=== PATIENT | female | born 1950 | race Caucasian/White ===

== ENCOUNTER → 2017-10-15 16:12 | Outpatient (CLI) | payer MEDICARE, BC, SELFPAY ==
--- NOTE | 2017-10-15 16:43 | MRI_ITS ---
STUDY: MRI CERVICAL SPINE WITHOUT CONTRAST REASON FOR EXAM: Female, 67 years old. Neck pain. Right arm numbness and tingling. TECHNIQUE: Standardized fat and water weighted pulse sequences were obtained in the sagittal and axial planes. COMPARISON: None FINDINGS: Normal foramen magnum and brainstem-cervical cord junction. Normal craniovertebral junction. Normal anterior atlantoaxial articulation. Normal odontoid process. Normal cervical lordosis. Normal vertebral bodies and posterior osseous elements. C2-3: Normal endplates. Normal disc height, signal and morphology. Normal central canal and intervertebral neural foramina. C3-4: Normal endplates. Normal disc height, signal and morphology. Normal central canal and intervertebral neural foramina. C4-5: Normal endplates. Normal disc height, signal and morphology. Normal central canal and intervertebral neural foramina. C5-6: Endplate spondylosis. Central and paracentral disc osteophyte bulge more prominent on the right side impinging on the right C6 nerve root. Degenerative changes of the bilateral facet joints and uncovertebral joints. Moderate narrowing of the central canal and mild narrowing of the bilateral intervertebral neural foramina. C6-7: Normal endplates. Normal disc height, signal and morphology. Normal central canal and intervertebral neural foramina. C7-T1: Normal endplates. Normal disc height, signal and morphology. Normal central canal and intervertebral neural foramina. Normal cervical cord. Normal visualized soft tissue structures. MRI/Spine Cervical (Routine) IMPRESSION: Central and paracentral disc osteophyte bulge at C5-6 more prominent on the right side impinging on the right C6 nerve root. Electronically Signed: Clementina Ribeiro MD at 3:44 EST Tel , Service support ,
== END ==
PROVIDERS: Family Provider Family Medicine; PCP Family Medicine
DX: M54.12 Radiculopathy, cervical region (principal)
CPT/HCPCS: 72141

== ENCOUNTER → 2017-11-02 07:59 | Outpatient (CLI) | payer MEDICARE, BC, SELFPAY ==
[2017-11-02] VITALS (8 sets, daily range): BP systolic 93–117; BP diastolic 53–74; PULSE 72–92; RESP 16–18; TEMP 36.2–36.8; O2SAT 98–100; BMI 21.4
[2017-11-02] MEDS: Acetaminophen 325 MG Tablet 650 MG PO (09:04)
[2017-11-02] MEDS: DiphenhydrAMINE 50 MG/ML Syringe 25 MG IV (09:04)
[2017-11-02] MEDS: Hydrocortisone Sod Succinate 100 MG/2 ML Vial IV (09:04)
== END ==
PROVIDERS: Family Provider Family Medicine; PCP Family Medicine; Visit Provider Internal Medicine Hematology & Oncology
DX: Z51.89 Encounter for other specified aftercare (principal); D50.0 Iron deficiency anemia secondary to blood loss (chronic)
CPT/HCPCS: 36430; 86850; 86900; 86902; 86920; 86922; J7040; J7050; P9016; A4216

== ENCOUNTER 2018-02-07 08:00 | Outpatient (RCR) | payer MEDICARE, BC, SELFPAY ==
--- NOTE | 2018-01-12 17:21 | HP.PTEVAL_ITS ---
Patient's Visit Information DERECK LÓPEZ is a 67 year old F referred to Physical Therapy by UZMA MAYS with a diagnosis of cervical discectomy early December.. Date of Evaluation: 01/12/18 Physical Therapist: Rohith Turner DPT, OC - Visit Plan Frequency: 3x /Week Duration: 4-6 Weeks Plan: 3x/week for 3-6 for : 1. c/s gentle ROM focussing Rotation and posture. 2. postural, shoulder strength and isometric cervical strength. 3. STM to posterior c/s if needed for tightness/pain. 4. Postural focus. - Subjective Subjective: 3 weeks ago had C5-6 meniscectomy fusion from bulging disc making R fingers and arm numb. Was a little weak and it woke her up at night. Had long history of neck pain. Now hurts in shoulders spasming a ltitle bit from not moving. Numbness and tinlging is improving but may last 12-18 months. Was going to [employer] to wrok out and wants to return. Sleep is not great as she is uncomfortable. Has soft collar that she does not need to sleep in anymore and is weaning out of it during the day. Is to avoid lifting > 10# and bending or turning head too far. Not allowed to drive for two weeks. Basic ADLS are OK. Stayed with daughter in [place] for first two weeks but is home now. Steps to basement for laundry. Not employed. 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 No exercises, no icing. - Pain R neck/shoulder Pain Intensity (Out of 10): 0 Pain Intensity Range: 0, 5 Comment: after mowing. - Objective 32 L rotation 20 r rotation, 10 degrees B SB and 40 ext. Tender to the touch R UT and deltoid minimally. UE AROM WFL, R shoulder 140 flexion and L 155. Strength in thumb ext 4- R and 4 L, wirst ext adn flexion 4 B, elbow flexiona dn ext 4-/5 adn shoulder flex/abd 4/5, ext rotation 3+ R and 4 L...IKR 4 B. Sensation shows slight numbness 1/2/3 digit R UE subjectively. reflexes 2/3 bi and tri. Posture is forward head but lower spine posture is decent. Scapular ROM WFL. - Goals Goal 1:: Pt pain 0-2/10 or less at all times and mangeable Goal Time Frame: 4-6 Weeks Goal 2:: Sleep without waking due to discomfort Goal Time Frame: 4-6 Weeks Goal 3:: Turn head 60 degrees each direction without pain to help with driving viewing. Goal Time Frame: 4-6 Weeks Goal 4:: Back to workout at [employer] without pain Goal Time Frame: 4-6 Weeks - Rehabilitation Potential Physical Therapy Diagnosis: s/p cervical fusion with stiffness and diminished activity Rehabilitation Potential: Fair - Anticipated Interventions Patient/Client Instruction: Educate patient on: Condition, Plan of Care For the Purpose of:: To decrease pain, To increase ROM, To improve nutrient delivery to tissue, To improve muscle performance and motor function Therapeutic Exercise to Include: Strength training, Postural training, Flexibilty training, Active ROM, Scapular Strength/Stabilization For the Purpose of:: To decrease pain, To increase ROM, To improve muscle performance and motor function, To improve ability to perform ADL's, To improve ability of physical actions for home/community/work/leisure Manual Therapy Techniques to Include: Soft tissue mobilization For the Purpose of:: To improve nutrient delivery to tissue Thank you for the opportunity to evaluate your patient. For Medicare and Medicare HMO plans, please review the plan of care and approve it. It will need to be FAXED BACK to us at [phone] for Medicare purposes. Please let me know if there are questions or concerns regarding this plan of care. Physician Signature: Date:
--- NOTE | 2018-02-07 08:52 | HP.PTDCSUM ---
HP - PT D/C Summary It has been my pleasure to treat DERECK LÓPEZ under orders from UZMA MAYS, for the diagnosis of cervical discectomy early December. for a total of 13 visit(s). Discharge Date: 02/07/18 Please see the following information for a summary of their discharge status. - Subjective Subjective: It's a neck. Getting better yes and no but still feels tight. Has more movement after sessions and feels looser. After working or being in wrong position it still bothers her on the right side. Hato be more aware of where chin is. No problems with R hand. Sleep is up and down which is normal for her. Sees doctor in March 02. HEP doing bands in door , c/s AROM rotation and rolling foam roller. Life is normal, just stiff and tight at times. Mowing ont he tractor for too long make sit stiff. 03/01 night after work but OK Wednesday relaxing. - Pain R neck/shoulder Pain Intensity (Out of 10): 0 - Objective Objective/Function: 60 L , 58 R., 60 ext , 20+ SB. ALL MUCH BETTER. Good UE AROM and no UE symptoms today. - Goals Goal 1:: Pt pain 0-2/10 or less at all times and mangeable Goal Progress: Progressing Goal 2:: Sleep without waking due to discomfort Goal Progress: for the most part. Goal 3:: Turn head 60 degrees each direction without pain to help with driving viewing. Goal Progress: Near met. Goal 4:: Back to workout at [employer] without pain Goal Progress: no time. - Plan Plan: D/C(pt request vs continuing or f/u in three weeks.) - D/C Information Discharge Comments: Pt to continue HEP and see doctor in three weeks. Will call if problems. Doing very well with expected apin and stiffness adn much better ROM. If there are questions or concerns regarding this patient's physical therapy, please feel free to call me at [phone]. Thank you for the referral of this patient. Sincerely, Rohith Turner, DPT, OC
== END 2018-02-07 19:00 | disposition home or self-care (01) ==
LOC: PT 08:00
PROVIDERS: Family Provider Family Medicine; PCP Family Medicine
DX: Z98.1 Arthrodesis status (principal)
CPT/HCPCS: 97110; 97140; 97162; 97530

== ENCOUNTER → 2018-03-23 13:45 | Outpatient (CLI) | payer MEDICARE, BC, SELFPAY ==
--- NOTE | 2018-03-23 13:46 | ECHOD_ITS ---
Reason For Study: dyspnea/Sob Procedure This was a 2D Doppler, Color Flow transthoracic echocardiogram. Exam performed in department. Left Ventricle Normal LV size. Left ventricular systolic function is normal. The estimated ejection fraction is 65 %. No evidence for diastolic dysfunction. No regional wall motion abnormalities noted. Right Ventricle Normal RV size. Normal systolic function. Atria Normal left atrium. Normal right atrium. Mitral Valve Normal mitral valve. Mild (1+) eccentric mitral valve insufficiency. Tricuspid Valve Normal tricuspid valve. Mild (1+) tricuspid valve insufficiency. Pulmonary artery systolic pressure is 37 mmHg. Aortic Valve Normal aortic valve. Trisinus/trileaflet aortic valve. Pulmonic Valve Normal pulmonic valve. Great Vessels Normal aortic root. The pulmonary artery is normal size. Normal inferior vena cava. Pericardium/Pleural No pericardial effusion. MMode/2D Measurements & Calculations LVIDd: 4.6 cm IVSd: 0.93 cm Ao root diam: 3.0 cm LVIDs: 2.9 cm LVPWd: 0.96 cm LA dimension: 3.0 cm RVDd: 2.6 cm FS: 35.8 % LAV(MOD-bp): 59.1 ml LA A4 area: 18.4 cm2 RA A4 area: 16.2 cm2 LAV(MOD-bp) Indexed: 35.1 ml/m2 LAV(MOD-sp2): 53.8 ml LAV(MOD-sp4): 55.4 ml Doppler Measurements & Calculations MV E max curly: 110.1 cm/sec Lat Peak E' Curly: 9.3 cm/sec Med Peak E' Curly: 8.5 cm/sec MV A max curly: 82.3 cm/sec E/E' lat: 11.8 E/E' med: 12.9 MV E/A: 1.3 Ao V2 max: 155.2 cm/sec LV V1 max: 136.0 cm/sec PA V2 max: 92.1 cm/sec Ao max P.6 mmHg LV V1 max P.4 mmHg TR max curly: 285.2 cm/sec TR max P.6 mmHg Interpretation Summary Normal LV size. Left ventricular systolic function is normal. The estimated ejection fraction is 65 %. No evidence for diastolic dysfunction. Mild (1+) eccentric mitral valve insufficiency. Mild (1+) tricuspid valve insufficiency. Ordering Physician: Delta House Referring Physician: Delta House Performed By: María Hyatt, HILARIO, RVT
--- NOTE | 2018-03-23 14:36 | CT_ITS ---
STUDY: CTA CHEST REASON FOR EXAM: Female, 67 years old. Hereditary hemorrhagic telangiectasia. Baseline scan. RADIATION DOSAGE (If Supplied By Facility): CTDIvol = ( 10.48+5.21 ) mGy, DLP = ( 183.67 ) mGycm TECHNIQUE: The examination was performed with the intravenous administration of 75cc ml of Isovue 370 contrast material. Post-processing of the angiographic images was performed, with multiplanar reformation and 3D reconstruction. Individualized dose optimization techniques were used for this CT. COMPARISON: CT chest with contrast 05/12/2012. FINDINGS: Supraclavicular: Normal thyroid. No mass or lymphadenopathy. Thoracic body wall soft tissues: Normal. Osseous structures: Right shoulder arthroplasty. Cervical ACDF. Moderate thoracic kyphosis with mild scoliosis and osteopenia and mild spondylosis. No acute osseous process. Upper abdomen: Limited evaluation, no acute process. Mediastinum: Normal esophagus. There is no mediastinal or hilar mass or lymphadenopathy. Heart: Normal heart size without pericardial effusion and with no visible coronary calcifications. Aorta: Nondilated. Patent cervical arch branching no significant plaque. No dissection. Pulmonary arteries: Nondilated central pulmonary arteries with no evidence of pulmonary embolism. There is no evidence of pulmonary vascular malformation. Lungs: A few tiny scattered pulmonary nodules are present, 3 mm or less, part solid, nonspecific. The lungs appear otherwise clear and normal. CT/CTA Chest W/WO Contrast IMPRESSION: Normal aorta, pulmonary arterial, and pulmonary venous arborization. No evidence of vascular malformation. Clear normal lungs. Normal heart, with normal-appearing coronary arteries. No acute thoracic process is evident. Electronically Signed: Ruel Robins, at 16:56 EDT Tel , Service support ,
[2018-03-23 15:16] LABS: CREATININE FINGERSTICK 0.6 mg/dL (0.55-1.02); EGFR FINGERSTICK > 60.0000 mL/min (>60)
== END ==
PROVIDERS: Family Provider Family Medicine; PCP Family Medicine; Visit Provider Internal Medicine Cardiovascular Disease
DX: R06.09 Other forms of dyspnea (principal); I78.0 Hereditary hemorrhagic telangiectasia
CPT/HCPCS: 71275; 93306; Q9967

== ENCOUNTER → 2018-04-19 08:02 | Outpatient (CLI) | payer MEDICARE, BC, SELFPAY ==
[2018-04-19] VITALS (7 sets, daily range): BP systolic 85–112; BP diastolic 56–78; PULSE 78–91; RESP 16; TEMP 36.4–36.9; O2SAT 98; BMI 21.3
[2018-04-19] MEDS: Acetaminophen 325 MG Tablet 650 MG PO (08:33)
[2018-04-19] MEDS: DiphenhydrAMINE 50 MG/ML Syringe 25 MG IV (08:34)
[2018-04-19] MEDS: Hydrocortisone Sod Succinate 100 MG/2 ML Vial IV (08:34)
== END ==
PROVIDERS: Family Provider Family Medicine; PCP Family Medicine; Visit Provider Internal Medicine Hematology & Oncology
DX: Z51.89 Encounter for other specified aftercare (principal); D50.0 Iron deficiency anemia secondary to blood loss (chronic)
CPT/HCPCS: 36430; 86850; 86900; 86902; 86920; 86922; J7040; P9016; A4216

== ENCOUNTER → 2018-09-20 08:34 | Outpatient (CLI) | payer MEDICARE, BC, SELFPAY ==
[2018-09-17 13:39] VITALS: BMI 22.6
[2018-09-20] VITALS (9 sets, daily range): BP systolic 106–124; BP diastolic 53–74; PULSE 84–102; RESP 16–18; TEMP 36.6–37.4; O2SAT 96–99; BMI 21.4
[2018-09-20] MEDS: DiphenhydrAMINE 50 MG/ML Syringe 25 MG IV (09:04)
[2018-09-20] MEDS: Acetaminophen 325 MG Tablet 650 MG PO (09:05)
[2018-09-20] MEDS: Hydrocortisone Sod Succinate 100 MG/2 ML Vial IV (09:05)
== END ==
PROVIDERS: Family Provider Family Medicine; PCP Family Medicine; Referring Provider Internal Medicine Hematology & Oncology; Visit Provider Internal Medicine Hematology & Oncology
DX: Z51.89 Encounter for other specified aftercare (principal); D50.0 Iron deficiency anemia secondary to blood loss (chronic)
CPT/HCPCS: 36430; 86850; 86900; 86902; 86920; 86922; J7040; P9016; P9040; A4216

== ENCOUNTER → 2018-11-15 08:26 | Outpatient (CLI) | payer MEDICARE, BC, SELFPAY ==
[2018-09-20 08:45] VITALS: BMI 21.4
[2018-11-15] VITALS (10 sets, daily range): BP systolic 95–112; BP diastolic 42–58; PULSE 75–87; RESP 16; TEMP 36.6–37.3; O2SAT 99–100; BMI 21.4
[2018-11-15] MEDS: Acetaminophen 325 MG Tablet 650 MG PO (08:59)
[2018-11-15] MEDS: Hydrocortisone Sod Succinate 100 MG/2 ML Vial IV (08:59)
[2018-11-15] MEDS: DiphenhydrAMINE 50 MG/ML Syringe 25 MG IV (08:59)
== END ==
PROVIDERS: Family Provider Family Medicine; PCP Family Medicine; Referring Provider Internal Medicine Hematology & Oncology; Visit Provider Internal Medicine Hematology & Oncology
DX: Z51.89 Encounter for other specified aftercare (principal)
CPT/HCPCS: 36430; 86850; 86900; 86902; 86920; 86922; J7040; P9016; A4216

== ENCOUNTER → 2018-12-08 14:11 | Outpatient (CLI) | payer MEDICARE, BC, SELFPAY ==
[2018-09-20 08:45] VITALS: BMI 21.4
[2018-12-08 13:00] VITALS: BMI 21.4
--- NOTE | 2018-12-08 14:13 | BI_ITS ---
MAMMOGRAPHY - BILATERAL SCREENING REASON FOR EXAM: Female, 68 years old. Routine annual screening examination. PERTINENT HISTORY: Non-contributory. TECHNIQUE: Digital bilateral breast mercedes (3D mammographic acquisition) in the CC and MLO projections. 2-D mediolateral oblique (MLO) and craniocaudad (CC) views of both breasts were obtained. CAD: Full Field Digital Mammography with Computer Added Detection was performed. COMPARISON: Comparison is made with prior examination dated August 20, 2016. FINDINGS: Breast Composition: There are scattered areas of fibroglandular density. There are no dominant masses or suspicious calcifications. No other significant abnormalities are identified. There has been no significant change since the prior study. BI/SCREEN MAMM (CAD) W/MERCEDES BILAT IMPRESSION: Stable bilateral screening mammogram. Yearly follow-up mammogram recommended. (A) ASSESSMENT CATEGORY: BIRADS Category 1: Negative. A letter regarding these results will be sent to the patient by the facility within 30 days. Approximately 10% of breast cancers are not detected by mammography. A normal mammogram should not delay biopsy of a clinically suspicious abnormality. [id number] Electronically Signed: Roberto Olson, at 16:04 EDT , Service support ,
--- NOTE | 2018-12-08 14:15 | BD_ITS ---
STUDY: DUAL ENERGY X-RAY ABSORPTIOMETRY / DXA REASON FOR EXAM: Female, 68 years old. The patient is postmenopausal. No loss of height. TECHNIQUE: Bone Mineral Density (BMD) measurements of lumbar spine and bilateral hips were obtained. COMPARISON: None. FINDINGS: Lumbar Spine (L1-L4): g/cm2 (1.073) / T-score (-0.8) / Z-score (0.8) Findings are suggestive of normal bone density with a low fracture risk. Left Femur Total: g/cm2 (0.811) / T-score (-1.6) / Z-score (-0.2) Left Femoral Neck: g/cm2 (0.817) / T-score (-1.6) / Z-score (0.0) Right Femur Total: g/cm2 (0.744) / T-score (-2.1) / Z-score (-0.7) Right Femoral Neck: g/cm2 (0.676) / T-score (-2.6) / Z-score (-1.0) BD/Dexa Bone Density Study IMPRESSION: The patient is considered osteoporotic as outlined below according to World Erasmo Organization (WHO) criteria with a high fracture risk. Reference Information: The T-score is the number of standard deviations above or below the standard which is normal for young adults at their peak bone mineral density. The World Health Organization (WHO) interprets the T-scores as follows: Above -1 Normal bone density Between -1 and -2.5 Osteopenia Equal to / or below -2.5 Osteoporosis As a practical clinical guideline, osteopenia may be graded as follows: Mild -1 through -1.5 Moderate -1.6 through -2.0 Severe -2.1 through -2.4 The Z-score is the number of standard deviations above or below age-matched controls. A Z-score of less than -1.5 would be considered abnormal. References: 1. NIH Osteoporosis and Related Bone Diseases http://www.osteo.org 2. International Society for Clinical Densitometry http://www.iscd.org 3. National Osteoporosis Foundation http://www.nof.org Electronically Signed: Roberto Olson, at 14:50 EDT , Service support ,
== END ==
PROVIDERS: Family Provider Family Medicine; PCP Family Medicine; Referring Provider Nurse Practitioner Women's Health; Visit Provider Nurse Practitioner Women's Health
DX: Z12.31 Encounter for screening mammogram for malignant neoplasm of breast (principal); Z78.0 Asymptomatic menopausal state
CPT/HCPCS: 77063; 77067; 77080

== ENCOUNTER → 2019-02-27 | Outpatient (CLI) | payer MEDICARE, BC, SELFPAY ==
[2018-12-08 13:00] VITALS: BMI 21.4
== END | disposition home or self-care (01) ==
LOC: BFHLAB 11:06
PROVIDERS: Family Provider Family Medicine; PCP Family Medicine; Visit Provider Family Medicine
DX: R39.15 Urgency of urination (principal); E78.5 Hyperlipidemia, unspecified; R53.83 Other fatigue
CPT/HCPCS: 87086

== ENCOUNTER → 2019-03-01 | Outpatient (CLI) | payer MEDICARE, BC, SELFPAY ==
[2018-12-08 13:00] VITALS: BMI 21.4
[2019-03-01 12:28] LABS: ALB/GLOB Ratio 1.3 RATIO (0.9-2.4); AST(SGOT) 22 U/L (15-37); Alanine Aminotransfer ALT/SGPT 30 U/L (13-56); Albumin, Serum 3.8 g/dL (3.2-5.0); Alkaline Phosphatase 77 U/L (45-117); Anion Gap 8 (5-15); BUN 22 mg/dL (7-18); BUN/Creat Ratio 26.1 RATIO (10-20); Calcium,Total 8.9 mg/dL (8.5-10.1); Chloride 105 mmol/L (98-107); Cholesterol 158 mg/dL (200); Creatinine, Serum 0.84 mg/dL (0.55-1.02); EST Glomerular Filtration Rate 71 mL/min (>60); Est Glom Filt Rate - Afr Amer 86 mL/min (>60); Globulin 2.9 g/dL (2.2-4.2); Glucose 79 mg/dL (74-106); High Density Lipoprotein 47 mg/dL; Protein, Total 6.7 g/dL (6.4-8.2); Sodium Level 140 mmol/L (136-145); Triglycerides 116 mg/dL; Very Low Density Lipoprotein 23 mg/dL (5-40)
== END | disposition home or self-care (01) ==
LOC: LAB.FUTURE 08:07
PROVIDERS: Family Provider Family Medicine; PCP Family Medicine; Visit Provider Family Medicine
DX: E78.5 Hyperlipidemia, unspecified (principal); R53.83 Other fatigue; R39.15 Urgency of urination
CPT/HCPCS: 36415; 80053; 80061

== ENCOUNTER → 2019-07-06 15:36 | Outpatient (CLI) | payer MEDICARE, BC, SELFPAY ==
[2019-03-02 13:13] VITALS: BMI 22.1
== END ==
PROVIDERS: Family Provider Family Medicine; PCP Family Medicine; Referring Provider Otolaryngology Otolaryngology/Facial Plastic Surgery; Visit Provider Otolaryngology Otolaryngology/Facial Plastic Surgery
DX: J32.9 Chronic sinusitis, unspecified (principal)
CPT/HCPCS: 87070; 87205

== ENCOUNTER 2019-08-06 09:44 | Emergency (ER) | payer MEDICARE, BC, SELFPAY ==
[2019-08-06 09:12] VITALS: BMI 22.1
[2019-08-06 09:45] VITALS: BP 116/75; PULSE 85; RESP 18; TEMP 36.7; O2SAT 99; BMI 21.7
--- NOTE | 2019-08-06 09:58 | CT_ITS ---
STUDY: CT CHEST WITH CONTRAST REASON FOR EXAM: Female, 68 years old. Patient fell 5 days ago. Hematuria. RADIATION DOSAGE (If Supplied By Facility): CTDIvol = ( 8.99 ) mGy, DLP = ( 1261.62 ) mGycm TECHNIQUE: Transaxial imaging was performed following intravenous administration of 100mL Isovue 370. Individualized dose optimization techniques were used for this CT. COMPARISON: 03/23/2018. FINDINGS: There is moderate stranding in the right lung base new since previous examination likely due to atelectasis. There are mild atelectatic changes in the left lung base. There is small right pleural effusion. Normal heart and pericardium. Normal mediastinum. Normal hilar regions. Normal enhanced pulmonary arteries. Normal aorta arch and descending thoracic aorta. There is right shoulder arthroplasty. There is increased kyphosis of the thoracic spine and mild degenerative changes. There is no demonstrated acute fracture. The visualized portions of the upper abdomen demonstrate trace of free fluid adjacent to the liver. CT/Chest WITH Contrast IMPRESSION: 1. Atelectatic changes in the right lower lung and small right pleural effusion. 2. Minimal amount of fluid adjacent to the liver. 3. No demonstrated acute fracture. Electronically Signed: Javy Fajardo MD at 11:48 EST Tel , Service support ,
--- NOTE | 2019-08-06 09:58 | CT_ITS ---
STUDY: CT ABDOMEN AND PELVIS WITH CONTRAST REASON FOR EXAM: Female, 68 years old. Patient fell 5 days ago, right flank pain and hematuria. RADIATION DOSAGE (If Supplied By Facility): CTDIvol = ( 8.99 ) mGy, DLP = ( 1261.62 ) mGycm TECHNIQUE: Transaxial images were obtained from the dome of the diaphragm to the symphysis pubis without oral contrast. 100mL Isovue 370 was administered. Sagittal and coronal images were reconstructed. Individualized dose optimization techniques were used for this CT. COMPARISON: None. FINDINGS: The visualized portions of lung bases demonstrate again ectatic changes in the right lower lung. There is small right pleural effusion. The visualized portions of the heart are within normal limits. No focal lesion is seen in the liver. There are collateral veins in the region of the yumi hepatis. There is non-visualization of the gallbladder, which may be secondary to either contraction or a prior cholecystectomy. There is trace of fluid near the dome of the liver. Normal spleen. Normal pancreas. Normal bilateral adrenal glands. Normal right kidney. There is a small cyst in the lower pole of the left kidney. There is mild prominence of the pelvicalyceal system. Normal visualized stomach. There are nonspecific fluid-filled small bowel loops. There is no evidence of bowel obstruction. There is fecal retention. The appendix is visualized and appears normal. Normal abdominal aorta. Normal inferior vena cava. Normal retroperitoneum. Normal urinary bladder. There is increased vascularity in the pelvic region which may reflect pelvic congestion. Normal abdominal wall. There is fracture of the posterior right 10th rib CT/Abdomen/Pelvis WITH Contrast IMPRESSION: 1. Trace of free fluid near the dome of the liver. 2. No evidence of renal injury. 3. Fracture of the posterior right 10th rib. 4. Atelectatic changes in the right lower lung and trace of right pleural effusion. 5. Nonspecific fluid-filled small bowel loops could be due to mild ileus. 6. Collateral veins in the abdomen and pelvis which may reflect venous congestion. Electronically Signed: Javy Fajardo MD at 12:00 EST Tel , Service support ,
[2019-08-06] MEDS: Morphine 4 MG/ML Syringe IV (10:17)
[2019-08-06] MEDS: 0.9% Normal Saline 1,000 ML 999 ML IV (10:17)
[2019-08-06] MEDS: Ondansetron 4 MG/2 ML Vial IV (10:17)
[2019-08-06 10:27] LABS: Absolute Lymphocyte Count 0.56 X10^3/uL (0.83-4.51); Absolute Neutrophil Count 6.2 X10^3/uL (2.0-7.7); Basophil# 0.03 X10^3/uL; Basophil% 0.4 % (0-1); Eosinophil# 0.09 X10^3/uL; Eosinophils% 1.2 % (0-5); Hematocrit 38.8 % (37-47); Hemoglobin 12.3 g/dL (12.0-15.0); Lymphocyte # 0.56 X10^3/ul (4.0); Lymphocyte % 7.3 % (19-41); Mean Corp Hgb Conc 31.7 g/dL (32-36); Mean Corpuscular Hgb 30.8 pg (27.0-32.0); Mean Platelet Vol. 9.6 fl (6.2-12.0); Monocyte# 0.74 X10^3/uL; Monocyte% 9.7 % (0-10); NRBC Flagged by Analyzer 0 % (0-5); Neutrophil # 6.19 X10^3/uL (2.7-7.7); Neutrophil % 81.3 % (47-70); POSITIVE DIFFERENTIAL YES; POSITIVE MORPHOLOGY YES; Platelet Count 261 K/mm3 (150-450); RBC Distribution Width CV 18.3 % (11.6-14.6); RBC Distribution Width SD 66.5 fl (35.1-43.9); White Blood Count 7.6 K/mm3 (4.4-11.0)
[2019-08-06 10:28] LABS: Differential Indicated SCAN CRITERIA MET
[2019-08-06 10:51] LABS: Anion Gap 3 (5-15); BUN 16 mg/dL (7-18); BUN/Creat Ratio 23.7 RATIO (10-20); Calcium,Total 8.8 mg/dL (8.5-10.1); Chloride 106 mmol/L (98-107); Creatinine, Serum 0.68 mg/dL (0.55-1.02); EST Glomerular Filtration Rate 92 mL/min (>60); Est Glom Filt Rate - Afr Amer 111 mL/min (>60); Estimated Creatinine Clearance 50.41 ml/min; Glucose 76 mg/dL (74-106); Sodium Level 140 mmol/L (136-145)
--- NOTE | 2019-08-06 10:52 | ED.VIS.GEN ---
History of Present Illness <Cecilio Bal - Last Filed: 08/06/19 10:52> Narrative: 68-year-old female presents with right flank pain. Patient was playing soccer with her grandson 5 days ago when she fell and struck her right side on a metal bed frame. States that she was seen at a local emergency department and had negative x-rays. Patient continues to have pain. Went to local urgent care this morning and was found to have microscopic hematuria. Patient sent here for CT to rule out renal pathology. Patient describes the pain is sharp and worse with movement. Denies any shortness of breath, chest pain, nausea, vomiting, gross hematuria, head injury. Patient is not on anticoagulation. <Antoni Marr - Last Filed: 08/06/19 13:12> Chief Complaint: Flank Pain Past Medical History Surgical History: cholecystectomy, rotator cuff repair, - - removal of a salivary gland, foot suyrgery, nasal surgeries for bleeding and telangiectasias. Smoking Status: Former smoker - Family History Maternal Family History: Family History (Last Reviewed 08/06/19 @ 08:59 by Irma Alvares) Mother Cancer Father Cancer HHT (hereditary hemorrhagic telangiectasia) Family History: Reports: - - alive at 91 with no significant medical hx Paternal Family History: Family History (Last Reviewed 08/06/19 @ 08:59 by Irma Alvares) Mother Cancer Father Cancer HHT (hereditary hemorrhagic telangiectasia) Family History: Reports: - - HHT, lymphoma and leukemia <Cecilio Bal - Last Filed: 08/06/19 10:52> Prior records reviewed: Yes Past Medical History: - - Hereditary telangiectasias - Family History Maternal Family History: Family History (Last Reviewed 08/06/19 @ 08:59 by Irma Alvares) Mother Cancer Father Cancer HHT (hereditary hemorrhagic telangiectasia) Paternal Family History: Family History (Last Reviewed 08/06/19 @ 08:59 by Irma Alvares) Mother Cancer Father Cancer HHT (hereditary hemorrhagic telangiectasia) <Antoni Marr - Last Filed: 08/06/19 13:12> - Allergies and Home Meds Allergies/Adverse Reactions: Allergies bacitracin Adverse Reaction (Unknown, Verified 08/06/19 09:45) Unknown Primary Care Physician: Mariaelena Corbett DO [Primary Care Provider] - Review of Systems General: Denies: Chills, Fever, Sweats Eyes: Denies: Visual changes - bilaterally, Diplopia ENT: Denies: Rhinorrhea, Sore throat Cardiovascular: Denies: Chest pain, Palpitations Respiratory: Denies: Dyspnea, Cough, Dyspnea on exertion Gastrointestinal: Denies: Abdominal pain, Nausea, Vomiting, Diarrhea, Melena, Hematochezia - Right flank pain Genitourinary: Reports: Hematuria. Denies: Dysuria, Frequency Musculoskeletal: Denies: Back pain, Extremity Pain Skin: Denies: Rash, Wounds Neurological: Denies: Headache, Weakness, Numbness <Antoni Marr - Last Filed: 08/06/19 13:12> Physical Exam Vital Signs/Narrative: Vital Signs Temp Pulse Resp BP Pulse Ox 08/06/19 09:45 98.0 F 85 18 116/75 99 <Cecilio Bal - Last Filed: 08/06/19 10:52> Vital Signs/Narrative: Vital Signs Temp Pulse Resp BP Pulse Ox 08/06/19 09:45 98.0 F 85 18 116/75 99 General: Well nourished, Well developed, No Acute Distress Head: Normocephalic, Atraumatic Eyes: Perrl, EOMI ENT: Moist mucous membranes, No rhinorrhea Neck: Supple, Nontender Cardiovascular: Regular rate, Regular rhythm, No murmurs Respiratory: No distress, CTA bilaterally, Chest nontender Abdomen: Soft, Nondistended, Normal bowel sounds, - - Exquisite tenderness to palpation in the right posterior lateral ribs approximately level of T10. Ecchymosis over this area. No palpable deformity. Back: Nontender, Normal Inspection Extremities: Nontender, No edema Skin: Normal color, No rash Neurological: Alert, Oriented x3, Cranial nerves II-XII grossly intact, Normal Strength, Normal Sensation Psychological: Normal affect, Normal Mood <Antoni Marr - Last Filed: 08/06/19 13:12> Diagnostic/Tx/Re-eval - Medical Decision Making Patient was seen with Dr. Hdez agree with history and physical patient fell she has pain to the right posterior back her vitals are normal on exam she has pain to this area her no crepitance lungs are clear the abdomen soft upper lower extremities unremarkable please see the entire work-up data in chart for full management information <Cecilio Bal - Last Filed: 08/06/19 10:52> CT of the chest abdomen pelvis with IV contrast shows evidence of right posterior 10th rib fracture. Trace pleural effusion as well as trace fluid at the dome of the liver. No other acute pathology. - Medical Decision Making Patient appears well nontoxic. Vital signs within normal limits. Evidence of right posterior 10th rib fracture. Patient was given morphine as well as Zofran and 1 L of normal saline in the emergency department. Patient has small pleural effusion as well as trace fluid at the dome of the liver. Given the patient's only complaint is her tenderness in the area of her fracture she will be discharged home with incentive spirometry as well as pain control. Advised to follow-up with her primary care provider within the next 48 hours for reevaluation. Asked to return if she cannot follow-up with her primary care doctor has worsening pain. Patient was agreeable with this plan and was discharged home in stable condition. <Antoni Marr - Last Filed: 08/06/19 13:12> ED Disposition <Henrry Balnidia - Last Filed: 08/06/19 10:52> <Antoni Marr - Last Filed: 08/06/19 13:12> - Plan for ED Patient: Disposition: Home or Assisted Living Diagnosis: Rib fracture Instructions: Rib Fracture (Broken Rib) Prescriptions: Oxycodone [Oxyir] 5 mg PO Q8H PRN PRN 3 Days #9 tab PRN Reason: Pain Score 6-10/10 Prescription Printed Acetaminophen [Tylenol Extra Strength] 500 mg PO TID #15 tab Prescription Printed Referrals: Mariaelena Corbett DO [Primary Care Provider] -
[2019-08-06 12:37] VITALS: BP 108/51; PULSE 71; RESP 18; O2SAT 98
== END 2019-08-06 13:14 | disposition home or self-care (01) ==
PROVIDERS: Emergency Provider Emergency Medicine; Family Provider Family Medicine; PCP Family Medicine
DX: S22.31XA Fracture of one rib, right side, initial encounter for closed fracture (principal); J90 Pleural effusion, not elsewhere classified; R31.29 Other microscopic hematuria; W01.190A Fall on same level from slipping, tripping and stumbling with subsequent striking against furniture, initial encounter; Y93.66 Activity, soccer; Y92.9 Unspecified place or not applicable; Y99.9 Unspecified external cause status; Z87.891 Personal history of nicotine dependence; Z90.49 Acquired absence of other specified parts of digestive tract
CPT/HCPCS: 71260; 74177; 80048; 85025; 96361; 96374; 96375; 99251; 99283; J7030; Q9967; G0463; J2405

== ENCOUNTER → 2019-09-21 08:56 | Outpatient (CLI) | payer MEDICARE, BC, SELFPAY ==
[2019-09-13 14:42] VITALS: BMI 21.7
[2019-09-21] VITALS (7 sets, daily range): BP systolic 94–126; BP diastolic 60–73; PULSE 68–81; RESP 16; TEMP 36.6–37.1; O2SAT 98–100; BMI 21.4
[2019-09-21] MEDS: Acetaminophen 325 MG Tablet 650 MG PO (09:25)
[2019-09-21] MEDS: Hydrocortisone Sod Succinate 100 MG/2 ML Vial IV (09:50)
[2019-09-21] MEDS: DiphenhydrAMINE 50 MG/ML Syringe 25 MG IV (10:00)
== END ==
LOC: MEDOUTP 08:57
PROVIDERS: PCP Family Medicine; Referring Provider Internal Medicine Hematology & Oncology; Visit Provider Internal Medicine Hematology & Oncology
DX: Z51.89 Encounter for other specified aftercare (principal); D50.9 Iron deficiency anemia, unspecified
CPT/HCPCS: 36430; 86850; 86900; 86901; 86902; 86920; 86922; J7040; P9016; A4216

== ENCOUNTER → 2019-10-20 07:53 | Outpatient (CLI) | payer MEDICARE, BC, SELFPAY ==
[2019-09-21 09:13] VITALS: BMI 21.4
[2019-10-20] VITALS (10 sets, daily range): BP systolic 104–124; BP diastolic 55–78; PULSE 78–97; RESP 16; TEMP 36.2–36.9; O2SAT 98–100; BMI 21.4
[2019-10-20] MEDS: Acetaminophen 325 MG Tablet 650 MG PO (08:15)
[2019-10-20] MEDS: Hydrocortisone Sod Succinate 100 MG/2 ML Vial IV (08:15)
[2019-10-20] MEDS: DiphenhydrAMINE 50 MG/ML Syringe 25 MG IV (08:21)
== END ==
PROVIDERS: PCP Family Medicine; Referring Provider Internal Medicine Hematology & Oncology; Visit Provider Internal Medicine Hematology & Oncology
DX: Z51.89 Encounter for other specified aftercare (principal); D50.9 Iron deficiency anemia, unspecified
CPT/HCPCS: 36430; 86850; 86900; 86901; 86902; 86920; 86922; J7040; P9016; A4216

== ENCOUNTER → 2019-11-09 08:00 | Outpatient (CLI) | payer MEDICARE, BC, SELFPAY ==
[2019-10-20 08:05] VITALS: BMI 21.4
[2019-11-09] VITALS (11 sets, daily range): BP systolic 92–118; BP diastolic 42–67; PULSE 74–98; RESP 16–18; TEMP 36.2–37.1; O2SAT 97–100; BMI 21.4
[2019-11-09] MEDS: Acetaminophen 325 MG Tablet 650 MG PO (08:42)
[2019-11-09] MEDS: 0.9% NaCl Peripheral Flush Adult/Peds IV (08:42)
[2019-11-09] MEDS: DiphenhydrAMINE 50 MG/ML Syringe 25 MG IV (08:43)
[2019-11-09] MEDS: Hydrocortisone Sod Succinate 100 MG/2 ML Vial IV (08:48)
== END ==
PROVIDERS: PCP Family Medicine; Referring Provider Internal Medicine Hematology & Oncology; Visit Provider Internal Medicine Hematology & Oncology
DX: Z51.89 Encounter for other specified aftercare (principal); I78.0 Hereditary hemorrhagic telangiectasia; D50.0 Iron deficiency anemia secondary to blood loss (chronic)
CPT/HCPCS: 36430; 86850; 86900; 86901; 86902; 86920; 86922; J7040; P9016; A4216

== ENCOUNTER 2019-11-24 14:54 | Emergency (ER) | payer MEDICARE, BC, SELFPAY ==
[2019-11-09 08:54] VITALS: BMI 21.4
[2019-11-24 14:55] VITALS: BP 150/91; PULSE 97; RESP 16; TEMP 36.4; O2SAT 100; BMI 21.1
--- NOTE | 2019-11-24 15:12 | CT_ITS ---
STUDY: CT ABDOMEN AND PELVIS WITHOUT CONTRAST REASON FOR EXAM: Female, 69 years old. BODY ACHES, DIZZY, POSSIBLE REACTION FROM HHT INFUSION, HEREDITARY HEMORRHAGIC TELANGIECTASIA RADIATION DOSAGE (If Supplied By Facility): CTDIvol = ( 13.73 ) mGy, DLP = ( 363.69 ) mGycm TECHNIQUE: Transaxial images were obtained from the dome of the diaphragm to the symphysis pubis without oral contrast, and without intravenous contrast. Sagittal and coronal images were reconstructed. Individualized dose optimization techniques were used for this CT. COMPARISON: CT of abdomen and pelvis dated these were 2018 FINDINGS: The visualized lung bases are unremarkable. Normal liver. No intrahepatic biliary duct dilatation or liver mass. Normal gallbladder and extrahepatic biliary system. Normal spleen. Normal pancreas. Normal bilateral adrenal glands. Normal right kidney. Stable small left parapelvic cyst. No hydronephrosis or renal masses. No large stones. Normal visualized stomach. Normal small intestine. Unremarkable colonic loops. No bowel dilatation or obstruction. No free air or free fluid. The appendix is visualized and appears normal. Normal abdominal aorta. Normal inferior vena cava. Normal retroperitoneum. Normal urinary bladder. Atrophic uterus. Reidentification of prominent veins in the lower pelvis. Normal abdominal wall. There are diffuse degenerative changes of the visualized lumbar spine. CT/Abdomen/Pelvis W IV Cont ONLY IMPRESSION: 1. No demonstrated acute process of the abdomen and pelvis. 2. Reidentification of prominent veins in the lower pelvis. Electronically Signed: Marcelo Ovalle MD at 16:43 EDT , Service support ,
[2019-11-24 15:29] LABS: Absolute Lymphocyte Count 0.42 X10^3/uL (0.83-4.51); Absolute Neutrophil Count 4.9 X10^3/uL (2.0-7.7); Basophil# 0.05 X10^3/uL; Basophil% 0.8 % (0-1); Eosinophil# 0.13 X10^3/uL; Eosinophils% 2.1 % (0-5); Hematocrit 29.7 % (37-47); Hemoglobin 8.6 g/dL (12.0-15.0); Lymphocyte # 0.42 X10^3/ul (4.0); Lymphocyte % 6.9 % (19-41); Mean Corpuscular Hgb 27.3 pg (27.0-32.0); Mean Corpuscular Volume 94.3 fL (81-99); Mean Platelet Vol. 10.4 fl (6.2-12.0); Monocyte# 0.43 X10^3/uL; Monocyte% 7.1 % (0-10); NRBC Flagged by Analyzer 0.7 % (0-5); Neutrophil # 4.94 X10^3/uL (2.7-7.7); Neutrophil % 81.6 % (47-70); POSITIVE DIFFERENTIAL YES; Platelet Count 238 K/mm3 (150-450); RBC Distribution Width CV 15.8 % (11.6-14.6); RBC Distribution Width SD 53.6 fl (35.1-43.9); Red Blood Count 3.15 M/mm3 (4.2-5.4); White Blood Count 6.1 K/mm3 (4.4-11.0)
[2019-11-24 15:37] LABS: Differential Indicated SCAN CRITERIA MET
[2019-11-24 15:44] LABS: ALB/GLOB Ratio 1.3 RATIO (0.9-2.4); AST(SGOT) 19 U/L (15-37); Alanine Aminotransfer ALT/SGPT 28 U/L (13-56); Albumin, Serum 3.7 g/dL (3.2-5.0); Alkaline Phosphatase 81 U/L (45-117); Anion Gap 6 (5-15); BUN 11 mg/dL (7-18); BUN/Creat Ratio 18.1 RATIO (10-20); Calcium,Total 8.9 mg/dL (8.5-10.1); Chloride 104 mmol/L (98-107); Creatinine, Serum 0.61 mg/dL (0.55-1.02); EST Glomerular Filtration Rate 104 mL/min (>60); Est Glom Filt Rate - Afr Amer 125 mL/min (>60); Globulin 2.8 g/dL (2.2-4.2); Glucose 100 mg/dL (74-106); Lipase 174 U/L (73-393); Potassium 3.9 mmol/L (3.5-5.1); Protein, Total 6.5 g/dL (6.4-8.2); Prothrombin Time (Protime)PT. 13.3 SECONDS (11.7-14.9); Sodium Level 139 mmol/L (136-145)
[2019-11-24 15:45] LABS: Partial Thromboplast Time 30.5 Seconds (24.1-36.2)
[2019-11-24 16:14] LABS: Differential Comment SCANNED
[2019-11-24 16:54] VITALS: RESP 18
--- NOTE | 2019-11-24 18:01 | ED.VISSUMM ---
- ER Visit Summary Date of Service: 11/24/19 Chief Complaint: Pain History of Present Illness: The patient is a 69 F with a history of hereditary hemorrhagic telangiectasia. She has chronic melena and GI bleeding. She was previously on iron infusions and received a blood transfusion a couple weeks ago. She was treated with a Avastin yesterday by Dr. Soto. She was referred to the ED for possible anemia as she had similar symptoms in the past. Patient is having body aches all over, especially her abdomen. Physical Examination: Afebrile and vital signs unremarkable. Heart regular. Lungs no respiratory distress. Abdomen soft. Rectal exam nontender with no gross blood. Skin appears normal. Test Results: Hemoglobin stable 8.6. Chemistry panel normal. Hepatic panel and lipase normal. Coags normal. Phosphorus 4.0. Hemoccult negative. CT abdomen showed no acute findings. Emergency Department Course and Treatment: Patient declined pain medicine. Her results were fairly unremarkable. She was discussed with Dr. Soto. He advised checking phosphorus which was normal. Patient is appropriate for outpatient follow-up. She will be discharged home. Treatment Plan: As above Disposition: Discharge Impression: Body aches, anemia This note was generated with [employer] dictation software. It may contain incorrect words, spelling, and punctuation that were not noted in review of the chart prior to signing ED Disposition - Plan for ED Patient: Referrals: Mariaelena Corbett DO [Primary Care Provider] -
--- NOTE | 2019-11-24 18:06 | ED.DEP ---
ED Disposition - Plan for ED Patient: Instructions: ED Hematochezia Stable Referrals: Jesus Soto DO [STAFF PHYSICIAN] -
[2019-11-24 18:27] VITALS: BP 118/62; RESP 14
== END 2019-11-24 18:28 | disposition home or self-care (01) ==
LOC: ED 15:23
PROVIDERS: Emergency Provider Emergency Medicine; PCP Family Medicine
DX: R52 Pain, unspecified (principal); D64.9 Anemia, unspecified; I78.0 Hereditary hemorrhagic telangiectasia; K92.1 Melena; Z79.899 Other long term (current) drug therapy; Z87.440 Personal history of urinary (tract) infections; Z87.891 Personal history of nicotine dependence
CPT/HCPCS: 74177; 80053; 82274; 83690; 84100; 85025; 85610; 85730; 99283; Q9967; A4216

== ENCOUNTER → 2020-02-14 07:55 | Outpatient (CLI) | payer MEDICARE, BC, SELFPAY ==
[2019-10-20 08:05] VITALS: BMI 21.4
--- NOTE | 2020-02-14 07:55 | BI_ITS ---
MAMMOGRAPHY - BILATERAL SCREENING 3-D TOMOSYNTHESIS REASON FOR EXAM: Female, 69 years old. Routine screening PERTINENT HISTORY: BILAT SCREENING - NO FAM HX - NO PREV SURG''S. TECHNIQUE: 2-D mammograms and 3-D Tomosynthesis of the breast (s) were performed. CAD was performed. COMPARISON: 12/08/2018 FINDINGS: The breast composition is composed of scattered fibroglandular density. Scattered benign calcifications are seen. No dense spiculated masses or suspicious microcalcifications are identified. No architectural distortion is identified. There is no skin thickening or retraction. There has been no significant change since the prior study. BI/SCREEN MAMM (CAD) W/MERCEDES BILAT IMPRESSION: No mammographic signs of malignancy. Routine yearly mammograms recommended. ASSESSMENT CATEGORY: BIRADS Category 1: Negative. A letter regarding these results will be sent to the patient by the facility within 30 days. FOLLOW UP RECOMMENDATION: Yearly follow up mammogram recommended. (A) Approximately 10% of breast cancers are not detected by mammography. A normal mammogram should not delay biopsy of a clinically suspicious abnormality. Electronically Signed: Franki Garcia MD at 9:03 EDT , Service support ,
== END ==
PROVIDERS: PCP Family Medicine; Referring Provider Nurse Practitioner Women's Health; Visit Provider Nurse Practitioner Women's Health
DX: Z12.31 Encounter for screening mammogram for malignant neoplasm of breast (principal)
CPT/HCPCS: 77063; 77067

== ENCOUNTER → 2020-04-12 09:28 | Outpatient (CLI) | payer MEDICARE, BC, SELFPAY ==
[2020-04-09 09:46] VITALS: BMI 21.7
[2020-04-12] VITALS (7 sets, daily range): BP systolic 96–133; BP diastolic 41–68; PULSE 78–95; RESP 16–18; TEMP 36.4–37; O2SAT 98–100; BMI 21.4
[2020-04-12] MEDS: Acetaminophen 325 MG Tablet 650 MG PO (09:46)
[2020-04-12] MEDS: DiphenhydrAMINE 50 MG/ML Syringe 25 MG IV (10:00)
[2020-04-12] MEDS: Hydrocortisone Sod Succinate 100 MG/2 ML Vial IV (10:11)
[2020-04-12] MEDS: 0.9% NaCl Peripheral Flush Adult/Peds IV (10:21)
== END ==
PROVIDERS: PCP Family Medicine; Referring Provider Internal Medicine Hematology & Oncology; Visit Provider Internal Medicine Hematology & Oncology
DX: Z51.89 Encounter for other specified aftercare (principal); D50.0 Iron deficiency anemia secondary to blood loss (chronic); I78.0 Hereditary hemorrhagic telangiectasia
CPT/HCPCS: 36430; 86850; 86900; 86901; 86902; 86920; 86922; J7040; P9016; A4216

== ENCOUNTER → 2020-05-03 07:49 | Outpatient (CLI) | payer MEDICARE, BC, SELFPAY ==
[2020-04-12 09:56] VITALS: BMI 21.4
[2020-05-03] VITALS (11 sets, daily range): BP systolic 100–120; BP diastolic 51–72; PULSE 76–90; RESP 16; TEMP 36.2–37.1; O2SAT 97–100; BMI 21.6
[2020-05-03] MEDS: 0.9% NaCl Peripheral Flush Adult/Peds IV (08:20)
[2020-05-03] MEDS: Acetaminophen 325 MG Tablet 650 MG PO (08:20)
[2020-05-03] MEDS: DiphenhydrAMINE 50 MG/ML Syringe 25 MG IV (08:28)
[2020-05-03] MEDS: Hydrocortisone Sod Succinate 100 MG/2 ML Vial IV (08:35)
== END ==
PROVIDERS: PCP Family Medicine; Referring Provider Internal Medicine Hematology & Oncology; Visit Provider Internal Medicine Hematology & Oncology
DX: Z51.89 Encounter for other specified aftercare (principal); I78.0 Hereditary hemorrhagic telangiectasia; D50.0 Iron deficiency anemia secondary to blood loss (chronic)
CPT/HCPCS: 36430; 86850; 86900; 86901; 86920; 86922; J7040; P9016; A4216

== ENCOUNTER → 2020-07-15 10:05 | Outpatient (CLI) | payer MEDICARE, BC, SELFPAY ==
[2020-05-03 08:30] VITALS: BMI 21.6
== END ==
PROVIDERS: PCP Family Medicine; Visit Provider Family Medicine
DX: Z20.828 Contact with and (suspected) exposure to other viral communicable diseases (principal)
CPT/HCPCS: 36415; 86769

== ENCOUNTER → 2020-10-29 07:50 | Outpatient (CLI) | payer MEDICARE, BC, SELFPAY ==
[2020-05-03 08:30] VITALS: BMI 21.6
[2020-10-29] VITALS (10 sets, daily range): BP systolic 102–125; BP diastolic 48–70; PULSE 82–94; RESP 16–18; TEMP 36.2–37.2; O2SAT 99–100; BMI 21.4
[2020-10-29] MEDS: DiphenhydrAMINE 50 MG/ML Syringe 25 MG IV (08:12)
[2020-10-29] MEDS: Acetaminophen 325 MG Tablet 650 MG PO (08:12)
[2020-10-29] MEDS: 0.9% NaCl Peripheral Flush Adult/Peds IV (08:12)
[2020-10-29] MEDS: Hydrocortisone Sod Succinate 100 MG/2 ML Vial IV (08:25)
== END ==
PROVIDERS: PCP Family Medicine; Referring Provider Internal Medicine Hematology & Oncology; Visit Provider Internal Medicine Hematology & Oncology
DX: Z51.89 Encounter for other specified aftercare (principal); I78.0 Hereditary hemorrhagic telangiectasia; D50.0 Iron deficiency anemia secondary to blood loss (chronic)
CPT/HCPCS: 36430; 86850; 86900; 86901; 86902; 86920; 86922; J7040; P9016; A4216

== ENCOUNTER → 2021-01-27 | Outpatient (CLI) | payer MEDICARE, BC, SELFPAY ==
[2021-01-27 06:52] VITALS: BMI 21.4
[2021-01-27 10:18] LABS: Mucous, Urine 0 SEEN /hpf (<or=2+)
[2021-01-27 10:25] LABS: Color, Urine Yellow (Yellow); Glucose, Dipstick Normal (Normal); Ketone-Dipstick Negative (Negative); Leukocyte Esterase-Dipstick 500 /ul (Negative); Nitrite-Dipstick Negative (Negative); Occult Blood-Urine 250 /ul (Negative); Protein-Dipstick 100 mg/dl (Negative); Urine Bilirubin Dipstick Negative (Negative); Urine Clarity Sl. Cloudy (Clear); Urine Urobilinogen Normal (Normal)
[2021-01-27 10:31] LABS: Bacteria 1+ /hpf (None Seen); Red Blood Cells-Urine 25-50 SEEN /hpf (0-5); Squamous Epithelial Cells - UA 0-5 SEEN /hpf (5-10); White Blood Cells 25-50 SEEN /hpf (0-5)
== END | disposition home or self-care (01) ==
LOC: LABSPEC 10:12
PROVIDERS: PCP Family Medicine; Visit Provider Physician Assistant
DX: N39.0 Urinary tract infection, site not specified (principal); R35.0 Frequency of micturition; R39.15 Urgency of urination; R31.9 Hematuria, unspecified
CPT/HCPCS: 81001; 87086; 87088; 87186

== ENCOUNTER → 2021-02-18 09:58 | Outpatient (CLI) | payer MEDICARE, BC, SELFPAY ==
[2020-10-29 08:09] VITALS: BMI 21.4
[2021-01-27 06:52] VITALS: BMI 21.4
--- NOTE | 2021-02-18 10:01 | BI_ITS ---
MAMMOGRAPHY - BILATERAL SCREENING REASON FOR EXAM: Female, 70 years old. Routine annual screening examination. PERTINENT HISTORY: Non-contributory. TECHNIQUE: Digital bilateral breast mercedes (3D mammographic acquisition) in the CC and MLO projections. 2-D mediolateral oblique (MLO) and craniocaudad (CC) views of both breasts were obtained. CAD: Full Field Digital Mammography with Computer Added Detection was performed. COMPARISON: Comparison is made with prior study dated 02/14/2020 and 12/08/2018. FINDINGS: Breast Composition: There are scattered areas of fibroglandular density. There are no dominant masses or suspicious calcifications. No other significant abnormalities are identified. There has been no significant change since the prior study. BI/SCRN MAMM (CAD)W/MERCEDES BILAT IMPRESSION: Stable bilateral screening mammogram. Yearly follow-up mammogram recommended. (A) ASSESSMENT CATEGORY: BIRADS Category 1: Negative. A letter regarding these results will be sent to the patient by the facility within 30 days. Approximately 10% of breast cancers are not detected by mammography. A normal mammogram should not delay biopsy of a clinically suspicious abnormality. [id number] Electronically Signed: Roberto Olson MD at 10:53 EDT , Service support ,
== END ==
PROVIDERS: PCP Family Medicine; Referring Provider Nurse Practitioner Women's Health; Visit Provider Nurse Practitioner Women's Health
DX: Z12.31 Encounter for screening mammogram for malignant neoplasm of breast (principal)
CPT/HCPCS: 77063; 77067

== ENCOUNTER → 2021-04-23 12:50 | Outpatient (CLI) | payer MEDICARE, BC, SELFPAY ==
--- NOTE | 2021-04-23 12:52 | ECHOD_ITS ---
Version 2 Reason For Study: DYSPNEA Procedure This was a 2D Doppler, Color Flow transthoracic echocardiogram. Exam performed in department. Left Ventricle Normal LV size. Left ventricular systolic function is normal. The estimated ejection fraction is 60 %. Normal diastology for age. No regional wall motion abnormalities noted. Right Ventricle Normal RV size. Normal systolic function. Atria Normal left atrium. Normal right atrium. Mitral Valve Normal mitral valve. Mild (1+) mitral valve insufficiency. Tricuspid Valve Normal tricuspid valve. Mild (1+) tricuspid valve insufficiency. Pulmonary artery systolic pressure is 35 mmHg. Aortic Valve Normal aortic valve. Trisinus/trileaflet aortic valve. Pulmonic Valve Normal pulmonic valve. Great Vessels Normal aortic root. The pulmonary artery is normal size. Normal inferior vena cava. Pericardium/Pleural No pericardial effusion. MMode/2D Measurements & Calculations LVIDd: 4.8 cm IVSd: 0.86 cm Ao root diam: 3.1 cm LVIDs: 2.5 cm LVPWd: 0.93 cm RVDd: 4.3 cm FS: 46.8 % LAV(MOD-bp): 48.9 ml LA A4 area: 18.2 cm2 LA dimension(2D): 3.3 cm LAV(MOD-bp) Indexed: 29.2 ml/m2 LAV(MOD-sp2): 45.1 ml LAV(MOD-sp4): 50.2 ml RA A4 area: 14.6 cm2 Time Measurements MV dec time: 0.22 sec Doppler Measurements & Calculations MV E max curly: 84.2 cm/sec Lat Peak E' Curly: 9.7 cm/sec Med Peak E' Curly: 5.7 cm/sec MV A max curly: 70.3 cm/sec E/E' lat: 8.6 E/E' med: 14.7 MV E/A: 1.2 Ao V2 max: 148.2 cm/sec LV V1 max: 120.7 cm/sec TR max curly: 277.6 cm/sec Ao max P.8 mmHg LV V1 max P.8 mmHg TR max P.8 mmHg MV P1/2t-pr_phl: 164.7 msec ECHO/Echo Complete Interpretation Summary Normal LV size. Left ventricular systolic function is normal. The estimated ejection fraction is 60 %. Pulmonary artery systolic pressure is 35 mmHg. The global longitudinal strain is normal. The global longitudinal strain = -27. 8 % (normal). Ordering Physician: [facility] Referring Physician: ERON TIERNEY Performed By: Sarah Flower, HILAROI, RVT
== END ==
PROVIDERS: PCP Family Medicine; Referring Provider Internal Medicine Cardiovascular Disease; Visit Provider Internal Medicine Cardiovascular Disease
DX: R06.00 Dyspnea, unspecified (principal); D63.0 Anemia in neoplastic disease; C94.6 Myelodysplastic disease, not elsewhere classified
CPT/HCPCS: 93306

== ENCOUNTER → 2021-05-19 | Outpatient (CLI) | payer MEDICARE, BC, SELFPAY | END | disposition home or self-care (01) | LOC: LABSPEC 08:36 | PROVIDERS: PCP Family Medicine; Referring Provider Nurse Practitioner Family; Visit Provider Nurse Practitioner Family | DX: R30.0 Dysuria (principal) | CPT/HCPCS: 87077; 87086; 87088; 87186 ==

== ENCOUNTER 2021-08-25 15:49 | Outpatient (CLI) | payer MEDICARE, BC, SELFPAY ==
[2021-08-25] MEDS: 0.9% Saline Lock 10 ML Syringe IV (16:07)
[2021-08-25 16:08] VITALS: BP 99/47; PULSE 81; RESP 16; TEMP 36.7; O2SAT 100; BMI 21.3
[2021-08-25 16:50] VITALS: BP 98/53; PULSE 73; RESP 16; TEMP 36.9; O2SAT 100
[2021-08-25 17:44] VITALS: BP 103/57; PULSE 74; RESP 16; TEMP 36.8; O2SAT 100
== END 2021-08-25 23:59 | disposition home or self-care (01) ==
LOC: MS3OUT 15:50 → MS3 15:51
PROVIDERS: PCP Family Medicine; Referring Provider Nurse Practitioner Adult Health; Visit Provider Nurse Practitioner Adult Health
DX: Z23 Encounter for immunization (principal); U07.1 COVID-19
CPT/HCPCS: J7050; M0243; A4216; Q0240

== ENCOUNTER 2021-09-05 07:24 | Outpatient (CLI) | payer MEDICARE, BC, SELFPAY ==
[2021-09-05] VITALS (11 sets, daily range): BP systolic 90–117; BP diastolic 53–68; PULSE 73–96; RESP 16; TEMP 36.1–36.6; O2SAT 98–100; BMI 21.7
[2021-09-05] MEDS: 0.9% NaCl Peripheral Flush Adult/Peds IV (07:40)
[2021-09-05] MEDS: Acetaminophen 325 MG Tablet 650 MG PO (07:45)
[2021-09-05] MEDS: Hydrocortisone Sod Succinate 100 MG/2 ML Vial IV (07:55)
[2021-09-05] MEDS: DiphenhydrAMINE 50 MG/ML Syringe 25 MG IV (08:00)
== END 2021-09-05 23:59 | disposition short-term general hospital (02) ==
LOC: MEDOUTP 07:25
PROVIDERS: PCP Family Medicine; Referring Provider Internal Medicine Hematology & Oncology; Visit Provider Internal Medicine Hematology & Oncology
DX: Z51.89 Encounter for other specified aftercare (principal); I78.0 Hereditary hemorrhagic telangiectasia; D50.0 Iron deficiency anemia secondary to blood loss (chronic)
CPT/HCPCS: 36430; 86850; 86900; 86901; 86902; 86920; 86922; J7040; P9016; A4216

== ENCOUNTER 2021-09-19 09:53 | Outpatient (CLI) | payer MEDICARE, BC, SELFPAY ==
[2021-09-19 10:01] VITALS: BP 116/55; PULSE 86; RESP 16; TEMP 36.2; O2SAT 100
[2021-09-19] MEDS: Acetaminophen 325 MG Tablet 650 MG PO (10:05)
[2021-09-19] MEDS: 0.9% NaCl Peripheral Flush Adult/Peds IV (10:07)
[2021-09-19] MEDS: DiphenhydrAMINE 50 MG/ML Syringe 25 MG IV (10:25)
[2021-09-19] MEDS: Hydrocortisone Sod Succinate 100 MG/2 ML Vial IV (10:29)
[2021-09-19 11:06] VITALS: BP 110/62; PULSE 79; TEMP 36.7; O2SAT 99
[2021-09-19 12:06] VITALS: BP 125/64; PULSE 89; TEMP 36.5; O2SAT 100
[2021-09-19 13:12] VITALS: BP 113/69; PULSE 81; RESP 16; TEMP 36.4
== END 2021-09-19 23:59 | disposition short-term general hospital (02) ==
LOC: MEDOUTP 09:54
PROVIDERS: PCP Family Medicine; Referring Provider Internal Medicine Hematology & Oncology; Visit Provider Internal Medicine Hematology & Oncology
DX: D50.0 Iron deficiency anemia secondary to blood loss (chronic) (principal)
CPT/HCPCS: 36430; 86850; 86900; 86901; 86902; 86920; 86921; 86922; J7040; P9016; A4216

== ENCOUNTER → 2022-02-15 | Outpatient (CLI) | payer MEDICARE, BC, SELFPAY ==
[2022-02-15 14:24] LABS: Bacteria 0 SEEN /hpf (None Seen); Mucous, Urine 0 SEEN /hpf (<or=2+); Squamous Epithelial Cells - UA 0 SEEN /hpf (5-10)
[2022-02-15 14:36] LABS: Color, Urine Yellow (Yellow); Glucose, Dipstick Normal (Normal); Ketone-Dipstick Negative (Negative); Leukocyte Esterase-Dipstick 100 /ul (Negative); Nitrite-Dipstick Negative (Negative); Occult Blood-Urine 150 /ul (Negative); Protein-Dipstick Negative (Negative); Urine Bilirubin Dipstick Negative (Negative); Urine Clarity Clear (Clear); Urine Urobilinogen Normal (Normal)
[2022-02-15 14:42] LABS: Red Blood Cells-Urine 0-5 SEEN /hpf (0-5); White Blood Cells 0-5 SEEN /hpf (0-5)
== END | disposition home or self-care (01) ==
PROVIDERS: PCP Family Medicine; Visit Provider Nurse Practitioner Family
DX: N39.0 Urinary tract infection, site not specified (principal)
CPT/HCPCS: 81001; 87086; 87088; 87186

== ENCOUNTER → 2022-02-24 | Outpatient (CLI) | payer MEDICARE, BC, SELFPAY ==
--- NOTE | 2022-02-24 07:53 | BI_ITS ---
MAMMOGRAPHY - BILATERAL SCREENING REASON FOR EXAM: Female, 71 years old. Routine annual screening examination. PERTINENT HISTORY: Non-contributory. TECHNIQUE: Digital bilateral breast mercedes (3D mammographic acquisition) in the CC and MLO projections. 2-D mediolateral oblique (MLO) and craniocaudad (CC) views of both breasts were obtained. CAD: Full Field Digital Mammography with Computer Added Detection was performed. COMPARISON: Comparison is made with prior study dated 02/18/2021 and 02/14/2020. FINDINGS: Breast Composition: There are scattered areas of fibroglandular density. There are no dominant masses or suspicious calcifications. No other significant abnormalities are identified. There has been no significant change since the prior study. BI/SCRN MAMM (CAD)W/MERCEDES BILAT IMPRESSION: Stable bilateral screening mammogram. Yearly follow-up mammogram recommended. (A) ASSESSMENT CATEGORY: BIRADS Category 1: Negative. A letter regarding these results will be sent to the patient by the facility within 30 days. Approximately 10% of breast cancers are not detected by mammography. A normal mammogram should not delay biopsy of a clinically suspicious abnormality. [id number] Electronically Signed: Roberto Olson MD at 9:31 EDT ,
== END | disposition home or self-care (01) ==
LOC: OPBI 07:51
PROVIDERS: PCP Family Medicine; Visit Provider Nurse Practitioner Women's Health
DX: Z12.31 Encounter for screening mammogram for malignant neoplasm of breast (principal); R31.9 Hematuria, unspecified; N95.0 Postmenopausal bleeding
CPT/HCPCS: 77063; 77067; 87086; 87088

== ENCOUNTER → 2022-03-11 | Outpatient (CLI) | payer MEDICARE, BC, SELFPAY ==
--- NOTE | 2022-03-11 07:50 | US_ITS ---
STUDY: ULTRASOUND OF THE FEMALE PELVIS - COMPLETE REASON FOR EXAM: Female, 71 years old. PMB LMP: The patient is postmenopausal. TECHNIQUE: Transabdominal and Transvaginal TECHNICAL QUALITY: Adequate. COMPARISON: None. FINDINGS: The uterus is retroverted and is tilted to the right side of the pelvis. The uterus measures 6.1 cm x 3.9 cm x 2.9 cm. Normal uterine cervix. The endometrium measures 1.9 mm in thickness, and is hyperechoic. There is no demonstrated endometrial mass. There is no demonstrated myometrial mass. I.U.D. - The patient does not have an I.U.D. The right ovary is non-visualized. The left ovary is non-visualized. There is no fluid in the cul-de-sac. The pre void volume of the bladder was 226 ml. US/Transvaginal Non- IMPRESSION: Normal female pelvis.. The ovaries were not visualized. Electronically Signed: Roberto Olson MD at 12:58 EDT ,
--- NOTE | 2022-03-11 07:50 | US_ITS ---
STUDY: ULTRASOUND OF THE FEMALE PELVIS - COMPLETE REASON FOR EXAM: Female, 71 years old. PMB LMP: The patient is postmenopausal. TECHNIQUE: Transabdominal and Transvaginal TECHNICAL QUALITY: Adequate. COMPARISON: None. FINDINGS: The uterus is retroverted and is tilted to the right side of the pelvis. The uterus measures 6.1 cm x 3.9 cm x 2.9 cm. Normal uterine cervix. The endometrium measures 1.9 mm in thickness, and is hyperechoic. There is no demonstrated endometrial mass. There is no demonstrated myometrial mass. I.U.D. - The patient does not have an I.U.D. The right ovary is non-visualized. The left ovary is non-visualized. There is no fluid in the cul-de-sac. The pre void volume of the bladder was 226 ml. US/Pelvic (Non ) IMPRESSION: Normal female pelvis.. The ovaries were not visualized. Electronically Signed: Roberto Olson MD at 12:58 EDT ,
== END | disposition home or self-care (01) ==
LOC: OPUS 07:48
PROVIDERS: PCP Family Medicine; Visit Provider Nurse Practitioner Women's Health
DX: N95.0 Postmenopausal bleeding (principal); Z78.0 Asymptomatic menopausal state
CPT/HCPCS: 76830; 76856

== ENCOUNTER 2022-03-30 12:00 | Outpatient (RCR) | payer MEDICARE, BC, SELFPAY ==
--- NOTE | 2022-03-02 12:01 | HP.PTEVAL ---
Patient's Visit Information DERECK LÓPEZ is a 71 year old F referred to Physical Therapy by PRATIK LOO with a diagnosis of LOW BACK PAIN. Date of Evaluation: 03/02/22 Physical Therapist: Maura Farooq PT, Cert MDT - Visit Plan Frequency: 2-3x /Week Duration: 4-6 Weeks Plan: POSTURE CORRECTION/STRENGTHENING, INSTRUCTION IN APPROPRIATE BODY MECHANICS AND ACTIVITY MODIFICATIONS. DLS STARTING WITH A NEUTRAL SPINE PROGRESSING ROM TOLERATED. MARISABEL LE ROM, STRETCHING AND STRENGTHENING. HEP INSTRUCTION. - Subjective Work/Leisure: RETIRED. ACTIVE MOWING, PULLING WEEDS, GARDENING AND WITH GRANDKIDS A LOT. Present symptoms: RIGHT HIP PAIN AND THIGH PAIN TO KNEE. LEFT SIDE TOO. LBP. Present since: LATE SEP, EARLY OCTOBER 2021. Pain Scale: WORST 7/10, LEAST 0/10. Currently: /10. Commenced as a result of: NO APPARENT REASON OTHER THAN MISSING A STEP IN [place] IN SEP - DIDN'T FALL. WRENCHED MY BACK A LITTLE BUT DIDN'T THINK MUCH ABOUT IT UNTIL IT DIDN'T GO AWAY. Symptoms at onset: LOW BACK. Worse: STANDING TOWARD THE END OF THE DAY AND SOMETIMES IN THE MORNING. Better: PUTTING FOOT UP HIGH AND STRETCHING. SITTING AND FLEXING FORWARD TO STRETCH BACK. GET ON THE FLOOR AND PULL LEGS UP. Disturbed sleep: YES. Previous history/Previous treatment: NO BACK SURGERY. NO LUMBAR BRANDT'S. CHIROPRACTOR FOR YEARS BUT NOT SURE WHY - SHE CRACKS ME ALL OVER. SHE REPORTS TENSION TENDS TO SETTLE IN HER SHOULDERS AND SHE THINKS IT IS NORMAL TO GO TO A CHIROPRACTOR. NO PHYSICAL THERAPY IS THE PAST. NO LOW BACK INJURIES. Treatment this episode: CHIROPRACTOR. NO PRESCRIPTION MEDICATIONS. LAONZO TRACTION FOR LUMBAR TRACTION - HAS HAD IT FOR A FEW WEEKS - SELF PRESCRIBED - NOT SURE IF HELPING OR NOT. WENT WHITE WATER RAFTING THIS WEEK AND WASN'T ABLE TO USE IT ALL WEEKEND. Coughing/sneezing/straining: NO. Gait: SOMETIMES HAS TO TAKE SMALLER STEPS. TRIES TO WALK THROUGH IT. SOMETIMES WALKS NORMALLY. Difficulty initiating urination: NO. BOWEL OR BLADDER DYFUNCTION: NO BUT HAD UTI AND HAS UROLOGY VALERIA'T PENDING TOMORROW. THINKS UTI IS GONE NOW. Accidents: NO. Unexplained weight loss: NO. Imaging: LUMBAR X-RAYS - L4L5 SLIPPAGE PER PATIENT REPORT. PATIENT PULLED UP REPORT AND IT SAYS MODERATE TO SEVERE MULTILEVEL FACET ARTHOPATHY, SLIGHT ANTEROLISTHESIS L34 AND MINIMAL ANTEROLISTHESIS L45. MODERATE TO SEVERE DDD AT L5S1. PMH/Recent major surgery: R TSR ABOUT 10 YEARS AGO FROM A FALL. NECK FUSION 4 OR 5 YEARS AGO. SEVERAL NOSE SX'S DUE TO HHT - CAUSES SOME BLEEDING BUT STATES IT WILL NOT BE EFFECTED BY PHYSICAL THERAPY. - Objective Sitting/Standing Posture: POOR. L SHLD HIGHER THAN RIGHT. FH. RSH'S. INCREASED KYPHOSIS. MILD DECREASED LUMBAR LORDOSIS. NO RELEVENT LATERAL SHIFT. RIGHT ILIAC CREST HIGHER THAN LEFT. Active Correction of posture: NE. Other Observations: INDEP GAIT AND TRANSFERS. Sensory deficit: MARISABEL LE LIGHT TOUCH SENSATION GROSSLY INTACT AND SYMMETRICAL. ROM deficit: TIGHT MARISABEL LE HS'S AND GAASTROC SOLEUS COMPLEX'S. Motor deficit: MARISABEL LE'S 5/5 WITH MMT'ING EXCEPT HIPS GRADED 4/5. Dural Signs: NEGATIVE MARISABEL LE'S. Lumbar mvmt loss: flex - MIN. ext - MOD. R SG - MOD. L SG - MOD. Core strength: FAIR. Palpation: MILD TENDERNESS RIGHT GREATER TROCH REGION. - Balance/Special Test Scores Oswestry Low Back Score: 12 - Goals Goal 1:: DECREASE C/O LOW BACK AND MARISABEL LE SX'S. Goal Time Frame: 4-6 Weeks Goal 2:: IMPROVE LIFTING, WALKING, SITTING, STANDING, SLEEP, SOCIAL LIFE, TRAVEL AND HOMEMAKING FUNCTION. Goal Time Frame: 4-6 Weeks Goal 3:: INSTRUCT IN PROPHYLAXIS Goal Time Frame: 4-6 Weeks - Anticipated Interventions Patient/Client Instruction: Educate patient on: Condition, Plan of Care, Risk Factors For the Purpose of:: To improve self management Therapeutic Exercise to Include: Strength training, Body mechanics, Postural training, Flexibilty training, Neuromotor development, In an aquatic setting, Dynamic Lumbar Stabilization For the Purpose of:: To decrease pain, To improve muscle performance and motor function, To increase tolerance to activity/condition/position, To improve ability of physical actions for home/community/work/leisure Cryotherapy (ice pack, ice massage): Yes Thermo therapy (hot pack): Yes Ultrasound (thermal/non thermal): Yes For the Purpose of:: To decrease pain, To improve nutrient delivery to tissue Thank you for the opportunity to evaluate your patient. For Medicare and Medicare HMO plans, please review the plan of care and approve it. It will need to be FAXED BACK to us at [phone] for Medicare purposes. For Medicare only, by signing this I certify the plan of care. Please let me know if there are questions or concerns regarding this plan of care. Physician Signature: Date:
--- NOTE | 2022-03-30 12:37 | HP.PTDCSUM_ITS ---
It has been my pleasure to treat DERECK LÓPEZ referred by PRATIK LOO, with the diagnosis of LOW BACK PAIN for a total of 8 visit(s). Discharge Date: Please see the following information for a summary of their discharge status. Subjective: PATIENT REPORTS SHE HAS GOT A LITTLE MORE RELIEF BECAUSE SHE HAS HAD MASSAGE EVERY 3 DAYS. STATES MASSAGE HELPS MORE THAN PT. PATIENT REPORTS THE PAIN ISN'T SHOOTING DOWN HER LEG ANYMORE. STILL HAVING TERRIBLE RIGHT HIP PAIN. IT IS STILL TERRIBLE GETTING UP IN THE MORNING AND IT DOESN'T LET ME SLEEP LONG AT NIGHT. STATES SHE HAS BEEN DOING THE EX'S HERE AND AT HOME. HAS ALSO STARTED TO GO BACK TO [employer] WITH CHANGES SUGGESTED. LOW BACK PAIN Pain Intensity (Out of 10): 0 RIGHT HIP Pain Intensity (Out of 10): 0 % Improvement: 10 Objective/Function: PATIENT WAS SEEN TODAY FOR RE-ASSESSMENT OF PROGRESS TOWARD THE SET PT GOALS AND THE NEED FOR FURTHER PHYSICAL THERAPY VS READINESS FOR DISCHARGE. UPON EXAM TODAY THERE ARE NO SIGNIFICANT OBJECTIVE CHANGES COMPARED TO INITIAL EVAL BUT SUBJECTIVELY PATIENT REPORTS LESS RADIATING PAIN. PAIN HOWEVER IS STILL SEVERE AT TIMES. PHYSICIAN REASSESSMENT RECOMMENDED AND PATIENT IS AGREEABLE. IN THE MEAN TIME, HER CURRENT EX PROGRAM IS NOT INCREASING HER PAIN AND THIS PT RECOMMENDS CONTINUING THESE EX'S. PATIENT IS AGREEABLE. Goal 1:: DECREASE C/O LOW BACK AND MARISABEL LE SX'S. Goal Progress: Not Progressing Goal 2:: IMPROVE LIFTING, WALKING, SITTING, STANDING, SLEEP, SOCIAL LIFE, TRAVEL AND HOMEMAKING FUNCTION. Goal Progress: Not Progressing Goal 3:: INSTRUCT IN PROPHYLAXIS Goal Progress: Not Progressing Plan: D/C DUE TO ON-GOING SEVERE PAIN. PATIENT AGREEABLE. If there are questions or concerns regarding this patient's physical therapy, please feel free to call me at [phone]. Thank you for the referral of this patient. Sincerely, Maura Farooq, PT, Cert MDT Balance/Gait/Functional tests - Balance/Special Test Scores Oswestry Low Back Score: 12
== END 2022-03-30 15:24 | disposition home or self-care (01) ==
LOC: PT 12:00
PROVIDERS: PCP Family Medicine
DX: M54.50 Low back pain, unspecified (principal)
CPT/HCPCS: 97110; 97162; 97164; 97530

== ENCOUNTER → 2022-04-11 | Outpatient (CLI) | payer MEDICARE, BC, SELFPAY ==
--- NOTE | 2022-04-11 07:18 | MRI_ITS ---
STUDY: MRI LUMBAR SPINE WITHOUT CONTRAST REASON FOR EXAM: Female, 71 years old. RADICULOPATHY RT LEG TECHNIQUE: Standardized fat and water weighted pulse sequences were obtained in the sagittal and axial planes. COMPARISON: None FINDINGS: T12-L1: Normal endplates. Normal disc height, hydration and morphology. Normal bilateral facet joints. Normal central canal and bilateral lateral recesses. Normal bilateral intervertebral neural foramina. Normal lumbar lordosis. There is no substantial scoliosis. Normal conus medullaris that terminates at the L1/L2. L1-2: Mild left facet hypertrophy and ligament flavum hypertrophy. No disc protrusion, spinal stenosis, or neural foraminal stenosis. L2-3: Mild bilateral facet hypertrophy and ligament flavum hypertrophy. Mild disc desiccation but no disc protrusion, spinal stenosis, or neural foraminal stenosis. L3-4: Severe bilateral facet hypertrophy and moderate ligament flavum hypertrophy. 2 mm of anterolisthesis of L3 on L4 with a mild broad disc protrusion produces mild spinal stenosis and mild bilateral neural foraminal stenosis. L4-5: Mild bilateral facet hypertrophy and ligament flavum hypertrophy. Mild broad disc protrusion and a small right foraminal protrusion produces mild spinal stenosis, moderate right neural foraminal stenosis with abutment of the right L4 nerve root laterally, and mild left neural foraminal stenosis.. L5-S1: Disc desiccation and loss of disc height but no disc protrusion, spinal stenosis, or neural foraminal stenosis. Normal visualized sacral ala. Normal visualized paraspinous soft tissue structures. MRI/Spine Lumbar (Routine) IMPRESSION: Multilevel degenerative changes, as described above. Electronically Signed: Ruel Birmingham MD at 10:18 EDT ,
== END | disposition home or self-care (01) ==
LOC: MRI 07:10
PROVIDERS: PCP Family Medicine; Referring Provider Family Medicine; Visit Provider Family Medicine
DX: M47.27 Other spondylosis with radiculopathy, lumbosacral region (principal)
CPT/HCPCS: 72148

== ENCOUNTER → 2022-08-07 | Outpatient (CLI) | payer MEDICARE, BC, SELFPAY ==
[2022-08-07 08:54] VITALS: BP 119/62; PULSE 95; RESP 16; TEMP 36.4; BMI 21.4
[2022-08-07] MEDS: 0.9% NaCl Peripheral Flush Adult/Peds IV (09:00)
[2022-08-07] MEDS: Acetaminophen 325 MG Tablet 650 MG PO (09:17)
[2022-08-07] MEDS: DiphenhydrAMINE 50 MG/ML Syringe 25 MG IV (09:18)
[2022-08-07] MEDS: Hydrocortisone Sod Succinate 100 MG/2 ML Vial IV (09:22)
[2022-08-07 09:58] VITALS: BP 98/56; PULSE 84; RESP 16; TEMP 36.6
[2022-08-07 10:58] VITALS: BP 112/58; PULSE 84; RESP 16; TEMP 36.6; O2SAT 99
[2022-08-07 12:07] VITALS: BP 120/71; PULSE 90; RESP 16; TEMP 36.7; O2SAT 99
[2022-08-07 12:12] VITALS: BP 111/62; PULSE 85; RESP 16; TEMP 36.6
[2022-08-07 14:00] VITALS: BP 118/76; PULSE 88; RESP 16; TEMP 36.8; O2SAT 99
== END | disposition home or self-care (01) ==
LOC: MEDOUTP 08:40
PROVIDERS: PCP Family Medicine; Referring Provider Internal Medicine Hematology & Oncology; Visit Provider Internal Medicine Hematology & Oncology
DX: Z51.89 Encounter for other specified aftercare (principal); D50.0 Iron deficiency anemia secondary to blood loss (chronic)
CPT/HCPCS: 36430; 86850; 86900; 86901; 86902; 86920; 86922; J7040; P9016; A4216

== ENCOUNTER → 2022-08-20 | Outpatient (CLI) | payer MEDICARE, BC, SELFPAY ==
[2022-08-20] VITALS (7 sets, daily range): BP systolic 97–112; BP diastolic 46–65; PULSE 82–89; RESP 14–16; TEMP 36.2–36.9; O2SAT 99–100
[2022-08-20] MEDS: 0.9% NaCl Peripheral Flush Adult/Peds IV (09:03)
[2022-08-20] MEDS: Acetaminophen 325 MG Tablet 650 MG PO (09:18)
[2022-08-20] MEDS: DiphenhydrAMINE 50 MG/ML Syringe 25 MG IV (09:26)
[2022-08-20] MEDS: Hydrocortisone Sod Succinate 100 MG/2 ML Vial IV (09:29)
== END | disposition home or self-care (01) ==
LOC: MEDOUTP 08:54
PROVIDERS: PCP Family Medicine; Referring Provider Internal Medicine Hematology & Oncology; Visit Provider Internal Medicine Hematology & Oncology
DX: D50.0 Iron deficiency anemia secondary to blood loss (chronic) (principal); I78.0 Hereditary hemorrhagic telangiectasia; K92.2 Gastrointestinal hemorrhage, unspecified
CPT/HCPCS: 36430; 86850; 86900; 86901; 86902; 86920; 86922; J7040; P9016; A4216

== ENCOUNTER → 2022-09-04 | Outpatient (CLI) | payer MEDICARE, BC, SELFPAY | END | disposition home or self-care (01) | PROVIDERS: PCP Family Medicine; Referring Provider Internal Medicine Hematology & Oncology; Visit Provider Internal Medicine Hematology & Oncology | DX: Z51.89 Encounter for other specified aftercare (principal); I78.0 Hereditary hemorrhagic telangiectasia; D50.0 Iron deficiency anemia secondary to blood loss (chronic) ==

== ENCOUNTER → 2022-09-08 | Outpatient (CLI) | payer MEDICARE, BC, SELFPAY ==
[2022-09-08] MEDS: Acetaminophen 325 MG Tablet 650 MG PO (09:23)
[2022-09-08] MEDS: DiphenhydrAMINE 50 MG/ML Syringe 25 MG IV (09:28)
[2022-09-08] MEDS: Hydrocortisone Sod Succinate 100 MG/2 ML Vial IV (09:30)
[2022-09-08] MEDS: 0.9% NaCl Peripheral Flush Adult/Peds IV (09:32)
[2022-09-08 09:37] VITALS: BP 104/44; PULSE 87; RESP 16; TEMP 36.6; O2SAT 97
[2022-09-08 10:05] VITALS: BP 104/42; PULSE 81; RESP 14; TEMP 36.5; O2SAT 97
[2022-09-08 11:05] VITALS: BP 96/42; PULSE 78; RESP 14; TEMP 36.8; O2SAT 100
[2022-09-08 12:22] VITALS: BP 101/52; PULSE 84; RESP 16; TEMP 36.6
[2022-09-08 13:41] VITALS: BP 112/50; PULSE 89; RESP 18; TEMP 36.7
== END | disposition home or self-care (01) ==
LOC: MEDOUTP 08:53
PROVIDERS: PCP Family Medicine; Referring Provider Internal Medicine Hematology & Oncology; Visit Provider Internal Medicine Hematology & Oncology
DX: Z51.89 Encounter for other specified aftercare (principal); I78.0 Hereditary hemorrhagic telangiectasia; D50.0 Iron deficiency anemia secondary to blood loss (chronic)
CPT/HCPCS: 36430; 86850; 86900; 86901; 86920; 86922; J7040; J7050; P9016; A4216

== ENCOUNTER 2023-01-05 08:23 | Outpatient (CLI) | payer MEDICARE, BC, SELFPAY ==
[2023-01-05 08:30] VITALS: BP 107/56; PULSE 77; RESP 16; TEMP 35.7; O2SAT 100; BMI 24.8
[2023-01-05] MEDS: 0.9% NaCl Peripheral Flush Adult/Peds IV (08:32)
[2023-01-05] MEDS: Acetaminophen 325 MG Tablet 650 MG PO (08:46)
[2023-01-05] MEDS: Hydrocortisone Sod Succinate 100 MG/2 ML Vial IV (09:00)
[2023-01-05] MEDS: DiphenhydrAMINE 50 MG/ML Syringe 25 MG IV (09:02)
[2023-01-05 09:33] VITALS: BP 99/56; PULSE 66; RESP 16; TEMP 36.1; O2SAT 100
[2023-01-05 10:40] VITALS: BP 115/58; PULSE 77; RESP 16; TEMP 36.5; O2SAT 99
[2023-01-05 11:48] VITALS: BP 113/61; PULSE 72; RESP 16; TEMP 36.3; O2SAT 100
[2023-01-05 12:48] VITALS: BP 108/60; PULSE 75; RESP 16; TEMP 35.8
[2023-01-05 13:18] VITALS: BP 115/70; PULSE 79; RESP 16; TEMP 36.3; O2SAT 100
== END 2023-01-05 08:24 | disposition home or self-care (01) ==
LOC: MEDOUTP 08:23
PROVIDERS: PCP Family Medicine; Referring Provider Internal Medicine Hematology & Oncology; Visit Provider Internal Medicine Hematology & Oncology
DX: D50.0 Iron deficiency anemia secondary to blood loss (chronic) (principal); I78.0 Hereditary hemorrhagic telangiectasia
CPT/HCPCS: 96374; 96375; 36430; 86850; 86900; 86901; 86902; 86920; 86922; J7040; P9016; A4216

== ENCOUNTER → 2023-03-08 | Outpatient (CLI) | payer MEDICARE, BC, SELFPAY ==
--- NOTE | 2023-03-08 07:36 | BI_ITS ---
MAMMOGRAPHY - BILATERAL SCREENING 3-D TOMOSYNTHESIS REASON FOR EXAM: Female, 72 years old. Routine screening PERTINENT HISTORY: No significant family history. TECHNIQUE: 2-D mammograms and 3-D Tomosynthesis of the breast (s) were performed. CAD was performed. COMPARISON: 02/24/2022 FINDINGS: The breast composition is composed of scattered fibroglandular density. Scattered benign calcifications are seen. No dense spiculated masses or suspicious microcalcifications are identified. No architectural distortion is identified. There is no skin thickening or retraction. There has been no significant change since the prior study. BI/SCRN MAMM (CAD)W/MERCEDES BILAT IMPRESSION: No mammographic signs of malignancy. Routine yearly mammograms recommended. ASSESSMENT CATEGORY: BIRADS Category 1: Negative. A letter regarding these results will be sent to the patient by the facility within 30 days. FOLLOW UP RECOMMENDATION: Yearly follow up mammogram recommended. (A) Approximately 10% of breast cancers are not detected by mammography. A normal mammogram should not delay biopsy of a clinically suspicious abnormality. Electronically Signed: Franki Garcia MD at 9:37 EDT ,
== END | disposition home or self-care (01) ==
LOC: OPBI 07:35
PROVIDERS: PCP Family Medicine; Referring Provider Nurse Practitioner Women's Health; Visit Provider Nurse Practitioner Women's Health
DX: Z12.31 Encounter for screening mammogram for malignant neoplasm of breast (principal)
CPT/HCPCS: 77063; 77067

== ENCOUNTER → 2023-05-18 | Outpatient (CLI) | payer MEDICARE, BC, SELFPAY ==
[2023-05-18 11:15] LABS: AST(SGOT) 35 U/L (15-37); Alanine Aminotransfer ALT/SGPT 48 U/L (13-56); Albumin, Serum 3.6 g/dL (3.2-5.0); Alkaline Phosphatase 94 U/L (45-117); Anion Gap 1 (5-15); BUN 21 mg/dL (7-18); Bilirubin, Direct 0.07 mg/dL (0.00-0.30); Calcium,Total 8.8 mg/dL (8.5-10.1); Chloride 110 mmol/L (98-107); Cholesterol 159 mg/dL (200); Creatinine, Serum 0.62 mg/dL (0.55-1.02); EST Glomerular Filtration Rate 101 mL/min (>60); Est Glom Filt Rate - Afr Amer 122 mL/min (>60); Globulin 3.2 g/dL (2.2-4.2); Glucose 70 mg/dL (74-106); High Density Lipoprotein 50 mg/dL; Magnesium 2.3 mg/dL (1.6-2.6); Potassium 4.1 mmol/L (3.5-5.1); Protein, Total 6.8 g/dL (6.4-8.2); Sodium Level 141 mmol/L (136-145); Thyroid Stim Hormone (TSH) 1.35 uIU/mL (0.358-3.74); Triglycerides 81 mg/dL; Very Low Density Lipoprotein 16 mg/dL (5-40)
== END | disposition home or self-care (01) ==
LOC: LAB 09:50
PROVIDERS: PCP Family Medicine; Referring Provider Internal Medicine Cardiovascular Disease; Visit Provider Internal Medicine Cardiovascular Disease
DX: D64.9 Anemia, unspecified (principal); Z86.79 Personal history of other diseases of the circulatory system
CPT/HCPCS: 36415; 80048; 80061; 80076; 83735; 84443

== ENCOUNTER 2023-08-06 07:50 | Outpatient (CLI) | payer MEDICARE, OTHER, SELFPAY ==
[2023-08-06] VITALS (7 sets, daily range): BP systolic 103–119; BP diastolic 58–71; PULSE 81–91; RESP 16; TEMP 36.2–36.6; O2SAT 98–100; BMI 21.7
[2023-08-06] MEDS: 0.9% NaCl Peripheral Flush Adult/Peds IV (08:41)
[2023-08-06] MEDS: Acetaminophen 325 MG Tablet 650 MG PO (09:44)
[2023-08-06] MEDS: Hydrocortisone Sod Succinate 100 MG/2 ML Vial IV (09:51)
[2023-08-06] MEDS: DiphenhydrAMINE 50 MG/ML Syringe 25 MG IV (09:57)
[2023-08-06] MEDS: 0.9% Normal Saline (500mL Bag) 500 ML 15 ML IV (10:00)
== END 2023-08-06 07:51 | disposition home or self-care (01) ==
PROVIDERS: PCP Family Medicine; Referring Provider Internal Medicine Hematology & Oncology; Visit Provider Internal Medicine Hematology & Oncology
DX: D50.0 Iron deficiency anemia secondary to blood loss (chronic) (principal)
CPT/HCPCS: 96374; 96375; 36415; 36430; 86850; 86900; 86901; 86902; 86920; 86922; 96372; J7040; P9016; A4216

== ENCOUNTER 2023-08-18 15:41 | Inpatient (IN) | payer MEDICARE, OTHER, SELFPAY ==
[2023-08-18] VITALS (10 sets, daily range): BP systolic 110–126; BP diastolic 40–71; PULSE 80–106; RESP 12–20; TEMP 35.7–37.2; O2SAT 96–100; BMI 21.7; BMI 22.1
--- NOTE | 2023-08-18 16:12 | EDS_ITS ---
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 She follows with GI doctor and [facility] in [place], and Dr. Soto with hematology in [place]. For the past several days to a week she has gradually developed dyspnea on exertion, fatigue, and lightheadedness. She had one of her 3 times annually a Avastin infusions today at [facility] as an outpatient, and they found her hemoglobin was 5.5 on a routine check during this infusion. She states after that infusion, typically her melena subsides significantly for a while. She denies having any episodes of chest discomfort or syncope, no history of heart disease that she knows of. [facility] Medical History (Updated 08/18/23 @ 16:[address] Sharon Walton MD) Anemia GI (gastrointestinal bleed) H/O hereditary hemorrhagic telangiectasia (HHT) Home Medications ascorbic acid (vitamin C) 1,000 mg tablet 1,000 mg PO DAILY SUPPLEMENT 11/24/19 [History Last Taken 11/24/19] folic acid 1 mg tablet 1 mg PO DAILY SUPPLEMENT 11/24/19 [History Last Taken 11/24/19] omeprazole 20 mg capsule,delayed release 20 mg PO DAILY gerd 11/24/19 [History Last Taken 11/24/19] vitamin B complex (B Complex-Vitamin B12 tablet) 1 tab PO DAILY supplement 04/15/21 [History Last Taken Unknown] catalyn gf PO DAILY supplement 02/24/22 [History Last Taken Unknown] iron sucrose 50 mg iron/2.5 mL intravenous solution 50 mg IV .monthly supplement 02/24/22 [History Last Taken 08/06/22] orthomune 1 tab PO DAILY supplement 02/24/22 [History Last Taken Unknown] bevacizumab 25 mg/mL intravenous solution (Avastin) 25 mg intravitreal infusion 04/21/22 [History Last Taken Unknown] osteobase PO DAILY supplement 05/18/23 [History Last Taken Unknown] estradiol 0.01% (0.1 mg/gram) vaginal cream 0.1 applic vaginal vag itching 08/18/23 [History Last Taken Unknown] Allergy/AdvReac Type Severity Reaction Status Date / Time bacitracin AdvReac Unknown Unknown Verified 08/18/23 17:28 Family History Mother Cancer Squamous Basal Cell Father Cancer Lymphoma HHT (hereditary hemorrhagic telangiectasia) Surgical History History of back surgery History of cholecystectomy History of foot surgery History of nasal surgery History of neck surgery Hx of shoulder replacement Social History Smoking Status: Never smoker alcohol intake: never substance use type: does not use caffeine: Yes Type: tea Number of servings: 2 what type of physical activity do you participate in: walking frequency: 3-4 times per week seatbelt use: always do you feel safe at home: Yes 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 ROS ED Constitutional Constitutional ED: Reports fatigue; Denies chills or fever(s) Eyes Eyes: Denies change in vision or diplopia ENT ENT ED: Denies rhinorrhea or sore throat Cardiovascular Cardiovascular: Reports lightheadedness; Denies chest pain or palpitations Respiratory/Chest Respiratory/Chest: Reports dyspnea on exertion; Denies cough Gastrointestinal Gastrointestinal: Denies abdominal pain, diarrhea, nausea or vomiting Genitourinary Genitourinary ED: Denies dysuria or hematuria Musculoskeletal Musculoskeletal: Denies back pain or neck pain Integumentary Denies abscess or rash Neurologic Neurologic: Denies headache(s), paresthesias or weakness Psychiatric Psychiatric: Denies anxiety or suicidal thoughts EXAM Physical Exam Const Vital Signs: 08/18/23 15:43 08/18/23 15:59 08/18/23 15:59 Temperature 96.2 F L Temperature Source Temporal Pulse Rate 93 106 H Respiratory Rate 12 15 Respiratory Pattern Normal Blood Pressure 126/40 H Blood Pressure Mean 68 Pulse Ox 96 100 Oxygen Delivery Method Room Air Room Air Positive well nourished and well developed General Appearance ED: well developed and NAD HEENT Reports moist mucous membranes normocephalic and atraumatic Eyes PERRL and EOMs intact bilaterally Neck full ROM and supple Resp normal respiratory effort and clear to auscultation bilaterally Cardio regular rate and regular rhythm Cardio Narrative: Mild tachycardia. Normal systolic crescendo-decrescendo 3/6 murmur. GI non-tender and non-distended Auscultation: normoactive bowel sounds Palpation: soft Back/Spine no CVA tenderness General Back: other FROM Extremity normal to inspection General Extremety ED: Negative for edema, pulses abnormal or tenderness General Extremity: Negative for edema or pulses abnormal Neuro oriented x3, CN's II-XII intact bilaterally and no sensory deficits noted Sensorium / Orientation: awake and alert Motor Exam: strength 5/5 throughout Skin no rashes or lesions noted and no wounds MDM MDM MDM Narrative Medical decision making narrative: Patient consents to blood. EKG obtained no acute injury pattern. Confirmatory blood work being obtained in addition to type and cross for 3 units of blood, patient states she needs pretreatment with Tylenol, Benadryl, Solu-Medrol due to history of reactions to the correct blood type-product in the past, but happy to oblige here, discussed with hospitalist for eventual admission. Lab Data Attestation: I reviewed the patient's lab results. Labs: Laboratory Results - last 24 hr 08/18/23 16:10 WBC 6.1 RBC 1.86 L Hgb 5.8 L* Hct 21.3 L MCV 114.5 H MCH 31.2 MCHC 27.2 L RDW Std Deviation 85.0 H RDW Coeff of Marques 20.8 H Plt Count 256 MPV 10.5 Immature Gran % (Auto) 0.800 Neut % (Auto) 82.2 H Lymph % (Auto) 7.6 L [place] % (Auto) 8.3 Eos % (Auto) 0.8 Baso % (Auto) 0.3 Absolute Neuts (auto) 5.0 Absolute Lymphs (auto) 0.46 L Nucleated RBC % 2.3 Differential Comment SEE COMMENT Diff Path Review May foll Platelet Estimate ADEQUATE RBC Morphology N CHROM Polychromasia RARE Hypochromasia 2+ Anisocytosis 2+ Macrocytosis 2+ Sodium 140 Potassium 3.4 L Chloride 108 H Carbon Dioxide 28.0 Anion Gap 4 L BUN 17 Creatinine 0.48 L Estim Creat Clear Calc 46.90 Est GFR (MDRD) Af Amer 162 Est GFR (MDRD) Non-Af 134 BUN/Creatinine Ratio 35.2 H Glucose 95 Calcium 8.8 Phosphorus 2.5 Magnesium 2.1 Crossmatch See Detail Rhythm Strip Rhythm Strip: Sinus Tach Rate: 105 Ectopy: None EKG Initial EKG: Attestation: I personally reviewed and interpreted this EKG as follows: Interpretation: Sinus Rhythm and No Acute Injury Pattern Management Discussion w/another healthcare provider: Hospitalist Critical Care Time Critical Care Time: Yes Critical care time (excluding procedures): 30-74 minutes (36 min), Including time spent:, Discussing w/Patient &/or Family/[employer], Discussing w/Consultants, Arranging Admission or Transfer and Performing Direct Patient Care at Bedside Discharge Plan Dx/Rx/DC Orders Clinical Impression: ABLA (acute blood loss anemia), H/O hereditary hemorrhagic telangiectasia (HHT), Chronic upper GI bleeding, Symptomatic anemia Disposition Disposition: Acute Care Hospital [facility]
[2023-08-18] MEDS: MethylPREDNISolone 125 MG/2 ML Vial IV (16:33)
[2023-08-18] MEDS: Acetaminophen 500 MG Tablet 1000 MG PO (16:33)
[2023-08-18] MEDS: DiphenhydrAMINE 50 MG/ML Syringe 25 MG IV ×2 (16:33→20:24)
[2023-08-18 16:41] LABS: Absolute Lymphocyte Count 0.46 X10^3/uL (0.83-4.51); Basophil# 0.02 X10^3/uL; Basophil% 0.3 % (0-1); Eosinophil# 0.05 X10^3/uL; Eosinophils% 0.8 % (0-5); Hematocrit 21.3 % (37-47); Lymphocyte # 0.46 X10^3/ul (0.83-4.51); Lymphocyte % 7.6 % (19-41); Mean Corp Hgb Conc 27.2 g/dL (32-36); Mean Corpuscular Hgb 31.2 pg (27.0-32.0); Mean Corpuscular Volume 114.5 fL (81-99); Mean Platelet Vol. 10.5 fl (6.2-12.0); Monocyte% 8.3 % (0-10); NRBC Flagged by Analyzer 2.3 % (0-5); Neutrophil # 4.98 X10^3/uL (2.7-7.7); Neutrophil % 82.2 % (47-70); POSITIVE COUNT YES; POSITIVE DIFFERENTIAL YES; POSITIVE MORPHOLOGY YES; Platelet Count 256 K/mm3 (150-450); RBC Distribution Width CV 20.8 % (11.6-14.6); Red Blood Count 1.86 M/mm3 (4.2-5.4); White Blood Count 6.1 K/mm3 (4.4-11.0)
--- NOTE | 2023-08-18 16:44 | PCM.HP.STD ---
HPI - General General Date of Admission: 08/18/23 Date of Service: 08/18/23 Chief Complaint: Intermittent melanotic stools x 2 months, lightheadedness/dizziness/dyspnea. HPI Narrative The patient is a 73 y/o F w/ PMHx: Chronic anemia, HHT following with Dr. Soto Oncology/Hematology and GI CC in [place] with last scope ~ 1-2 years prior with intermittent serial transfusion needs as well as intermittent Bevacizumab injection with most recent on day of presentation with routine tests requested with recent 1-2 week history of worsening fatigue, malaise, dyspnea worse with exertion, lightheadedness and dizziness prompting ED referral for 3 u PRBC administration per Oncology request. Upon ED arrival the CC Main notes Hgb level 5.5 but presentation labs are pending upon requested admission. In the ED work-up thus far included T96.2, heart rate initially 93 with most recent repeat 106, BP 126/40, respiratory rate 12, 96% on room air, pending CBC, BMP with potassium 3.4, chloride 108, BUN/creatinine 17/0.48 otherwise not marked appearing, type and cross initiated per ED physician for 3 unit PRBC. Upon patient admission discussed case with gastroenterology who given the history of the patient and the fact that her hemoglobin did decrease more so than she had previously as this is serially occurring recommended obtaining a CT abdomen and pelvis angio to assess for any obvious bleeding sources. [facility] Medical History (Updated 08/18/23 @ 16:[address] Sharon Walton MD) Anemia GI (gastrointestinal bleed) H/O hereditary hemorrhagic telangiectasia (HHT) Home Medications ascorbic acid (vitamin C) 1,000 mg tablet 1,000 mg PO DAILY SUPPLEMENT 11/24/19 [History Last Taken 11/24/19] folic acid 1 mg tablet 1 mg PO DAILY SUPPLEMENT 11/24/19 [History Last Taken 11/24/19] omeprazole 20 mg capsule,delayed release 20 mg PO DAILY gerd 11/24/19 [History Last Taken 11/24/19] vitamin B complex (B Complex-Vitamin B12 tablet) 1 tab PO DAILY 04/15/21 [History Last Taken Unknown] biotin 1 mg capsule 1 mg PO DAILY 02/24/22 [History Last Taken Unknown] catalyn PO 02/24/22 [History Last Taken Unknown] estradiol 0.01% (0.1 mg/gram) vaginal cream See Rx Instructions vaginal .COMPLEX #42.5 grams 02/24/22 [Rx Last Taken Unknown] iron sucrose 50 mg iron/2.5 mL intravenous solution mg .Route 02/24/22 [History Last Taken 08/06/22] orthomune PO 02/24/22 [History Last Taken Unknown] bevacizumab 25 mg/mL intravenous solution (Avastin) mg intravitreal 04/21/22 [History Last Taken Unknown] osteobase PO 05/18/23 [History Last Taken Unknown] Allergy/AdvReac Type Severity Reaction Status Date / Time bacitracin AdvReac Unknown Unknown Verified 08/18/23 15:42 Family History Mother Cancer Squamous Basal Cell Father Cancer Lymphoma HHT (hereditary hemorrhagic telangiectasia) Surgical History History of back surgery History of cholecystectomy History of foot surgery History of nasal surgery History of neck surgery Hx of shoulder replacement Social History Smoking Status: Never smoker alcohol intake: never substance use type: does not use caffeine: Yes Type: tea Number of servings: 2 what type of physical activity do you participate in: walking frequency: 3-4 times per week seatbelt use: always do you feel safe at home: Yes 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 ROS Narrative Admission Review of Systems: CONSTITUTIONAL: No weight loss, fever, chills, + weakness or fatigue. HEENT: + Lightheadedness, dizziness. Eyes: No visual loss, blurred vision, double vision or yellow sclerae. Ears, Nose, Throat: No hearing loss, sneezing, congestion, runny nose or sore throat. SKIN: No rash or itching, lesions, wounds. CARDIOVASCULAR: + Lightheadedness, dizziness. No chest pain, chest pressure or chest discomfort, palpitations, edema, orthopnea, syncopal events. RESPIRATORY: + Shortness of breath. Cough or sputum, wheezing, hemoptysis. GASTROINTESTINAL: + Chronic intermittent melanotic appearing stools. No anorexia, nausea, vomiting or diarrhea, abdominal pain, BRBPR. GENITOURINARY: No dysuria, frequency, urgency or retention. NEUROLOGICAL: + Lightheadedness, dizziness. No headache, syncope, paralysis, ataxia, numbness or tingling in the extremities, focal weakness, change in bowel or bladder control, seizure. MUSCULOSKELETAL: + muscle, back pain, joint pain or stiffness. HEMATOLOGIC: + Chronic anemia, active bleeding. LYMPHATICS: No enlarged nodes. No history of splenectomy. PSYCHIATRIC: No history of depression or anxiety. ENDOCRINOLOGIC: No reports of sweating, cold or heat intolerance. No polyuria or polydipsia. ALLERGIES: No history of asthma, hives, eczema or rhinitis. Vital Signs Vital Signs Vital Signs: 08/18/23 15:43 08/18/23 15:59 08/18/23 15:59 Temperature 96.2 F L Temperature Source Temporal Pulse Rate 93 106 H Respiratory Rate 12 15 Respiratory Pattern Normal Blood Pressure 126/40 H Blood Pressure Mean 68 Pulse Ox 96 100 Oxygen Delivery Method Room Air Room Air Weight Weight: 135 lb Body Mass Index (BMI) 21.7 Physical Exam Narrative Physical Examination: General: Awake, alert, oriented x 3 and cooperative, laying in the ED bed, fatigued. Skin: Normal color, normal turgor, no icterus, no cyanosis except occasional staged ecchymoses. HEENT: AT/NC, EOMI, PERRLA, mildly dry MM, no carotid bruits or JVD noted. Lungs: CTA bilaterally, moderate effort, mild decrease BL bases, no rales, ronchi or wheezing. Heart: Mildly tachycardic with regular rhythm; no gallop, rub audible. Abdomen: Soft, NTTP, ND, hype reactive BS, no HSM. Extremities: No cyanosis, clubbing, or edema. Neurological: Patient awake, alert, oriented as noted, cognitive function intact; pupils equally reactive to light and accommodation, cranial nerves II-XII grossly normal, moving all 4 extremities, no focal deficits, strength moderately to severely globally decreased secondary to acute presentation. Psychiatric: Affect appears flat, fatigued, no acute evidence of depressive or anxiety feelings. Results Lab / Micro Data 08/18/23 16:10 08/18/23 16:10 Labs: Laboratory Results - last 24 hr 08/18/23 16:10: Crossmatch See Detail Rhythm Strip Rhythm Strip: Sinus Tach Rate: 105 Ectopy: None Assessment & Plan Assessment/Plan (1) ABLA (acute blood loss anemia): PLAN: Plan The patient is a 73 y/o F w/ PMHx: Chronic anemia, HHT following with Dr. Soto Oncology/Hematology and GI CC in [place] with last scope ~ 1-2 years prior with intermittent serial transfusion needs as well as intermittent Bevacizumab injection with most recent on day of presentation with routine tests requested with recent 1-2 week history of worsening fatigue, malaise, dyspnea worse with exertion, lightheadedness and dizziness prompting ED referral for 3 u PRBC administration per Oncology request. #1. Symptomatic Acute GI Bleed w/ resultant Acute Blood Loss Anemia on Chronic with chronic iron deficiency/blood loss anemia secondary to underlying HHT (hereditary hemorrhagic telangiectasia): CC outpatient lab presentation Hgb 5.5 with admission labs pending, will admit to PCU to be cautious, will obtain serial H&H, type and cross for 3 unit PRBC already initiated per ED physician, maintain on IVFs, will maintain on pulse dose octreotide as well as continuous Protonix infusion per discussion with gastroenterology and to be cautious given this is the more severe drop it has been will request CTA abdomen pelvis per GI recommendation, clears until midnight then n.p.o. status to be cautious, fall precautions. Of note patient did receive Bevacizumab on day of presentation at Oncology/Hematology office. #2. Hypokalemia: Admission K+ 3.4, magnesium level requested, supplementation given, repeat level in AM. #3. GERD: We will continue IV Protonix drip as noted. #4. DVT prophylaxis: SCDs. #5. CODE status: Patient ARTUR is her children and living will is currently in place. Discussed CODE status at length including difference between FULL code, DNR-CCA and DNR-CC status. Following discussions about the differences in these status, requested Full Code status. Advanced Care Planning Face to Face Time: 16 minutes. Charges/Coding Visit Charges Inpatient E&M: 96306 Init Hosp L3 Procedures Hospitalists Procedures: 29216 Advncd Care Plan 30 Min
[2023-08-18 16:48] LABS: Anion Gap 4 (5-15); BUN 17 mg/dL (7-18); BUN/Creat Ratio 35.2 RATIO (10-20); Calcium,Total 8.8 mg/dL (8.5-10.1); Chloride 108 mmol/L (98-107); Creatinine, Serum 0.48 mg/dL (0.55-1.02); EST Glomerular Filtration Rate 134 mL/min (>60); Est Glom Filt Rate - Afr Amer 162 mL/min (>60); Glucose 95 mg/dL (74-106); Potassium 3.4 mmol/L (3.5-5.1); Sodium Level 140 mmol/L (136-145)
--- NOTE | 2023-08-18 17:06 | CT_ITS ---
STUDY: CTA ABDOMEN AND PELVIS WITH CONTRAST REASON FOR EXAM: Female, 73 years old. GI bleed, ABLA RADIATION DOSAGE (If Supplied By Facility): CTDIvol = ( 8.74 ) mGy, DLP = ( 353.23 ) mGycm TECHNIQUE: Transaxial images were obtained from the dome of the diaphragm to the symphysis pubis without oral contrast. IV 100mL Isovue-370 was administered. Sagittal and coronal images were reconstructed. Individualized dose optimization techniques were used for this CT. COMPARISON: November 24, 2019 FINDINGS: The visualized lung bases are unremarkable. The visualized portions of the heart are within normal limits. There is diffuse heterogeneity of the liver with innumerable small hypodensities. Gallbladder is not seen consistent with cholecystectomy. Normal spleen. Normal pancreas. Normal bilateral adrenal glands. Normal right kidney. There is 1.3 cm cyst at the lower pole of the left kidney. Normal visualized stomach. Normal small intestine. There are a few colonic diverticula consistent with diverticulosis. The appendix is visualized and appears normal. Normal abdominal aorta. Normal celiac and superior and inferior mesenteric and renal arteries. Normal inferior vena cava. Normal retroperitoneum. Normal urinary bladder. Normal visualized uterus. There is no free fluid in the abdomen or pelvis. Normal abdominal wall. There is anterior and posterior fusion at L3-4 including bilateral pedicle screws and hardware in the disc space. CT/CTA Abd/Pelvis W/WO Contrast IMPRESSION: No active hemorrhage. No aneurysm or dissection. Colonic diverticulosis. No obstruction. Abnormal liver with multiple hypodense masses suggesting metastatic disease versus atypical infection. Consider MRI and/or ultrasound for further characterization. Electronically Signed: Alex Mir MD at 18:41 EST ,
[2023-08-18 17:08] LABS: Differential Indicated SCAN CRITERIA MET; Hemoglobin 5.8 g/dL (12.0-15.0)
[2023-08-18 17:13] LABS: Anisocytosis 2+; Platelet Estimate ADEQUATE (ADEQ); Polychromasia RARE; Red Cell Morphology N CHROM NORMAL (NORM C&C)
[2023-08-18 17:14] LABS: Hypochromasia 2+; Macrocytosis 2+
--- NOTE | 2023-08-18 17:24 | CON.PCM.GI_ITS ---
HPI Consult Data Date of Consult: 08/18/23 HPI Narrative Reason for Consultation: GI bleed HPI Narrative: DERECK LÓPEZ, is a 73 F who presents with GI bleeding. She history of HHT with GI AVMs and no pulmonary or hepatic AVMs required multiple hospital admissions for recurrent gastrointestinal bleeding. In one calendar year, the patient had 8 admissions for gastrointestinal bleeding and required a total of 14 units of packed red blood cells (pRBC) transfused. She follows with GI doctor and [facility] in [place], and Dr. Soto with hematology in [place]. For the past several days to a week she has gradually developed dyspnea on exertion, fatigue, and lightheadedness. She had one of her 3 times annually a Avastin infusions today at [facility] as an outpatient, and they found her hemoglobin was 5.5 on a routine check during this infusion. She states after that infusion, typically her melena subsides significantly for a while. She denies having any episodes of chest discomfort or syncope, no history of heart disease that she knows of. Previois endoscopic evaluation showed recurrent gastric, duodenal, jejunal, and colonic AVMs which were treated with argon plasma coagulation. The patient was tried is on aminocaproic acid without improvement. She was started on Bevaci zumab (Avastin) Abby 5mg/kg every 2 weeks for a total of 6 infusions over 3 months. She had marked improvement in symptoms and a decrease in the frequency of bloody stools since induction. With regard to anemia, her hemoglobin level recovered to 13/dL from 9 sg/dL after receiving the 6 Abby infusions. Her hemoglobin level remained at its peak of 13g/dL for approximately 2 months. She had just one hospitalization for GI bleeding and required only one pRBC transfusion since induction with Abby. The plan was for Abby to be administered if the patient's hemoglobin decreased 1.5?g/dL from its peak. It was determined that the patient would likely require a dose of Abby once every 2 months with serial monitoring of her hemoglobin levels given the severity of her disease. [facility] Medical History (Updated 08/18/23 @ 16:[address] Sharon Walton MD) Anemia GI (gastrointestinal bleed) H/O hereditary hemorrhagic telangiectasia (HHT) Home Medications ascorbic acid (vitamin C) 1,000 mg tablet 1,000 mg PO DAILY SUPPLEMENT 11/24/19 [History Last Taken 11/24/19] folic acid 1 mg tablet 1 mg PO DAILY SUPPLEMENT 11/24/19 [History Last Taken 11/24/19] omeprazole 20 mg capsule,delayed release 20 mg PO DAILY gerd 11/24/19 [History Last Taken 11/24/19] vitamin B complex (B Complex-Vitamin B12 tablet) 1 tab PO DAILY 04/15/21 [History Last Taken Unknown] biotin 1 mg capsule 1 mg PO DAILY 02/24/22 [History Last Taken Unknown] catalyn PO 02/24/22 [History Last Taken Unknown] estradiol 0.01% (0.1 mg/gram) vaginal cream See Rx Instructions vaginal .COMPLEX #42.5 grams 02/24/22 [Rx Last Taken Unknown] iron sucrose 50 mg iron/2.5 mL intravenous solution mg .Route 02/24/22 [History Last Taken 08/06/22] orthomune PO 02/24/22 [History Last Taken Unknown] bevacizumab 25 mg/mL intravenous solution (Avastin) mg intravitreal 04/21/22 [History Last Taken Unknown] osteobase PO 05/18/23 [History Last Taken Unknown] Allergy/AdvReac Type Severity Reaction Status Date / Time bacitracin AdvReac Unknown Unknown Verified 08/18/23 17:28 Family History Mother Cancer Squamous Basal Cell Father Cancer Lymphoma HHT (hereditary hemorrhagic telangiectasia) Surgical History History of back surgery History of cholecystectomy History of foot surgery History of nasal surgery History of neck surgery Hx of shoulder replacement Social History Smoking Status: Never smoker alcohol intake: never substance use type: does not use caffeine: Yes Type: tea Number of servings: 2 what type of physical activity do you participate in: walking frequency: 3-4 times per week seatbelt use: always do you feel safe at home: Yes 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 ROS Narrative Admission Review of Systems: CONSTITUTIONAL: No weight loss, fever, chills, + weakness or fatigue. HEENT: + Lightheadedness, dizziness. Eyes: No visual loss, blurred vision, double vision or yellow sclerae. Ears, Nose, Throat: No hearing loss, sneezing, congestion, runny nose or sore throat. SKIN: No rash or itching, lesions, wounds. CARDIOVASCULAR: + Lightheadedness, dizziness. No chest pain, chest pressure or chest discomfort, palpitations, edema, orthopnea, syncopal events. RESPIRATORY: + Shortness of breath. Cough or sputum, wheezing, hemoptysis. GASTROINTESTINAL: + Chronic intermittent melanotic appearing stools. No anorexia, nausea, vomiting or diarrhea, abdominal pain, BRBPR. GENITOURINARY: No dysuria, frequency, urgency or retention. NEUROLOGICAL: + Lightheadedness, dizziness. No headache, syncope, paralysis, ataxia, numbness or tingling in the extremities, focal weakness, change in bowel or bladder control, seizure. MUSCULOSKELETAL: + muscle, back pain, joint pain or stiffness. HEMATOLOGIC: + Chronic anemia, active bleeding. LYMPHATICS: No enlarged nodes. No history of splenectomy. PSYCHIATRIC: No history of depression or anxiety. ENDOCRINOLOGIC: No reports of sweating, cold or heat intolerance. No polyuria or polydipsia. ALLERGIES: No history of asthma, hives, eczema or rhinitis. Physical Exam Narrative Physical Examination: General: Awake, alert, oriented x 3 and cooperative, laying in the ED bed, fatigued. Skin: Normal color, normal turgor, no icterus, no cyanosis except occasional staged ecchymoses. HEENT: AT/NC, EOMI, PERRLA, mildly dry MM, no carotid bruits or JVD noted. Lungs: CTA bilaterally, moderate effort, mild decrease BL bases, no rales, ronchi or wheezing. Heart: Mildly tachycardic with regular rhythm; no gallop, rub audible. Abdomen: Soft, NTTP, ND, hype reactive BS, no HSM. Extremities: No cyanosis, clubbing, or edema. Neurological: Patient awake, alert, oriented as noted, cognitive function intact; pupils equally reactive to light and accommodation, cranial nerves II- XII grossly normal, moving all 4 extremities, no focal deficits, strength moderately to severely globally decreased secondary to acute presentation. Psychiatric: Affect appears flat, fatigued, no acute evidence of depressive or anxiety feelings. Lab / Micro Data 08/18/23 16:10 08/18/23 16:10 Labs: Laboratory Results - last 24 hr 08/18/23 16:10: WBC 6.1, RBC 1.86 L, Hgb 5.8 L*, Hct 21.3 L, MCV 114.5 H, MCH 31.2, MCHC 27.2 L, RDW Std Deviation 85.0 H, RDW Coeff of Marques 20.8 H, Plt Count 256, MPV 10.5, Immature Gran % (Auto) 0.800, Neut % (Auto) 82.2 H, Lymph % (Auto) 7.6 L, [place] % (Auto) 8.3, Eos % (Auto) 0.8, Baso % (Auto) 0.3, Absolute Neuts (auto) 5.0, Absolute Lymphs (auto) 0.46 L, Nucleated RBC % 2.3, Differential Comment SEE COMMENT, Diff Path Review May foll, Platelet Estimate ADEQUATE, RBC Morphology N CHROM, Polychromasia RARE, Hypochromasia 2+, Anisocytosis 2+, Macrocytosis 2+, Sodium 140, Potassium 3.4 L, Chloride 108 H, Carbon Dioxide 28.0, Anion Gap 4 L, BUN 17, Creatinine 0.48 L, Estim Creat Clear Calc 46.90, Est GFR (MDRD) Af Amer 162, Est GFR (MDRD) Non-Af 134, BUN/Creatinine Ratio 35.2 H, Glucose 95, Calcium 8.8, Crossmatch See Detail Rhythm Strip Rhythm Strip: Sinus Tach Rate: 105 Ectopy: None Assessment & Plan Assessment/Plan (1) Symptomatic anemia: PLAN: At a lower bleeding source is at this time. It could be anywhere from upper GI tract or lower GI tract. I would recommend continuing antacid at this time. She may need a upper endoscopy in the near future to see the bleeding is now secondary to medications or something else. We recommend to start her on octreotide and PPI IV every 12 hours. Recommend to get CT angiography of the abdomen pelvis and further recommendations to follow. Charges/Coding Visit Charges Inpatient E&M: 09964 Init Hosp L3
[2023-08-18 17:35] LABS: Magnesium 2.1 mg/dL (1.6-2.6); Phosphorus 2.5 mg/dL (2.5-4.9)
[2023-08-18] MEDS: Acetaminophen 325 MG Tablet 650 MG PO (20:24)
[2023-08-19] VITALS (10 sets, daily range): BP systolic 112–121; BP diastolic 62–75; PULSE 80–92; RESP 16–18; TEMP 36.6–37.1; O2SAT 97–100; BMI 22.5
[2023-08-19 06:02] LABS: Absolute Lymphocyte Count 0.22 X10^3/uL (0.83-4.51); Absolute Neutrophil Count 6.6 X10^3/uL (2.0-7.7); Basophil# 0.01 X10^3/uL; Basophil% 0.1 % (0-1); Eosinophil# 0.01 X10^3/uL; Eosinophils% 0.1 % (0-5); Hematocrit 27.8 % (37-47); Hemoglobin 8.3 g/dL (12.0-15.0); Lymphocyte # 0.22 X10^3/ul (0.83-4.51); Mean Corp Hgb Conc 29.9 g/dL (32-36); Mean Corpuscular Hgb 29.5 pg (27.0-32.0); Mean Corpuscular Volume 98.9 fL (81-99); Mean Platelet Vol. 10.3 fl (6.2-12.0); Monocyte# 0.31 X10^3/uL; Monocyte% 4.3 % (0-10); NRBC Flagged by Analyzer 1.9 % (0-5); Neutrophil # 6.62 X10^3/uL (2.7-7.7); Neutrophil % 91.5 % (47-70); POSITIVE DIFFERENTIAL YES; POSITIVE MORPHOLOGY YES; Platelet Count 246 K/mm3 (150-450); RBC Distribution Width CV 23.6 % (11.6-14.6); RBC Distribution Width SD 77.4 fl (35.1-43.9); Red Blood Count 2.81 M/mm3 (4.2-5.4); White Blood Count 7.2 K/mm3 (4.4-11.0)
[2023-08-19 06:05] LABS: Differential Indicated SCAN CRITERIA MET
[2023-08-19 06:50] LABS: ALB/GLOB Ratio 1.1 RATIO (0.9-2.4); AST(SGOT) 43 U/L (15-37); Alanine Aminotransfer ALT/SGPT 60 U/L (13-56); Albumin, Serum 2.6 g/dL (3.2-5.0); Alkaline Phosphatase 59 U/L (45-117); Anion Gap 5 (5-15); BUN 25 mg/dL (7-18); BUN/Creat Ratio 56.8 RATIO (10-20); Calcium,Total 7.8 mg/dL (8.5-10.1); Chloride 111 mmol/L (98-107); Creatinine, Serum 0.44 mg/dL (0.55-1.02); EST Glomerular Filtration Rate 149 mL/min (>60); Est Glom Filt Rate - Afr Amer 180 mL/min (>60); Globulin 2.4 g/dL (2.2-4.2); Glucose 157 mg/dL (74-106); Potassium 4.2 mmol/L (3.5-5.1); Sodium Level 142 mmol/L (136-145)
--- NOTE | 2023-08-19 07:41 | EX.PCM.PN.GI ---
Subjective Subjective Patient seen and examined this morning. She is not having any signs of GI bleeding. She states that she is hungry and she wants to go home. She does not want any endoscopic procedures including endoscopy at this time. she got 2 units of blood approximately 2 weeks ago and she received units of blood last night. Objective Data Objective Data Vital Signs: Vital Signs Temp Pulse Resp BP Pulse Ox O2 Del Method 98.5 F 80 16 114/73 97 Room Air 08/19/23 04:37 08/19/23 04:37 08/19/23 04:37 08/19/23 04:37 08/19/23 04:37 08/19/23 04:37 Oxygen Delivery Method Room Air Weight: 139 lb 12.369 oz Body Mass Index (BMI) 22.5 Intake & Output: Intake and Output for Last 24 Hours 08/17/23 08/18/23 08/19/23 23:59 23:59 23:59 Intake Total 482 / 482 Balance 482 / 482 Lab / Micro Data 08/19/23 05:23 08/19/23 05:23 Labs: Laboratory Results - last 24 hr 08/18/23 16:10: WBC 6.1, RBC 1.86 L, Hgb 5.8 L*, Hct 21.3 L, MCV 114.5 H, MCH 31.2, MCHC 27.2 L, RDW Std Deviation 85.0 H, RDW Coeff of Marques 20.8 H, Plt Count 256, MPV 10.5, Immature Gran % (Auto) 0.800, Neut % (Auto) 82.2 H, Lymph % (Auto) 7.6 L, [place] % (Auto) 8.3, Eos % (Auto) 0.8, Baso % (Auto) 0.3, Absolute Neuts (auto) 5.0, Absolute Lymphs (auto) 0.46 L, Nucleated RBC % 2.3, Differential Comment SEE COMMENT, Diff Path Review December, Platelet Estimate ADEQUATE, RBC Morphology N CHROM, Polychromasia RARE, Hypochromasia 2+, Anisocytosis 2+, Macrocytosis 2+, Sodium 140, Potassium 3.4 L, Chloride 108 H, Carbon Dioxide 28.0, Anion Gap 4 L, BUN 17, Creatinine 0.48 L, Estim Creat Clear Calc 46.90, Est GFR (MDRD) Af Amer 162, Est GFR (MDRD) Non-Af 134, BUN/Creatinine Ratio 35.2 H, Glucose 95, Calcium 8.8, Phosphorus 2.5, Magnesium 2.1, Blood Type O POSITIVE, Antibody Screen NEGATIVE, Crossmatch See Detail 08/19/23 05:23: WBC 7.2, RBC 2.81 L, Hgb 8.3 L, Hct 27.8 L, MCV 98.9 D, MCH 29.5, MCHC 29.9 L D, RDW Std Deviation 77.4 H, RDW Coeff of Marques 23.6 H, Plt Count 246, MPV 10.3, Immature Gran % (Auto) 1.000 H, Neut % (Auto) 91.5 H, Lymph % (Auto) 3.0 L, [place] % (Auto) 4.3, Eos % (Auto) 0.1, Baso % (Auto) 0.1, Absolute Neuts (auto) 6.6, Absolute Lymphs (auto) 0.22 L, Nucleated RBC % 1.9, Sodium 142, Potassium 4.2, Chloride 111 H, Carbon Dioxide 26.0, Anion Gap 5, BUN 25 H, Creatinine 0.44 L, Estim Creat Clear Calc 46.90, Est GFR (MDRD) Af Amer 180, Est GFR (MDRD) Non-Af 149, BUN/Creatinine Ratio 56.8 H, Glucose 157 H, Calcium 7.8 L, Total Bilirubin 1.50 H, AST 43 H, ALT 60 H, Alkaline Phosphatase 59, Total Protein 5.0 L, Albumin 2.6 L, Globulin 2.4, Albumin/Globulin Ratio 1.1 Radiography Diagnostic Testing: Radiology Impression Abdomen/Pelvis CTA 08/18/23 17:06 IMPRESSION: No active hemorrhage. No aneurysm or dissection. Colonic diverticulosis. No obstruction. Abnormal liver with multiple hypodense masses suggesting metastatic disease versus atypical infection. Consider MRI and/or ultrasound for further characterization. Electronically Signed: Alex Mir MD at 18:41 EST , ADDENDUM: 08/18/23 1747 IMPRESSION: No active hemorrhage. No aneurysm or dissection. Colonic diverticulosis. No obstruction. Abnormal liver with multiple hypodense masses suggesting metastatic disease versus atypical infection. Consider MRI and/or ultrasound for further characterization. N.B. : scarlett adame RN, confirmed on 08/18/2023 23:26:09 (ET) that the healthcare facility has received the radiology report. Electronically Signed: Alex Mir MD at 18:41 EST Reading Location ID and State: [facility] / [place] , Service support , Rhythm Strip Rhythm Strip: Sinus Tach Rate: 105 Ectopy: None Physical Exam Narrative Physical Examination: General: Awake, alert, oriented x 3 and cooperative, laying in the ED bed, fatigued. Skin: Normal color, normal turgor, no icterus, no cyanosis except occasional staged ecchymoses. HEENT: AT/NC, EOMI, PERRLA, mildly dry MM, no carotid bruits or JVD noted. Lungs: CTA bilaterally, moderate effort, mild decrease BL bases, no rales, ronchi or wheezing. Heart: Mildly tachycardic with regular rhythm; no gallop, rub audible. Abdomen: Soft, NTTP, ND, hype reactive BS, no HSM. Extremities: No cyanosis, clubbing, or edema. Neurological: Patient awake, alert, oriented as noted, cognitive function intact; pupils equally reactive to light and accommodation, cranial nerves II-XII grossly normal, moving all 4 extremities, no focal deficits, strength moderately to severely globally decreased secondary to acute presentation. Psychiatric: Affect appears flat, fatigued, no acute evidence of depressive or anxiety feelings. Assessment & Plan Assessment/Plan (1) Symptomatic anemia: PLAN: At a lower bleeding source is at this time. It could be anywhere from upper GI tract or lower GI tract. I would recommend continuing antacid at this time. She may need a upper endoscopy in the near future to see the bleeding is now secondary to medications or something else. I previously recommended to start her on octreotide and PPI IV every 12 hours. I Recommended to get CT angiography of the abdomen pelvis. It displayed Abnormal liver with multiple hypodense masses suggesting metastatic disease versus atypical infection. Recommendations are to Consider MRI and/or ultrasound for further characterization. I recommend that she get a MRI to further characterize the lesions around the liver. With the differential diagnosis being metastatic disease, infectious disease. Charges/Coding Visit Charges Inpatient E&M: 83992 Subs Hosp L3
[2023-08-19 08:56] LABS: Anisocytosis 2+; Differential Comment SCANNED
[2023-08-19 08:57] LABS: Macrocytosis 1+; Microcytosis 1+
--- NOTE | 2023-08-19 10:31 | DCINST_ITS ---
Discharge Instructions Diet Discharge Diet: Low fat / Low cholesterol Activity Discharge Activity: Return to Normal Activity Weight Bearing Status: Weight bearing as tolerated Dressing / Incision Call your doctor if you observe: Fever of 101 or Higher, Shortness of breath and Swelling in the ankles Follow Up Care Test Results: Test results from this visit will be discussed in further detail at your follow- up appointment, if applicable. Discharge Plan Admission Admit Date/Time: 08/18/23 16:57 Primary Reason for Your Visit: acute on chronic anemia Attending Provider: Camille Johnston Primary Care Provider: Mariaelena Corbett Consulting Providers: Sharon Walton Instructions Patient Instructions: Anemia Discharge Orders/Prescriptions Prescriptions: Continued bevacizumab 25 mg/mL intravenous solution 25 mg/mL solution 25 mg INTRAVIT Rx Instructions: [id number] vitamin B complex [B Complex-Vitamin B12] Tablet 1 tab PO DAILY catalyn gf PO DAILY orthomune 1 tab PO DAILY iron sucrose 50 mg iron/2.5 mL solution 50 mg IV .monthly Rx Instructions: 50 mg intravenously; takes monthly last dose 08/05 osteobase PO DAILY Rx Instructions: 3 tabs daily ascorbic acid (vitamin C) 1,000 MG tablet 1,000 mg PO DAILY omeprazole 20 MG capsule,delayed release(DR/EC) 20 mg PO DAILY folic acid 1 MG tablet 1 mg PO DAILY estradiol 0.01 % (0.1 mg/gram) cream 0.1 applic vaginal Referrals / Follow Up: Mariaelena Corbett DO [Primary Care Provider] - Within 2 Weeks Jesus Soto DO [Med Staff - Active Staff] - Within 1 Week Disposition Disposition (needs filled in before D/C Order can be placed): Home, Self Care
--- NOTE | 2023-08-19 10:39 | PCM.DC.SUM ---
Providers Date of Admission: 08/18/23 Date of Discharge: 08/19/23 Primary Care Physician: Dr. Mariaelena Corbett, Consultations 08/18/23 20:19 Consult: Gastroenterology Routine Consulting Provider: [facility] Reason for Consult: GI bleed, HHT, ABLA EMERGENT Consult: No MD Notified: Yes Date Notified: 08/18/23 Time Notified: 16:58 Method of Notification: Verbal Reason For Visit: GI BLED, HHT, ABLA Diagnosis Discharge Diagnosis (1) Symptomatic anemia: Status: Acute Code(s): D64.9 - Anemia, unspecified Medications at Discharge Home Medications ascorbic acid (vitamin C) 1,000 mg tablet 1,000 mg PO DAILY SUPPLEMENT 11/24/19 folic acid 1 mg tablet 1 mg PO DAILY SUPPLEMENT 11/24/19 omeprazole 20 mg capsule,delayed release 20 mg PO DAILY gerd 11/24/19 vitamin B complex (B Complex-Vitamin B12 tablet) 1 tab PO DAILY supplement 04/15/21 catalyn gf PO DAILY supplement 02/24/22 iron sucrose 50 mg iron/2.5 mL intravenous solution 50 mg IV .monthly supplement 02/24/22 orthomune 1 tab PO DAILY supplement 02/24/22 bevacizumab 25 mg/mL intravenous solution (Avastin) 25 mg intravitreal infusion 04/21/22 osteobase PO DAILY supplement 05/18/23 estradiol 0.01% (0.1 mg/gram) vaginal cream 0.1 applic vaginal vag itching 08/18/23 Hospital Course Operations None Procedures Blood transfusion Summary of Care Provided Minutes Spent on Discharge: 47 Hospital Course: Patient is a 73-year-old female with a past medical history as outlined which includes hereditary hemorrhagic telangiectasia for which she follows up with oncology and gastroenterology on outpatient basis. She was admitted through the ED on 08/19/2023 with a complaint of lightheadedness and dyspnea as well as shortness of breath with intermittent melena for about 2 months prior to admission. On outpatient basis that hemoglobin was 5.5. On admission hemoglobin was 5.8. On admission that she had a CT angiogram of the abdomen and pelvis to rule out any obvious source of bleeding. She was transfused with 3 units of packed red blood cells. Hemoglobin came up to 8.3. CT of the abdomen and pelvis showed multiple liver lesions concerning for metastasis. An MRI of the abdomen was suggested. Patient was however adamant that she was going to have an MRI of the abdomen and preferred to follow-up on outpatient basis with her oncologist and it technical architect. Patient requested to be discharged and refused any colonoscopy or EGD by gastroenterology and again preferred to follow-up with a it technical architect and oncologist on outpatient basis. Patient was therefore discharged home on 08/19/2023. She is follow-up with her primary care doctor, oncology and it technical architect on outpatient basis. I did try to call her oncologist on the phone to inform him about patient stay but was unable to reach him. Patient seen and examined prior to discharge. She had no active complaints and had an uneventful night. Review of systems otherwise negative. Labs and vitals reviewed. Home medication reviewed and reconciled. Physical Exam Const alert, oriented x3 and no apparent distress General Appearance: cooperative, comfortable, well kempt and well developed Orientation / Consciousness: awake Exam Limitations: no limitations HEENT normocephalic, head/scalp atraumatic, hearing grossly normal bilaterally and moist oral mucous membranes Eyes PERRL, EOMs intact bilaterally and conjunctivae normal Neck no lymphadenopathy, supple and no JVD Resp normal respiratory effort, no retractions, no use of accessory muscles and clear to auscultation bilaterally Cardio regular rate, regular rhythm, S1 normal heart sound, S2 normal heart sound and no murmurs GI normal to inspection, nondistended, normoactive bowel sounds, soft to palpation, non-tender and non-distended Extremity normal to inspection, full ROM and no clubbing, cyanosis or edema Skin no rashes or lesions noted, no wounds, skin turgor normal and no jaundice Neuro oriented x3, CN's II-XII intact bilaterally, moves all extremities and no focal motor deficits Sensorium / Orientation: awake and alert Motor Exam: strength 5/5 throughout Psych affect normal Weight / BMI Weight Weight: 139 lb 12.369 oz Body Mass Index (BMI) 22.5 ABG / Lab / Microbiology Data 08/19/23 05:23 08/19/23 05:23 Laboratory: Laboratory Results - last 24 hr 08/18/23 16:10: WBC 6.1, RBC 1.86 L, Hgb 5.8 L*, Hct 21.3 L, MCV 114.5 H, MCH 31.2, MCHC 27.2 L, RDW Std Deviation 85.0 H, RDW Coeff of Marques 20.8 H, Plt Count 256, MPV 10.5, Immature Gran % (Auto) 0.800, Neut % (Auto) 82.2 H, Lymph % (Auto) 7.6 L, [place] % (Auto) 8.3, Eos % (Auto) 0.8, Baso % (Auto) 0.3, Absolute Neuts (auto) 5.0, Absolute Lymphs (auto) 0.46 L, Nucleated RBC % 2.3, Differential Comment SEE COMMENT, Diff Path Review December foll, Platelet Estimate ADEQUATE, RBC Morphology N CHROM, Polychromasia RARE, Hypochromasia 2+, Anisocytosis 2+, Macrocytosis 2+, Sodium 140, Potassium 3.4 L, Chloride 108 H, Carbon Dioxide 28.0, Anion Gap 4 L, BUN 17, Creatinine 0.48 L, Estim Creat Clear Calc 46.90, Est GFR (MDRD) Af Amer 162, Est GFR (MDRD) Non-Af 134, BUN/Creatinine Ratio 35.2 H, Glucose 95, Calcium 8.8, Phosphorus 2.5, Magnesium 2.1, Blood Type O POSITIVE, Antibody Screen NEGATIVE, Crossmatch See Detail 08/19/23 05:23: WBC 7.2, RBC 2.81 L, Hgb 8.3 L, Hct 27.8 L, MCV 98.9 D, MCH 29.5, MCHC 29.9 L D, RDW Std Deviation 77.4 H, RDW Coeff of Marques 23.6 H, Plt Count 246, MPV 10.3, Immature Gran % (Auto) 1.000 H, Neut % (Auto) 91.5 H, Lymph % (Auto) 3.0 L, [place] % (Auto) 4.3, Eos % (Auto) 0.1, Baso % (Auto) 0.1, Absolute Neuts (auto) 6.6, Absolute Lymphs (auto) 0.22 L, Nucleated RBC % 1.9, Differential Comment SCANNED, Anisocytosis 2+, Microcytosis 1+, Macrocytosis 1+, Sodium 142, Potassium 4.2, Chloride 111 H, Carbon Dioxide 26.0, Anion Gap 5, BUN 25 H, Creatinine 0.44 L, Estim Creat Clear Calc 46.90, Est GFR (MDRD) Af Amer 180, Est GFR (MDRD) Non-Af 149, BUN/Creatinine Ratio 56.8 H, Glucose 157 H, Calcium 7.8 L, Total Bilirubin 1.50 H, AST 43 H, ALT 60 H, Alkaline Phosphatase 59, Total Protein 5.0 L, Albumin 2.6 L, Globulin 2.4, Albumin/Globulin Ratio 1.1 Radiography Diagnostic Testing: Radiology Impression Abdomen/Pelvis CTA 08/18/23 17:06 IMPRESSION: No active hemorrhage. No aneurysm or dissection. Colonic diverticulosis. No obstruction. Abnormal liver with multiple hypodense masses suggesting metastatic disease versus atypical infection. Consider MRI and/or ultrasound for further characterization. Electronically Signed: Alex Mir MD at 18:41 EST Reading Location ID and State: [facility] / [place] , Service support , ADDENDUM: 08/18/23 2333 IMPRESSION: No active hemorrhage. No aneurysm or dissection. Colonic diverticulosis. No obstruction. Abnormal liver with multiple hypodense masses suggesting metastatic disease versus atypical infection. Consider MRI and/or ultrasound for further characterization. N.B. : scarlett adame RN, confirmed on 08/18/2023 23:26:09 (ET) that the healthcare facility has received the radiology report. Electronically Signed: Alex Mir MD at 18:41 EST , D/C Instructions Discharge Diet: Low fat / Low cholesterol Discharge Activity: Return to Normal Activity Weight Bearing Status: Weight bearing as tolerated Call your doctor if you observe: Fever of 101 or Higher, Shortness of breath and Swelling in the ankles Meaningful Use Info Meaningful Use Diagnoses (Choose all that apply): None applicable Discharge Plan Admission Admit Date/Time: 08/18/23 16:57 Primary Reason for Your Visit: acute on chronic anemia Attending Provider: Camille Johnston Primary Care Provider: Mariaelena Corbett Consulting Providers: Sharon Walton Instructions Patient Instructions: Anemia Discharge Orders/Prescriptions Prescriptions: Continued bevacizumab 25 mg/mL intravenous solution 25 mg/mL solution 25 mg INTRAVIT Rx Instructions: [id number] vitamin B complex [B Complex-Vitamin B12] Tablet 1 tab PO DAILY catalyn gf PO DAILY orthomune 1 tab PO DAILY iron sucrose 50 mg iron/2.5 mL solution 50 mg IV .monthly Rx Instructions: 50 mg intravenously; takes monthly last dose 08/05 osteobase PO DAILY Rx Instructions: 3 tabs daily ascorbic acid (vitamin C) 1,000 MG tablet 1,000 mg PO DAILY omeprazole 20 MG capsule,delayed release(DR/EC) 20 mg PO DAILY folic acid 1 MG tablet 1 mg PO DAILY estradiol 0.01 % (0.1 mg/gram) cream 0.1 applic vaginal Referrals / Follow Up: Mariaelena Corbett DO [Primary Care Provider] - Within 2 Weeks Jesus Soto DO [Med Staff - Active Staff] - Within 1 Week Disposition Disposition (needs filled in before D/C Order can be placed): Home, Self Care Charges/Coding Visit Charges Inpatient E&M: 81065 Disch Hosp >30min
--- NOTE | 2023-08-19 11:00 | PHA.DC.MR.R ---
Pharmacy [place] Med Reconciliation Pharmacy Service has performed discharge medication reconciliation for this patient. The patient's discharge medication list was reviewed for discrepancies and discrepancies were resolved. Medications at Discharge Home Medications ascorbic acid (vitamin C) 1,000 mg tablet 1,000 mg PO DAILY SUPPLEMENT 11/24/19 folic acid 1 mg tablet 1 mg PO DAILY SUPPLEMENT 11/24/19 omeprazole 20 mg capsule,delayed release 20 mg PO DAILY gerd 11/24/19 vitamin B complex (B Complex-Vitamin B12 tablet) 1 tab PO DAILY supplement 04/15/21 catalyn gf PO DAILY supplement 02/24/22 iron sucrose 50 mg iron/2.5 mL intravenous solution 50 mg IV .monthly supplement 02/24/22 orthomune 1 tab PO DAILY supplement 02/24/22 bevacizumab 25 mg/mL intravenous solution (Avastin) 25 mg intravitreal infusion 04/21/22 osteobase PO DAILY supplement 05/18/23 estradiol 0.01% (0.1 mg/gram) vaginal cream 0.1 applic vaginal vag itching 08/18/23
--- NOTE | 2023-08-19 12:35 | CASEMGMT ---
RN?CM?DIRECTOR OF CORPORATE REAL ESTATE?CM?to room to meet with patient for initial transition planning/care coordination?assessment.?RN?CM?introduced self and role at [facility].? Pt voices understanding and consents to?assessment?at this time.? Pt resting in bed in no distress at this time.? Pt is A/O at this time and answers all questions appropriately.?? Care providers, pharmacy, and demographics verified/updated at this time. 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 LNOK: 2 dtrs and 2 sons Living Arrangements: Lives alone in ranch-style home. She states she is independent w/ADL's and IADL's and manages her own medications and appts. She denies issues w/stairs. Transportation:?Pt states drives self and states no transportation concerns at this time.?Dtr will take her home. DME: ? Denies using any DME and denies needs.? HHC/SNF: No hx of either. No needs identified. Pt wishes to return home and states has no concerns with going home. PLAN:??Home Kelly BSN?RN?CM
[2023-08-19 13:01] LABS: Pathologist Review Reviewed
== END 2023-08-19 14:13 | disposition home or self-care (01) | DRG 812 ==
LOC: ED 16:49 → PCU 17:27
PROVIDERS: Admitting Provider Family Medicine; Emergency Provider Emergency Medicine; PCP Family Medicine; Visit Provider Student in an Organized Health Care Education/Training Program
DX: D62 Acute posthemorrhagic anemia (principal); I78.0 Hereditary hemorrhagic telangiectasia; D50.9 Iron deficiency anemia, unspecified; K76.9 Liver disease, unspecified; E87.6 Hypokalemia; K57.30 Diverticulosis of large intestine without perforation or abscess without bleeding; K21.9 Gastro-esophageal reflux disease without esophagitis; Z66 Do not resuscitate; Z51.5 Encounter for palliative care; R16.0 Hepatomegaly, not elsewhere classified
CPT/HCPCS: 36415; 74174; 80048; 80053; 83735; 84100; 85025; 86850; 86900; 86901; 86902; 86920; 86922; 93005; 94668; 99284; P9016; Q9967; A4216

== ENCOUNTER 2023-09-08 16:54 | Observation (INO) | payer MEDICARE, OTHER, SELFPAY ==
[2023-09-08] VITALS (28 sets, daily range): BP systolic 80–153; BP diastolic 44–88; PULSE 58–90; RESP 15–18; TEMP 36.2–37.7; O2SAT 96–100; BMI 21.7; BMI 22.7
--- OUTSIDE RECORDS SUMMARY | 2023-09-08 09:39 | XMS RPT_ITS | CCD ---
Author Name Unknown Address [address] [place] [address] Organization [facility] Care Team Providers Care Scrap Hoist Operator Name Role Phone Anders Simms PA-C Unavailable Malys DO, Mariaelena A Primary Care Provider Malys DO, Mariaelena A Primary Care Provider Malys DO, Mariaelena A Primary Care Provider [phone] Malys DO, Mariaelena A Primary Care Provider [phone] MASCI, JESUS A Referring Unavailable MALYS, MARIAELENA A Primary Care Unavailable MASCI, JESUS A Referring Unavailable MALYS, MARIAELENA A Primary Care Unavailable PARAMBIL, MASTER Referring Unavailable PARAMBIL, MASTER Attending Unavailable MALYS, MARIAELENA A Primary Care Unavailable MASCI, JESUS A Referring Unavailable MALYS, MARIAELENA A Primary Care Unavailable ABRAMOVICHRACHEL Referring Unavailable MALYS, MARIAELENA A Primary Care Unavailable MASCI, JESUS A Referring Unavailable MALYS, MARIAELENA A Primary Care Unavailable MASCI, JESUS A Referring Unavailable MALYS, MARIAELENA A Primary Care Unavailable MASCI, JESUS A Referring Unavailable MALYS, MARIAELENA A Primary Care Unavailable MASCI, JESUS A Referring Unavailable MALYS, MARIAELENA A Primary Care Unavailable MASCI, JESUS A Referring Unavailable MALYS, MARIAELENA A Primary Care Unavailable MASCI, JESUS A Referring Unavailable MALYS, MARIAELENA A Primary Care Unavailable MASCI, JESUS A Attending Unavailable MASCI, JESUS A Referring Unavailable MALYS, MARIAELENA A Primary Care Unavailable MASCI, JESUS A Referring Unavailable MALYS, MARIAELENA A Primary Care Unavailable MASCI, JESUS A Referring Unavailable MALYS, MARIAELENA A Primary Care Unavailable MASCI, JESUS A Referring Unavailable MALYS, MARIAELENA A Primary Care Unavailable MASCI, JESUS A Attending Unavailable MASCI, JESUS A Referring Unavailable MALYS, MARIAELENA A Primary Care Unavailable MASCI, JESUS A Referring Unavailable MALYS, MARIAELENA A Primary Care Unavailable MASCI, JESUS A Referring Unavailable MALYS, MARIAELENA A Primary Care Unavailable PARAMBIL, MASTER Referring Unavailable PARAMBIL, MASTER Attending Unavailable MALYS, MARIAELENA A Primary Care Unavailable MASCI, JESUS A Referring Unavailable MALYS, MARIAELENA A Primary Care Unavailable MASCI, JESUS A Referring Unavailable MALYS, MARIAELENA A Primary Care Unavailable PARAMBIL, MASTER Attending Unavailable MALYS, MARIAELENA A Primary Care Unavailable MASCI, JESUS A Referring Unavailable MALYS, MARIAELENA A Primary Care Unavailable MASCI, JESUS A Referring Unavailable MALYS, MARIAELENA A Primary Care Unavailable MASCI, JESUS A Referring Unavailable MALYS, MARIAELENA A Primary Care Unavailable MASCI, JESUS A Referring Unavailable MALYS, MARIAELENA A Primary Care Unavailable MASCI, JESUS A Referring Unavailable MALYS, MARIAELENA A Primary Care Unavailable MASCI, JESUS A Referring Unavailable MALYS, MARIAELENA A Primary Care Unavailable MASCI, JESUS A Referring Unavailable MALYS, MARIAELENA A Primary Care Unavailable MASCI, JESUS A Referring Unavailable MALYS, MARIAELENA A Primary Care Unavailable MASCI, JESUS A Referring Unavailable MALYS, MARIAELENA A Primary Care Unavailable MASCI, JESUS A Referring Unavailable MALYS, MARIAELENA A Primary Care Unavailable MASCI, JESUS A Referring Unavailable MALYS, MARIAELENA A Primary Care Unavailable MASCI, JESUS A Referring Unavailable MALYS, MARIAELENA A Primary Care Unavailable MASCI, JESUS A Referring Unavailable MALYS, MARIAELENA A Primary Care Unavailable MASCI, JESUS A Referring Unavailable MALYS, MARIAELENA A Primary Care Unavailable Medications Current Medications Medication Drug Class(es) Dates Sig (Normalized) Sig (Original) iv contrast (will be provided with radiology test) (1 source) Start: 12-02-2022 End: 12-03-2022 inject 1 dose intravenously once iv contrast (will be provided with radiology test) MRI Brain Inject, intravenously, once for 1 dose.No IV access, insert saline lock prior to beginning of sedation, infusion, injection of imaging exam.Discontinue saline lock post exam. If Pt. has a central line or IVAD, may access for administration according to line specific nursing protocol.Once exam is complete flush line and de-access according to line specific nursing protocol in the MR contrast administration guidelines link 1 Each 0 12/02/2022 12/03/2022 Active Completed/Discontinued Medications Medication Drug Class(es) Dates Sig (Normalized) Sig (Original) acetaminophen 325 mg / butalbital 50 mg / caffeine 40 mg oral tablet (4 sources) Barbiturate, Central Nervous System Stimulant, Methylxanthine Start: 07-09-2015 End: 07-19-2017 take 1 tablet by mouth three times daily as needed for headache [id number] AFFEINE 50-325-40 MG TABS 1 po up to three times daily as needed for headaches [id number] AFFEINE [id number] Jeannine Hedrick LPN Problems Active Problems Problem Classification Problem Date Documented Da te Episodic/Chronic Cardiac and circulatory congenital anomalies (2 sources) Cerebral arteriovenous malformation; 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] Chronic Congestive heart failure; nonhypertensive (1 source) Chronic diastolic heart failure; Translations: [Chronic diastolic (congestive) heart failure] Chronic Deficiency and other anemia (20 sources) Iron deficiency anemia due to blood loss; Translations: [Iron deficiency anemia secondary to blood loss (chronic)] Onset: 8 08-18-2021 Chronic Deficiency and other anemia (20 sources) Anemia of chronic disease; Translations: [Anemia in other chronic diseases classified elsewhere] Onset: 8 03-14-2008 Chronic Deficiency and other anemia (1 source) Iron deficiency anemia secondary to blood loss (chronic); Translations: [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 loss] Onset: 1 Chronic Deficiency and other anemia (2 sources) Anemia; Translations: [Anemia, unspecified] Onset: 1 09-09-2010 Episodic Gastrointestinal hemorrhage (2 sources) Chronic gastrointestinal hemorrhage; Translations: [Gastrointestinal hemorrhage, unspecified] Episodic Other circulatory disease (20 sources) Osler hemorrhagic telangiectasia syndrome; 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] Onset: 4 09-09-2010 Chronic Other circulatory disease (2 sources) Hereditary hemorrhagic telangiectasia; 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)] Onset: 4 Chronic Other ear and sense organ disorders (20 sources) Hearing loss; Translations: [Unspecified hearing loss, unspecified ear] Onset: 1 04-20-2011 Chronic Other gastrointestinal disorders (20 sources) Malabsorption - iron; Translations: [Intestinal malabsorption, unspecified] Onset: 7 06-30-2017 Chronic Other upper respiratory disease (1 source) Epistaxis; Translations: [Epistaxis] Episodic Other upper respiratory infections (2 sources) Ethmoidal sinusitis; Translations: [Chronic maxillary sinusitis] Onset: 4 10-27-2013 Chronic Otitis media and related conditions (1 source) Chronic mastoiditis; Translations: [Chronic mastoiditis, unspecified ear] Onset: 4 10-31-2013 Chronic Past or Other Problems Problem Classification Problem Date Documented Date Episodic/Chronic Abdominal hernia (20 sources) Umbilical hernia; Translations: [Umbilical hernia without obstruction or gangrene] Onset: 12-13-2008 12-13-2008 Episodic Biliary tract disease (20 sources) Calculus of gallbladder with cholecystitis; Translations: [Calculus of gallbladder with chronic cholecystitis without obstruction] Onset: 12-13-2008 12-13-2008 Episodic Deficiency and other anemia (20 sources) Iron deficiency anemia; Translations: [Iron deficiency anemia, unspecified] Onset: 03-20-2013 08-18-2021 Episodic Deficiency and other anemia (1 source) Anemia, unspecified; Translations: [Anemia, unspecified type] Onset: 09-14-2022 Episodic Headache, including migraine (1 source) Headache; Translations: [Headache] Onset: 03-22-2013 03-23-2013 Episodic Malaise and fatigue (1 source) Fatigue; Translations: [Other fatigue] Onset: 04-12-2012 04-12-2012 Episodic Other skin disorders (1 source) Disorder of nail; Translations: [Other nail disorders] Onset: 09-25-2013 09-25-2013 Episodic Other upper respiratory disease (20 sources) Bleeding from nose; Translations: [Epistaxis] Onset: 07-07-2010 07-07-2010 Episodic Other upper respiratory disease (20 sources) Polyp of nasal cavity and/or nasal sinus; Translations: [Nasal polyp, unspecified] Onset: 11-28-2010 11-28-2010 Episodic Other upper respiratory infections (6 sources) Acute sinusitis; Translations: [Viral upper respiratory tract infection] Onset: 12-08-2010 Resolved: 04-12-2012 12-08-2010 Episodic Residual codes; unclassified (20 sources) H/O: blood transfusion; Translations: [Personal history of other medical treatment] Onset: 08-14-2014 08-18-2021 Episodic Unclassified (1 source) Insomnia; Translations: [Insomnia, unspecified] 04-12-2012 Episodic Urinary tract infections (2 sources) Urinary tract infectious disease; Translations: [Urinary tract infection, site not specified] Onset: 05-23-2013 Resolved: 09-25-2013 05-23-2013 Episodic Results Test Name Value Interpretation Reference Range Facil ity Vital Signs Date Time Vital Sign Value Performing Clinician Facility 08-05-2023 13:35-0500 Body temperature 97.81 [degF] Treatment Wstr Work Phone: [facility] 08-05-2023 13:35-0500 Diastolic blood pressure 52 mm[Hg] Treatment Wstr Work Phone: [facility] 08-05-2023 13:35-0500 Heart rate 96 /min Treatment Wstr Work Phone: [facility] 08-05-2023 13:35-0500 Respiratory rate 16 /min Treatment Wstr Work Phone: [facility] 08-05-2023 13:35-0500 SaO2% (BldA) [Mass fraction] 100 % Treatment Wstr Work Phone: [facility] 08-05-2023 13:35-0500 Systolic blood pressure 127 mm[Hg] Treatment Wstr Work Phone: [facility] 07-08-2023 14:02-0500 Body temperature 97.5 [degF] Treatment Wstr Work Phone: [facility] 07-08-2023 14:02-0500 Diastolic blood pressure 48 mm[Hg] Treatment Wstr Work Phone: [facility] 07-08-2023 14:02-0500 Heart rate 70 /min Treatment Wstr Work Phone: [facility] 07-08-2023 14:02-0500 Respiratory rate 16 /min Treatment Wstr Work Phone: [facility] 07-08-2023 14:02-0500 SaO2% (BldA) [Mass fraction] 100 % Treatment Wstr Work Phone: [facility] 07-08-2023 14:02-0500 Systolic blood pressure 121 mm[Hg] Treatment Wstr Work Phone: [facility] 04-27-2023 14:04-0400 Body temperature 98.2 [degF] Treatment Wstr Work Phone: [facility] 04-27-2023 14:04-0400 Body weight 63.96 kg Treatment Wstr Work Phone: [facility] 04-27-2023 14:04-0400 Diastolic blood pressure 66 mm[Hg] Treatment Wstr Work Phone: [facility] 04-27-2023 14:04-0400 Heart rate 85 /min Treatment Wstr Work Phone: [facility] 04-27-2023 14:04-0400 Respiratory rate 18 /min Treatment Wstr Work Phone: [facility] 04-27-2023 14:04-0400 Systolic blood pressure 105 mm[Hg] Treatment Wstr Work Phone: [facility] 04-15-2023 11:54-0400 Body temperature 97.39 [degF] Treatment Wstr Work Phone: [facility] 04-15-2023 11:54-0400 Diastolic blood pressure 54 mm[Hg] Treatment Wstr Work Phone: [facility] 04-15-2023 11:54-0400 Heart rate 75 /min Treatment Wstr Work Phone: [facility] 04-15-2023 11:54-0400 Systolic blood pressure 102 mm[Hg] Treatment Wstr Work Phone: [facility] 03-18-2023 10:08-0400 Body temperature 97.39 [degF] Treatment Wstr Work Phone: [facility] 03-18-2023 10:08-0400 Body weight 62.82 kg Treatment Wstr Work Phone: [facility] 03-18-2023 10:08-0400 Diastolic blood pressure 51 mm[Hg] Treatment Wstr Work Phone: [facility] 03-18-2023 10:08-0400 Heart rate 73 /min Treatment Wstr Work Phone: [facility] 03-18-2023 10:08-0400 Systolic blood pressure 110 mm[Hg] Treatment Wstr Work Phone: [facility] 02-18-2023 14:11-0400 Body temperature 97 [degF] Treatment Wstr Work Phone: [facility] 02-18-2023 14:11-0400 Diastolic blood pressure 47 mm[Hg] Treatment Wstr Work Phone: [facility] 02-18-2023 14:11-0400 Heart rate 72 /min Treatment Wstr Work Phone: [facility] 02-18-2023 14:11-0400 Systolic blood pressure 109 mm[Hg] Treatment Wstr Work Phone: [facility] 01-21-2023 14:00-0400 Body temperature 97.5 [degF] Treatment Wstr Work Phone: [facility] 01-21-2023 14:00-0400 Diastolic blood pressure 55 mm[Hg] Treatment Wstr Work Phone: [facility] 01-21-2023 14:00-0400 Heart rate 68 /min Treatment Wstr Work Phone: [facility] 01-21-2023 14:00-0400 Respiratory rate 18 /min Treatment Wstr Work Phone: [facility] 01-21-2023 14:00-0400 SaO2% (BldA) [Mass fraction] 100 % Treatment Wstr Work Phone: [facility] 01-21-2023 14:00-0400 Systolic blood pressure 113 mm[Hg] Treatment Wstr Work Phone: [facility] 01-04-2023 13:00-0400 Body weight 63.28 kg Treatment Wstr Work Phone: [facility] 01-04-2023 13:00-0400 Diastolic blood pressure 44 mm[Hg] Treatment Wstr Work Phone: [facility] 01-04-2023 13:00-0400 Heart rate 74 /min Treatment Wstr Work Phone: [facility] 01-04-2023 13:00-0400 Respiratory rate 16 /min Treatment Wstr Work Phone: [facility] 01-04-2023 13:00-0400 SaO2% (BldA) [Mass fraction] 100 % Treatment Wstr Work Phone: [facility] 01-04-2023 13:00-0400 Systolic blood pressure 99 mm[Hg] Treatment Wstr Work Phone: [facility] 12-24-2022 09:17-0400 Body temperature 97.5 [degF] Treatment Wstr Work Phone: [facility] 12-24-2022 09:17-0400 Diastolic blood pressure 63 mm[Hg] Treatment Wstr Work Phone: [facility] 12-24-2022 09:17-0400 Heart rate 73 /min Treatment Wstr Work Phone: [facility] 12-24-2022 09:17-0400 SaO2% (BldA) [Mass fraction] 100 % Treatment Wstr Work Phone: [facility] 12-24-2022 09:17-0400 Systolic blood pressure 110 mm[Hg] Treatment Wstr Work Phone: [facility] 11-26-2022 11:15-0400 Diastolic blood pressure 45 mm[Hg] Treatment Wstr Work Phone: [facility] 11-26-2022 11:15-0400 Heart rate 63 /min Treatment Wstr Work Phone: [facility] 11-26-2022 11:15-0400 Systolic blood pressure 103 mm[Hg] Treatment Wstr Work Phone: [facility] 09-15-2022 13:00-0500 Body temperature 98.01 [degF] Treatment Wstr Work Phone: [facility] 09-15-2022 13:00-0500 Diastolic blood pressure 60 mm[Hg] Treatment Wstr Work Phone: [facility] 09-15-2022 13:00-0500 Heart rate 89 /min Treatment Wstr Work Phone: [facility] 09-15-2022 13:00-0500 Systolic blood pressure 112 mm[Hg] Treatment Wstr Work Phone: [facility] 09-14-2022 14:13-0500 Body height 166.4 cm Jesus Masci DO Work Phone: [facility] 09-14-2022 14:13-0500 Body temperature 97.59 [degF] Jesus Masci DO Work Phone: [facility] 09-14-2022 14:13-0500 Body weight 63.05 kg Jesus Masci DO Work Phone: [facility] 09-14-2022 14:13-0500 Diastolic blood pressure 58 mm[Hg] Jesus Masci DO Work Phone: [facility] 09-14-2022 14:13-0500 Heart rate 82 /min Jesus Masci DO Work Phone: [facility] 09-14-2022 14:13-0500 Systolic blood pressure 122 mm[Hg] Jesus Masci DO Work Phone: [facility] 08-06-2022 10:43-0500 Body temperature 96.49 [degF] Treatment Wstr Work Phone: [facility] 08-06-2022 10:43-0500 Diastolic blood pressure 51 mm[Hg] Treatment Wstr Work Phone: [facility] 08-06-2022 10:43-0500 Heart rate 84 /min Treatment Wstr Work Phone: [facility] 08-06-2022 10:43-0500 Respiratory rate 18 /min Treatment Wstr Work Phone: [facility] 08-06-2022 10:43-0500 SaO2% (BldA) [Mass fraction] 100 % Treatment Wstr Work Phone: [facility] 08-06-2022 10:43-0500 Systolic blood pressure 111 mm[Hg] Treatment Wstr Work Phone: [facility] 05-01-2022 13:36-0400 Body temperature 97.59 [degF] Treatment Wstr Work Phone: [facility] 05-01-2022 13:36-0400 Diastolic blood pressure 50 mm[Hg] Treatment Wstr Work Phone: [facility] 05-01-2022 13:36-0400 Heart rate 76 /min Treatment Wstr Work Phone: [facility] 05-01-2022 13:36-0400 Respiratory rate 16 /min Treatment Wstr Work Phone: [facility] 05-01-2022 13:36-0400 SaO2% (BldA) [Mass fraction] 100 % Treatment Wstr Work Phone: [facility] 05-01-2022 13:36-0400 Systolic blood pressure 110 mm[Hg] Treatment Wstr Work Phone: [facility] 04-23-2022 10:00-0400 Body temperature 96.8 [degF] Treatment Wstr Work Phone: [facility] 04-23-2022 10:00-0400 Diastolic blood pressure 72 mm[Hg] Treatment Wstr Work Phone: [facility] 04-23-2022 10:00-0400 Heart rate 86 /min Treatment Wstr Work Phone: [facility] 04-23-2022 10:00-0400 Systolic blood pressure 122 mm[Hg] Treatment Wstr Work Phone: [facility] 03-26-2022 09:06-0400 Body temperature 97.11 [degF] Treatment Wstr Work Phone: [facility] 03-26-2022 09:06-0400 Diastolic blood pressure 42 mm[Hg] Treatment Wstr Work Phone: [facility] 03-26-2022 09:06-0400 Heart rate 81 /min Treatment Wstr Work Phone: [facility] 03-26-2022 09:06-0400 Systolic blood pressure 113 mm[Hg] Treatment Wstr Work Phone: [facility] 03-19-2022 08:43-0400 Body height 165.1 cm Jesus Masci DO Work Phone: [facility] 03-19-2022 08:43-0400 Body temperature 97.81 [degF] Jesus Masci DO Work Phone: [facility] 03-19-2022 08:43-0400 Body weight 63.05 kg Jesus Masci DO Work Phone: [facility] 03-19-2022 08:43-0400 Diastolic blood pressure 58 mm[Hg] Jesus Masci DO Work Phone: [facility] 03-19-2022 08:43-0400 Heart rate 66 /min Jesus Masci DO Work Phone: [facility] 03-19-2022 08:43-0400 Respiratory rate 14 /min Jesus Masci DO Work Phone: [facility] 03-19-2022 08:43-0400 SaO2% (BldA) [Mass fraction] 100 % Jesus Masci DO Work Phone: [facility] 03-19-2022 08:43-0400 Systolic blood pressure 122 mm[Hg] Jesus Masci DO Work Phone: [facility] 01-01-2022 09:17-0400 Body temperature 97.11 [degF] Treatment Wstr Work Phone: [facility] 01-01-2022 09:17-0400 Body weight 62.82 kg Treatment Wstr Work Phone: [facility] 01-01-2022 09:17-0400 Diastolic blood pressure 57 mm[Hg] Treatment Wstr Work Phone: [facility] 01-01-2022 09:17-0400 Heart rate 76 /min Treatment Wstr Work Phone: [facility] 01-01-2022 09:17-0400 Systolic blood pressure 116 mm[Hg] Treatment Wstr Work Phone: [facility] 07-19-2017 10:03-0500 BMI (Body Mass Index) 21.8 kg/m2 Anders Mendez [facility] Work Phone: 07-19-2017 10:03-0500 Body Temperature 97.9 [degF] Anders Mendez [facility] Work Phone: 07-19-2017 10:03-0500 BP Diastolic 74 mm[Hg] Anders Mendez [facility] Work Phone: 07-19-2017 10:03-0500 BP Systolic 118 mm[Hg] Anders Mendez [facility] Work Phone: 07-19-2017 10:03-0500 Height 170.18 cm Anders Mendez [facility] Work Phone: 07-19-2017 10:03-0500 Pulse (Heart Rate) 88 /min Anders Mendez [facility] Work Phone: 07-19-2017 10:03-0500 Respiratory Rate 12 /min Anders Mendez [facility] Work Phone: 07-19-2017 10:03-0500 Weight 63.14 kg Anders Mendez [facility] Work Phone: 07-04-2014 09:12-0500 BSA (Body Surface Area) 1.72 m2 Anders Mendez [facility] Work Phone: Encounters Encounter Date Encounter Type Care Provider Facility Start: 09-02-2023 End: 09-03-2023 ambulatory JESUS SOTO Facility:[facility] Start: 08-24-2023 End: 08-25-2023 ambulatory RACHEL RAMIREZ Facility:[facility] Start: 08-18-2023 End: 08-19-2023 ambulatory JESUS Kinga JINKellee Facility:[facility] Start: 08-05-2023 End: 08-06-2023 ambulatory Treatment Rm 12 Kayode Replaced By [facility] Work Phone: Hematology/Oncology Procedures Date Procedure Procedure Detail Performing Clinician Start: 05-13-2023 Mri brain brain stem w/o w/contrast material Master Palmer MD Work Phone: Start: 01-04-2023 Urnls dip stick/tabl et rgnt auto w/o microscopy [facility] Start: 09-15-2022 Urnls dip stick/tabl et rgnt auto w/o microscopy [facility] Provider Start: 02-16-2022 Radex spine lumbosac ral minimum 4 views Sophia Richardson Bandar Work Phone: Start: 01-07-2017 Adult depression scr eening assessment Jesus Soto DO Work Phone: Start: 08-20-2016 Mammography Jesus Soto DO Work Phone: Start: 10-14-2015 Colonoscopy Jesus Soto DO Work Phone: Start: 08-21-2014 End: 10-03-2014 *ABO ABO Blood Typing Phyllis Guzman MD Start: 08-21-2014 End: 10-03-2014 *Blood Typing, RH Phyllis Guzman MD Start: 08-21-2014 End: 10-03-2014 CBC w/o Differential Phyllis Guzman MD Start: 10-31-2013 End: 10-31-2014 ENT referral Phyllis Guzman MD Start: 10-27-2013 End: 10-30-2013 Mri brain brain stem w/o contrast material Phyllis Guzman MD Start: 10-27-2013 End: 10-30-2013 Mri brain brain stem w/o w/contrast material Phyllis Guzman MD Start: 09-25-2013 End: 09-25-2013 *CMP Complete Metabolic Panel Phyllis Guzman MD Start: 09-25-2013 End: 09-25-2013 Thyrotropin [Units/volume] in Serum or Plasma Phyllis Guzman MD Start: 08-29-2013 End: 09-28-2013 *ABORH ABO & Rh Blood Type Complete Phyllis Guzman MD Start: 08-29-2013 End: 09-25-2013 CBC W Auto Differential panel - Blood Phyllis Guzman MD Start: 05-23-2013 End: 06-20-2013 Bacteria identified in Urine by Culture Phyllis Guzman MD Start: 05-23-2013 End: 06-20-2013 Urnls dip stick/tablet rgnt non-auto w/o micrscp Phyllis Guzman MD Start: 02-10-2013 End: 02-20-2013 *ABORH ABO & Rh Blood Type Complete Phyllis Guzman MD Start: 02-10-2013 End: 02-20-2013 CBC W Auto Differential panel - Blood Phyllis Guzman MD Start: 12-30-2012 End: 01-23-2013 CBC W Auto Differential panel - Blood Phyllis Guzman MD Start: 08-23-2012 End: 02-20-2013 *ABORH ABO & Rh Blood Type Complete Phyllis Guzman MD Start: 08-23-2012 End: 02-20-2013 CBC W Auto Differential panel - Blood Phyllis Guzman MD Start: 04-12-2012 End: 04-13-2012 *CMP Complete Metabolic Panel Phyllis Guzman MD Start: 04-12-2012 End: 12-30-2012 C reactive protein [Mass/volume] in Serum or Plasma by High sensitivity method Phyllis Guzman MD Start: 04-12-2012 End: 04-13-2012 Erythrocyte sedimentation rate Phyllis Guzman MD Start: 04-12-2012 End: 12-30-2012 Thyrotropin [Units/volume] in Serum or Plasma Phyllis Guzman MD Start: 04-12-2012 End: 04-13-2012 Thyroxine (T4) free [Mass/volume] in Serum or Plasma Phyllis Guzman MD Start: 10-19-2011 End: 10-19-2011 *Blood Typing, ABO/RH Phyllis Guzman MD Start: 10-19-2011 End: 10-19-2011 CBC W Auto Differential panel - Blood Phyllis Guzman MD Start: 09-24-2011 End: 09-28-2011 Follow-up visit Phyllis Guzman MD Start: 07-06-2011 Lipid 1996 panel - S dennis or Plasma Treatment Wstr Work Phone: Start: 06-01-2011 End: 06-03-2011 Follow-up visit Phyllis Guzman MD Start: 12-08-2010 End: 12-08-2010 Follow-up visit Phyllis Guzman MD Start: 09-09-2010 End: 10-01-2010 Blood count complete automated Phyllis Guzman MD Start: 09-09-2010 End: 10-01-2010 Blood typing serologic rh (d) Phyllis Guzman MD Start: 09-09-2010 End: 09-09-2010 Follow Up Appt 3 months Phyllis Guzman MD Plan of Treatment Date Care Activity Detail Author Start: 10-14-2025 Colonoscopy COLONOSCOPY [facility] Start: 10-14-2025 COLORECTAL CANCER SCREENING COLORECTAL CANCER SCREENING [facility] Start: 10-14-2025 Screening for malignant neoplasm of colon [facility] Start: 09-14-2025 DIABETES SCREEN DIABETES SCREEN [facility] Start: 09-14-2025 Diabetes Screening Diabetes Screening [facility] Start: 06-07-2023 Urine microalbumin profile [facility] Start: 04-23-2023 Covid-19 Vaccine ( season) Covid-19 Vaccine () [facility] Start: 04-23-2023 Influenza vaccination [facility] Start: 09-20-2022 DIABETES SCREEN DIABETES SCREEN [facility] Start: 09-14-2022 End: 11-14-2022 CBC W Auto Differential panel - Blood CBC + DIFF Lab STAT Hereditary hemorrhagic telangiectasia (HCC) 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 loss Expected: 09/14/2022, Expires: 11/14/2022 [facility] Work Phone: Immunizations Immunization Date Immunization Notes Care Provider [facility] 08-20-2016 influenza virus vacc ine, unspecified formulation Treatment [facility]str Work Phone: [facility] 06-13-2015 influenza, injectabl e, quadrivalent, preservative free Jesus Soto DO Work Phone: [facility] 07-10-2013 influenza virus vacc ine, unspecified formulation Jesus Jini DO Work Phone: [facility] 06-07-2013 tetanus toxoid, redu lizzie diphtheria toxoid, and acellular pertussis vaccine, adsorbed Jesus Charles DO Work Phone: [facility] Payers Date Payer Category Payer Medicare [id number] 2016 Unknown SHARDA FAULKNER DICARE SUPPLEMENT [id number] 2016-Present [phone] [address] [place] [address] Indemnity [id number] 2016 Unknown SHARDA FAULKNER DICARE SUPPLEMENT [id number] 2016-Present [phone] [id number] [place] [id number] Indemnity [id number] 2012 Medicare MEDICARE MEDICAR E A AND B [id number] 2012-Present [phone] [place] [address] Medicare [id number] 2012 Medicare MEDICARE MEDICAR E A AND B [id number] 2012-Present [phone] [place] [address] Medicare [id number] 2012 Medicare [id number] Social History Date Type Detail Facility Start: 07-06-2011 Tobacco smoking stat [facility] Never smoked tobacco [facility] Work Phone: Start: 12-23-2020 End: 03-18-2023 Alcohol intake Current non-drinker of alcohol (finding) [facility] Start: 1950 Sex Assigned At Not on file [facility] Start: 10-27-2021 End: 03-19-2022 Exposure to SARS-CoV-2 (event) Not sure [facility] Start: 07-06-2011 Tobacco use and exposure Smokeless tobacco non-user [facility] Work Phone: Start: 12-24-2022 End: 03-18-2023 History of Social function [facility] Start: 12-24-2022 End: 03-18-2023 Tobacco use panel [facility] National Score (1-100), lower number is lower risk 35 [facility] Clinical Notes 09-26-2015 to 08-18-2023 Telephone Encounter - Kristy Hayes LPN - 08/05/2023 2:54 PM Brittany Monteiro RN - 08/05/2023 2:25 PM Mariaelena Ashley RT(R) - 05/13/2023 11:20 AM Jesus Youngblood DO - 03/18/2023 11:17 AM EDT Note Date & Type Note Facility 08-18-2023 Note HNO ID: [id number] Author: Krzysztof Gonzales, RAHEEM Service: ? Author Type: Registered Nurse Type: Progress Notes Filed: 08/18/2023 3:09 PM Note Text: Dr. Ramirez aware of today's hemoglobin. Pt scheduled to receive 3 units of PRBC tomorrow morning at [facility]. Pt aware of her hemoglobin and how low it is. She is advised to go to the nearest ER if she feels any worse. Pt states she prefers to do transfusion tomorrow but is considering going to the ER after this visit. [facility] 08-05-2023 Note HNO ID: [id number] Author: Brittany Norris, RAHEEM Service: ? Author Type: Registered Nurse Type: Progress Notes Filed: 08/05/2023 2:37 PM Note Text: spoke with Dr Soto in regards to patient not feeling well and hgb today is 8.2. Stated he will order a transfusion for tomorrow [facility] 08-05-2023 Miscellaneous Notes Pt. Scheduled for transfusion 2 units packed cells@ [facility] 08/06 @ 8 am. Pt. And lab Notified orders faxed. Kristy Hayes LPN documented in this encounter [facility] 08-05-2023 History of Presen t illness Narrative spoke with Dr Soto in regards to patient not feeling well and hgb today is 8.2. Stated he will order a transfusion for tomorrow documented in this encounter [facility] 05-13-2023 Note HNO ID: [id number] Author: Mariaelena Mendenhall RT(R) Service: ? Author Type: Technologist Type: Progress Notes Filed: 05/13/2023 11:40 AM Note Text: Radiology Service Progress Note DATE OF SERVICE: May 13, 2023 TIME: 11:40 AM PATIENT IDENTITY VERIFICATION COMPLETED USING TWO (2) STANDARD IDENTIFIERS: Name and Date of confirmed by patient verbally. FALL SCREENING: Has the patient had 2 falls in the last year or 1 fall with injury or currently using an Ambulatory Assistive Device (Walker, Cane, Wheelchair, Crutches, etc.)? No PATIENT GENDER DATA: Female. status: : No status: NO. PATIENT RELEVANT IMPLANT DATA REVIEWED: Yes ALLERGIES: Reviewed and unchanged CONTRAST ALLERGY: NO. EXAM: MRI - CONTRAST TYPE: GROUP II PERIPHERAL IV DATA: Ambulatory: A peripheral IV was started in the Right antecubital site with a Angio cath: 22 gauge. RADIOLOGY DEPARTMENT: MR; Exam(s) Completed: Head: Routine Brain SIGNATURE: RT Aracelis(R) PATIENT NAME: Dereck Brar DATE: May 13, 2023 TIME: 11:40 AM [facility] 05-13-2023 History of Presen t illness Narrative Radiology Service Progress Note DATE OF SERVICE: May 13, 2023 TIME: 11:40 AM PATIENT IDENTITY VERIFICATION COMPLETED USING TWO (2) STANDARD IDENTIFIERS: Name and Date of confirmed by patient verbally. FALL SCREENING: Has the patient had 2 falls in the last year or 1 fall with injury or currently using an Ambulatory Assistive Device (Walker, Cane, Wheelchair, Crutches, etc.)? No PATIENT GENDER DATA: Female. status: : No status: NO. PATIENT RELEVANT IMPLANT DATA REVIEWED: Yes ALLERGIES: Reviewed and unchanged CONTRAST ALLERGY: NO. EXAM: MRI - CONTRAST TYPE: GROUP II PERIPHERAL IV DATA: Ambulatory: A peripheral IV was started in the Right antecubital site with a Angio cath: 22 gauge. RADIOLOGY DEPARTMENT: MR; Exam(s) Completed: Head: Routine Brain SIGNATURE: RT Aracelis(Sonny) PATIENT NAME: Dereck Brar DATE: May 13, 2023 TIME: 11:40 AM documented in this encounter [facility] 03-18-2023 Note HNO ID: [id number] Author: Jesus Soto, DO Service: ? Author Type: Physician Type: Progress Notes Filed: 03/18/2023 11:50 AM Note Text: Diagnosis: 1) HHT. HPI: The patient is a 72 yo female with h/o HHT. First manifested in high school as epistaxis. Later started having more significant GI blood loss. Received a 6 dose course of Avastin in fall 2012. RBC transfusion requirement significantly decreased. Also had 4 doses of iron sucrose. Had severe GUTIERREZ the entire time of iron administration (4 weeks). Presents for follow up. Interim history: Occasional black stool for a day. Nosebleeds much less frequent. No chest pain or pressure. Exertional dyspnea depends on degree of anemia. No dyspnea lately. PMH, medications and allergies as below personally reviewed by me today. Any changes documented in appropriate section. ROS: Constitutional: Denies episodes of fever and night sweats. Neuro: Denies GUTIERREZ, vertigo, dizziness and imbalance. Denies symptoms of neuropathy. HEENT: No recent change in voice, vision or hearing. Resp: Denies cough, wheeze and hemoptysis. CVS: See above. GI: See above. : Denies dysuria or gross hematuria. No symptoms of bladder outlet obstruction. Endo: Denies hot flashes. Denies polyuria and polydipsia. Denies heat and cold intolerance. Musculoskeletal: Denies bone, back, joint and muscular pain. Derm: Denies rash. Denies jaundice and diffuse pruritis. Heme: See above. Psych: Normal mood. PHYSICAL EXAM: Vitals: BP 110/51 Pulse 73 Temp 36.3 ?C (97.4 ?F) (Temporal) Wt 62.8 kg (138 lb 8 oz) BMI 22.70 kg/m? BSA 1.7 m? Well-appearing and in no acute distress. EYES: Sclerae are anicteric bilaterally. LYMPHATIC: There is no palpable cervical, supraclavicular adenopathy. RESPIRATORY: Inspiratory breath sounds are of normal intensity in all cardona. No rales, wheezes or rhonchi. CARDIOVASCULAR: Rhythm is regular. Normal intensity S1/S2. There is no gallop or murmur. ABDOMEN: The abdomen is nondistended. Extremities: Free of edema. SKIN: No jaundice or rash. No petechiae. NEUROLOGIC: wireless construction manager II-XII are grossly intact. No focal motor weakness. LABS: Component Latest Ref Rng AND Units 01/21/2023 02/18/2023 03/18/2023 WBC 3.70 - 11.00 k/uL 5.69 4.88 4.60 RBC 3.90 - 5.20 m/uL 3.88 (L) 3.98 3.86 (L) Hemoglobin 11.5 - 15.5 g/dL 11.1 (L) 11.8 11.4 (L) Hematocrit 36.0 - 46.0 % 36.8 37.0 36.9 MCV 80.0 - 100.0 fL 94.8 93.0 95.6 MCH 26.0 - 34.0 pg 28.6 29.6 29.5 MCHC 30.5 - 36.0 g/dL 30.2 (L) 31.9 30.9 RDW-CV 11.5 - 15.0 % 16.4 (H) 16.5 (H) 16.5 (H) Platelet Count 150 - 400 k/uL 302 246 252 MPV 9.0 - 12.7 fL 10.3 10.1 10.4 Neut% % 77.6 74.6 77.9 Abs Neut (ANC) 1.45 - 7.50 k/uL 4.42 3.64 3.58 Lymph% % 11.6 13.7 12.4 Abs Lymph 1.00 - 4.00 k/uL 0.66 (L) 0.67 (L) 0.57 (L) [place]% % 7.6 7.4 6.7 Abs [place] <0.87 k/uL 0.43 0.36 0.31 Eosin% % 2.1 3.1 2.4 Abs Eosin <0.46 k/uL 0.12 0.15 0.11 Baso% % 0.9 1.0 0.4 Abs Baso <0.11 k/uL 0.05 0.05 <0.03 Immature Gran % % 0.2 0.2 0.2 IMMATURE GRANS (ABS) <0.10 k/uL <0.03 <0.03 <0.03 NRBC /100 WBC 0.0 0.0 0.0 Absolute nRBC <0.01 k/uL <0.01 <0.01 <0.01 DTYPE Auto Auto Auto Iron 41 - 186 ug/dL 47 52 TIBC 232 - 386 ug/dL 259 251 Transferrin Saturation 15.0 - 57.0 % 18.1 20.7 Ferritin 14.7 - 205.1 ng/mL 177.0 207.0 (H) ASSESSMENT/PLAN: (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 She had been receiving every 6 month bevacizumab primarily indicated to help control bleeding from epistaxis and potentially prevent/delay progression of pulmonary telangiectasias. Epistaxis significantly decreased following bevacizumab infusion and then typically starts to increase in frequency when she gets to the end of a dosing interval. -She had undergone several EGDs with cauterization in 2018 and 2019. Underwent EGD again in October 2020 with cauterization and clipping. -She received a 4-month dose of Avastin in December 2021 and April 2022. She had required no transfusions the remainder of 2021. -No symptoms to suggest developing pulmonary hypertension or high output cardiomyopathy. -Tolerating monthly iron infusion very well. -Not hypertensive. -Continues to benefit from Avastin. Plan: -Continue every 4 month Avastin. -Continue monthly Monoferric. -Continue PPI. -She will continue to follow-up with her post graduate intern and materials and corrosion engineer for echocardiogram for monitoring for pulmonary hypertension/cardiomyopathy. Portions of this documentation were copied and pasted from previous office visit notes in order to provide a cohesive continuity of the history. The note has been reviewed and edited and updated as necessary. I spent a total of 20 minutes on the date of the service which included prepari (more content not included)... [facility] 03-18-2023 History of Presen t illness Narrative Diagnosis: 1) HHT. HPI: The patient is a 72 yo female with h/o HHT. First manifested in high school as epistaxis. Later started having more significant GI blood loss. Received a 6 dose course of Avastin in fall 2012. RBC transfusion requirement significantly decreased. Also had 4 doses of iron sucrose. Had severe GUTIERREZ the entire time of iron administration (4 weeks). Presents for follow up. Interim history: Occasional black stool for a day. Nosebleeds much less frequent. No chest pain or pressure. Exertional dyspnea depends on degree of anemia. No dyspnea lately. PMH, medications and allergies as below personally reviewed by me today. Any changes documented in appropriate section. ROS: Constitutional: Denies episodes of fever and night sweats. Neuro: Denies GUTIERREZ, vertigo, dizziness and imbalance. Denies symptoms of neuropathy. HEENT: No recent change in voice, vision or hearing. Resp: Denies cough, wheeze and hemoptysis. CVS: See above. GI: See above. : Denies dysuria or gross hematuria. No symptoms of bladder outlet obstruction. Endo: Denies hot flashes. Denies polyuria and polydipsia. Denies heat and cold intolerance. Musculoskeletal: Denies bone, back, joint and muscular pain. Derm: Denies rash. Denies jaundice and diffuse pruritis. Heme: See above. Psych: Normal mood. PHYSICAL EXAM: Vitals: BP 110/51 Pulse 73 Temp 36.3 C (97.4 F) (Temporal) Wt 62.8 kg (138 lb 8 oz) BMI 22.70 kg/m BSA 1.7 m Well-appearing and in no acute distress. EYES: Sclerae are anicteric bilaterally. LYMPHATIC: There is no palpable cervical, supraclavicular adenopathy. RESPIRATORY: Inspiratory breath sounds are of normal intensity in all cardona. No rales, wheezes or rhonchi. CARDIOVASCULAR: Rhythm is regular. Normal intensity S1/S2. There is no gallop or murmur. ABDOMEN: The abdomen is nondistended. Extremities: Free of edema. SKIN: No jaundice or rash. No petechiae. NEUROLOGIC: wireless construction manager II-XII are grossly intact. No focal motor weakness. LABS: Component Latest Ref Rng & Units 01/21/2023 02/18/2023 03/18/2023 WBC 3.70 - 11.00 k/uL 5.69 4.88 4.60 RBC 3.90 - 5.20 m/uL 3.88 (L) 3.98 3.86 (L) Hemoglobin 11.5 - 15.5 g/dL 11.1 (L) 11.8 11.4 (L) Hematocrit 36.0 - 46.0 % 36.8 37.0 36.9 MCV 80.0 - 100.0 fL 94.8 93.0 95.6 MCH 26.0 - 34.0 pg 28.6 29.6 29.5 MCHC 30.5 - 36.0 g/dL 30.2 (L) 31.9 30.9 RDW-CV 11.5 - 15.0 % 16.4 (H) 16.5 (H) 16.5 (H) Platelet Count 150 - 400 k/uL 302 246 252 MPV 9.0 - 12.7 fL 10.3 10.1 10.4 Neut% % 77.6 74.6 77.9 Abs Neut (ANC) 1.45 - 7.50 k/uL 4.42 3.64 3.58 Lymph% % 11.6 13.7 12.4 Abs Lymph 1.00 - 4.00 k/uL 0.66 (L) 0.67 (L) 0.57 (L) [place]% % 7.6 7.4 6.7 Abs [place] <0.87 k/uL 0.43 0.36 0.31 Eosin% % 2.1 3.1 2.4 Abs Eosin <0.46 k/uL 0.12 0.15 0.11 Baso% % 0.9 1.0 0.4 Abs Baso <0.11 k/uL 0.05 0.05 <0.03 Immature Gran % % 0.2 0.2 0.2 IMMATURE GRANS (ABS) <0.10 k/uL <0.03 <0.03 <0.03 NRBC /100 WBC 0.0 0.0 0.0 Absolute nRBC <0.01 k/uL <0.01 <0.01 <0.01 DTYPE Auto Auto Auto Iron 41 - 186 ug/dL 47 52 TIBC 232 - 386 ug/dL 259 251 Transferrin Saturation 15.0 - 57.0 % 18.1 20.7 Ferritin 14.7 - 205.1 ng/mL 177.0 207.0 (H) ASSESSMENT/PLAN: (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 She had been receiving every 6 month bevacizumab primarily indicated to help control bleeding from epistaxis and potentially prevent/delay progression of pulmonary telangiectasias. Epistaxis significantly decreased following bevacizumab infusion and then typically starts to increase in frequency when she gets to the end of a dosing interval. -She had undergone several EGDs with cauterization in 2018 and 2019. Underwent EGD again in October 2020 with cauterization and clipping. -She received a 4-month dose of Avastin in December 2021 and April 2022. She had required no transfusions the remainder of 2021. -No symptoms to suggest developing pulmonary hypertension or high output cardiomyopathy. -Tolerating monthly iron infusion very well. -Not hypertensive. -Continues to benefit from Avastin. Plan: -Continue every 4 month Avastin. -Continue monthly Monoferric. -Continue PPI. -She will continue to follow-up with her post graduate intern and materials and corrosion engineer for echocardiogram for monitoring for pulmonary hypertension/cardiomyopathy. Portions of this documentation were copied and pasted from previous office visit notes in order to provide a cohesive continuity of the history. The note has been reviewed and edited and updated as necessary. I spent a total of 20 minutes on the date of the service which included preparing to see the patient, [id number] patient care, completing clinical documentation, obtaining and/or reviewing separately obtained history, performing a medically appropriate examination, counseling and educating the patient/family/caregiver, communicating with other HCPs (not separately reported), and communicating results to the patient/family/caregiver. Jesus Soto DO documented in this encounter [facility] 01-04-2023 Note HNO ID: [id number] Author: Erika Garya RN Service: ? Author Type: Registered Nurse Type: Progress Notes Filed: 01/04/2023 3:08 PM Note Text: Pt request blood transfusion due to extreme fatigue and SOB with activity. Orders received for 2 units packed RBC's; pt has appt for tomorrow for both units. Verbalized understanding and denies other needs. Erika Garay RN [facility] 01-04-2023 Miscellaneous Notes CBC reviewed by Dr Soto. Order received for 2 PRBC. Spoke with Priscila at [facility]. Appointment received for 01/05@8:30a. Order faxed to [facility]. Alba in lab notified to prepare blood. Order to lab. Pt here for infusion. Appointment time given. Pt verbalized understanding. Mikayla Enamorado RN documented in this encounter [facility] 01-04-2023 History of Presen t illness Narrative Pt request blood transfusion due to extreme fatigue and SOB with activity. Orders received for 2 units packed RBC's; pt has appt for tomorrow for both units. Verbalized understanding and denies other needs. Erika Garay RN documented in this encounter [facility] 12-24-2022 Miscellaneous Notes SW met with pt this date. Pt reporting she is due to renew her assistance for Avastin through [employer]. SW and pt completed application this date. SW had physician review and sign and SW successfully faxed to [facility] this date. SW sent originals to internal scanning. NORBERTO Ojeda documented in this encounter [facility] 12-15-2022 Miscellaneous Notes Spoke with patient and rescheduled Avastin. Please Contact pt. And schedule pt. For Avastin tx anytime in the next week or two per Dr. Soto. Instead of February Kristy Darnell LPN We can give it anytime in the next week or two. Jesus Soto DO Spoke with pt. Informed her HGB from todays lab draw was 9.3, questioned what led her to get labs today, stated she just feels very fatigued, and has noticed her stools to be black . She informed she will hold off on a transfusion. Her next Avastin is scheduled for February and she stated she should be due in December. In Dr. Soto last notes her Media Services Specialist recommended the Avastin every 4 months. Last Avastin was 09/15/2022. Dr. Soto do we need to move her Avastin to December? Kristy Darnell LPN documented in this encounter [facility] 12-02-2022 History and physical note SUBSEQUENT VISIT 72 year old never smoker being assessed for HHT through a virtual visit. 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 She had severe recurrent epistaxis but this was doing well on IV Bevacizumab since and is on maintenance infusions at 300 mg every 4-months now and is tolerating this without side effects, until she cam back from [place] and has noted worsening of her epistaxis but has no gushing episodes. Her epistaxis used to be so severe that she has had 3 septal dermoplasties, multiple cautery and laser procedures and maxillary artery embolotherapy but since getting on IV Bevacizumab she has not needed any more endonasal interventions. Today she has daily bleeding of moderate duration and has no more gushing episodes and has a current ESS of 4.12. She also has chronic GI bleeding and this is also doing overall well and has not needed PRBC transfusions ever since the Bevacizumab dose has been shortened and now gets IV iron infusions every 2-months. She underwent EGD in that showed multiple angioectasias in her stomach and small bowel S/P APC coagulation to several bleeding lesions. She has mucocutaneous telangiectasias on her hands and lips with no concerns for bleeding from any of these lesions. 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 She is doing well from a respiratory perspective and has MRC grade 1 dyspnea and denies any cough, hemoptysis, pleuritic chest pain, or wheezing and has not had any respiratory infections in the past year and had surveillance CT chest in that did not show any pulmonary AVMs. She has known hepatic vascular malformations with arteriovenous shunting identified by MRI in but has no symptoms of heart failure from these. She has known history of chronic allergic rhinitis S/P polypectomy and has been on immunotherapy in the early and now manages this with saline rinses BID. REVIEW OF SYSTEMS GENERAL: No weight loss HEENT: Negative for frequent or significant headaches, No changes in hearing or vision, + nose bleeds or other nasal problems NECK: No neck swelling RESPIRATORY: No dyspnea, cough CARDIOVASCULAR: No chest pain, leg swelling GASTROINTESTINAL: No nausea, vomiting MUSCULOSKELETAL: Negative for joint pain or swelling, back pain or muscle pain NEUROLOGIC: Negative for focal numbness or weakness, headaches and dizziness or syncope. SKIN: Negative for lesions, rash, and itching PSYCHIATRIC: Negative for sleep disturbance, mood disorder and recent psychosocial stressors. 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 She will remain on maintenance IV Bevacizumab infusions every 4 months with monitoring for toxicities, and can hold off on additional GI interventions and follow her serially with blood counts and hematologic support needs and she is doing better on this frequency. For her chronic allergic rhinitis, she will remain on immunotherapy as this will help to reduce nasal inflammation and thereby reduce her epistaxis as well and will stay on nasal saline rinses BID. For the worsening of her epistaxis, will get her on Timolol 0.5% TID. She will get set up for MRI scan to assess for stability of the AVM in her brain. She has been reassured that there is no need for any interventions on the known liver vascular malformations as she has no clinical evidence of heart failure and follows with Cardiology with annual echocardiograms that have shown no evidence of cardiac dysfunction. She will follow with us in 6 months, sooner if needed. Master Palmer MD documented in this encounter [facility] 09-14-2022 Note HNO ID: [id number] Author: Jesus Soto, DO Service: ? Author Type: Physician Type: Progress Notes Filed: 09/14/2022 2:48 PM Note Text: Diagnosis: 1) HHT. HPI: The patient is a 72 yo female with h/o HHT. First manifested in high school as epistaxis. Later started having more significant GI blood loss. Received a 6 dose course of Avastin in fall 2012. RBC transfusion requirement significantly decreased. Also had 4 doses of iron sucrose. Had severe GUTIERREZ the entire time of iron administration (4 weeks). Presents for follow up. Interim history: Had Avastin 08/2021 and 12/2021. Black stools for the last week. 2 unit RBC transfusion last Wednesday. Epistaxis doesn't occur daily. Very controllable. No chest pain or pressure. Exertional dyspnea depends on degree of anemia. PMH, medications and allergies as below personally reviewed by me today. Any changes documented in appropriate section. ROS: Constitutional: Denies episodes of fever and night sweats. Neuro: Denies GUTIERREZ, vertigo, dizziness and imbalance. Denies symptoms of neuropathy. HEENT: No recent change in voice, vision or hearing. Resp: Denies cough, wheeze and hemoptysis. CVS: See above. GI: See above. : Denies dysuria or gross hematuria. No symptoms of bladder outlet obstruction. Endo: Denies hot flashes. Denies polyuria and polydipsia. Denies heat and cold intolerance. Musculoskeletal: Denies bone, back, joint and muscular pain. Derm: Denies rash. Denies jaundice and diffuse pruritis. Heme: See above. Psych: Normal mood. PHYSICAL EXAM: Vitals: Blood pressure 122/58, pulse 82, temperature 36.4 ?C (97.6 ?F), temperature source Temporal, height 166.4 cm (5' 5.5 ), weight 63 kg (139 lb). Well-appearing and in no acute distress. EYES: Sclerae are anicteric bilaterally. LYMPHATIC: There is no palpable cervical, supraclavicular adenopathy. RESPIRATORY: Inspiratory breath sounds are of normal intensity in all cardona. No rales, wheezes or rhonchi. CARDIOVASCULAR: Rhythm is regular. Normal intensity S1/S2. There is no gallop or murmur. ABDOMEN: The abdomen is nondistended. Extremities: Free of edema. SKIN: No jaundice or rash. No petechiae. NEUROLOGIC: wireless construction manager II-XII are grossly intact. No focal motor weakness. LABS: Component Latest Ref Rng AND Units 09/14/2022 WBC 3.70 - 11.00 k/uL 3.59 (L) RBC 3.90 - 5.20 m/uL 3.21 (L) Hemoglobin 11.5 - 15.5 g/dL 10.0 (L) Hematocrit 36.0 - 46.0 % 32.8 (L) MCV 80.0 - 100.0 fL 102.2 (H) MCH 26.0 - 34.0 pg 31.2 MCHC 30.5 - 36.0 g/dL 30.5 RDW-CV 11.5 - 15.0 % 16.2 (H) Platelet Count 150 - 400 k/uL 242 MPV 9.0 - 12.7 fL 9.6 Neut% % 77.7 Abs Neut (ANC) 1.45 - 7.50 k/uL 2.79 Lymph% % 10.9 Abs Lymph 1.00 - 4.00 k/uL 0.39 (L) [place]% % 8.4 Abs [place] <0.87 k/uL 0.30 Eosin% % 1.9 Abs Eosin <0.46 k/uL 0.07 Baso% % 0.8 Abs Baso <0.11 k/uL 0.03 Immature Gran % % 0.3 IMMATURE GRANS (ABS) <0.10 k/uL <0.03 NRBC /100 WBC 0.0 Absolute nRBC <0.01 k/uL <0.01 DTYPE Auto Retic % 0.4 - 2.0 % 6.2 (H) Abs Retic 0.018 - 0.100 M/uL 0.199 (H) ASSESSMENT/PLAN: (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 She had been receiving every 6 month bevacizumab primarily indicated to help control bleeding from epistaxis and potentially prevent/delay progression of pulmonary telangiectasias. Epistaxis significantly decreased following bevacizumab infusion and then typically starts to increase in frequency when she gets to the end of a dosing interval. -She had undergone several EGDs with cauterization in 2018 and 2019. Underwent EGD again in October 2020 with cauterization and clipping. -She received a 4-month dose of Avastin in December 2021 and April 2022. She had required no transfusions the remainder of 2021. -No symptoms to suggest developing pulmonary hypertension or high output cardiomyopathy. -Tolerating monthly iron infusion very well. -Not hypertensive. -Her post graduate intern had suggested every 4 month dosing on Avastin--very reasonable as she benefits from it. -Recent increase in melena--she requires repeat EGD but declines as she will be going to [place]. She is establishing with a car pusher there. Plan: -Continue monthly Monoferric. -Okay for Avastin today. -Continue PPI. -She will continue to follow-up with her post graduate intern and materials and corrosion engineer for echocardiogram for monitoring for pulmonary hypertension/cardiomyopathy. Portions of this documentation were copied and pasted from previous office visit notes in order to provide a cohesive continuity of the history. The note has been reviewed and edited and updated as necessary. During this patient visit I have spent approximately 15 minutes out of 25 in counseling regarding treatment options and test results (more content not included)... [facility] 09-14-2022 History of Presen t illness Narrative Diagnosis: 1) HHT. HPI: The patient is a 72 yo female with h/o HHT. First manifested in high school as epistaxis. Later started having more significant GI blood loss. Received a 6 dose course of Avastin in fall 2012. RBC transfusion requirement significantly decreased. Also had 4 doses of iron sucrose. Had severe GUTIERREZ the entire time of iron administration (4 weeks). Presents for follow up. Interim history: Had Avastin 08/2021 and 12/2021. Black stools for the last week. 2 unit RBC transfusion last Wednesday. Epistaxis doesn't occur daily. Very controllable. No chest pain or pressure. Exertional dyspnea depends on degree of anemia. PMH, medications and allergies as below personally reviewed by me today. Any changes documented in appropriate section. ROS: Constitutional: Denies episodes of fever and night sweats. Neuro: Denies GUTIERREZ, vertigo, dizziness and imbalance. Denies symptoms of neuropathy. HEENT: No recent change in voice, vision or hearing. Resp: Denies cough, wheeze and hemoptysis. CVS: See above. GI: See above. : Denies dysuria or gross hematuria. No symptoms of bladder outlet obstruction. Endo: Denies hot flashes. Denies polyuria and polydipsia. Denies heat and cold intolerance. Musculoskeletal: Denies bone, back, joint and muscular pain. Derm: Denies rash. Denies jaundice and diffuse pruritis. Heme: See above. Psych: Normal mood. PHYSICAL EXAM: Vitals: Blood pressure 122/58, pulse 82, temperature 36.4 C (97.6 F), temperature source Temporal, height 166.4 cm (5' 5.5 ), weight 63 kg (139 lb). Well-appearing and in no acute distress. EYES: Sclerae are anicteric bilaterally. LYMPHATIC: There is no palpable cervical, supraclavicular adenopathy. RESPIRATORY: Inspiratory breath sounds are of normal intensity in all cardona. No rales, wheezes or rhonchi. CARDIOVASCULAR: Rhythm is regular. Normal intensity S1/S2. There is no gallop or murmur. ABDOMEN: The abdomen is nondistended. Extremities: Free of edema. SKIN: No jaundice or rash. No petechiae. NEUROLOGIC: wireless construction manager II-XII are grossly intact. No focal motor weakness. LABS: Component Latest Ref Rng & Units 09/14/2022 WBC 3.70 - 11.00 k/uL 3.59 (L) RBC 3.90 - 5.20 m/uL 3.21 (L) Hemoglobin 11.5 - 15.5 g/dL 10.0 (L) Hematocrit 36.0 - 46.0 % 32.8 (L) MCV 80.0 - 100.0 fL 102.2 (H) MCH 26.0 - 34.0 pg 31.2 MCHC 30.5 - 36.0 g/dL 30.5 RDW-CV 11.5 - 15.0 % 16.2 (H) Platelet Count 150 - 400 k/uL 242 MPV 9.0 - 12.7 fL 9.6 Neut% % 77.7 Abs Neut (ANC) 1.45 - 7.50 k/uL 2.79 Lymph% % 10.9 Abs Lymph 1.00 - 4.00 k/uL 0.39 (L) [place]% % 8.4 Abs [place] <0.87 k/uL 0.30 Eosin% % 1.9 Abs Eosin <0.46 k/uL 0.07 Baso% % 0.8 Abs Baso <0.11 k/uL 0.03 Immature Gran % % 0.3 IMMATURE GRANS (ABS) <0.10 k/uL <0.03 NRBC /100 WBC 0.0 Absolute nRBC <0.01 k/uL <0.01 DTYPE Auto Retic % 0.4 - 2.0 % 6.2 (H) Abs Retic 0.018 - 0.100 M/uL 0.199 (H) ASSESSMENT/PLAN: (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 She had been receiving every 6 month bevacizumab primarily indicated to help control bleeding from epistaxis and potentially prevent/delay progression of pulmonary telangiectasias. Epistaxis significantly decreased following bevacizumab infusion and then typically starts to increase in frequency when she gets to the end of a dosing interval. -She had undergone several EGDs with cauterization in 2018 and 2019. Underwent EGD again in October 2020 with cauterization and clipping. -She received a 4-month dose of Avastin in December 2021 and April 2022. She had required no transfusions the remainder of 2021. -No symptoms to suggest developing pulmonary hypertension or high output cardiomyopathy. -Tolerating monthly iron infusion very well. -Not hypertensive. -Her post graduate intern had suggested every 4 month dosing on Avastin--very reasonable as she benefits from it. -Recent increase in melena--she requires repeat EGD but declines as she will be going to [place]. She is establishing with a car pusher there. Plan: -Continue monthly Monoferric. -Okay for Avastin today. -Continue PPI. -She will continue to follow-up with her post graduate intern and materials and corrosion engineer for echocardiogram for monitoring for pulmonary hypertension/cardiomyopathy. Portions of this documentation were copied and pasted from previous office visit notes in order to provide a cohesive continuity of the history. The note has been reviewed and edited and updated as necessary. During this patient visit I have spent approximately 15 minutes out of 25 in counseling regarding treatment options and test results and coordinating care. Jesus Soto DO documented in this encounter [facility] 09-07-2022 Miscellaneous Notes Patient did not receive her transfusion last week. Patient scheduled for 2 units PRBC 09/08/2022 @ 0900, [facility]. Orders faxed. Patient and lab aware. Kaylen Mir LPN documented in this encounter [facility] 09-05-2022 Miscellaneous Notes All labs attached to appointment as directed. Flora Harp Please draw all additional lab work, entered under this encounter. Next time she is here. She has anemia that seems out of proportion to her iron deficiency, so I don't want to miss other causes for the anemia. Jesus Soto DO documented in this encounter [facility] 09-04-2022 Note HNO ID: [id number] Author: Tamika Kerns RN Service: ? Author Type: Registered Nurse Type: Progress Notes Filed: 09/04/2022 1:45 PM Note Text: Recent records faxed to [place] physician Dr Yonis Callahan at [phone] for up coming visit in Sep when pt is in [place]. [facility] 09-04-2022 History of Presen t illness Narrative Recent records faxed to [place] physician Dr Yonis Callahan at [phone] for up coming visit in Sep when pt is in [place]. documented in this encounter [facility] 09-03-2022 Miscellaneous Notes Pt. Scheduled for transfusion 2 units packed cells @ [facility] 09/04 @ 8:30 am. Pt. And lab notified, orders faxed. Kristy Darnell LPN documented in this encounter [facility] 08-19-2022 Miscellaneous Notes Lab added Patient scheduled for transfusion of 2 units of PRBC to be given at [facility] on 08/20/22 at 0900. Orders faxed, patient notified. Pt will have lab rechecked next week. PSS Please add pt on for a lab (cbc with possible transfusion) on 08/26/21 at 0930. No need to notify patient. Can close encounter after scheduled. Ines Ribeiro LPN documented in this encounter [facility] 08-06-2022 Miscellaneous Notes Pt. Scheduled for transfusion 2 units packed cells @ [facility] 08/07 @ 8:45 am. Pt. And lab notified, orders faxed. HGB 8.9, spoke with pt. Stated she has been passing blood in her stool for approx. 3 weeks, and is leaving Wednesday of next week for [place]. Kristy Darnell LPN documented in this encounter [facility] 07-09-[address] Soto - please sign today's treatment orders. Thank you. documented in this encounter [facility] 06-04-2022 History and physical note SUBSEQUENT VISIT 71 year old never smoker being assessed for HHT through a virtual visit. 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 She had severe recurrent epistaxis but this is doing well ever since she has been on IV Bevacizumab since and is on maintenance infusions at 300 mg every 4-months now and is tolerating this without side effects. Her epistaxis used to be so severe that she has had 3 septal dermoplasties, multiple cautery and laser procedures and maxillary artery embolotherapy but since getting on IV Bevacizumab she has not needed any more endonasal interventions. Today she has daily bleeding of short durations and has no more gushing episodes and has a current ESS of 2.12. Her main issue has been chronic GI bleeding and this is also doing overall well and has not needed PRBC transfusions ever since the Bevacizumab dose has been shortened and now gets IV iron infusions every 2-months with normal blood counts. She underwent EGD in that showed multiple angioectasias in her stomach and small bowel S/P APC coagulation to several bleeding lesions. She has mucocutaneous telangiectasias on her hands and lips with no concerns for bleeding from any of these lesions. 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 She is doing well from a respiratory perspective and has MRC grade 1 dyspnea and denies any cough, hemoptysis, pleuritic chest pain, or wheezing and has not had any respiratory infections in the past year and had surveillance CT chest in that did not show any pulmonary AVMs. She has known hepatic vascular malformations with arteriovenous shunting identified by MRI in but has no symptoms of heart failure from these. She has known history of chronic allergic rhinitis S/P polypectomy and has been on immunotherapy in the early and now manages this with saline rinses BID. REVIEW OF SYSTEMS GENERAL: No weight loss HEENT: Negative for frequent or significant headaches, No changes in hearing or vision, + nose bleeds or other nasal problems NECK: No neck swelling RESPIRATORY: No dyspnea, cough CARDIOVASCULAR: No chest pain, leg swelling GASTROINTESTINAL: No nausea, vomiting MUSCULOSKELETAL: Negative for joint pain or swelling, back pain or muscle pain NEUROLOGIC: Negative for focal numbness or weakness, headaches and dizziness or syncope. SKIN: Negative for lesions, rash, and itching PSYCHIATRIC: Negative for sleep disturbance, mood disorder and recent psychosocial stressors. 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 She will remain on maintenance IV Bevacizumab infusions every 4 months with monitoring for toxicities, and can hold off on additional GI interventions and follow her serially with blood counts and hematologic support needs and she is doing better on this frequency. For her chronic allergic rhinitis, she will remain on immunotherapy as this will help to reduce nasal inflammation and thereby reduce her epistaxis as well and will stay on nasal saline rinses BID. She has been reassured about the stability of the AVM in her brain with repeat MRI scan. She has been reassured that there is no need for any interventions on the known liver vascular malformations as she has no clinical evidence of heart failure and follows with Cardiology with annual echocardiograms that have shown no evidence of cardiac dysfunction. She will follow with us in 6 months, sooner if needed. Master Palmer MD documented in this encounter [facility] 03-19-2022 History of Presen t illness Narrative Diagnosis: 1) HHT. HPI: The patient is a 71 yo female with h/o HHT. First manifested in high school as epistaxis. Later started having more significant GI blood loss. Received a 6 dose course of Avastin in fall 2012. RBC transfusion requirement significantly decreased. Also had 4 doses of iron sucrose. Had severe GUTIERREZ the entire time of iron administration (4 weeks). Presents for follow up. Interim history: Had Avastin 08/2021 and 12/2021. No recent dark or black stools. No dyspnea. No chest pain/pressure. Epistaxis is less frequent and easy to control. I haven't had a major one in a long time. typically uses saline nasal rinse twice a day. Was given budesonide dissolved in her saline rinse--was given Rx by Dr. Campbell for nasal polyp. It's helped open left nasal passage better. PMH, medications and allergies as below personally reviewed by me today. Any changes documented in appropriate section. ROS: Constitutional: Denies episodes of fever and night sweats. Neuro: Denies GUTIERREZ, vertigo, dizziness and imbalance. Denies symptoms of neuropathy. HEENT: No recent change in voice, vision or hearing. Resp: Denies cough, wheeze and hemoptysis. CVS: See above. GI: See above. : Denies dysuria or gross hematuria. No symptoms of bladder outlet obstruction. Endo: Denies hot flashes. Denies polyuria and polydipsia. Denies heat and cold intolerance. Musculoskeletal: Denies bone, back, joint and muscular pain. Derm: Denies rash. Denies jaundice and diffuse pruritis. Heme: See above. Psych: Normal mood. PHYSICAL EXAM: Vitals: Blood pressure 122/58, pulse 66, temperature 36.6 C (97.8 F), resp. rate 14, height 165.1 cm (5' 5 ), weight 63 kg (139 lb), SpO2 100 %. Well-appearing and in no acute distress. EYES: Sclerae are anicteric bilaterally. LYMPHATIC: There is no palpable cervical, supraclavicular adenopathy. RESPIRATORY: Inspiratory breath sounds are of normal intensity in all cardona. No rales, wheezes or rhonchi. CARDIOVASCULAR: Rhythm is regular. Normal intensity S1/S2. There is no gallop or murmur. ABDOMEN: The abdomen is nondistended. Extremities: Free of edema. SKIN: No jaundice or rash. No petechiae. NEUROLOGIC: wireless construction manager II-XII are grossly intact. No focal motor weakness. LABS: Component Latest Ref Rng & Units 11/06/2021 12/04/2021 01/01/2022 01/29/2022 02/26/2022 WBC 3.70 - 11.00 k/uL 3.31 (L) 3.43 (L) 2.98 (L) 2.98 (L) 5.26 RBC 3.90 - 5.20 m/uL 4.37 4.36 3.88 (L) 4.67 4.40 Hemoglobin 11.5 - 15.5 g/dL 13.0 13.1 12.2 14.7 14.0 Hematocrit 36.0 - 46.0 % 40.6 41.8 38.3 45.3 42.7 MCV 80.0 - 100.0 fL 92.9 95.9 98.7 97.0 97.0 MCH 26.0 - 34.0 pg 29.7 30.0 31.4 31.5 31.8 MCHC 30.5 - 36.0 g/dL 32.0 31.3 31.9 32.5 32.8 RDW-CV 11.5 - 15.0 % 14.0 15.1 (H) 17.0 (H) 14.2 14.3 Platelet Count 150 - 400 k/uL 226 191 209 193 228 MPV 9.0 - 12.7 fL 10.2 10.1 10.0 10.9 10.3 Neut% % 72.2 71.3 71.9 71.2 78.5 Abs Neut (ANC) 1.45 - 7.50 k/uL 2.39 2.45 2.14 2.12 4.13 Lymph% % 15.1 15.5 15.4 17.8 13.5 Abs Lymph 1.00 - 4.00 k/uL 0.50 (L) 0.53 (L) 0.46 (L) 0.53 (L) 0.71 (L) [place]% % 8.5 8.5 8.7 7.7 5.3 Abs [place] <0.87 k/uL 0.28 0.29 0.26 0.23 0.28 Eosin% % 3.3 3.5 2.7 2.3 1.9 Abs Eosin <0.46 k/uL 0.11 0.12 0.08 0.07 0.10 Baso% % 0.9 0.9 1.0 1.0 0.6 Abs Baso <0.11 k/uL 0.03 0.03 0.03 0.03 0.03 Immature Gran % % 0.0 0.3 0.3 0.0 0.2 IMMATURE GRANS (ABS) <0.10 k/uL <0.03 <0.03 <0.03 <0.03 <0.03 NRBC /100 WBC 0.0 0.0 0.0 0.0 0.0 Absolute nRBC <0.01 k/uL <0.01 <0.01 <0.01 <0.01 <0.01 DTYPE Auto Auto Auto Auto Auto Iron 41 - 186 ug/dL 44 48 50 71 73 TIBC 232 - 386 ug/dL 254 197 (L) 256 247 222 (L) Transferrin Saturation 15.0 - 57.0 % 17 24 20 29 32.9 Ferritin 14.7 - 205.1 ng/mL 94.0 299.0 (H) 255.0 (H) 461.0 (H) 681.0 (H) ASSESSMENT/PLAN: (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 She had been receiving every 6 month bevacizumab primarily indicated to help control bleeding from epistaxis and potentially prevent/delay progression of pulmonary telangiectasias. Epistaxis significantly decreased following bevacizumab infusion and then typically starts to increase in frequency when she gets to the end of a dosing interval. -She had undergone several EGDs with cauterization in 2018 and 2019. Underwent EGD again in October 2020with cauterization and clipping. -She received a 4-month dose of Avastin in December. She is required no transfusions this year and she is maintaining a normal hemoglobin level. There has been a noticeable decrease in signs of GI bleeding since undergoing her most recent EGD with cauterization. -No symptoms to suggest developing pulmonary hypertension or high output cardiomyopathy. -Tolerating monthly iron infusion very well. -Not hypertensive. -Her post graduate intern had suggested every 4 month dosing on Avastin. Plan: -Continue monthly Monoferric. We will decrease the frequency to every other month if her ferritin continues to trend higher and she has stable counts otherwise with no increase in bleeding. -Follow up with GI for surveillance EGD. -She will continue to follow-up with her post graduate intern and materials and corrosion engineer for echocardiogram for monitoring for pulmonary hypertension/cardiomyopathy. Portions of this documentation were copied and pasted from previous office visit notes in order to provide a cohesive continuity of the history. The note has been reviewed and edited and updated as necessary. During this patient visit I have spent approximately 15 minutes out of 25 in counseling regarding treatment options and test results and coordinating care. Jesus Soto DO documented in this encounter [facility] 01-01-2022 Miscellaneous Notes More orders for Avastin added. Jesus Soto DO Notes adjusted. Chemo nurse aware. Dr. Soto-please add more orders for future scheduling. Today is the last order. Thank you. Please add her on for Avastin 01/01. Her post graduate intern requested the frequency of infusions be increased to every 4 months rather than every 6. Jesus Soto DO documented in this encounter [facility] 12-04-2021 History and physical note SUBSEQUENT VISIT 70 year old never smoker being assessed for HHT through a virtual visit. 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 She had severe recurrent epistaxis but this is doing well ever since she has been on IV Avastin since and is on maintenance infusions at 300 mg every 6 months and is tolerating this without side effects. Her epistaxis used to be so severe that she has had 3 septal dermoplasties, multiple cautery and laser procedures and maxillary artery embolotherapy but since getting on IV Avastin she has not needed any more endonasal interventions. Today she has daily bleeding of short durations and has no more gushing episodes and has a current ESS of 3.12. Her main issue has been chronic GI bleeding and this is also doing overall well but has needed PRBC transfusions once in the interim in 10/14 and remains on monthly IV iron infusions with normal blood counts. She underwent EGD in that showed multiple angioectasias in her stomach and small bowel S/P APC coagulation to several bleeding lesions. She has mucocutaneous telangiectasias on her hands and lips with no concerns for bleeding from any of these lesions. 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 She is doing well from a respiratory perspective and has MRC grade 1 dyspnea and denies any cough, hemoptysis, pleuritic chest pain, or wheezing and has not had any respiratory infections in the past year and had surveillance CT chest in that did not show any pulmonary AVMs. She has known hepatic vascular malformations with arteriovenous shunting identified by MRI in but has no symptoms of heart failure from these. She has known history of chronic allergic rhinitis S/P polypectomy and has been on immunotherapy in the early and now manages this with saline rinses BID. REVIEW OF SYSTEMS GENERAL: No weight loss HEENT: Negative for frequent or significant headaches, No changes in hearing or vision, + nose bleeds or other nasal problems NECK: No neck swelling RESPIRATORY: No dyspnea, cough CARDIOVASCULAR: No chest pain, leg swelling GASTROINTESTINAL: No nausea, vomiting MUSCULOSKELETAL: Negative for joint pain or swelling, back pain or muscle pain NEUROLOGIC: Negative for focal numbness or weakness, headaches and dizziness or syncope. SKIN: Negative for lesions, rash, and itching PSYCHIATRIC: Negative for sleep disturbance, mood disorder and recent psychosocial stressors. 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 She will remain on maintenance IV Avastin infusions but will discuss with Dr Soto to see if she could be spaced out to every 4 months with monitoring for toxicities, and can hold off on additional GI interventions and follow her serially with blood counts and hematologic support needs. For her chronic allergic rhinitis, she will remain on immunotherapy as this will help to reduce nasal inflammation and thereby reduce her epistaxis as well and will stay on nasal saline rinses BID. She has been reassured about the stability of the AVM in her brain with repeat MRI scan. She has been reassured that there is no need for any interventions on the known liver vascular malformations as she has no clinical evidence of heart failure and follows with Cardiology with annual echocardiograms that have shown no evidence of cardiac dysfunction. She will follow with us in 6 months, sooner if needed. Master Palmer MD documented in this encounter [facility] 12-29-2020 Miscellaneous Notes Spoke to patient and scheduled. Dang Rudolph See [facility] message. Schedule for monthly CBC/Iron studies/Monoferric. Jesus Soto DO documented in this encounter [facility] documented as of this encounter (statuses as of 11/28/2021) [facility] History of Past illness Narrative* Problem Noted Date Resolved Date Encounter for screening for malignant neoplasm o f colon 09/26/2015 09/26/2015 Anemia, unspecified 07/01/2005 07/08/2012 documented as of this encounter (statuses as of 12/04/2021) [facility] History of Past illness Narrative* Problem Noted Date Resolved Date Encounter for screening for malignant neoplasm o f colon 09/26/2015 09/26/2015 Anemia, unspecified 07/01/2005 07/08/2012 documented as of this encounter (statuses as of 12/31/2021) [facility] History of Past illness Narrative* Problem Noted Date Resolved Date Encounter for screening for malignant neoplasm o f colon 09/26/2015 09/26/2015 Anemia, unspecified 07/01/2005 07/08/2012 documented as of this encounter (statuses as of 01/01/2022) [facility] History of Past illness Narrative* Problem Noted Date Resolved Date Encounter for screening for malignant neoplasm o f colon 09/26/2015 09/26/2015 Anemia, unspecified 07/01/2005 07/08/2012 documented as of this encounter (statuses as of 01/30/2022) [facility] History of Past illness Narrative* Problem Noted Date Resolved Date Encounter for screening for malignant neoplasm o f colon 09/26/2015 09/26/2015 Anemia, unspecified 07/01/2005 07/08/2012 documented as of this encounter (statuses as of 02/17/2022) [facility] History of Past illness Narrative* Problem Noted Date Resolved Date Encounter for screening for malignant neoplasm o f colon 09/26/2015 09/26/2015 Anemia, unspecified 07/01/2005 07/08/2012 documented as of this encounter (statuses as of 03/19/2022) [facility] History of Past illness Narrative* Problem Noted Date Resolved Date Encounter for screening for malignant neoplasm o f colon 09/26/2015 09/26/2015 Anemia, unspecified 07/01/2005 07/08/2012 documented as of this encounter (statuses as of 03/26/2022) [facility] History of Past illness Narrative* Problem Noted Date Resolved Date Encounter for screening for malignant neoplasm o f colon 09/26/2015 09/26/2015 Anemia, unspecified 07/01/2005 07/08/2012 documented as of this encounter (statuses as of 04/05/2022) [facility] History of Past illness Narrative* Problem Noted Date Resolved Date Encounter for screening for malignant neoplasm o f colon 09/26/2015 09/26/2015 Anemia, unspecified 07/01/2005 07/08/2012 documented as of this encounter (statuses as of 04/23/2022) [facility] History of Past illness Narrative* Problem Noted Date Resolved Date Encounter for screening for malignant neoplasm o f colon 09/26/2015 09/26/2015 Anemia, unspecified 07/01/2005 07/08/2012 documented as of this encounter (statuses as of 05/01/2022) [facility] History of Past illness Narrative* Problem Noted Date Resolved Date Encounter for screening for malignant neoplasm o f colon 09/26/2015 09/26/2015 Anemia, unspecified 07/01/2005 07/08/2012 documented as of this encounter (statuses as of 06/04/2022) [facility] History of Past illness Narrative* Problem Noted Date Resolved Date Encounter for screening for malignant neoplasm o f colon 09/26/2015 09/26/2015 Anemia, unspecified 07/01/2005 07/08/2012 documented as of this encounter (statuses as of 06/04/2022) [facility] History of Past illness Narrative* Problem Noted Date Resolved Date Encounter for screening for malignant neoplasm o f colon 09/26/2015 09/26/2015 Anemia, unspecified 07/01/2005 07/08/2012 documented as of this encounter (statuses as of 07/09/2022) [facility] History of Past illness Narrative* Problem Noted Date Resolved Date Encounter for screening for malignant neoplasm o f colon 09/26/2015 09/26/2015 Anemia, unspecified 07/01/2005 07/08/2012 documented as of this encounter (statuses as of 08/06/2022) [facility] History of Past illness Narrative* Problem Noted Date Resolved Date Encounter for screening for malignant neoplasm o f colon 09/26/2015 09/26/2015 Anemia, unspecified 07/01/2005 07/08/2012 documented as of this encounter (statuses as of 08/06/2022) [facility] History of Past illness Narrative* Problem Noted Date Resolved Date Encounter for screening for malignant neoplasm o f colon 09/26/2015 09/26/2015 Anemia, unspecified 07/01/2005 07/08/2012 documented as of this encounter (statuses as of 08/24/2022) [facility] History of Past illness Narrative* Problem Noted Date Resolved Date Encounter for screening for malignant neoplasm o f colon 09/26/2015 09/26/2015 Anemia, unspecified 07/01/2005 07/08/2012 documented as of this encounter (statuses as of 08/25/2022) [address]04-2016 History of Past illness Narrative* Problem Noted Date Resolved Date Encounter for screening for malignant neoplasm o f colon 09/26/2015 09/26/2015 Anemia, unspecified 07/01/2005 07/08/2012 documented as of this encounter (statuses as of 09/03/2022) [facility] History of Past illness Narrative* Problem Noted Date Resolved Date Encounter for screening for malignant neoplasm o f colon 09/26/2015 09/26/2015 Anemia, unspecified 07/01/2005 07/08/2012 documented as of this encounter (statuses as of 09/04/2022) [facility] History of Past illness Narrative* Problem Noted Date Resolved Date Encounter for screening for malignant neoplasm o f colon 09/26/2015 09/26/2015 Anemia, unspecified 07/01/2005 07/08/2012 documented as of this encounter (statuses as of 09/05/2022) [facility] History of Past illness Narrative* Problem Noted Date Resolved Date Encounter for screening for malignant neoplasm o f colon 09/26/2015 09/26/2015 Anemia, unspecified 07/01/2005 07/08/2012 documented as of this encounter (statuses as of 09/07/2022) [address]04-2016 History of Past illness Narrative* Problem Noted Date Resolved Date Encounter for screening for malignant neoplasm o f colon 09/26/2015 09/26/2015 Anemia, unspecified 07/01/2005 07/08/2012 documented as of this encounter (statuses as of 09/11/2022) [facility] History of Past illness Narrative* Problem Noted Date Resolved Date Encounter for screening for malignant neoplasm o f colon 09/26/2015 09/26/2015 Anemia, unspecified 07/01/2005 07/08/2012 documented as of this encounter (statuses as of 09/15/2022) [facility] History of Past illness Narrative* Problem Noted Date Resolved Date Encounter for screening for malignant neoplasm o f colon 09/26/2015 09/26/2015 Anemia, unspecified 07/01/2005 07/08/2012 documented as of this encounter (statuses as of 09/15/2022) [facility] History of Past illness Narrative* Problem Noted Date Resolved Date Encounter for screening for malignant neoplasm o f colon 09/26/2015 09/26/2015 Anemia, unspecified 07/01/2005 07/08/2012 documented as of this encounter (statuses as of 11/26/2022) [facility] History of Past illness Narrative* Problem Noted Date Resolved Date Encounter for screening for malignant neoplasm o f colon 09/26/2015 09/26/2015 Anemia, unspecified 07/01/2005 07/08/2012 documented as of this encounter (statuses as of 12/03/2022) [facility] History of Past illness Narrative* Problem Noted Date Resolved Date Encounter for screening for malignant neoplasm o f colon 09/26/2015 09/26/2015 Anemia, unspecified 07/01/2005 07/08/2012 documented as of this encounter (statuses as of 12/16/2022) [facility] History of Past illness Narrative* Problem Noted Date Resolved Date Encounter for screening for malignant neoplasm o f colon 09/26/2015 09/26/2015 Anemia, unspecified 07/01/2005 07/08/2012 documented as of this encounter (statuses as of 12/24/2022) [facility] History of Past illness Narrative* Problem Noted Date Resolved Date Encounter for screening for malignant neoplasm o f colon 09/26/2015 09/26/2015 Anemia, unspecified 07/01/2005 07/08/2012 documented as of this encounter (statuses as of 12/24/2022) [facility] History of Past illness Narrative* Problem Noted Date Resolved Date Encounter for screening for malignant neoplasm o f colon 09/26/2015 09/26/2015 Anemia, unspecified 07/01/2005 07/08/2012 documented as of this encounter (statuses as of 01/01/2023) [facility] History of Past illness Narrative* Problem Noted Date Resolved Date Encounter for screening for malignant neoplasm o f colon 09/26/2015 09/26/2015 Anemia, unspecified 07/01/2005 07/08/2012 documented as of this encounter (statuses as of 01/04/2023) [facility] History of Past illness Narrative* Problem Noted Date Resolved Date Encounter for screening for malignant neoplasm o f colon 09/26/2015 09/26/2015 Anemia, unspecified 07/01/2005 07/08/2012 documented as of this encounter (statuses as of 01/05/2023) [facility] History of Past illness Narrative* Problem Noted Date Resolved Date Encounter for screening for malignant neoplasm o f colon 09/26/2015 09/26/2015 Anemia, unspecified 07/01/2005 07/08/2012 documented as of this encounter (statuses as of 01/21/2023) [facility] History of Past illness Narrative* Problem Noted Date Resolved Date Encounter for screening for malignant neoplasm o f colon 09/26/2015 09/26/2015 Anemia, unspecified 07/01/2005 07/08/2012 documented as of this encounter (statuses as of 01/22/2023) [facility] History of Past illness Narrative* Problem Noted Date Resolved Date Encounter for screening for malignant neoplasm o f colon 09/26/2015 09/26/2015 Anemia, unspecified 07/01/2005 07/08/2012 documented as of this encounter (statuses as of 02/19/2023) [facility] History of Past illness Narrative* Problem Noted Date Diagnosed Date Resolved Date Encounter for screening for malignant neoplasm of colon 09/26/2015 09/26/2015 Anemia, unspecified 07/01/2005 07/08/20 12 documented as of this encounter (statuses as of 03/18/2023) [facility] History of Past illness Narrative* Problem Noted Date Diagnosed Date Resolved Date Encounter for screening for malignant neoplasm of colon 09/26/2015 09/26/2015 Anemia, unspecified 07/01/2005 07/08/20 12 documented as of this encounter (statuses as of 03/18/2023) [facility] History of Past illness Narrative* Problem Noted Date Diagnosed Date Resolved Date Encounter for screening for malignant neoplasm of colon 09/26/2015 09/26/2015 Anemia, unspecified 07/01/2005 07/08/20 12 documented as of this encounter (statuses as of 04/15/2023) [facility] History of Past illness Narrative* Problem Noted Date Diagnosed Date Resolved Date Encounter for screening for malignant neoplasm of colon 09/26/2015 09/26/2015 Anemia, unspecified 07/01/2005 07/08/20 12 documented as of this encounter (statuses as of 04/28/2023) [facility] History of Past illness Narrative* Problem Noted Date Diagnosed Date Resolved Date Encounter for screening for malignant neoplasm of colon 09/26/2015 09/26/2015 Anemia, unspecified 07/01/2005 07/08/20 12 documented as of this encounter (statuses as of 05/14/2023) [facility] History of Past illness Narrative* Problem Noted Date Diagnosed Date Resolved Date Encounter for screening for malignant neoplasm of colon 09/26/2015 09/26/2015 Anemia, unspecified 07/01/2005 07/08/20 12 documented as of this encounter (statuses as of 06/27/2023) [facility] History of Past illness Narrative* Problem Noted Date Diagnosed Date Resolved Date Encounter for screening for malignant neoplasm of colon 09/26/2015 09/26/2015 Anemia, unspecified 07/01/2005 07/08/20 12 documented as of this encounter (statuses as of 07/08/2023) [facility] History of Past illness Narrative* Problem Noted Date Diagnosed Date Resolved Date Encounter for screening for malignant neoplasm of colon 09/26/2015 09/26/2015 Anemia, unspecified 07/01/2005 07/08/20 12 documented as of this encounter (statuses as of 08/06/2023) [facility] History of Past illness Narrative* Problem Noted Date Diagnosed Date Resolved Date Encounter for screening for malignant neoplasm of colon 09/26/2015 09/26/2015 Anemia, unspecified 07/01/2005 07/08/20 12 documented as of this encounter (statuses as of 08/06/2023) [facility] note* Diagnosis 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, brain Congenital anomaly of cerebrovascular system Chronic GI bleeding Hemorrhage of gastrointestinal tract, unspecified 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 loss Iron deficiency anemia secondary to blood loss (chronic) [facility] 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) [facility] 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) [facility] 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) [facility] Diagnosis 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 loss- Primary Iron deficiency anemia secondary to blood loss (chronic) [facility] Diagnosis 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 loss- Primary Iron deficiency anemia secondary to blood loss (chronic) [facility] 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 [facility] Diagnosis 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 Chronic GI bleeding Hemorrhage of gastrointestinal tract, unspecified 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 loss Iron deficiency anemia secondary to blood loss (chronic) [facility] Diagnosis Chronic diastolic congestive heart failure (HCC)- Primary Chronic diastolic heart failure [facility] 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 loss- Primary Iron deficiency anemia secondary to blood loss (chronic) [facility] Diagnosis Anemia, unspecified type- Primary [facility] 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) [facility] 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) [facility] Diagnosis 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 loss- Primary 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) Hereditary hemorrhagic telangiectasia [facility] Diagnosis 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 loss- Primary Iron deficiency anemia secondary to blood loss (chronic) [facility] Diagnosis 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, 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) [facility] Diagnosis 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 loss- Primary Iron deficiency anemia secondary to blood loss (chronic) [facility] 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 [facility] Diagnosis 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 loss- Primary Iron deficiency anemia secondary to blood loss (chronic) [facility] Diagnosis 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 loss- Primary Iron deficiency anemia secondary to blood loss (chronic) [facility] 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 [facility] Diagnosis 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 loss- Primary Iron deficiency anemia secondary to blood loss (chronic) [facility] Diagnosis 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 loss- Primary Iron deficiency anemia secondary to blood loss (chronic) [facility] 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 [facility] Diagnosis 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 telangiectasia [facility] Diagnosis 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 loss- Primary Iron deficiency anemia secondary to blood loss (chronic) [facility] Diagnosis 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 loss- Primary Iron deficiency anemia secondary to blood loss (chronic) [facility] Outpatient Procedure (Routine) - Authorized Specialty Diagnoses / Procedures Referred By Contac t Referred To Contact [facility] Diagnoses Chronic diastolic congestive heart failure (HCC) Procedures ECHO ECHO TTHRC R-T 2D W/WOM-MODE COMPL SPEC&COLR D Master Palmer MD [address] [place] [address] [place] [address] Referral ID Status Reason Start Date Expiration Date Visits Requested Visits Authorized [id number] Authorized Auto-Generat ed Referral 06/04/2023 1 1 [facility] Summary Purpose Family History No Family History Records FoundNo Family History Records Found Advance Directives No Advanced Directives Records FoundDocuments on File Type Date Recorded 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 Advance Directive(s) 10/01/2016 11:25 AM Medications Administered Section Inactive Administered Medications - up to 3 most recent administrations Medication Order MAR Action Action Date Dose Rate Site bevacizumab 300 mg in NaCl 0.9% 100 mL (AVASTIN) 300 mg (rounded from 313 mg = 5 mg/kg/dose 62.6 kg Treatment plan Recorded weight), INTRAVENOUS, Administer over 30 Minutes, ONCE, 1 dose, On Anastasiia 01/01/22 at 0930, APPROX.TOTAL VOLUME - -- DO NOT SHAKE- immediate use REFRIGERATE New Bag/Syringe/Bottle 01/01/2022 10:22 AM EDT 300 mg ferric derisomaltose 1,000 mg in NaCl 0.9% 100 mL (MONOFERRIC) 1,000 mg (set by rule on 11/27/2021 10:10 AM), INTRAVENOUS, Administer over 20 Minutes, ONCE, 1 dose, On Anastasiia 01/01/22 at 0930, exp 1800 09/04/21 Monitor patient for hypersensitivity reactions during the infusion and for 30 minutes after infusion is complete. EXP: (8 HR) New Bag/Syringe/Bottle 01/01/2022 9:46 AM EDT 1,000 mg Inactive Administered Medications - up to 3 most recent administrations Medication Order MAR Action Action Date Dose Rate Site ferric derisomaltose 1,000 mg in NaCl 0.9% 100 mL (MONOFERRIC) 1,000 mg (set by rule on 03/19/2022 8:23 AM), INTRAVENOUS, Administer over 45 Minutes, ONCE, 1 dose, On Anastasiia 03/26/22 at 0930, Monitor patient for hypersensitivity reactions during the infusion and for 30 minutes after infusion is complete. Respirations EXP: (8 HR) New Bag/Syringe/Bottle 03/26/2022 9:24 AM EDT 1,000 mg Inactive Administered Medications - up to 3 most recent administrations Medication Order MAR Action Action Date Dose Rate Site ferric derisomaltose 1,000 mg in NaCl 0.9% 100 mL (MONOFERRIC) 1,000 mg (set by rule on 04/16/2022 8:38 AM), INTRAVENOUS, Administer over 45 Minutes, ONCE, 1 dose, On Anastasiia 04/23/22 at 1000, Monitor patient for hypersensitivity reactions during the infusion and for 30 minutes after infusion is complete. Respirations EXP: (8 HR) New Bag/Syringe/Bottle 04/23/2022 10:28 AM EDT 1,000 mg Inactive Administered Medications - up to 3 most recent administrations Medication Order MAR Action Action Date Dose Rate Site bevacizumab 300 mg in NaCl 0.9% 122 mL (AVASTIN) 300 mg (rounded from 313 mg = 5 mg/kg/dose 62.6 kg Treatment plan Recorded weight), INTRAVENOUS, Administer over 30 Minutes, ONCE, 1 dose, On Wed05/01/22 at 1400, APPROX.TOTAL VOLUME - DO NOT SHAKE IMMEDIATE USE REFRIGERATE New Bag/Syringe/Bottle 05/01/2022 1:57 PM EDT 300 mg Inactive Administered Medications - up to 3 most recent administrations Medication Order MAR Action Action Date Dose Rate Site ferric derisomaltose 1,000 mg in NaCl 0.9% 100 mL (MONOFERRIC) 1,000 mg (set by rule on 07/30/2022 10:26 AM), INTRAVENOUS, Administer over 45 Minutes, ONCE, 1 dose, On Wed08/06/22 at 1100, Monitor patient for hypersensitivity reactions during the infusion and for 30 minutes after infusion is complete. Respirations EXP: (8 HR) New Bag/Syringe/Bottle 08/06/2022 11:03 AM EST 1,000 mg Inactive Administered Medications - up to 3 most recent administrations Medication Order MAR Action Action Date Dose Rate Site bevacizumab 300 mg in NaCl 0.9% 122 mL (AVASTIN) 300 mg (rounded from 313 mg = 5 mg/kg/dose 62.6 kg Treatment plan Recorded weight), INTRAVENOUS, Administer over 30 Minutes, ONCE, 1 dose, On Wed09/15/22 at 1400, APPROX.TOTAL VOLUME - -- DO NOT SHAKE- immediate use REFRIGERATE New Bag/Syringe/Bottle 09/15/2022 2:11 PM EST 300 mg Inactive Administered Medications - up to 3 most recent administrations Medication Order MAR Action Action Date Dose Rate Site ferric derisomaltose 1,000 mg in NaCl 0.9% 100 mL (MONOFERRIC) 1,000 mg (set by rule on 07/30/2022 10:26 AM), INTRAVENOUS, Administer over 45 Minutes, ONCE, 1 dose, On Wed11/26/22 at 1130, Monitor patient for hypersensitivity reactions during the infusion and for 30 minutes after infusion is complete. Respirations EXP: (8 HR) New Bag/Syringe/Bottle 11/26/2022 11:20 AM EDT 1,000 mg Inactive Administered Medications - up to 3 most recent administrations Medication Order MAR Action Action Date Dose Rate Site ferric derisomaltose 1,000 mg in NaCl 0.9% 100 mL (MONOFERRIC) 1,000 mg (set by rule on 07/30/2022 10:26 AM), INTRAVENOUS, Administer over 45 Minutes, ONCE, 1 dose, On Anastasiia 12/24/22 at 0930, Monitor patient for hypersensitivity reactions during the infusion and for 30 minutes after infusion is complete. Respirations EXP: (8 HR) New Bag/Syringe/Bottle 12/24/2022 9:37 AM EDT 1,000 mg Inactive Administered Medications - up to 3 most recent administrations Medication Order MAR Action Action Date Dose Rate Site bevacizumab 300 mg in NaCl 0.9% 122 mL (AVASTIN) 300 mg (rounded from 313 mg = 5 mg/kg/dose 62.6 kg Treatment plan Recorded weight), INTRAVENOUS, Administer over 30 Minutes, ONCE, 1 dose, On 01/04/23 at 1400, APPROX.TOTAL VOLUME - -- DO NOT SHAKE- immediate use REFRIGERATE New Bag/Syringe/Bottle 01/04/2023 2:07 PM EDT 300 mg 244 mL/hr Inactive Administered Medications - up to 3 most recent administrations Medication Order MAR Action Action Date Dose Rate Site ferric derisomaltose 1,000 mg in NaCl 0.9% 100 mL (MONOFERRIC) 1,000 mg (set by rule on 07/30/2022 10:26 AM), INTRAVENOUS, Administer over 45 Minutes, ONCE, 1 dose, On [facility] 01/21/23 at 1430, Monitor patient for hypersensitivity reactions during the infusion and for 30 minutes after infusion is complete. Respirations EXP: (8 HR) New Bag/Syringe/Bottle 01/21/2023 2:22 PM EDT 1,000 mg Inactive Administered Medications - up to 3 most recent administrations Medication Order MAR Action Action Date Dose Rate Site ferric derisomaltose 1,000 mg in NaCl 0.9% 100 mL (MONOFERRIC) 1,000 mg (set by rule on 07/30/2022 10:26 AM), INTRAVENOUS, Administer over 45 Minutes, ONCE, 1 dose, On [facility] 02/18/23 at 1430, Monitor patient for hypersensitivity reactions during the infusion and for 30 minutes after infusion is complete. Respirations Expiration: 02/18/230 EXP: (8 HR) New Bag/Syringe/Bottle 02/18/2023 2:48 PM EDT 1,000 mg Inactive Administered Medications - up to 3 most recent administrations Medication Order MAR Action Action Date Dose Rate Site ferric derisomaltose 1,000 mg in NaCl 0.9% 100 mL (MONOFERRIC) 1,000 mg (set by rule on 07/30/2022 10:26 AM), INTRAVENOUS, Administer over 45 Minutes, ONCE, 1 dose, On Wed03/18/23 at 1030, Monitor patient for hypersensitivity reactions during the infusion and for 30 minutes after infusion is complete. Respirations EXP: (8 HR) New Bag/Syringe/Bottle 03/18/2023 10:35 AM EDT 1,000 mg Inactive Administered Medications - up to 3 most recent administrations Medication Order MAR Action Action Date Dose Rate Site ferric derisomaltose 1,000 mg in NaCl 0.9% 100 mL (MONOFERRIC) 1,000 mg (set by rule on 07/30/2022 10:26 AM), INTRAVENOUS, Administer over 45 Minutes, ONCE, 1 dose, On Wed04/15/23 at 1200, Monitor patient for hypersensitivity reactions during the infusion and for 30 minutes after infusion is complete. Respirations EXP: (8 HR) New Bag/Syringe/Bottle 04/15/2023 12:13 PM EDT 1,000 mg Inactive Administered Medications - up to 3 most recent administrations Medication Order MAR Action Action Date Dose Rate Site bevacizumab 300 mg in NaCl 0.9% 122 mL (AVASTIN) 300 mg (rounded from 313 mg = 5 mg/kg/dose 62.6 kg Treatment plan Recorded weight), INTRAVENOUS, Administer over 30 Minutes, ONCE, 1 dose, On Wed04/27/23 at 1430, APPROX.TOTAL VOLUME - -- DO NOT SHAKE- immediate use REFRIGERATE New Bag/Syringe/Bottle 04/27/2023 2:29 PM EDT 300 mg Inactive Administered Medications - up to 3 most recent administrations Medication Order MAR Action Action Date Dose Rate Site ferric derisomaltose 1,000 mg in NaCl 0.9% 100 mL (MONOFERRIC) 1,000 mg (set by rule on 07/30/2022 10:26 AM), INTRAVENOUS, Administer over 45 Minutes, ONCE, 1 dose, On Wed23 at 1000, Monitor patient for hypersensitivity reactions during the infusion and for 30 minutes after infusion is complete. Respirations EXP: (8 HR) New Bag/Syringe/Bottle 05/13/2023 12:20 PM EDT 1,000 mg Inactive Administered Medications - up to 3 most recent administrations Medication Order MAR Action Action Date Dose Rate Site ferric derisomaltose 1,000 mg in NaCl 0.9% 100 mL (MONOFERRIC) 1,000 mg (set by rule on 07/30/2022 10:26 AM), INTRAVENOUS, Administer over 45 Minutes, ONCE, 1 dose, On Anastasiia 07/08/23 at 1400, Approx Total Volume - Expires: 07/08/23 @ 2210 Monitor patient for hypersensitivity reactions during the infusion and for 30 minutes after infusion is complete. EXP: (8 HR) New Bag/Syringe/Bottle 07/08/2023 2:22 PM EST 1,000 mg Inactive Administered Medications - up to 3 most recent administrations Medication Order MAR Action Action Date Dose Rate Site ferric derisomaltose 1,000 mg in NaCl 0.9% 100 mL (MONOFERRIC) 1,000 mg (set by rule on 07/30/2022 10:26 AM), INTRAVENOUS, Administer over 45 Minutes, ONCE, 1 dose, On Anastasiia 08/05/23 at 1400, Monitor patient for hypersensitivity reactions during the infusion and for 30 minutes after infusion is complete. Respirations EXP: (8 HR) New Bag/Syringe/Bottle 08/05/2023 1:54 PM EST 1,000 mg Reason for Referral Specialty Diagnoses / Procedures Referred By Frank levine Referred To Contact MR IMAGING Diagnoses HHT (hereditary hemorrhagic telangiectasia) (HCC) Procedures MRI BRAIN WO/W IVCON MRI BRAIN BRAIN STEM W/O W/CONTRAST MATERIAL Master Palmer MD [address] [place] [address] Mr Imaging Referral ID Status Reason Start Date Expiration Date Visits Requested Visits Authorized [id number] Authorized Auto-Generat ed Referral 12/02/2022 01/01/2024 1 1 Specialty Diagnoses / Procedures Referred By Frank t Referred To Contact MR IMAGING Diagnoses HHT (hereditary hemorrhagic telangiectasia) (HCC) Procedures MRI BRAIN WO/W IVCON MRI BRAIN BRAIN STEM W/O W/CONTRAST MATERIAL Master Palmer MD [address] [place] [address] [place] [id number] Referral ID Status Reason Start Date Expiration Date V isits Requested Visits Authorized [id number] Closed Auto-Generate d Referral 12/02/2022 01/01/2024 1 1 Additional Source Comments INFORMATION SOURCE (unrecogn ized section and content) DATE CREATED AUTHOR AUTHOR'S ORGANIZ ATION 09/04/2023 [facility] Source Comments (unrecognize d section and content) In the event this informatio n is protected by the Federal Confidentiality of Alcohol and Drug Abuse Patient Records regulations: The Federal rules restrict any use of the information to criminally investigate or prosecute any alcohol or drug abuse patient.[facility] HealthIn the event this information is protected by the Federal Confidentiality of Alcohol and Drug Abuse Patient Records regulations: The Federal rules restrict any use of the information to criminally investigate or prosecute any alcohol or drug abuse patient.[facility] HealthIn the event this information is protected by the Federal Confidentiality of Alcohol and Drug Abuse Patient Records regulations: The Federal rules restrict any use of the information to criminally investigate or prosecute any alcohol or drug abuse patient.[facility] HealthIn the event this information is protected by the Federal Confidentiality of Alcohol and Drug Abuse Patient Records regulations: The Federal rules restrict any use of the information to criminally investigate or prosecute any alcohol or drug abuse patient.[facility] HealthIn the event this information is protected by the Federal Confidentiality of Alcohol and Drug Abuse Patient Records regulations: The Federal rules restrict any use of the information to criminally investigate or prosecute any alcohol or drug abuse patient.[facility] HealthIn the event this information is protected by the Federal Confidentiality of Alcohol and Drug Abuse Patient Records regulations: The Federal rules restrict any use of the information to criminally investigate or prosecute any alcohol or drug abuse patient.[facility] HealthIn the event this information is protected by the Federal Confidentiality of Alcohol and Drug Abuse Patient Records regulations: The Federal rules restrict any use of the information to criminally investigate or prosecute any alcohol or drug abuse patient.[facility] HealthIn the event this information is protected by the Federal Confidentiality of Alcohol and Drug Abuse Patient Records regulations: The Federal rules restrict any use of the information to criminally investigate or prosecute any alcohol or drug abuse patient.[facility] HealthIn the event this information is protected by the Federal Confidentiality of Alcohol and Drug Abuse Patient Records regulations: The Federal rules restrict any use of the information to criminally investigate or prosecute any alcohol or drug abuse patient.[facility] HealthIn the event this information is protected by the Federal Confidentiality of Alcohol and Drug Abuse Patient Records regulations: The Federal rules restrict any use of the information to criminally investigate or prosecute any alcohol or drug abuse patient.[facility] HealthIn the event this information is protected by the Federal Confidentiality of Alcohol and Drug Abuse Patient Records regulations: The Federal rules restrict any use of the information to criminally investigate or prosecute any alcohol or drug abuse patient.[facility] HealthIn the event this information is protected by the Federal Confidentiality of Alcohol and Drug Abuse Patient Records regulations: The Federal rules restrict any use of the information to criminally investigate or prosecute any alcohol or drug abuse patient.[facility] HealthIn the event this information is protected by the Federal Confidentiality of Alcohol and Drug Abuse Patient Records regulations: The Federal rules restrict any use of the information to criminally investigate or prosecute any alcohol or drug abuse patient.[facility] HealthIn the event this information is protected by the Federal Confidentiality of Alcohol and Drug Abuse Patient Records regulations: The Federal rules restrict any use of the information to criminally investigate or prosecute any alcohol or drug abuse patient.[facility] HealthIn the event this information is protected by the Federal Confidentiality of Alcohol and Drug Abuse Patient Records regulations: The Federal rules restrict any use of the information to criminally investigate or prosecute any alcohol or drug abuse patient.[facility] HealthIn the event this information is protected by the Federal Confidentiality of Alcohol and Drug Abuse Patient Records regulations: The Federal rules restrict any use of the information to criminally investigate or prosecute any alcohol or drug abuse patient.[facility] HealthIn the event this information is protected by the Federal Confidentiality of Alcohol and Drug Abuse Patient Records regulations: The Federal rules restrict any use of the information to criminally investigate or prosecute any alcohol or drug abuse patient.[facility] HealthIn the event this information is protected by the Federal Confidentiality of Alcohol and Drug Abuse Patient Records regulations: The Federal rules restrict any use of the information to criminally investigate or prosecute any alcohol or drug abuse patient.[facility] HealthIn the event this information is protected by the Federal Confidentiality of Alcohol and Drug Abuse Patient Records regulations: The Federal rules restrict any use of the information to criminally investigate or prosecute any alcohol or drug abuse patient.[facility] HealthIn the event this information is protected by the Federal Confidentiality of Alcohol and Drug Abuse Patient Records regulations: The Federal rules restrict any use of the information to criminally investigate or prosecute any alcohol or drug abuse patient.[facility] HealthIn the event this information is protected by the Federal Confidentiality of Alcohol and Drug Abuse Patient Records regulations: The Federal rules restrict any use of the information to criminally investigate or prosecute any alcohol or drug abuse patient.[facility] HealthIn the event this information is protected by the Federal Confidentiality of Alcohol and Drug Abuse Patient Records regulations: The Federal rules restrict any use of the information to criminally investigate or prosecute any alcohol or drug abuse patient.[facility] HealthIn the event this information is protected by the Federal Confidentiality of Alcohol and Drug Abuse Patient Records regulations: The Federal rules restrict any use of the information to criminally investigate or prosecute any alcohol or drug abuse patient.[facility] HealthIn the event this information is protected by the Federal Confidentiality of Alcohol and Drug Abuse Patient Records regulations: The Federal rules restrict any use of the information to criminally investigate or prosecute any alcohol or drug abuse patient.[facility] HealthIn the event this information is protected by the Federal Confidentiality of Alcohol and Drug Abuse Patient Records regulations: The Federal rules restrict any use of the information to criminally investigate or prosecute any alcohol or drug abuse patient.[facility] HealthIn the event this information is protected by the Federal Confidentiality of Alcohol and Drug Abuse Patient Records regulations: The Federal rules restrict any use of the information to criminally investigate or prosecute any alcohol or drug abuse patient.[facility] HealthIn the event this information is protected by the Federal Confidentiality of Alcohol and Drug Abuse Patient Records regulations: The Federal rules restrict any use of the information to criminally investigate or prosecute any alcohol or drug abuse patient.[facility] HealthIn the event this information is protected by the Federal Confidentiality of Alcohol and Drug Abuse Patient Records regulations: The Federal rules restrict any use of the information to criminally investigate or prosecute any alcohol or drug abuse patient.[facility] HealthIn the event this information is protected by the Federal Confidentiality of Alcohol and Drug Abuse Patient Records regulations: The Federal rules restrict any use of the information to criminally investigate or prosecute any alcohol or drug abuse patient.[facility] HealthIn the event this information is protected by the Federal Confidentiality of Alcohol and Drug Abuse Patient Records regulations: The Federal rules restrict any use of the information to criminally investigate or prosecute any alcohol or drug abuse patient.[facility] HealthIn the event this information is protected by the Federal Confidentiality of Alcohol and Drug Abuse Patient Records regulations: The Federal rules restrict any use of the information to criminally investigate or prosecute any alcohol or drug abuse patient.[facility] HealthIn the event this information is protected by the Federal Confidentiality of Alcohol and Drug Abuse Patient Records regulations: The Federal rules restrict any use of the information to criminally investigate or prosecute any alcohol or drug abuse patient.[facility] HealthIn the event this information is protected by the Federal Confidentiality of Alcohol and Drug Abuse Patient Records regulations: The Federal rules restrict any use of the information to criminally investigate or prosecute any alcohol or drug abuse patient.[facility] HealthIn the event this information is protected by the Federal Confidentiality of Alcohol and Drug Abuse Patient Records regulations: The Federal rules restrict any use of the information to criminally investigate or prosecute any alcohol or drug abuse patient.[facility] HealthIn the event this information is protected by the Federal Confidentiality of Alcohol and Drug Abuse Patient Records regulations: The Federal rules restrict any use of the information to criminally investigate or prosecute any alcohol or drug abuse patient.[facility] HealthIn the event this information is protected by the Federal Confidentiality of Alcohol and Drug Abuse Patient Records regulations: The Federal rules restrict any use of the information to criminally investigate or prosecute any alcohol or drug abuse patient.[facility] HealthIn the event this information is protected by the Federal Confidentiality of Alcohol and Drug Abuse Patient Records regulations: The Federal rules restrict any use of the information to criminally investigate or prosecute any alcohol or drug abuse patient.[facility] HealthIn the event this information is protected by the Federal Confidentiality of Alcohol and Drug Abuse Patient Records regulations: The Federal rules restrict any use of the information to criminally investigate or prosecute any alcohol or drug abuse patient.[facility] HealthIn the event this information is protected by the Federal Confidentiality of Alcohol and Drug Abuse Patient Records regulations: The Federal rules restrict any use of the information to criminally investigate or prosecute any alcohol or drug abuse patient.[facility] HealthIn the event this information is protected by the Federal Confidentiality of Alcohol and Drug Abuse Patient Records regulations: The Federal rules restrict any use of the information to criminally investigate or prosecute any alcohol or drug abuse patient.[facility] HealthIn the event this information is protected by the Federal Confidentiality of Alcohol and Drug Abuse Patient Records regulations: The Federal rules restrict any use of the information to criminally investigate or prosecute any alcohol or drug abuse patient.[facility] ClinicIn the event this information is protected by the Federal Confidentiality of Alcohol and Drug Abuse Patient Records regulations: The Federal rules restrict any use of the information to criminally investigate or prosecute any alcohol or drug abuse patient.[facility] HealthIn the event this information is protected by the Federal Confidentiality of Alcohol and Drug Abuse Patient Records regulations: The Federal rules restrict any use of the information to criminally investigate or prosecute any alcohol or drug abuse patient.[facility] HealthIn the event this information is protected by the Federal Confidentiality of Alcohol and Drug Abuse Patient Records regulations: The Federal rules restrict any use of the information to criminally investigate or prosecute any alcohol or drug abuse patient.[facility] HealthIn the event this information is protected by the Federal Confidentiality of Alcohol and Drug Abuse Patient Records regulations: The Federal rules restrict any use of the information to criminally investigate or prosecute any alcohol or drug abuse patient.[facility] Reason for Visit (unrecogniz ed section and content) Reason Comments Chemotherapy Treatment Specialty Diagnoses / Procedures Referred By [facility] t Referred To Contact Diagnoses 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 loss 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 loss Jesus Soto, DO [address] [place] [address] [facility] [address] [place] [address] Referral ID Status Reason Start Date Expiration Date V isits Requested Visits Authorized [id number] Authorized 01/22/2021 04/22/2021 99 99 Reason Comments Established Patient Reason Comments Non-Chemotherapy Treatment Specialty Diagnoses / Procedures Referred By [facility] Referred To Contact Diagnoses 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 loss 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 loss Jesus Soto, DO [address] [place] [address] [facility] [address] [place] [address] Referral ID Status Reason Start Date Expiration Date V isits Requested Visits Authorized [id number] Authorized 01/28/2022 04/28/2022 99 99 Reason Comments Follow Up Add Avastin today Specialty Diagnoses / Procedures Referred By [facility] Referred To Contact Diagnoses Hereditary hemorrhagic telangiectasia (HCC) Josette Martínez MD [address] [place] [address] [facility] [address] [place] [address] Referral ID Status Reason Start Date Expiration Date V isits Requested Visits Authorized [id number] Authorized 06/14/2020 09/12/2020 1 1 Reason Comments Orders Reason Comments transfusion Reason Comments Transfusion Reason Comments Patient Update Reason Comments Results Work up other causes of anemia Reason Comments Results Reason Comments Social Work Services Reason Onset Date Comments Refill Request 12/31/2022 Specialty Diagnoses / Procedures Referred By Contac t Referred To Contact Diagnoses 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 loss 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 loss Jesus Soto, [address] [place] [address] [facility] Replaced By [facility] [address] [place] [address] Reason Comments Consult Established patient Specialty Diagnoses / Procedures Referred By Contac t Referred To Contact Diagnoses Hereditary hemorrhagic telangiectasia (HCC) Josette Martínez MD [address] [place] [address] [place] [address] [facility] [address] [place] [address] Specialty Diagnoses / Procedures [facility] Ref[facility] To Contact MR IM[facility] Diagnoses HHT (hereditary hemorrhagic telangiectasia) (HCC) Procedures MRI BRAIN WO/W IVCON MRI BRAIN BRAIN STEM W/O W/CONTRAST MATERIAL Master Palmer MD [address] [place] [id number] Mr [id number] Referral ID Status Reason Start Date Expiration Date V isits Requested Visits Authorized [id number] Closed Auto-Generate d Referral 12/02/2022 01/01/2024 1 1 Care Teams (unrecognized sec tion and content) Scrap Hoist Operator Relationship Specialty Start Date End Date Mariaelena Corbett DO PCP - General 09/26/15 Scrap Hoist Operator Relationship Specialty Start Date End Date Mariaelena Corbett DO PCP - General 09/26/15 Scrap Hoist Operator Relationship Specialty Start Date End Date Mariaelena Corbett DO PCP - General 09/26/15 Scrap Hoist Operator Relationship Specialty Start Date End Date Mariaelena Corbett DO PCP - General 09/26/15 Scrap Hoist Operator Relationship Specialty Start Date End Date Mariaelena Corbett, DO PCP - General 09/26/15 Scrap Hoist Operator Relationship Specialty Start Date End Date Mariaelena Corbett, DO PCP - General 09/26/15 Scrap Hoist Operator Relationship Specialty Start Date End Date Mariaelena Corbett, DO PCP - General 09/26/15 Scrap Hoist Operator Relationship Specialty Start Date End Date Mariaelena Corbett DO PCP - General 09/26/15 Scrap Hoist Operator Relationship Specialty Start Date End Date Mariaelena Corbett DO PCP - General 09/26/15 Scrap Hoist Operator Relationship Specialty Start Date End Date Mariaelena Corbett DO PCP - General 09/26/15 Scrap Hoist Operator Relationship Specialty Start Date End Date Mariaelena Corbett DO PCP - General 09/26/15 Scrap Hoist Operator Relationship Specialty Start Date End Date Mariaelena Corbett DO PCP - General 09/26/15 Scrap Hoist Operator Relationship Specialty Start Date End Date Mariaelena Corbett, DO PCP - General 09/26/15 Scrap Hoist Operator Relationship Specialty Start Date End Date Mariaelena Corbett DO PCP - General 09/26/15 Scrap Hoist Operator Relationship Specialty Start Date End Date Mariaelena Corbett DO PCP - General 09/26/15 Scrap Hoist Operator Relationship Specialty Start Date End Date Mariaelena Corbett DO PCP - General 09/26/15 Scrap Hoist Operator Relationship Specialty Start Date End Date Mariaelena Corbett DO PCP - General 09/26/15 Scrap Hoist Operator Relationship Specialty Start Date End Date Mariaelena Corbett DO PCP - General 09/26/15 Scrap Hoist Operator Relationship Specialty Start Date End Date Mariaelena Corbett DO PCP - General 09/26/15 Scrap Hoist Operator Relationship Specialty Start Date End Date Mariaelena Corbett DO PCP - General 09/26/15 Scrap Hoist Operator Relationship Specialty Start Date End Date Mariaelena Corbett DO PCP - General 09/26/15 Scrap Hoist Operator Relationship Specialty Start Date End Date Mariaelena Corbett DO PCP - General 09/26/15 Scrap Hoist Operator Relationship Specialty Start Date End Date Mariaelena Corbett DO PCP - General 09/26/15 Scrap Hoist Operator Relationship Specialty Start Date End Date Mariaelena Corbett DO PCP - General 09/26/15 Scrap Hoist Operator Relationship Specialty Start Date End Date Mariaelena Corbett DO PCP - General 09/26/15 FOR RECORDS PERTAINING TO PATIENTS WHO ARE OR HAVE BEEN ENROLLED IN A CHEMICAL DEPENDENCY/SUBSTANCEABUSE PROGRAM, SOME INFORMATION MAY BE OMITTED. This clinical summary was aggregated from multiple sources. Caution should be exercised in using it in the provision of clinical care. This summary normalizes information from multiple sources, and as a consequence, information in this document may materially change the coding, format and clinical context of patient data. In addition, data may be omitted in some cases. CLINICAL DECISIONS SHOULD BE BASED ON THE PRIMARY CLINICAL RECORDS. [facility] [employer] [facility]. provides no warranty or guarantee of the accuracy or completeness of information in this document.
[2023-09-08] MEDS: Lactated Ringers 1,000 ML 15 ML IV (09:46)
[2023-09-08] MEDS: Epinephrine (1 mg/ml) 1 MG/ML VIAL ×2 (10:51→10:59)
--- NOTE | 2023-09-08 11:31 | OP.CCLET_ITS ---
09/08/2023 Mariaelena Corbett [address] [place] [address] Re : Upper GI endoscopy procedure for Leidy Brar Dear Dr. Corbett This procedure was performed on Friday, September 08, 2023. My impressions and recommendations are as follows: Impressions : - Grade I esophageal varices. - Hematin (altered blood/yinbib-achbbc-fopy material) in the entire stomach. - 15 bleeding angiodysplastic lesions in the stomach. Injected. Treated with a heater probe. - Six non-bleeding angiodysplastic lesions in the duodenum. Treated with argon plasma coagulation (APC). - No specimens collected. Recommendations : - Discharge patient to home. - Resume previous diet. - Continue present medications. - Await pathology results. - Repeat upper endoscopy in 3 months for surveillance. My findings are described in the full procedure note, which is enclosed. If I can be of further assistance, please feel free to contact me at . Sincerely, Conner Peters, 09/08/2023 11:31:35 AM This report has been signed electronically.
--- NOTE | 2023-09-08 11:31 | OP.EGD_ITS ---
Patient Name: Leidy Brar Procedure Date: 09/08/2023 10:23 AM Date of : 1950 Age: 73 Procedure: Upper GI endoscopy Indications: Iron deficiency anemia Providers: Conner Peters DO Referring MD: Conner Peters DO Medicines: Monitored Anesthesia Care Patient Profile: This is a 73 year old female. Refer to note in patient chart for documentation of history and physical. Patient has symptoms of acute dyspepsia. Complications: No immediate complications. Procedure: Pre-Anesthesia Assessment: - Prior to the procedure, a History and Physical was performed, and patient medications and allergies were reviewed. The patient is competent. The risks and benefits of the procedure and the sedation options and risks were discussed with the patient. All questions were answered and informed consent was obtained. Patient identification and proposed procedure were verified by the physician in the pre-procedure area. Mental Status Examination: alert and oriented. Airway Examination: normal oropharyngeal airway and neck mobility. Respiratory Examination: clear to auscultation. CV Examination: normal. Prophylactic Antibiotics: The patient does not require prophylactic antibiotics. Prior Anticoagulants: The patient has taken no anticoagulant or antiplatelet agents. ASA Grade Assessment: II - A patient with mild systemic disease. After reviewing the risks and benefits, the patient was deemed in satisfactory condition to undergo the procedure. The anesthesia plan was to use monitored anesthesia care (MAC). Immediately prior to administration of medications, the patient was re-assessed for adequacy to receive sedatives. The heart rate, respiratory rate, oxygen saturations, blood pressure, adequacy of pulmonary ventilation, and response to care were monitored throughout the procedure. The physical status of the patient was re-assessed after the procedure. After obtaining informed consent, the endoscope was passed under direct vision. Throughout the procedure, the patient's blood pressure, pulse, and oxygen saturations were monitored continuously. The gastroscope was introduced through the mouth, and advanced to the second part of duodenum. The upper GI endoscopy was accomplished without difficulty. The patient tolerated the procedure well. Scope In: 10:31:44 AM Scope Out: 11:24:31 AM Total Procedure Duration Time 0 hours 52 minutes 47 seconds Findings: Grade I varices were found in the upper third of the esophagus. They were 3 mm in largest diameter. Hematin (altered blood/wpfsfo-hgiheu-cpxb material) was found in the entire examined stomach. 15 5 mm angiodysplastic lesions with bleeding were found in the cardia, in the gastric fundus, in the gastric body, on the greater curvature of the stomach, on the lesser curvature of the stomach, on the posterior wall of the stomach and in the gastric antrum. Area was successfully injected with 10 mL of a 0.1 mg/mL solution of epinephrine for drug delivery. Coagulation for hemostasis using heater probe was successful. Estimated blood loss was minimal. Six 7 mm angiodysplastic lesions without bleeding were found in the duodenal bulb, in the first portion of the duodenum and in the second portion of the duodenum. Coagulation for bleeding prevention using argon plasma at 0.3 liters/minute and 30 peterson was successful. Estimated blood loss was minimal. Impression: - Grade I esophageal varices. - Hematin (altered blood/tirvmz-texrrj-ikjc material) in the entire stomach. - 15 bleeding angiodysplastic lesions in the stomach. Injected. Treated with a heater probe. - Six non-bleeding angiodysplastic lesions in the duodenum. Treated with argon plasma coagulation (APC). - No specimens collected. Recommendation: - Discharge patient to home. - Resume previous diet. - Continue present medications. - Await pathology results. - Repeat upper endoscopy in 3 months for surveillance. Procedure Code(s): --- Professional --- 18298, Esophagogastroduodenoscopy, flexible, transoral; with control of bleeding, any method 52505, 59,51, Esophagogastroduodenoscopy, flexible, transoral; with directed submucosal injection(s), any substance CPT copyright 2021 [employer]. All rights reserved. The codes documented in this report are preliminary and upon surgical coder review may be revised to meet current compliance requirements. Conner Peters DO 09/08/2023 11:31:35 AM This report has been signed electronically. Number of Addenda: 0 Note Initiated On: 09/08/2023 10:23 AM
--- NOTE | 2023-09-08 12:10 | SUR.PHASEI ---
PT RESTING IN BED, BEGAN GAGGING, OPENS EYES BRIEFLY BUT DIFFICULT TO AWAKE, PT BECAME VIN ON MONITOR, NASAL AIRWAY PLACED. O2 APPLIED.
--- NOTE | 2023-09-08 12:29 | NURSING ---
DR GREEN AT BEDSIDE WHEN PT HAD ANOTHER EPISODE OF BLOCK ON MONITOR, PT NOT ARROUSABLE AT TIME. FLUIDS OPEN AND PLACED IN [place].
--- NOTE | 2023-09-08 12:40 | EKG12_ITS ---
Test Reason : PRE-OP Blood Pressure : / mmHG Vent. Rate : 085 BPM Atrial Rate : 085 BPM P-R Int : 166 ms QRS Dur : 078 ms QT Int : 390 ms P-R-T Axes : 076 041 069 degrees QTc Int : 464 ms Normal sinus rhythm Normal ECG When compared with ECG of 08-SEP-2023 22:34, MANUAL COMPARISON REQUIRED, DATA IS UNCONFIRMED Confirmed by AZEB AYALA, HAZEL ([id number]), assistant production editor LORELEI SHELL ([id number]) on 09/10/2023 1:33:53 PM Referred By: Mariaelena Corbett Confirmed By:HAZEL BOWIE MD
[2023-09-08 13:02] LABS: Hematocrit 35.8 % (37-47); Hemoglobin 10.2 g/dL (12.0-15.0)
[2023-09-08 13:39] LABS: Magnesium 1.9 mg/dL (1.6-2.6); Phosphorus 2.3 mg/dL (2.5-4.9)
[2023-09-08 13:44] LABS: Anion Gap 1 (5-15); BUN 15 mg/dL (7-18); BUN/Creat Ratio 24.7 RATIO (10-20); Chloride 110 mmol/L (98-107); Creatinine, Serum 0.61 mg/dL (0.55-1.02); EST Glomerular Filtration Rate 103 mL/min (>60); Est Glom Filt Rate - Afr Amer 124 mL/min (>60); Estimated Creatinine Clearance 58.63 ml/min; Glucose 141 mg/dL (74-106); Potassium 4.8 mmol/L (3.5-5.1); Sodium Level 141 mmol/L (136-145); Troponin-I HS 40 pg/mL (3.0-54.0)
--- NOTE | 2023-09-08 14:43 | PN.GI_ITS ---
Subjective Subjective Patient in PACU was noted to have episodes of severe bradycardia thought to be secondary to vasovagal event. We checked her electrolytes including her potassium, calcium, magnesium, sodium, bicarbonate and a CBC. There were no significant abnormalities so a troponin was ordered and that was normal. She also had a EKG that did not show any acute abnormalities. Objective Data Objective Data Vital Signs: Vital Signs Temp Pulse Resp BP Pulse Ox O2 Del Method O2 Flow Rate 97.2 F L 67 15 103/69 100 Room Air 36 09/08/23 14:00 09/08/23 14:00 09/08/23 14:00 09/08/23 14:00 09/08/23 14:00 09/08/23 14:00 09/08/23 14:00 Oxygen Flow Rate (L/min) 36 Oxygen Delivery Method Room Air Weight: 134 lb 7.712 oz Body Mass Index (BMI) 21.7 Intake & Output: Intake and Output for Last 24 Hours 09/06/23 09/07/23 09/08/23 23:59 23:59 23:59 Intake Total 3000 / 3000 Balance 3000 / 3000 Lab / Micro Data 09/08/23 12:40 09/08/23 12:40 Labs: Laboratory Results - last 24 hr 09/08/23 12:40: Hgb 10.2 L, Hct 35.8 L, Sodium 141, Potassium 4.8, Chloride 110 H, Carbon Dioxide 30.0, Anion Gap 1 L, BUN 15, Creatinine 0.61, Estim Creat Makeda r Calc 58.63, Est GFR (MDRD) Af Amer 124, Est GFR (MDRD) Non-Af 103, BUN/Creatinine Ratio 24.7 H, Glucose 141 H, Calcium 8.0 L, Phosphorus 2.3 L, Magnesium 1.9, Troponin I High Sens 40 Physical Exam Const alert, oriented x3 and no apparent distress General Appearance: cooperative, comfortable, well kempt and well developed Orientation / Consciousness: awake Exam Limitations: no limitations HEENT normocephalic, head/scalp atraumatic, hearing grossly normal bilaterally and moist oral mucous membranes Eyes PERRL, EOMs intact bilaterally and conjunctivae normal Neck no lymphadenopathy, supple and no JVD Resp normal respiratory effort, no retractions, no use of accessory muscles and clear to auscultation bilaterally Cardio regular rate, regular rhythm, S1 normal heart sound, S2 normal heart sound and no murmurs GI normal to inspection, nondistended, normoactive bowel sounds, soft to palpation, non-tender and non-distended Extremity normal to inspection, full ROM and no clubbing, cyanosis or edema Skin no rashes or lesions noted, no wounds, skin turgor normal and no jaundice Neuro oriented x3, CN's II-XII intact bilaterally, moves all extremities and no focal motor deficits Sensorium / Orientation: awake and alert Motor Exam: strength 5/5 throughout Psych affect normal Assessment & Plan Assessment/Plan (1) Anemia: QUALIFIERS: Hemolytic anemia type: acquired, other Anemia type: acquired or hereditary hemolytic anemia Qualified Code(s): D59.8 - Other acquired hemolytic anemias PLAN: She has a pre-existing diagnosis of angiodysplasia and she underwent ablation of multiple AVMs in her stomach and proximal duodenum. We have decided since she had from an unknown causeWhat is assumed to be multiple vasovagal events she should be admitted to observation with telemetry.
--- NOTE | 2023-09-08 17:26 | HP.PCM.HOS_ITS ---
HPI - General General Date of Admission: 09/08/23 Date of Service: 09/08/23 Chief Complaint: Arrhythmia HPI Narrative DERECK LÓPEZ, is a 73 F who presented to [facility] on 09/08/2023 for an EGD. Patient had known pre-existing angiodysplastic lesions and had previous ablation of multiple AVMs in her stomach and proximal duodenum. Repeat EGD at about 11 AM today showed grade 1 esophageal varices with hematin in the entire stomach and 15 bleeding angiodysplastic lesions in the stomach that were injected and treated with heater probe as well as 6 nonbleeding angiodysplastic lesions in the duodenum that were treated with APC. The plan was to send her home and follow-up as an outpatient however postoperatively patient had cardiac arrhythmias that involve significant bradycardia and what appeared to be heart block as she had nonconducted P waves on her telemetry strip. Unfortunately this was not caught on twelve-lead. Blood pressure was systolic in the 80s. She never required any ACLS or atropine and her conduction normalized and has been normal since. That event happened at about 1230 this afternoon. At the time of my evaluation the patient was only complaining of some nausea and felt that she might be a little bit hungry as she had not eaten yet today. She does report she gets nauseous with anesthesia previously and feels that this is what this is related to. With her arrhythmia electrolytes and CBC were assessed and no significant abnormalities were noted. Current vital signs show a temperature of 99.8, blood pressure is 101/64, pulse is 74, respiratory rate 16 oxygen saturations are 99% on room air. Patient states she has seen Dr. House previously and sees him about yearly but she is unclear why she follows with him. Cardiac enzymes were unremarkable. [facility] Medical History ABLA (acute blood loss anemia) Anemia Cardiology follow-up encounter Chronic upper GI bleeding Gastric reflux GI (gastrointestinal bleed) H/O hereditary hemorrhagic telangiectasia (HHT) History of echocardiogram History of steroid therapy Low iron Migraines Non-smoker Post-menopausal Symptomatic anemia Wears hearing aid Home Medications ascorbic acid (vitamin C) 1,000 mg tablet 1,000 mg PO DAILY SUPPLEMENT 11/24/19 [History Last Taken 09/07/23] folic acid 1 mg tablet 1 mg PO DAILY SUPPLEMENT 11/24/19 [History Last Taken 09/07/23] omeprazole 20 mg capsule,delayed release 20 mg PO DAILY gerd 11/24/19 [History Last Taken 09/08/23] vitamin B complex (B Complex-Vitamin B12 tablet) 1 tab PO DAILY supplement 04/15/21 [History Last Taken 09/07/23] catalyn gf 1 tab PO DAILY supplement 02/24/22 [History Last Taken 09/07/23] iron sucrose 50 mg iron/2.5 mL intravenous solution 50 mg IV .monthly supplement 02/24/22 [History Last Taken 09/01/23] orthomune 1 tab PO DAILY supplement 02/24/22 [History Last Taken 09/07/23] bevacizumab 25 mg/mL intravenous solution (Avastin) 25 mg intravitreal .Q4MO infusion 04/21/22 [History Last Taken 08/18/23] osteobase 3 tab PO DAILY supplement 05/18/23 [History Last Taken 09/07/23] estradiol 0.01% (0.1 mg/gram) vaginal cream 0.1 applic vaginal TUTHSA vag itching 08/18/23 [History Last Taken 09/07/23] TADEO FOOD 1 cap PO DAILY 09/06/23 [History Last Taken 09/07/23] budesonide 0.5 mg/2 mL suspension for nebulization 0.5 mg irrigation DAILY 09/06/23 [History Last Taken 09/07/23] d-mannose 500 mg capsule 500 mg PO DAILY 09/06/23 [History Last Taken 09/07/23] Allergy/AdvReac Type Severity Reaction Status Date / Time bacitracin Allergy Unknown Rash Verified 09/08/23 09:36 Family History Mother Cancer Squamous Basal Cell Father Cancer Lymphoma HHT (hereditary hemorrhagic telangiectasia) Surgical History History of back surgery History of cholecystectomy History of foot surgery History of nasal surgery History of neck surgery Hx of colonoscopy Hx of esophagogastroduodenoscopy Hx of shoulder replacement Social History Smoking Status: Never smoker alcohol intake: never substance use type: does not use caffeine: Yes Type: tea Number of servings: 2 what type of physical activity do you participate in: walking frequency: 3-4 times per week seatbelt use: always do you feel safe at home: Yes 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 Constitutional Constitutional: Denies anorexia, change in weight, chills, fatigue, fever(s), malaise, night sweats, weakness or other Eyes Eyes: Denies blurry vision, change in eye color, change in vision, discharge from eye(s), double vision, erythema, eye pain, loss of vision or other ENT HEENT: Denies abnormal hearing, dysphagia, ear pain, epistaxis, headache(s), hearing loss, nasal congestion, nasal discharge, post nasal drip, sinus pressure, sore throat or other Cardiovascular Cardiovascular: Denies chest pain, claudication, dyspnea on exertion, edema, lightheadedness, orthopnea, palpitations, paroxysmal nocturnal dyspnea, rapid heart rate, syncope or other Respiratory/Chest Respiratory/Chest: Denies cough, dyspnea, excessive phlegm production, hemoptysis, productive cough, shortness of breath at rest, shortness of breath with exertion, wheezing or other Gastrointestinal Gastrointestinal: Reports nausea; Denies abdominal pain, coffee ground emesis, constipation, diarrhea, dyspepsia, hematemesis, hematochezia, loose stools, melena, vomiting or other Genitourinary Genitourinary: Denies burning urination, difficulty urinating, dysuria, hematuria, nocturia, urinary frequency, urinary hesitancy, urinary incontinence, urinary urgency or other Musculoskeletal Musculoskeletal: Denies arthralgias, back pain, joint pain, joint stiffness, joint swelling, myalgias, neck pain or other Neurologic Neurologic: Denies abnormal gait, abnormal speech, confusion, disequilibrium, dizziness, focal weakness, headache(s), numbness, paresthesias, seizure-like activity, seizures, syncope, tingling, tremor(s) or other Psychiatric Psychiatric: Denies anxiety, depression, homicidal ideation, suicidal ideation or other Endocrine Endocrinology: Denies change in body appearance, cold intolerance, excessive sweating, heat intolerance, polydipsia, polyuria or other Hematologic/Lymphatic Hematologic/Lymphatic: Reports anemia and easy bleeding; Denies easy bruising, lymphadenopathy or other Allergic/Immunologic Allergic/Immunologic: Denies rhinitis, hives, eczemia, asthma or other Vital Signs Vital Signs Vital Signs: 09/08/23 09:38 09/08/23 09:38 09/08/23 11:33 Temperature 97.9 F 97.3 F L Temperature Source Temporal Temporal Pulse Rate 66 69 Respiratory Rate 18 18 Respiratory Pattern Normal Normal Blood Pressure 113/66 115/74 Blood Pressure Mean 81 87 Blood Pressure Source Monitor Monitor Blood Pressure Position Semi-Fowlers Semi-Fowlers Blood Pressure Location Left Arm Right Arm Baseline BP 113/66 Pulse Ox 100 97 Oxygen Delivery Method Room Air Nasal Cannula Oxygen Flow Rate (L/min) 2 09/08/23 11:35 09/08/23 11:40 09/08/23 11:45 Temperature Temperature Source Pulse Rate 60 70 67 Respiratory Rate 18 18 18 Respiratory Pattern Blood Pressure 137/81 H 153/88 H 133/67 H Blood Pressure Mean 99 109 89 Blood Pressure Source Monitor Monitor Monitor Blood Pressure Position Semi-Fowlers Semi-Fowlers Semi-Fowlers Blood Pressure Location Right Arm Right Arm Right Arm Baseline BP 113/66 113/66 113/66 Pulse Ox 97 98 98 Oxygen Delivery Method Nasal Cannula Nasal Cannula Room Air Oxygen Flow Rate (L/min) 2 2 09/08/23 11:50 09/08/23 11:55 09/08/23 12:05 Temperature Temperature Source Pulse Rate 70 68 64 Respiratory Rate 18 18 18 Respiratory Pattern Blood Pressure 122/66 H 134/77 H 110/70 Blood Pressure Mean 84 96 83 Blood Pressure Source Monitor Monitor Monitor Blood Pressure Position Semi-Fowlers Semi-Fowlers Semi-Fowlers Blood Pressure Location Right Arm Right Arm Right Arm Baseline BP 113/66 113/66 113/66 Pulse Ox 99 100 100 Oxygen Delivery Method Nasal Cannula Nasal Cannula Room Air Oxygen Flow Rate (L/min) 2 09/08/23 12:10 09/08/23 12:26 09/08/23 12:30 Temperature Temperature Source Pulse Rate 65 62 69 Respiratory Rate 18 18 18 Respiratory Pattern Blood Pressure 119/83 H 80/44 L 113/76 Blood Pressure Mean 95 56 88 Blood Pressure Source Monitor Monitor Monitor Blood Pressure Position Semi-Fowlers Semi-Fowlers Semi-Fowlers Blood Pressure Location Right Arm Right Arm Right Arm Baseline BP 113/66 113/66 113/66 Pulse Ox 100 98 Oxygen Delivery Method Nasal Cannula Room Air Nasal Cannula Oxygen Flow Rate (L/min) 2 6 09/08/23 12:35 09/08/23 12:40 09/08/23 12:45 Temperature Temperature Source Pulse Rate 58 L 64 59 L Respiratory Rate 18 18 16 Respiratory Pattern Blood Pressure 106/56 L 117/75 105/63 Blood Pressure Mean 72 89 77 Blood Pressure Source Monitor Monitor Monitor Blood Pressure Position Semi-Fowlers Semi-Fowlers Semi-Fowlers Blood Pressure Location Right Arm Right Arm Right Arm Baseline BP 113/66 113/66 113/66 Pulse Ox 100 100 100 Oxygen Delivery Method Nasal Cannula Nasal Cannula Nasal Cannula Oxygen Flow Rate (L/min) 4 4 100 09/08/23 13:00 09/08/23 13:05 09/08/23 13:10 Temperature Temperature Source Pulse Rate 65 64 62 Respiratory Rate 16 16 16 Respiratory Pattern Blood Pressure 103/61 109/68 97/53 L Blood Pressure Mean 75 81 67 Blood Pressure Source Monitor Monitor Monitor Blood Pressure Position Semi-Fowlers Semi-Fowlers Semi-Fowlers Blood Pressure Location Right Arm Right Arm Right Arm Baseline BP 113/66 113/66 113/66 Pulse Ox 100 100 98 Oxygen Delivery Method Room Air Room Air Nasal Cannula Oxygen Flow Rate (L/min) 4 09/08/23 13:15 09/08/23 13:20 09/08/23 13:30 Temperature Temperature Source Temporal Pulse Rate 62 63 62 Respiratory Rate 15 16 17 Respiratory Pattern Blood Pressure 101/65 105/62 103/63 Blood Pressure Mean 77 76 76 Blood Pressure Source Monitor Monitor Monitor Blood Pressure Position Semi-Fowlers Semi-Fowlers Semi-Fowlers Blood Pressure Location Left Arm Right Arm Right Arm Baseline BP 113/66 113/66 113/66 Pulse Ox 100 100 100 Oxygen Delivery Method Nasal Cannula Nasal Cannula Nasal Cannula Oxygen Flow Rate (L/min) 4 4 4 09/08/23 13:35 09/08/23 13:45 09/08/23 14:00 Temperature 97.2 F L Temperature Source Temporal Pulse Rate 60 61 67 Respiratory Rate 16 16 15 Respiratory Pattern Blood Pressure 95/62 101/63 103/69 Blood Pressure Mean 73 75 80 Blood Pressure Source Monitor Monitor Monitor Blood Pressure Position Semi-Fowlers Semi-Fowlers Semi-Fowlers Blood Pressure Location Right Arm Right Arm Right Arm Baseline BP 113/66 113/66 113/66 Pulse Ox 100 96 100 Oxygen Delivery Method Nasal Cannula Room Air Room Air Oxygen Flow Rate (L/min) 4 36 09/08/23 14:09 09/08/23 15:00 09/08/23 17:05 Temperature 99.8 F H Temperature Source Temporal Pulse Rate 71 74 Respiratory Rate 16 16 Respiratory Pattern Normal Blood Pressure 97/62 101/64 Blood Pressure Mean 73 76 Blood Pressure Source Monitor Monitor Blood Pressure Position Semi-Fowlers Semi-Fowlers Blood Pressure Location Right Arm Right Arm Baseline BP 113/66 113/66 Pulse Ox 100 99 Oxygen Delivery Method Room Air Room Air Oxygen Flow Rate (L/min) Weight Weight: 61 kg Body Mass Index (BMI) 21.7 Physical Exam Const alert, oriented x3, no apparent distress, average body habitus, healthy appearing and well nourished Constitutional Narrative: Very pleasant, older, white female, sitting up in bed, appears nontoxic, very pleasant HEENT normocephalic, head/scalp atraumatic, hearing grossly normal bilaterally and moist oral mucous membranes HEENT Narrative: Mallampati 2, no thrush Eyes PERRL, EOMs intact bilaterally and conjunctivae normal Eyes Narrative: No scleral icterus Neck no lymphadenopathy and supple Neck Narrative: Trachea midline, no thyroid enlargement Resp normal respiratory effort, no retractions, no use of accessory muscles and clear to auscultation bilaterally Auscultation: Negative for rales, rhonchi or wheezes Cardio regular rate, regular rhythm, S1 normal heart sound, S2 normal heart sound, no rub, no gallops and no clicks Cardio Narrative: 1 out of 6 systolic murmur loudest at left upper sternal border GI normal to inspection, nondistended, normoactive bowel sounds, soft to palpation and non-tender Extremity no clubbing, cyanosis or edema Extremity Narrative: Pedal pulses are 2+ Neuro oriented x3, moves all extremities and no focal motor deficits Speech: speech normal Psych affect normal Psych Narrative: Very pleasant, interacts appropriately, mood is stable Results Lab / Micro Data 09/08/23 12:40 09/08/23 12:40 Labs: Laboratory Results - last 24 hr 09/08/23 12:40: Hgb 10.2 L, Hct 35.8 L, Sodium 141, Potassium 4.8, Chloride 110 H, Carbon Dioxide 30.0, Anion Gap 1 L, BUN 15, Creatinine 0.61, Estim Creat Clear Calc 58.63, Est GFR (MDRD) Af Amer 124, Est GFR (MDRD) Non-Af 103, BUN/Creatinine Ratio 24.7 H, Glucose 141 H, Calcium 8.0 L, Phosphorus 2.3 L, Magnesium 1.9, Troponin I High Sens 40 Assessment & Plan Assessment/Plan (1) Arrhythmia: (2) Hypophosphatemia: PLAN: Plan Postoperative arrhythmia -Rhythm strip looks like heart block with several nonconducted P waves -Patient was hypotensive at that time as well -Did not require any intervention -Check TSH -Check echocardiogram--> patient's previous echoes have had normal ejection fractions at 60% with no abnormalities -Cycle cardiac enzymes -Consult cardiology Hypophosphatemia -IV phosphorus replacement and repeat lab in a.m. Chronic anemia -Patient has history of HHT -Multiple angiodysplastic lesions cauterized in the stomach that showed evidence of active bleeding and APC used on multiple lesions in the duodenum -Repeat CBC in a.m. -Hemoglobin has been stable History of HHT -All medications are nonformulary and will restart at discharge Seasonal allergies -Continue budesonide nasal irrigation GERD -Continue home PPI DVT prophylaxis -SCDs with cauterization on EGD done on the day of admission CODE STATUS Full code is verified on admission Charges/Coding Visit Charges Inpatient E&M: 99922 Init Hosp L2
--- NOTE | 2023-09-08 17:36 | ECHOD_ITS ---
Reason For Study: arrhythmia Procedure This was a 2D Doppler, Color Flow transthoracic echocardiogram. Exam performed portable in ED. Left Ventricle Normal LV size. Mild assymetric septal hypertrophy. The estimated ejection fraction is 65 %. No evidence for diastolic dysfunction. Right Ventricle Normal RV size. Normal systolic function. Atria Normal left atrium. Normal right atrium. Mitral Valve The mitral valve is structurally normal. No prolapse or stenosis seen. Mild (1+) mitral valve insufficiency. Tricuspid Valve Normal tricuspid valve. Mild to moderate (1-2+) tricuspid valve insufficiency. Right ventricular systolic pressure estimated to be 43 mmHg. Aortic Valve Trisinus/trileaflet aortic valve. Trivial aortic valve insufficiency. Pulmonic Valve Normal pulmonic valve. Mild (1+) pulmonic valve insufficiency. Great Vessels Normal aortic root. Pericardium/Pleural No pericardial effusion. MMode/2D Measurements & Calculations LVIDd: 4.4 cm IVSd: 1.1 cm LVOT diam: 1.9 cm LVIDs: 3.0 cm LVPWd: 0.81 cm LVOT area: 2.9 cm2 RVDd: 3.2 cm FS: 30.7 % Ao root diam: 3.2 cm LAV(MOD-bp): 42.2 ml LVAd ap4: 20.7 cm2 LAV(MOD-bp) Indexed: 24.5 ml/m2 LVLd ap4: 6.3 cm LAV(MOD-sp2): 43.5 ml EDV(MOD-sp4): 56.5 ml LAV(MOD-sp4): 41.8 ml EDV(sp4-el): 57.8 ml LVAs ap4: 11.2 cm2 LVLs ap4: 4.8 cm ESV(MOD-sp4): 22.6 ml ESV(sp4-el): 22.3 ml EF(MOD-sp4): 59.9 % EF(sp4-el): 61.5 % LVAd ap2: 22.4 cm2 SV(MOD-sp4): 33.9 ml SV(MOD-sp2): 44.3 ml LVLd ap2: 6.7 cm EDV(MOD-sp2): 63.3 ml EDV(sp2-el): 63.7 ml LVAs ap2: 11.2 cm2 LVLs ap2: 5.7 cm ESV(MOD-sp2): 19.1 ml ESV(sp2-el): 18.7 ml EF(MOD-sp2): 69.9 % SV(sp4-el): 35.6 ml LA dimension(2D): 3.1 cm LA A4 area: 17.2 cm2 RA A4 area: 19.4 cm2 Time Measurements MV dec time: 0.22 sec Doppler Measurements & Calculations MV E max curly: 105.9 cm/sec Lat Peak E' Curly: 12.9 cm/sec Med Peak E' Curly: 8.8 cm/sec MV A max curly: 97.8 cm/sec E/E' lat: 8.2 E/E' med: 12.1 MV E/A: 1.1 MV V2 max: 112.5 cm/sec MV P1/2t max curly: 112.5 cm/sec Ao V2 max: 201.1 cm/sec MV max P.1 mmHg MV P1/2t: 60.5 msec Ao max P.2 mmHg MV V2 mean: 69.5 cm/sec Ao V2 mean: 137.7 cm/sec MV mean P.2 mmHg MV dec slope: 544.7 cm/sec2 Ao mean P.7 mmHg MV V2 VTI: 28.2 cm MVA(P1/2t): 3.6 cm2 Ao V2 VTI: 43.1 cm AV (velocity ratio): 0.87 MVA(VTI): 3.8 cm2 YAMILKA(I,D): 2.5 cm2 YAMILKA(V,D): 2.5 cm2 LV V1 max: 173.7 cm/sec SV(LVOT): 108.0 ml PA V2 max: 114.2 cm/sec LV V1 max P.1 mmHg PA V2 mean: 73.6 cm/sec LV V1 mean P.8 mmHg LV V1 mean: 124.7 cm/sec LV V1 VTI: 37.4 cm TR max curly: 317.6 cm/sec TR max P.3 mmHg ECHO/Echo Complete Interpretation Summary The estimated ejection fraction is 65 %. No evidence for diastolic dysfunction. Mild assymetric septal hypertrophy. Mild (1+) mitral valve insufficiency. Mild to moderate (1-2+) tricuspid valve insufficiency. Ordering Physician: Fanny Rogers Referring Physician: Mariaelena Corbett Performed By: Maíra Hyatt, HILARIO, RVT
--- OUTSIDE RECORDS SUMMARY | 2023-09-08 17:36 | XMS RPT_ITS | CCD ---
Author Name Unknown Address [address] [place] [address] Organization [facility] Care Team Providers Care Clinical Services Director Name Role Phone Anders Simms PA-C Unavailable [phone] Malys DO, Mariaelena A Primary Care Provider Malys DO, Mariaelena A Primary Care Provider Malys DO, Mariaelena A Primary Care Provider Malys DO, Mariaelena A Primary Care Provider MASCI, JESUS A Referring Unavailable MALYS, MARIAELENA [...] Unavailable MASCI, JESUS A Referring Unavailable MALYS, AMRIAELENA A Primary Care Unavailable MASCI, JESUS A [...] three times daily as needed for headache [id number] AFFEINE 50-325-40 MG TABS 1 po up to three times daily as needed for headaches [id number] AFFEINE [id number] Jeannine Hedrick LPN Problems Active Problems Problem [...] temperature 97.81 [degF] Treatment Wstr Work Phone: [facility] 08-05-2023 13:35-0500 Diastolic blood pressure 52 mm[Hg] Treatment Wstr Work Phone: [facility] 08-05-2023 13:35-0500 Heart rate 96 /min Treatment Wstr Work Phone: [facility] 08-05-2023 13:35-0500 Respiratory rate 16 /min Treatment Wstr Work Phone: [facility] 08-05-2023 13:35-0500 SaO2% (BldA) [Mass fraction] 100 % Treatment Wstr Work Phone: [facility] 08-05-2023 13:35-0500 Systolic blood pressure 127 mm[Hg] Treatment Wstr Work Phone: [facility] 07-08-2023 14:02-0500 Body temperature 97.5 [degF] Treatment Wstr Work Phone: [facility] 07-08-2023 14:02-0500 Diastolic blood pressure 48 mm[Hg] Treatment Wstr Work Phone: [facility] 07-08-2023 14:02-0500 Heart rate 70 /min Treatment Wstr Work Phone: [facility] 07-08-2023 14:02-0500 Respiratory rate 16 /min Treatment Wstr Work Phone: [facility] 07-08-2023 14:02-0500 SaO2% (BldA) [Mass fraction] 100 % Treatment Wstr Work Phone: [facility] 07-08-2023 14:02-0500 Systolic blood pressure 121 mm[Hg] Treatment Wstr Work Phone: [facility] 04-27-2023 14:04-0400 Body temperature 98.2 [degF] Treatment Wstr Work Phone: [facility] 04-27-2023 14:04-0400 Body weight 63.96 kg Treatment Wstr Work Phone: [facility] 04-27-2023 14:04-0400 Diastolic blood pressure 66 mm[Hg] Treatment Wstr Work Phone: [facility] 04-27-2023 14:04-0400 Heart rate 85 /min Treatment Wstr Work Phone: [facility] 04-27-2023 14:04-0400 Respiratory rate 18 /min Treatment Wstr Work Phone: [facility] 04-27-2023 14:04-0400 Systolic blood pressure 105 mm[Hg] Treatment Wstr Work Phone: [facility] 04-15-2023 11:54-0400 Body temperature 97.39 [degF] Treatment Wstr Work Phone: [facility] 04-15-2023 11:54-0400 Diastolic blood pressure 54 mm[Hg] Treatment Wstr Work Phone: [facility] 04-15-2023 11:54-0400 Heart rate 75 /min Treatment Wstr Work Phone: [facility] 04-15-2023 11:54-0400 Systolic blood pressure 102 mm[Hg] Treatment Wstr Work Phone: [facility] 03-18-2023 10:08-0400 Body temperature 97.39 [degF] Treatment Wstr Work Phone: [facility] 03-18-2023 10:08-0400 Body weight 62.82 kg Treatment Wstr Work Phone: [facility] 03-18-2023 10:08-0400 Diastolic blood pressure 51 mm[Hg] Treatment Wstr Work Phone: [facility] 03-18-2023 10:08-0400 Heart rate 73 /min Treatment Wstr Work Phone: [facility] 03-18-2023 10:08-0400 Systolic blood pressure 110 mm[Hg] Treatment Wstr Work Phone: [facility] 02-18-2023 14:11-0400 Body temperature 97 [degF] Treatment Wstr Work Phone: [facility] 02-18-2023 14:11-0400 Diastolic blood pressure 47 mm[Hg] Treatment Wstr Work Phone: [facility] 02-18-2023 14:11-0400 Heart rate 72 /min Treatment Wstr Work Phone: [facility] 02-18-2023 14:11-0400 Systolic blood pressure 109 mm[Hg] Treatment Wstr Work Phone: [facility] 01-21-2023 14:00-0400 Body temperature 97.5 [degF] Treatment Wstr Work Phone: [facility] 01-21-2023 14:00-0400 Diastolic blood pressure 55 mm[Hg] Treatment Wstr Work Phone: [facility] 01-21-2023 14:00-0400 Heart rate 68 /min Treatment Wstr Work Phone: [facility] 01-21-2023 14:00-0400 Respiratory rate 18 /min Treatment Wstr Work Phone: [facility] 01-21-2023 14:00-0400 SaO2% (BldA) [Mass fraction] 100 % Treatment Wstr Work Phone: [facility] 01-21-2023 14:00-0400 Systolic blood pressure 113 mm[Hg] Treatment Wstr Work Phone: [facility] 01-04-2023 13:00-0400 Body weight 63.28 kg Treatment Wstr Work Phone: [facility] 01-04-2023 13:00-0400 Diastolic blood pressure 44 mm[Hg] Treatment Wstr Work Phone: [facility] 01-04-2023 13:00-0400 Heart rate 74 /min Treatment Wstr Work Phone: [facility] 01-04-2023 13:00-0400 Respiratory rate 16 /min Treatment Wstr Work Phone: [facility] 01-04-2023 13:00-0400 SaO2% (BldA) [Mass fraction] 100 % Treatment Wstr Work Phone: [facility] 01-04-2023 13:00-0400 Systolic blood pressure 99 mm[Hg] Treatment Wstr Work Phone: [facility] 12-24-2022 09:17-0400 Body temperature 97.5 [degF] Treatment Wstr Work Phone: [facility] 12-24-2022 09:17-0400 Diastolic blood pressure 63 mm[Hg] Treatment Wstr Work Phone: [facility] 12-24-2022 09:17-0400 Heart rate 73 /min Treatment Wstr Work Phone: [facility] 12-24-2022 09:17-0400 SaO2% (BldA) [Mass fraction] 100 % Treatment Wstr Work Phone: [facility] 12-24-2022 09:17-0400 Systolic blood pressure 110 mm[Hg] Treatment Wstr Work Phone: [facility] 11-26-2022 11:15-0400 Diastolic blood pressure 45 mm[Hg] Treatment Wstr Work Phone: [facility] 11-26-2022 11:15-0400 Heart rate 63 /min Treatment Wstr Work Phone: [facility] 11-26-2022 11:15-0400 Systolic blood pressure 103 mm[Hg] Treatment Wstr Work Phone: [facility] 09-15-2022 13:00-0500 Body temperature 98.01 [degF] Treatment Wstr Work Phone: [facility] 09-15-2022 13:00-0500 Diastolic blood pressure 60 mm[Hg] Treatment Wstr Work Phone: [facility] 09-15-2022 13:00-0500 Heart rate 89 /min Treatment Wstr Work Phone: [facility] 09-15-2022 13:00-0500 Systolic blood pressure 112 mm[Hg] Treatment Wstr Work Phone: [facility] 09-14-2022 14:13-0500 Body height 166.4 cm Jesus Masci DO Work Phone: [facility] 09-14-2022 14:13-0500 Body temperature 97.59 [degF] Jesus Masci DO Work Phone: [facility] 09-14-2022 14:13-0500 Body weight 63.05 kg Jesus Masci DO Work Phone: [facility] 09-14-2022 14:13-0500 Diastolic blood pressure 58 mm[Hg] Jesus Masci DO Work Phone: [facility] 09-14-2022 14:13-0500 Heart rate 82 /min Jesus Masci DO Work Phone: [facility] 09-14-2022 14:13-0500 Systolic blood pressure 122 mm[Hg] Jesus Masci DO Work Phone: [facility] 08-06-2022 10:43-0500 Body temperature 96.49 [degF] Treatment Wstr Work Phone: [facility] 08-06-2022 10:43-0500 Diastolic blood pressure 51 mm[Hg] Treatment Wstr Work Phone: [facility] 08-06-2022 10:43-0500 Heart rate 84 /min Treatment Wstr Work Phone: [facility] 08-06-2022 10:43-0500 Respiratory rate 18 /min Treatment Wstr Work Phone: [facility] 08-06-2022 10:43-0500 SaO2% (BldA) [Mass fraction] 100 % Treatment Wstr Work Phone: [facility] 08-06-2022 10:43-0500 Systolic blood pressure 111 mm[Hg] Treatment Wstr Work Phone: [facility] 05-01-2022 13:36-0400 Body temperature 97.59 [degF] Treatment Wstr Work Phone: [facility] 05-01-2022 13:36-0400 Diastolic blood pressure 50 mm[Hg] Treatment Wstr Work Phone: [facility] 05-01-2022 13:36-0400 Heart rate 76 /min Treatment Wstr Work Phone: [facility] 05-01-2022 13:36-0400 Respiratory rate 16 /min Treatment Wstr Work Phone: [facility] 05-01-2022 13:36-0400 SaO2% (BldA) [Mass fraction] 100 % Treatment Wstr Work Phone: [facility] 05-01-2022 13:36-0400 Systolic blood pressure 110 mm[Hg] Treatment Wstr Work Phone: [facility] 04-23-2022 10:00-0400 Body temperature 96.8 [degF] Treatment Wstr Work Phone: [facility] 04-23-2022 10:00-0400 Diastolic blood pressure 72 mm[Hg] Treatment Wstr Work Phone: [facility] 04-23-2022 10:00-0400 Heart rate 86 /min Treatment Wstr Work Phone: [facility] 04-23-2022 10:00-0400 Systolic blood pressure 122 mm[Hg] Treatment Wstr Work Phone: [facility] 03-26-2022 09:06-0400 Body temperature 97.11 [degF] Treatment Wstr Work Phone: [facility] 03-26-2022 09:06-0400 Diastolic blood pressure 42 mm[Hg] Treatment Wstr Work Phone: [facility] 03-26-2022 09:06-0400 Heart rate 81 /min Treatment Wstr Work Phone: [facility] 03-26-2022 09:06-0400 Systolic blood pressure 113 mm[Hg] Treatment Wstr Work Phone: [facility] 03-19-2022 08:43-0400 Body height 165.1 cm Jesus Masci DO Work Phone: [facility] 03-19-2022 08:43-0400 Body temperature 97.81 [degF] Jesus Masci DO Work Phone: [facility] 03-19-2022 08:43-0400 Body weight 63.05 kg Jesus Masci DO Work Phone: [facility] 03-19-2022 08:43-0400 Diastolic blood pressure 58 mm[Hg] Jesus Masci DO Work Phone: [facility] 03-19-2022 08:43-0400 Heart rate 66 /min Jesus Masci DO Work Phone: [facility] 03-19-2022 08:43-0400 Respiratory rate 14 /min Jesus Masci DO Work Phone: [facility] 03-19-2022 08:43-0400 SaO2% (BldA) [Mass fraction] 100 % Jesus Masci DO Work Phone: [facility] 03-19-2022 08:43-0400 Systolic blood pressure 122 mm[Hg] Jesus Masci DO Work Phone: [facility] 01-01-2022 09:17-0400 Body temperature 97.11 [degF] Treatment Wstr Work Phone: [facility] 01-01-2022 09:17-0400 Body weight 62.82 kg Treatment Wstr Work Phone: [facility] 01-01-2022 09:17-0400 Diastolic blood pressure 57 mm[Hg] Treatment Wstr Work Phone: [facility] 01-01-2022 09:17-0400 Heart rate 76 /min Treatment Wstr Work Phone: [facility] 01-01-2022 09:17-0400 Systolic blood pressure 116 mm[Hg] Treatment Wstr Work Phone: [facility] 07-19-2017 10:03-0500 BMI (Body Mass Index) 21.8 kg/m2 Anders Mendez PATTEROSN-C [facility] Work Phone: 07-19-2017 10:03-0500 Body Temperature 97.9 [degF] Anders Mendez PATTERSON-C [facility] Work Phone: 07-19-2017 10:03-0500 BP Diastolic 74 mm[Hg] Anders Mendez PATTERSON-C [facility] Work Phone: 07-19-2017 10:03-0500 BP Systolic 118 mm[Hg] Anders Mendez PATTERSON-C [facility] Work Phone: 07-19-2017 10:03-0500 Height 170.18 cm Anders Mendez PATTERSON-C [facility] Work Phone: 07-19-2017 10:03-0500 Pulse (Heart Rate) 88 /min Anders Mendez PATTERSON-C [facility] Work Phone: 07-19-2017 10:03-0500 Respiratory Rate 12 /min Anders Mendez PATTERSON-C [facility] Work Phone: 07-19-2017 10:03-0500 Weight 63.14 kg Anders Mendez PATTERSON-C [facility] Work Phone: 07-04-2014 09:12-0500 BSA (Body Surface Area) 1.72 m2 Anders Mendez PATTERSON-C [facility] Work Phone: Encounters Encounter Date Encounter Type Care Provider Facility Start: 09-02-2023 End: 09-03-2023 ambulatory JESUS SOTO Facility:[facility] Start: 08-24-2023 End: 08-25-2023 ambulatory RACHEL RAMIREZ Facility:[facility] Start: 08-18-2023 End: 08-19-2023 ambulatory JESUS Kinga JINKellee Facility:[facility] Start: 08-05-2023 End: 08-06-2023 ambulatory Treatment Rm 12 Kayode [facility] Wstr Work Phone: Hematology/Oncology Procedures Date Procedure [...] Activity Detail Author Start: 10-14-2025 Colonoscopy COLONOSCOPY [facility] Start: 10-14-2025 COLORECTAL CANCER SCREENING COLORECTAL CANCER SCREENING [facility] Start: 10-14-2025 Screening for malignant neoplasm of colon [facility] Start: 09-14-2025 DIABETES SCREEN DIABETES SCREEN [facility] Start: 09-14-2025 Diabetes Screening Diabetes Screening [facility] Start: 06-07-2023 Urine microalbumin profile [facility] Start: 04-23-2023 Covid-19 Vaccine ( season) Covid-19 Vaccine () [facility] Start: 04-23-2023 Influenza vaccination [facility] Start: 09-20-2022 DIABETES SCREEN DIABETES SCREEN [facility] Start: 09-14-2022 End: 11-14-2022 CBC W Auto Differential panel - Blood CBC + DIFF Lab STAT Hereditary hemorrhagic telangiectasia (HCC) 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 loss Expected: 09/14/2022, Expires: 11/14/2022 [facility] Work Phone: Immunizations Immunization Date Immunization Notes Care Provider Fa [facility] 08-20-2016 influenza virus vacc ine, unspecified formulation Treatment Wstr Work Phone: [facility] 06-13-2015 influenza, injectabl e, quadrivalent, preservative free Jseus Soto DO Work Phone: [facility] 07-10-2013 influenza virus vacc ine, unspecified formulation Jesus Jini DO Work Phone: [facility] 06-07-2013 tetanus toxoid, redu lizzie diphtheria toxoid, and acellular pertussis vaccine, adsorbed Jesus Charles DO Work Phone: [facility] Payers Date Payer Category Payer Medicare [id number] 2016 Unknown SHARDA FAULKNER DICARE SUPPLEMENT [id number] 2016-Present [phone] [address] [place] [address] Indemnity [id number] 2016 Unknown SHARDA FAULKNER DICARE SUPPLEMENT [id number] 2016-Present [phone] [address] [place] [id number] Indemnity [id number] 2012 Medicare MEDICARE MEDICAR E A AND B [id number] 2012-Present [phone] [place] [address] Medicare [id number] 2012 Medicare MEDICARE MEDICAR E A AND B [id number] 2012-Present [phone] [place] [address] Medicare [id number] 2012 Medicare [id number] Social History Date Type Detail Facility Start: 07-06-2011 Tobacco smoking stat [facility] Never smoked tobacco [facility] Work Phone: Start: 12-23-2020 End: 03-18-2023 Alcohol intake Current non-drinker of alcohol (finding) [facility] Start: 1950 Sex Assigned At Not on file [facility] Start: 10-27-2021 End: 03-19-2022 Exposure to SARS-CoV-2 (event) Not sure [facility] Start: 07-06-2011 Tobacco use and exposure Smokeless tobacco non-user [facility] Work Phone: Start: 12-24-2022 End: 03-18-2023 History of Social function [facility] Start: 12-24-2022 End: 03-18-2023 Tobacco use panel [facility] National Score (1-100), lower number is lower risk 35 [facility] Clinical Notes 09-26-2015 to 08-18-2023 Telephone Encounter - Kristy Hayes LPN - 08/05/2023 2:54 PM Brittany Monteiro RN - 08/05/2023 2:25 PM Mariaelena Ashley RT(R) - 05/13/2023 11:20 AM Jesus Youngblood DO - 03/18/2023 11:17 AM EDT Note Date & Type Note Facility 08-18-2023 Note HNO ID: [id number] Author: Krzysztof Gonzales, RAHEEM Service: ? Author Type: Registered Nurse Type: Progress Notes Filed: 08/18/2023 3:09 PM Note Text: Dr. Ramirez aware of today's hemoglobin. Pt scheduled to receive 3 units of PRBC tomorrow morning at [facility]. Pt aware of her hemoglobin and how low it is. She is advised to go to the nearest ER if she feels any worse. Pt states she prefers to do transfusion tomorrow but is considering going to the ER after this visit. [facility] 08-05-2023 Note HNO ID: [id number] Author: Brittany Norris, RAHEEM Service: ? Author Type: Registered Nurse Type: Progress Notes Filed: 08/05/2023 2:37 PM Note Text: spoke with Dr Soto in regards to patient not feeling well and hgb today is 8.2. Stated he will order a transfusion for tomorrow [facility] 08-05-2023 Miscellaneous Notes Pt. Scheduled for transfusion 2 units packed cells@ [facility] 08/06 @ 8 am. Pt. And lab Notified orders faxed. Kristy Hayes LPN documented in this encounter [facility] 08-05-2023 History of Presen t illness Narrative spoke with Dr Soto in regards to patient not feeling well and hgb today is 8.2. Stated he will order a transfusion for tomorrow documented in this encounter [facility] 05-13-2023 Note HNO ID: [id number] Author: Mariaelena Mendenhall RT(R) Service: ? Author [...] DATE: May 13, 2023 TIME: 11:40 AM [facility] 05-13-2023 History of Presen t illness Narrative [...] TIME: 11:40 AM documented in this encounter [facility] 03-18-2023 Note HNO ID: [id number] Author: Jesus Soto, DO Service: ? Author [...] No jaundice or rash. No petechiae. NEUROLOGIC: production operations engineer II-XII are grossly intact. No focal motor [...] k/uL 0.66 (L) 0.67 (L) 0.57 (L) [place]% % 7.6 7.4 6.7 Abs [place] <0.87 k/uL 0.43 0.36 0.31 Eosin% % [...] -She will continue to follow-up with her psychological examiner and door clamper for echocardiogram for monitoring for pulmonary hypertension/cardiomyopathy. Portions of this documentation were copied and pasted from previous office visit notes in order to provide a cohesive continuity of the history. The note has been reviewed and edited and updated as necessary. I spent a total of 20 minutes on the date of the service which included prepari (more content not included)... [facility] 03-18-2023 History of Presen t illness Narrative [...] No jaundice or rash. No petechiae. NEUROLOGIC: production operations engineer II-XII are grossly intact. No focal motor [...] k/uL 0.66 (L) 0.67 (L) 0.57 (L) [place]% % 7.6 7.4 6.7 Abs [place] <0.87 k/uL 0.43 0.36 0.31 Eosin% % [...] -She will continue to follow-up with her psychological examiner and door clamper for echocardiogram for monitoring for pulmonary hypertension/cardiomyopathy. Portions of this documentation were copied and pasted from previous office visit notes in order to provide a cohesive continuity of the history. The note has been reviewed and edited and updated as necessary. I spent a total of 20 minutes on the date of the service which included preparing to see the patient, [id number] patient care, completing clinical documentation, obtaining and/or reviewing separately obtained history, performing a medically appropriate examination, counseling and educating the patient/family/caregiver, communicating with other HCPs (not separately reported), and communicating results to the patient/family/caregiver. Jesus Soto DO documented in this encounter [facility] 01-04-2023 Note HNO ID: [id number] Author: Erika Garay RN Service: ? Author Type: Registered Nurse Type: Progress Notes Filed: 01/04/2023 3:08 PM Note Text: Pt request blood transfusion due to extreme fatigue and SOB with activity. Orders received for 2 units packed RBC's; pt has appt for tomorrow for both units. Verbalized understanding and denies other needs. Erika Garay RN [facility] 01-04-2023 Miscellaneous Notes CBC reviewed by Dr Soto. Order received for 2 PRBC. Spoke with Priscila at [facility]. Appointment received for 01/05@8:30a. Order faxed to [facility]. Alba in lab notified to prepare blood. Order to lab. Pt here for infusion. Appointment time given. Pt verbalized understanding. Mikayla Enamorado RN documented in this encounter [facility] 01-04-2023 History of Presen t illness Narrative Pt request blood transfusion due to extreme fatigue and SOB with activity. Orders received for 2 units packed RBC's; pt has appt for tomorrow for both units. Verbalized understanding and denies other needs. Erika Garay RN documented in this encounter [facility] 12-24-2022 Miscellaneous Notes SW met with pt this date. Pt reporting she is due to renew her assistance for Avastin through [employer]. SW and pt completed application this date. SW had physician review and sign and SW successfully faxed to [employer] this date. SW sent originals to internal scanning. NORBERTO Ojeda documented in this encounter [facility] 12-15-2022 Miscellaneous Notes Spoke with patient and [...] December. In Dr. Soto last notes her Signal Constructor recommended the Avastin every 4 months. Last Avastin was 09/15/2022. Dr. Soto do we need to move her Avastin to December? Kristy Darnell LPN documented in this encounter [facility] 12-02-2022 History and physical note SUBSEQUENT VISIT [...] side effects, until she cam back from [place] and has noted worsening of her epistaxis [...] and denies history of recurrent seizures, prior UX MANAGER infections but has migraine headaches that are [...] Master Palmer MD documented in this encounter [facility] 09-14-2022 Note HNO ID: [id number] Author: Jesus Soto, DO Service: ? Author [...] No jaundice or rash. No petechiae. NEUROLOGIC: production operations engineer II-XII are grossly intact. No focal motor [...] Lymph 1.00 - 4.00 k/uL 0.39 (L) [place]% % 8.4 Abs [place] <0.87 k/uL 0.30 Eosin% % 1.9 Abs [...] iron infusion very well. -Not hypertensive. -Her psychological examiner had suggested every 4 month dosing on Avastin--very reasonable as she benefits from it. -Recent increase in melena--she requires repeat EGD but declines as she will be going to [place]. She is establishing with a prop attendant there. Plan: -Continue monthly Monoferric. -Okay for Avastin today. -Continue PPI. -She will continue to follow-up with her psychological examiner and door clamper for echocardiogram for monitoring for pulmonary hypertension/cardiomyopathy. [...] and test results (more content not included)... [facility] 09-14-2022 History of Presen t illness Narrative [...] No jaundice or rash. No petechiae. NEUROLOGIC: production operations engineer II-XII are grossly intact. No focal motor [...] Lymph 1.00 - 4.00 k/uL 0.39 (L) [place]% % 8.4 Abs [place] <0.87 k/uL 0.30 Eosin% % 1.9 Abs [...] iron infusion very well. -Not hypertensive. -Her psychological examiner had suggested every 4 month dosing on Avastin--very reasonable as she benefits from it. -Recent increase in melena--she requires repeat EGD but declines as she will be going to [place]. She is establishing with a prop attendant there. Plan: -Continue monthly Monoferric. -Okay for Avastin today. -Continue PPI. -She will continue to follow-up with her psychological examiner and door clamper for echocardiogram for monitoring for pulmonary hypertension/cardiomyopathy. [...] Jesus Soto DO documented in this encounter [facility] 09-07-2022 Miscellaneous Notes Patient did not receive her transfusion last week. Patient scheduled for 2 units PRBC 09/08/2022 @ 0900, [facility]. Orders faxed. Patient and lab aware. Kaylen Mir LPN documented in this encounter [facility] 09-05-2022 Miscellaneous Notes All labs attached to appointment as directed. Flora Harp Please draw all additional lab work, entered under this encounter. Next time she is here. She has anemia that seems out of proportion to her iron deficiency, so I don't want to miss other causes for the anemia. Jesus Soto DO documented in this encounter [facility] 09-04-2022 Note HNO ID: [id number] Author: Tamika Kerns RN Service: ? Author Type: Registered Nurse Type: Progress Notes Filed: 09/04/2022 1:45 PM Note Text: Recent records faxed to [place] physician Dr Yonis Callahan at [phone] for up coming visit in Sep when pt is in [place]. [facility] 09-04-2022 History of Presen t illness Narrative Recent records faxed to [place] physician Dr Yonis Callahan at [phone] for up coming visit in Sep when pt is in [place]. documented in this encounter [facility] 09-03-2022 Miscellaneous Notes Pt. Scheduled for transfusion 2 units packed cells @ [facility] 09/04 @ 8:30 am. Pt. And lab notified, orders faxed. Kristy Darnell LPN documented in this encounter [facility] 08-19-2022 Miscellaneous Notes Lab added Patient scheduled for transfusion of 2 units of PRBC to be given at [facility] on 08/20/22 at 0900. Orders faxed, patient notified. Pt will have lab rechecked next week. PSS Please add pt on for a lab (cbc with possible transfusion) on 08/26/21 at 0930. No need to notify patient. Can close encounter after scheduled. Ines Ribeiro LPN documented in this encounter [facility] 08-06-2022 Miscellaneous Notes Pt. Scheduled for transfusion 2 units packed cells @ [facility] 08/07 @ 8:45 am. Pt. And lab notified, orders faxed. [facility]GB 8.9, spoke with pt. Stated she has been passing blood in her stool for approx. 3 weeks, and is leaving Wednesday of next week for [place]. Kristy Darnell LPN documented in this encounter [facility] 07-09-[address] Soto - please sign today's treatment orders. Thank you. documented in this encounter [facility] 06-04-2022 History and physical note SUBSEQUENT VISIT [...] and denies history of recurrent seizures, prior UX MANAGER infections but has migraine headaches that are [...] Master Palmer MD documented in this encounter [facility] 03-19-2022 History of Presen t illness Narrative [...] No jaundice or rash. No petechiae. NEUROLOGIC: production operations engineer II-XII are grossly intact. No focal motor [...] (L) 0.46 (L) 0.53 (L) 0.71 (L) [place]% % 8.5 8.5 8.7 7.7 5.3 Abs [place] <0.87 k/uL 0.28 0.29 0.26 0.23 0.28 [...] iron infusion very well. -Not hypertensive. -Her psychological examiner had suggested every 4 month dosing on Avastin. Plan: -Continue monthly Monoferric. We will decrease the frequency to every other month if her ferritin continues to trend higher and she has stable counts otherwise with no increase in bleeding. -Follow up with GI for surveillance EGD. -She will continue to follow-up with her psychological examiner and door clamper for echocardiogram for monitoring for pulmonary hypertension/cardiomyopathy. [...] Jesus Soto DO documented in this encounter [facility] 01-01-2022 Miscellaneous Notes More orders for Avastin added. Jesus Soto DO Notes adjusted. Chemo nurse aware. Dr. Soto-please add more orders for future scheduling. Today is the last order. Thank you. Please add her on for Avastin 01/01. Her psychological examiner requested the frequency of infusions be increased to every 4 months rather than every 6. 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 Dang Rudolph See [facility] message. Schedule for monthly CBC/Iron studies/Monoferric. Jesus Soto DO documented in this encounter [facility] documented as of this encounter (statuses as of 11/28/2021) [facility] History of Past illness Narrative* Problem Noted Date Resolved Date Encounter for screening for malignant neoplasm o f colon 09/26/2015 09/26/2015 Anemia, unspecified 07/01/2005 07/08/2012 documented as of this encounter (statuses as of 12/04/2021) [facility] History of Past illness Narrative* Problem Noted Date Resolved Date Encounter for screening for malignant neoplasm o f colon 09/26/2015 09/26/2015 Anemia, unspecified 07/01/2005 07/08/2012 documented as of this encounter (statuses as of 12/31/2021) [facility] History of Past illness Narrative* Problem Noted Date Resolved Date Encounter for screening for malignant neoplasm o f colon 09/26/2015 09/26/2015 Anemia, unspecified 07/01/2005 07/08/2012 documented as of this encounter (statuses as of 01/01/2022) [facility] of Past illness Narrative* Problem Noted Date Resolved Date Encounter for screening for malignant neoplasm o f colon 09/26/2015 09/26/2015 Anemia, unspecified 07/01/2005 07/08/2012 documented as of this encounter (statuses as of 01/30/2022) [facility] History of Past illness Narrative* Problem Noted Date Resolved Date Encounter for screening for malignant neoplasm o f colon 09/26/2015 09/26/2015 Anemia, unspecified 07/01/2005 07/08/2012 documented as of this encounter (statuses as of 02/17/2022) [facility] History of Past illness Narrative* Problem Noted Date Resolved Date Encounter for screening for malignant neoplasm o f colon 09/26/2015 09/26/2015 Anemia, unspecified 07/01/2005 07/08/2012 documented as of this encounter (statuses as of 03/19/2022) [facility] History of Past illness Narrative* Problem Noted Date Resolved Date Encounter for screening for malignant neoplasm o f colon 09/26/2015 09/26/2015 Anemia, unspecified 07/01/2005 07/08/2012 documented as of this encounter (statuses as of 03/26/2022) [facility] History of Past illness Narrative* Problem Noted Date Resolved Date Encounter for screening for malignant neoplasm o f colon 09/26/2015 09/26/2015 Anemia, unspecified 07/01/2005 07/08/2012 documented as of this encounter (statuses as of 04/05/2022) [facility] History of Past illness Narrative* Problem Noted Date Resolved Date Encounter for screening for malignant neoplasm o f colon 09/26/2015 09/26/2015 Anemia, unspecified 07/01/2005 07/08/2012 documented as of this encounter (statuses as of 04/23/2022) [facility] History of Past illness Narrative* Problem Noted Date Resolved Date Encounter for screening for malignant neoplasm o f colon 09/26/2015 09/26/2015 Anemia, unspecified 07/01/2005 07/08/2012 documented as of this encounter (statuses as of 05/01/2022) [facility] of Past illness Narrative* Problem Noted Date Resolved Date Encounter for screening for malignant neoplasm o f colon 09/26/2015 09/26/2015 Anemia, unspecified 07/01/2005 07/08/2012 documented as of this encounter (statuses as of 06/04/2022) [facility] History of Past illness Narrative* Problem Noted Date Resolved Date Encounter for screening for malignant neoplasm o f colon 09/26/2015 09/26/2015 Anemia, unspecified 07/01/2005 07/08/2012 documented as of this encounter (statuses as of 06/04/2022) [facility] History of Past illness Narrative* Problem Noted Date Resolved Date Encounter for screening for malignant neoplasm o f colon 09/26/2015 09/26/2015 Anemia, unspecified 07/01/2005 07/08/2012 documented as of this encounter (statuses as of 07/09/2022) [facility] History of Past illness Narrative* Problem Noted Date Resolved Date Encounter for screening for malignant neoplasm o f colon 09/26/2015 09/26/2015 Anemia, unspecified 07/01/2005 07/08/2012 documented as of this encounter (statuses as of 08/06/2022) [facility] History of Past illness Narrative* Problem Noted Date Resolved Date Encounter for screening for malignant neoplasm o f colon 09/26/2015 09/26/2015 Anemia, unspecified 07/01/2005 07/08/2012 documented as of this encounter (statuses as of 08/06/2022) [facility] History of Past illness Narrative* Problem Noted Date Resolved Date Encounter for screening for malignant neoplasm o f colon 09/26/2015 09/26/2015 Anemia, unspecified 07/01/2005 07/08/2012 documented as of this encounter (statuses as of 08/24/2022) [facility] History of Past illness Narrative* Problem Noted Date Resolved Date Encounter for screening for malignant neoplasm o f colon 09/26/2015 09/26/2015 Anemia, unspecified 07/01/2005 07/08/2012 documented as of this encounter (statuses as of 08/25/2022) [address]04-2016 History of Past illness Narrative* Problem Noted Date Resolved Date Encounter for screening for malignant neoplasm o f colon 09/26/2015 09/26/2015 Anemia, unspecified 07/01/2005 07/08/2012 documented as of this encounter (statuses as of 09/03/2022) [facility] History of Past illness Narrative* Problem Noted Date Resolved Date Encounter for screening for malignant neoplasm o f colon 09/26/2015 09/26/2015 Anemia, unspecified 07/01/2005 07/08/2012 documented as of this encounter (statuses as of 09/04/2022) [facility] History of Past illness Narrative* Problem Noted Date Resolved Date Encounter for screening for malignant neoplasm o f colon 09/26/2015 09/26/2015 Anemia, unspecified 07/01/2005 07/08/2012 documented as of this encounter (statuses as of 09/05/2022) [facility] History of Past illness Narrative* Problem Noted Date Resolved Date Encounter for screening for malignant neoplasm o f colon 09/26/2015 09/26/2015 Anemia, unspecified 07/01/2005 07/08/2012 documented as of this encounter (statuses as of 09/07/2022) [address]-2016 History of Past illness Narrative* Problem Noted Date Resolved Date Encounter for screening for malignant neoplasm o f colon 09/26/2015 09/26/2015 Anemia, unspecified 07/01/2005 07/08/2012 documented as of this encounter (statuses as of 09/11/2022) [facility] History of Past illness Narrative* Problem Noted Date Resolved Date Encounter for screening for malignant neoplasm o f colon 09/26/2015 09/26/2015 Anemia, unspecified 07/01/2005 07/08/2012 documented as of this encounter (statuses as of 09/15/2022) [facility] History of Past illness Narrative* Problem Noted Date Resolved Date Encounter for screening for malignant neoplasm o f colon 09/26/2015 09/26/2015 Anemia, unspecified 07/01/2005 07/08/2012 documented as of this encounter (statuses as of 09/15/2022) [facility] History of Past illness Narrative* Problem Noted Date Resolved Date Encounter for screening for malignant neoplasm o f colon 09/26/2015 09/26/2015 Anemia, unspecified 07/01/2005 07/08/2012 documented as of this encounter (statuses as of 11/26/2022) [facility] History of Past illness Narrative* Problem Noted Date Resolved Date Encounter for screening for malignant neoplasm o f colon 09/26/2015 09/26/2015 Anemia, unspecified 07/01/2005 07/08/2012 documented as of this encounter (statuses as of 12/03/2022) [facility] History of Past illness Narrative* Problem Noted Date Resolved Date Encounter for screening for malignant neoplasm o f colon 09/26/2015 09/26/2015 Anemia, unspecified 07/01/2005 07/08/2012 documented as of this encounter (statuses as of 12/16/2022) [facility] History of Past illness Narrative* Problem Noted Date Resolved Date Encounter for screening for malignant neoplasm o f colon 09/26/2015 09/26/2015 Anemia, unspecified 07/01/2005 07/08/2012 documented as of this encounter (statuses as of 12/24/2022) [facility] History of Past illness Narrative* Problem Noted Date Resolved Date Encounter for screening for malignant neoplasm o f colon 09/26/2015 09/26/2015 Anemia, unspecified 07/01/2005 07/08/2012 documented as of this encounter (statuses as of 12/24/2022) [facility] History of Past illness Narrative* Problem Noted Date Resolved Date Encounter for screening for malignant neoplasm o f colon 09/26/2015 09/26/2015 Anemia, unspecified 07/01/2005 07/08/2012 documented as of this encounter (statuses as of 01/01/2023) [facility] History of Past illness Narrative* Problem Noted Date Resolved Date Encounter for screening for malignant neoplasm o f colon 09/26/2015 09/26/2015 Anemia, unspecified 07/01/2005 07/08/2012 documented as of this encounter (statuses as of 01/04/2023) [facility] History of Past illness Narrative* Problem Noted Date Resolved Date Encounter for screening for malignant neoplasm o f colon 09/26/2015 09/26/2015 Anemia, unspecified 07/01/2005 07/08/2012 documented as of this encounter (statuses as of 01/05/2023) [facility] History of Past illness Narrative* Problem Noted Date Resolved Date Encounter for screening for malignant neoplasm o f colon 09/26/2015 09/26/2015 Anemia, unspecified 07/01/2005 07/08/2012 documented as of this encounter (statuses as of 01/21/2023) [facility] History of Past illness Narrative* Problem Noted Date Resolved Date Encounter for screening for malignant neoplasm o f colon 09/26/2015 09/26/2015 Anemia, unspecified 07/01/2005 07/08/2012 documented as of this encounter (statuses as of 01/22/2023) [facility] History of Past illness Narrative* Problem Noted Date Resolved Date Encounter for screening for malignant neoplasm o f colon 09/26/2015 09/26/2015 Anemia, unspecified 07/01/2005 07/08/2012 documented as of this encounter (statuses as of 02/19/2023) [facility] History of Past illness Narrative* Problem Noted Date Diagnosed Date Resolved Date Encounter for screening for malignant neoplasm of colon 09/26/2015 09/26/2015 Anemia, unspecified 07/01/2005 07/08/20 12 documented as of this encounter (statuses as of 03/18/2023) [facility] History of Past illness Narrative* Problem Noted Date Diagnosed Date Resolved Date Encounter for screening for malignant neoplasm of colon 09/26/2015 09/26/2015 Anemia, unspecified 07/01/2005 07/08/20 12 documented as of this encounter (statuses as of 03/18/2023) [facility] History of Past illness Narrative* Problem Noted Date Diagnosed Date Resolved Date Encounter for screening for malignant neoplasm of colon 09/26/2015 09/26/2015 Anemia, unspecified 07/01/2005 07/08/20 12 documented as of this encounter (statuses as of 04/15/2023) [facility] History of Past illness Narrative* Problem Noted Date Diagnosed Date Resolved Date Encounter for screening for malignant neoplasm of colon 09/26/2015 09/26/2015 Anemia, unspecified 07/01/2005 07/08/20 12 documented as of this encounter (statuses as of 04/28/2023) [facility] History of Past illness Narrative* Problem Noted Date Diagnosed Date Resolved Date Encounter for screening for malignant neoplasm of colon 09/26/2015 09/26/2015 Anemia, unspecified 07/01/2005 07/08/20 12 documented as of this encounter (statuses as of 05/14/2023) [facility] History of Past illness Narrative* Problem Noted Date Diagnosed Date Resolved Date Encounter for screening for malignant neoplasm of colon 09/26/2015 09/26/2015 Anemia, unspecified 07/01/2005 07/08/20 12 documented as of this encounter (statuses as of 06/27/2023) [facility] History of Past illness Narrative* Problem Noted Date Diagnosed Date Resolved Date Encounter for screening for malignant neoplasm of colon 09/26/2015 09/26/2015 Anemia, unspecified 07/01/2005 07/08/20 12 documented as of this encounter (statuses as of 07/08/2023) [facility] History of Past illness Narrative* Problem Noted Date Diagnosed Date Resolved Date Encounter for screening for malignant neoplasm of colon 09/26/2015 09/26/2015 Anemia, unspecified 07/01/2005 07/08/20 12 documented as of this encounter (statuses as of 08/06/2023) [facility] History of Past illness Narrative* Problem Noted Date Diagnosed Date Resolved Date Encounter for screening for malignant neoplasm of colon 09/26/2015 09/26/2015 Anemia, unspecified 07/01/2005 07/08/20 12 documented as of this encounter (statuses as of 08/06/2023) [facility] note* Diagnosis 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, brain Congenital anomaly of cerebrovascular system Chronic GI bleeding Hemorrhage of gastrointestinal tract, unspecified 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 loss Iron deficiency anemia secondary to blood loss (chronic) [facility] [place] [facility] 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) [facility] [place] [facility] 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) [facility] [place] [facility] 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) [facility] [place] [facility] Diagnosis 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 loss- Primary Iron deficiency anemia secondary to blood loss (chronic) [facility] [place] [facility] Diagnosis 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 loss- Primary Iron deficiency anemia secondary to blood loss (chronic) [facility] [place] [facility] 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 [facility] [place] [facility]* Diagnosis 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 Chronic GI bleeding Hemorrhage of gastrointestinal tract, unspecified 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 loss Iron deficiency anemia secondary to blood loss (chronic) [facility] [place] [facility] Diagnosis Chronic diastolic congestive heart failure [...] blood loss (chronic) [facility] 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 [facility] [place] [facility] Diagnosis 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 telangiectasia [facility] [place] [facility]* Diagnosis 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 loss- Primary Iron deficiency anemia secondary to blood loss (chronic) [facility] [place] [facility] Diagnosis 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 loss- Primary Iron deficiency anemia secondary to blood loss (chronic) [facility] Outpatient Procedure (Routine) - Authorized Specialty Diagnoses / Procedures Referred By Contac t Referred To Contact [facility] Diagnoses Chronic diastolic congestive heart failure (HCC) Procedures ECHO ECHO TTHRC R-T 2D W/WOM-MODE COMPL SPEC&COLR D Master Palmer MD [address] [place] [address] [place] [address] Referral ID Status Reason Start Date Expiration Date Visits Requested Visits Authorized [id number] Authorized Auto-Generat ed Referral 06/04/2023 1 1 [facility] Summary Purpose Family History No Family History Records FoundNo Family History Records Found Advance Directives No Advanced Directives Records FoundDocuments on File Type Date Recorded 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 01/21/23 at 1430, Monitor patient for hypersensitivity [...] over 45 Minutes, ONCE, 1 dose, On [facility] 02/18/23 at 1430, Monitor patient for hypersensitivity [...] STEM W/O W/CONTRAST MATERIAL Master Palmer MD [address] [place] [address] [facility] Referral ID Status Reason Start Date Expiration Date Visits Requested Visits Authorized [id number] Authorized Auto-Generat ed Referral 12/02/2022 01/01/2024 1 1 Specialty Diagnoses / Procedures Referred By Frank t Referred To Contact [facility] Diagnoses HHT (hereditary hemorrhagic telangiectasia) (HCC) Procedures MRI BRAIN WO/W IVCON MRI BRAIN BRAIN STEM W/O W/CONTRAST MATERIAL Master Palmer MD [address] [place] [address] [place] [address] Referral ID Status Reason Start Date Expiration Date V isits Requested Visits Authorized [id number] Closed Auto-Generate d Referral 12/02/2022 01/01/2024 1 1 Additional Source Comments INFORMATION SOURCE (unrecogn ized section and content) DATE CREATED AUTHOR AUTHOR'S ORGANIZ ATION 09/04/2023 [facility] Source Comments (unrecognize d section and content) In the event this informatio n is protected by the Federal Confidentiality of Alcohol and Drug Abuse Patient Records regulations: The Federal rules restrict any use of the information to criminally investigate or prosecute any alcohol or drug abuse patient.[facility] the event this information is protected by the Federal Confidentiality of Alcohol and Drug Abuse Patient Records regulations: The Federal rules restrict any use of the information to criminally investigate or prosecute any alcohol or drug abuse patient.[facility] the event this information is protected by the Federal Confidentiality of Alcohol and Drug Abuse Patient Records regulations: The Federal rules restrict any use of the information to criminally investigate or prosecute any alcohol or drug abuse patient.[facility] the event this information is protected by the Federal Confidentiality of Alcohol and Drug Abuse Patient Records regulations: The Federal rules restrict any use of the information to criminally investigate or prosecute any alcohol or drug abuse patient.[facility] the event this information is protected by the Federal Confidentiality of Alcohol and Drug Abuse Patient Records regulations: The Federal rules restrict any use of the information to criminally investigate or prosecute any alcohol or drug abuse patient.[facility] the event this information is protected by the Federal Confidentiality of Alcohol and Drug Abuse Patient Records regulations: The Federal rules restrict any use of the information to criminally investigate or prosecute any alcohol or drug abuse patient.[facility] the event this information is protected by the Federal Confidentiality of Alcohol and Drug Abuse Patient Records regulations: The Federal rules restrict any use of the information to criminally investigate or prosecute any alcohol or drug abuse patient.[facility] InstituteIn the event this information is protected by the Federal Confidentiality of Alcohol and Drug Abuse Patient Records regulations: The Federal rules restrict any use of the information to criminally investigate or prosecute any alcohol or drug abuse patient.[facility] InstituteIn the event this information is protected by the Federal Confidentiality of Alcohol and Drug Abuse Patient Records regulations: The Federal rules restrict any use of the information to criminally investigate or prosecute any alcohol or drug abuse patient.[facility] InstituteIn the event this information is protected by the Federal Confidentiality of Alcohol and Drug Abuse Patient Records regulations: The Federal rules restrict any use of the information to criminally investigate or prosecute any alcohol or drug abuse patient.[facility] InstituteIn the event this information is protected by the Federal Confidentiality of Alcohol and Drug Abuse Patient Records regulations: The Federal rules restrict any use of the information to criminally investigate or prosecute any alcohol or drug abuse patient.[facility] InstituteIn the event this information is protected by the Federal Confidentiality of Alcohol and Drug Abuse Patient Records regulations: The Federal rules restrict any use of the information to criminally investigate or prosecute any alcohol or drug abuse patient.[facility] InstituteIn the event this information is protected by the Federal Confidentiality of Alcohol and Drug Abuse Patient Records regulations: The Federal rules restrict any use of the information to criminally investigate or prosecute any alcohol or drug abuse patient.[facility] InstituteIn the event this information is protected by the Federal Confidentiality of Alcohol and Drug Abuse Patient Records regulations: The Federal rules restrict any use of the information to criminally investigate or prosecute any alcohol or drug abuse patient.[facility] InstituteIn the event this information is protected by the Federal Confidentiality of Alcohol and Drug Abuse Patient Records regulations: The Federal rules restrict any use of the information to criminally investigate or prosecute any alcohol or drug abuse patient.[facility] InstituteIn the event this information is protected by the Federal Confidentiality of Alcohol and Drug Abuse Patient Records regulations: The Federal rules restrict any use of the information to criminally investigate or prosecute any alcohol or drug abuse patient.[facility] InstituteIn the event this information is protected by the Federal Confidentiality of Alcohol and Drug Abuse Patient Records regulations: The Federal rules restrict any use of the information to criminally investigate or prosecute any alcohol or drug abuse patient.[facility] InstituteIn the event this information is protected by the Federal Confidentiality of Alcohol and Drug Abuse Patient Records regulations: The Federal rules restrict any use of the information to criminally investigate or prosecute any alcohol or drug abuse patient.[facility] InstituteIn the event this information is protected by the Federal Confidentiality of Alcohol and Drug Abuse Patient Records regulations: The Federal rules restrict any use of the information to criminally investigate or prosecute any alcohol or drug abuse patient.[facility] InstituteIn the event this information is protected by the Federal Confidentiality of Alcohol and Drug Abuse Patient Records regulations: The Federal rules restrict any use of the information to criminally investigate or prosecute any alcohol or drug abuse patient.[facility] InstituteIn the event this information is protected by the Federal Confidentiality of Alcohol and Drug Abuse Patient Records regulations: The Federal rules restrict any use of the information to criminally investigate or prosecute any alcohol or drug abuse patient.[facility] InstituteIn the event this information is protected by the Federal Confidentiality of Alcohol and Drug Abuse Patient Records regulations: The Federal rules restrict any use of the information to criminally investigate or prosecute any alcohol or drug abuse patient.[facility] InstituteIn the event this information is protected by the Federal Confidentiality of Alcohol and Drug Abuse Patient Records regulations: The Federal rules restrict any use of the information to criminally investigate or prosecute any alcohol or drug abuse patient.[facility] InstituteIn the event this information is protected by the Federal Confidentiality of Alcohol and Drug Abuse Patient Records regulations: The Federal rules restrict any use of the information to criminally investigate or prosecute any alcohol or drug abuse patient.[facility] InstituteIn the event this information is protected by the Federal Confidentiality of Alcohol and Drug Abuse Patient Records regulations: The Federal rules restrict any use of the information to criminally investigate or prosecute any alcohol or drug abuse patient.[facility] InstituteIn the event this information is protected by the Federal Confidentiality of Alcohol and Drug Abuse Patient Records regulations: The Federal rules restrict any use of the information to criminally investigate or prosecute any alcohol or drug abuse patient.[facility] InstituteIn the event this information is protected by the Federal Confidentiality of Alcohol and Drug Abuse Patient Records regulations: The Federal rules restrict any use of the information to criminally investigate or prosecute any alcohol or drug abuse patient.[facility] InstituteIn the event this information is protected by the Federal Confidentiality of Alcohol and Drug Abuse Patient Records regulations: The Federal rules restrict any use of the information to criminally investigate or prosecute any alcohol or drug abuse patient.[facility] InstituteIn the event this information is protected by the Federal Confidentiality of Alcohol and Drug Abuse Patient Records regulations: The Federal rules restrict any use of the information to criminally investigate or prosecute any alcohol or drug abuse patient.[facility] InstituteIn the event this information is protected by the Federal Confidentiality of Alcohol and Drug Abuse Patient Records regulations: The Federal rules restrict any use of the information to criminally investigate or prosecute any alcohol or drug abuse patient.[facility] InstituteIn the event this information is protected by the Federal Confidentiality of Alcohol and Drug Abuse Patient Records regulations: The Federal rules restrict any use of the information to criminally investigate or prosecute any alcohol or drug abuse patient.[facility] InstituteIn the event this information is protected by the Federal Confidentiality of Alcohol and Drug Abuse Patient Records regulations: The Federal rules restrict any use of the information to criminally investigate or prosecute any alcohol or drug abuse patient.[facility] InstituteIn the event this information is protected by the Federal Confidentiality of Alcohol and Drug Abuse Patient Records regulations: The Federal rules restrict any use of the information to criminally investigate or prosecute any alcohol or drug abuse patient.[facility] InstituteIn the event this information is protected by the Federal Confidentiality of Alcohol and Drug Abuse Patient Records regulations: The Federal rules restrict any use of the information to criminally investigate or prosecute any alcohol or drug abuse patient.[facility] InstituteIn the event this information is protected by the Federal Confidentiality of Alcohol and Drug Abuse Patient Records regulations: The Federal rules restrict any use of the information to criminally investigate or prosecute any alcohol or drug abuse patient.[facility] InstituteIn the event this information is protected by the Federal Confidentiality of Alcohol and Drug Abuse Patient Records regulations: The Federal rules restrict any use of the information to criminally investigate or prosecute any alcohol or drug abuse patient.[facility] InstituteIn the event this information is protected by the Federal Confidentiality of Alcohol and Drug Abuse Patient Records regulations: The Federal rules restrict any use of the information to criminally investigate or prosecute any alcohol or drug abuse patient.[facility] InstituteIn the event this information is protected by the Federal Confidentiality of Alcohol and Drug Abuse Patient Records regulations: The Federal rules restrict any use of the information to criminally investigate or prosecute any alcohol or drug abuse patient.[facility] InstituteIn the event this information is protected by the Federal Confidentiality of Alcohol and Drug Abuse Patient Records regulations: The Federal rules restrict any use of the information to criminally investigate or prosecute any alcohol or drug abuse patient.[facility] InstituteIn the event this information is protected by the Federal Confidentiality of Alcohol and Drug Abuse Patient Records regulations: The Federal rules restrict any use of the information to criminally investigate or prosecute any alcohol or drug abuse patient.[facility] InstituteIn the event this information is protected by [...] or prosecute any alcohol or drug abuse patient.[facility] InstituteIn the event this information is protected by the Federal Confidentiality of Alcohol and Drug Abuse Patient Records regulations: The Federal rules restrict any use of the information to criminally investigate or prosecute any alcohol or drug abuse patient.[facility] InstituteIn the event this information is protected by the Federal Confidentiality of Alcohol and Drug Abuse Patient Records regulations: The Federal rules restrict any use of the information to criminally investigate or prosecute any alcohol or drug abuse patient.[facility] InstituteIn the event this information is protected by the Federal Confidentiality of Alcohol and Drug Abuse Patient Records regulations: The Federal rules restrict any use of the information to criminally investigate or prosecute any alcohol or drug abuse patient.[facility] Reason for Visit (unrecogniz ed section and content) Reason Comments Chemotherapy Treatment Specialty Diagnoses / Procedures Referred By [facility] t Referred To Contact Diagnoses 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 loss 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 loss Jesus Soto, DO [address] [place] [address] [facility] [address] [place] [address] Referral ID Status Reason Start Date Expiration Date V isits Requested Visits Authorized [id number] Authorized 01/22/2021 04/22/2021 99 99 Reason Comments Established Patient Reason Comments Non-Chemotherapy Treatment Specialty Diagnoses / Procedures Referred By [facility] Referred To Contact Diagnoses 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 loss 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 loss Jesus Soto, DO [address] [place] [address] [facility] [address] [place] [address] Referral ID Status Reason Start Date Expiration Date V isits Requested Visits Authorized [id number] Authorized 01/28/2022 04/28/2022 99 99 Reason Comments Follow Up Add Avastin today Specialty Diagnoses / Procedures Referred By [facility] Referred To Contact Diagnoses Hereditary hemorrhagic telangiectasia (HCC) Josette Martínez MD [address] [place] [address] [facility] [address] [place] [address] Referral ID Status Reason Start Date Expiration Date V isits Requested Visits Authorized [id number] Authorized 06/14/2020 09/12/2020 1 1 Reason Comments [...] chronic blood loss Jesus Soto, [address] [place] [address] [facility] [address] [place] [address] Reason Comments Consult Established patient Specialty Diagnoses / Procedures Referred By [facility] Referred To Contact Diagnoses Hereditary hemorrhagic telangiectasia (HCC) Josette Martínez MD [address] [place] [address] [place] [address] [facility] [address] [place] [address] Specialty Diagnoses / Procedures [facility] To Contact MR IMAGING Diagnoses HHT (hereditary hemorrhagic telangiectasia) (HCC) Procedures MRI BRAIN WO/W IVCON MRI BRAIN BRAIN STEM W/O W/CONTRAST MATERIAL Master Palmer MD [address] [place] [id number] Mr Imaging [id number] Referral ID Status Reason Start Date Expiration Date V isits Requested Visits Authorized [id number] Closed Auto-Generate d Referral 12/02/2022 01/01/2024 1 1 Care Teams (unrecognized sec tion and content) Clinical Services Director Relationship Specialty Start Date End Date Mariaelena Corbett DO PCP - General 09/26/15 Clinical Services Director Relationship Specialty Start Date End Date Mariaelena Corbett DO PCP - General 09/26/15 Clinical Services Director Relationship Specialty Start Date End Date Mariaelena Corbett DO PCP - General 09/26/15 Clinical Services Director Relationship Specialty Start Date End Date Mariaelena Corbett DO PCP - General 09/26/15 Clinical Services Director Relationship Specialty Start Date End Date Mariaelena Corbett, DO PCP - General 09/26/15 Clinical Services Director Relationship Specialty Start Date End Date Mariaelena Corbett, DO PCP - General 09/26/15 Clinical Services Director Relationship Specialty Start Date End Date Mariaelena Corbett, DO PCP - General 09/26/15 Clinical Services Director Relationship Specialty Start Date End Date Mariaelena Corbett DO PCP - General 09/26/15 Clinical Services Director Relationship Specialty Start Date End Date Mariaelena Corbett DO PCP - General 09/26/15 Clinical Services Director Relationship Specialty Start Date End Date Mariaelena Corbett DO PCP - General 09/26/15 Clinical Services Director Relationship Specialty Start Date End Date Mariaelena Corbett DO PCP - General 09/26/15 Clinical Services Director Relationship Specialty Start Date End Date Mariaelena Corbett DO PCP - General 09/26/15 Clinical Services Director Relationship Specialty Start Date End Date Mariaelena Corbett, DO PCP - General 09/26/15 Clinical Services Director Relationship Specialty Start Date End Date Mariaelena Corbett DO PCP - General 09/26/15 Clinical Services Director Relationship Specialty Start Date End Date Mariaelena Corbett DO PCP - General 09/26/15 Clinical Services Director Relationship Specialty Start Date End Date Mariaelena Corbett DO PCP - General 09/26/15 Clinical Services Director Relationship Specialty Start Date End Date Mariaelena Corbett DO PCP - General 09/26/15 Clinical Services Director Relationship Specialty Start Date End Date Mariaelena Corbett DO PCP - General 09/26/15 Clinical Services Director Relationship Specialty Start Date End Date Mariaelena Corbett DO PCP - General 09/26/15 Clinical Services Director Relationship Specialty Start Date End Date Mariaelena Corbett DO PCP - General 09/26/15 Clinical Services Director Relationship Specialty Start Date End Date Mariaelena Corbett DO PCP - General 09/26/15 Clinical Services Director Relationship Specialty Start Date End Date Mariaelena Corbett DO PCP - General 09/26/15 Clinical Services Director Relationship Specialty Start Date End Date Mariaelena Corbett DO PCP - General 09/26/15 Clinical Services Director Relationship Specialty Start Date End Date Mariaelena Corbett DO PCP - General 09/26/15 Clinical Services Director Relationship Specialty Start Date End Date Mariaelena [...] BE BASED ON THE PRIMARY CLINICAL RECORDS. [employer] [facility]. provides no warranty or guarantee of the accuracy or completeness of information in this document.
[2023-09-08] MEDS: Sodium Phosphate/Na Biphos 21 MMOL in 0.9% Normal Saline (250mL Bag) 250 ML 84 MMOL IV (19:37)
[2023-09-08 20:12] LABS: Troponin-I HS 242 pg/mL (3.0-54.0)
--- NOTE | 2023-09-08 22:14 | EKG12_ITS ---
Test Reason : POSTOP Blood Pressure : / mmHG Vent. Rate : 067 BPM Atrial Rate : 067 BPM P-R Int : 188 ms QRS Dur : 082 ms QT Int : 440 ms P-R-T Axes : 054 031 074 degrees QTc Int : 464 ms Sinus rhythm with Premature atrial complexes Low voltage QRS Borderline ECG When compared with ECG of 18-AUG-2023 16:21, Premature atrial complexes are now Present ST no longer depressed in Lateral leads Confirmed by AZEB AYALA, HAZEL ([id number]), technical writer and editor LORELEI SHELL ([id number]) on 09/10/2023 10:39:10 AM Referred By: Mariaelena Corbett Confirmed By:HAZEL BOWIE MD
[2023-09-08] MEDS: Lactated Ringers 1,000 ML 75 ML IV (22:41)
[2023-09-08] MEDS: Acetaminophen 325 MG Tablet 650 MG PO (22:45)
[2023-09-09 00:25] LABS: Troponin-I HS 246 pg/mL (3.0-54.0)
[2023-09-09 04:14] VITALS: BP 114/63; PULSE 81; RESP 16; TEMP 36.4; O2SAT 99
[2023-09-09 07:00] VITALS: O2SAT 95
--- NOTE | 2023-09-09 07:00 | EKG12_ITS ---
Test Reason : RHYTHM CHANGE Blood Pressure : / mmHG Vent. Rate : 083 BPM Atrial Rate : 083 BPM P-R Int : 176 ms QRS Dur : 078 ms QT Int : 398 ms P-R-T Axes : 060 017 052 degrees QTc Int : 467 ms Normal sinus rhythm Normal ECG When compared with ECG of 08-SEP-2023 12:32, MANUAL COMPARISON REQUIRED, DATA IS UNCONFIRMED Confirmed by AZEB AYALA, HAZEL ([id number]), editorial cartoonist LORELEI SHELL ([id number]) on 09/10/2023 10:40:30 AM Referred By: Mariaelena Corbett Confirmed By:HAZEL BOWIE MD
[2023-09-09 07:47] LABS: Absolute Lymphocyte Count 0.35 X10^3/uL (0.83-4.51); Absolute Neutrophil Count 7.6 X10^3/uL (2.0-7.7); Basophil# 0.03 X10^3/uL; Basophil% 0.4 % (0-1); Eosinophil# 0.03 X10^3/uL; Eosinophils% 0.4 % (0-5); Hematocrit 33.1 % (37-47); Hemoglobin 9.9 g/dL (12.0-15.0); Lymphocyte # 0.35 X10^3/ul (0.83-4.51); Lymphocyte % 4.1 % (19-41); Mean Corp Hgb Conc 29.9 g/dL (32-36); Mean Corpuscular Hgb 29.1 pg (27.0-32.0); Mean Corpuscular Volume 97.4 fL (81-99); Mean Platelet Vol. 10.2 fl (6.2-12.0); Monocyte% 4.7 % (0-10); NRBC Flagged by Analyzer 0 % (0-5); Neutrophil # 7.59 X10^3/uL (2.7-7.7); Neutrophil % 89.9 % (47-70); POSITIVE DIFFERENTIAL YES; Platelet Count 158 K/mm3 (150-450); RBC Distribution Width CV 16.8 % (11.6-14.6); RBC Distribution Width SD 60.4 fl (35.1-43.9); White Blood Count 8.4 K/mm3 (4.4-11.0)
[2023-09-09 08:04] LABS: Differential Indicated SCAN CRITERIA MET
[2023-09-09 08:14] LABS: Differential Comment S
[2023-09-09 08:23] LABS: ALB/GLOB Ratio 1.1 RATIO (0.9-2.4); AST(SGOT) 60 U/L (15-37); Alanine Aminotransfer ALT/SGPT 66 U/L (13-56); Albumin, Serum 2.7 g/dL (3.2-5.0); Alkaline Phosphatase 74 U/L (45-117); Anion Gap 3 (5-15); BUN 11 mg/dL (7-18); Calcium,Total 8.2 mg/dL (8.5-10.1); Chloride 110 mmol/L (98-107); EST Glomerular Filtration Rate 129 mL/min (>60); Est Glom Filt Rate - Afr Amer 156 mL/min (>60); Estimated Creatinine Clearance 58.63 ml/min; Globulin 2.5 g/dL (2.2-4.2); Glucose 105 mg/dL (74-106); Phosphorus 1.7 mg/dL (2.5-4.9); Potassium 3.7 mmol/L (3.5-5.1); Protein, Total 5.2 g/dL (6.4-8.2); Sodium Level 141 mmol/L (136-145); Thyroid Stim Hormone (TSH) 0.66 uIU/mL (0.358-3.74)
[2023-09-09] MEDS: Acetaminophen 500 MG Tablet 1000 MG PO (08:36)
[2023-09-09 10:15] VITALS: BP 102/64; PULSE 82; RESP 18; TEMP 36.9; O2SAT 99
[2023-09-09] MEDS: Potassium Phosphate 30 MM in 0.9% Normal Saline (250mL Bag) 250 ML 42 MM IV (11:15)
[2023-09-09] MEDS: Folic Acid 1 MG Tablet PO (12:25)
[2023-09-09] MEDS: Na Biphos/Potassium Phosphate PACKET 1 PACKET PO (12:25)
[2023-09-09] MEDS: Pantoprazole Sodium 20 MG Tablet PO (12:25)
[2023-09-09] MEDS: Ascorbic Acid 500 MG Tablet 1000 MG PO (12:25)
[2023-09-09] MEDS: Vitamin B Comp W-C Capsule 1 CAP PO (12:26)
--- NOTE | 2023-09-09 13:02 | DCINST_ITS ---
Discharge Instructions Diet Discharge Diet: No restrictions Activity Discharge Activity: - (Improve as tolerated) Follow Up Care Test Results: Test results from this visit will be discussed in further detail at your follow- up appointment, if applicable. Discharge Plan Admission Admit Date/Time: 09/08/23 16:54 Primary Reason for Your Visit: Heart arrhythmia Attending Provider: Madhuri Sheehan Primary Care Provider: Mariaelena Corbett Consulting Providers: Azeem Acosta; Conner Peters Instructions Patient Instructions: What Is Event Monitoring?, Using an Event Monitor Additional Instructions / Restrictions: DISCHARGE INSTRUCTIONS PLEASE READ *Please take this with you to your next doctors appointment* -You will be discharged with instructions for a 48hr heart monitor to evaluate for any underlying abnormal heart rhythms -Please follow-up with cardiology upon discharge. Please call their office to schedule hospital follow-up appointment upon discharge. -You will need to follow-up with Dr. Peters with GI in his office upon discharge. Please call his office to schedule your hospital follow-up appointment (ph. [phone]) -Please call your primary care provider's office upon discharge to schedule a hospital follow up within 1 week. -For any concerning signs or symptoms please call 911 or proceed to the nearest emergency department Discharge Orders/Prescriptions Prescriptions: Continued bevacizumab 25 mg/mL intravenous solution 25 mg/mL solution 25 mg INTRAVIT .Q4MO Rx Instructions: [id number] vitamin B complex [B Complex-Vitamin B12] Tablet 1 tab PO DAILY catalyn gf 1 tab PO DAILY orthomune 1 tab PO DAILY iron sucrose 50 mg iron/2.5 mL solution 50 mg IV .monthly Rx Instructions: 50 mg intravenously; takes monthly last dose 08/05 osteobase 3 tab PO DAILY Rx Instructions: 3 tabs daily ascorbic acid (vitamin C) 1,000 MG tablet 1,000 mg PO DAILY omeprazole 20 MG capsule,delayed release(DR/EC) 20 mg PO DAILY folic acid 1 MG tablet 1 mg PO DAILY estradiol 0.01 % (0.1 mg/gram) cream 0.1 applic vaginal TUTHSA d-mannose 500 mg capsule 500 mg PO DAILY TADEO FOOD 1 cap PO DAILY budesonide 0.5 mg/2 mL suspension for nebulization 0.5 mg irrigation DAILY Patient Comments: Inhale 1 vial using nebulizer twice a day INHALE 1 VIAL TWICE DAILY DIRECTED rizatriptan 10 mg tablet,disintegrating 10 mg PO Q2H PRN (Reason: migraine headache) Patient Comments: TAKE 1 TABLET BY MOUTH NEEDED FOR MIGRAINE HEADACHE. MAY REPEAT IN 2 HOURS IF NEEDED. NO MORE THEN 3 DOSES IN A 24 HOUR PERIOD. Other Ambulatory Orders: Cardiac Holter Monitor, 48 Hrs (Routine) Timeframe: 2 Days Facility: [facility] - Location: Cardiovascular Services Ordered By: Dr. Madhuri Sheehan Referrals / Follow Up: Delta House MD [Med Staff - Active Staff] - Within 1 Week Mariaelena Corbett DO [Primary Care Provider] - Within 1 Week Conner Peters DO [Med Staff - Active Staff] - ( -You will need to follow-up with Dr. Peters with GI in his office upon discharge. Please call his office to schedule your hospital follow-up appointment (ph. [phone])) Disposition Disposition (needs filled in before D/C Order can be placed): Home, Self Care
--- NOTE | 2023-09-09 13:15 | DS.PCM_ITS ---
Providers Date of Admission: 09/08/23 Date of Discharge: 09/09/23 Primary Care Physician: Dr. Mariaelena Corbett, Consultations 09/08/23 17:36 Consult: Cardiology Routine Consulting Provider: Azeem Acosta Reason for Consult: Post op Heart Block EMERGENT Consult: No MD Notified: Yes Date Notified: 09/08/23 Time Notified: 16:55 Method of Notification: Verbal Reason For Visit: concern for arrhythmia Diagnosis Discharge Diagnosis (1) Arrhythmia: Status: Acute Code(s): I49.9 - Cardiac arrhythmia, unspecified (2) Hypophosphatemia: Status: Acute Code(s): E83.39 - Other disorders of phosphorus metabolism Plan #Arrhythmia, possibly vasovagal # Elevated troponin secondary to hypotension Hypophosphatemia Chronic anemia History of HHT Seasonal allergies GERD Medications at Discharge Home Medications ascorbic acid (vitamin C) 1,000 mg tablet 1,000 mg PO DAILY SUPPLEMENT 11/24/19 folic acid 1 mg tablet 1 mg PO DAILY SUPPLEMENT 11/24/19 omeprazole 20 mg capsule,delayed release 20 mg PO DAILY gerd 11/24/19 vitamin B complex (B Complex-Vitamin B12 tablet) 1 tab PO DAILY supplement 04/15/21 catalyn gf 1 tab PO DAILY supplement 02/24/22 iron sucrose 50 mg iron/2.5 mL intravenous solution 50 mg IV .monthly supplement 02/24/22 orthomune 1 tab PO DAILY supplement 02/24/22 bevacizumab 25 mg/mL intravenous solution (Avastin) 25 mg intravitreal .Q4MO infusion 04/21/22 osteobase 3 tab PO DAILY supplement 05/18/23 estradiol 0.01% (0.1 mg/gram) vaginal cream 0.1 applic vaginal TUTHSA vag itching 08/18/23 TADEO FOOD 1 cap PO DAILY supplement 09/06/23 budesonide 0.5 mg/2 mL suspension for nebulization 0.5 mg irrigation DAILY breathing 09/06/23 d-mannose 500 mg capsule 500 mg PO DAILY supplement 09/06/23 rizatriptan 10 mg disintegrating tablet 10 mg PO Q2H PRN migraine headache 09/09/23 Hospital Course Summary of Care Provided Minutes Spent on Discharge: 32 Hospital Course: Per HPI: DERECK LÓPEZ, is a 73 F who presented to [facility] on 09/08/2023 for an EGD. Patient had known pre-existing angiodysplastic lesions and had previous ablation of multiple AVMs in her stomach and proximal duodenum. Repeat EGD at about 11 AM today showed grade 1 esophageal varices with hematin in the entire stomach and 15 bleeding angiodysplastic lesions in the stomach that were injected and treated with heater probe as well as 6 nonbleeding angiodysplastic lesions in the duodenum that were treated with APC. The plan was to send her home and follow-up as an outpatient however postoperatively patient had cardiac arrhythmias that involve significant bradycardia and what appeared to be heart block as she had nonconducted P waves on her telemetry strip. Unfortunately this was not caught on twelve-lead. Blood pressure was systolic in the 80s. She never required any ACLS or atropine and her conduction normalized and has been normal since. That event happened at about 1230 this afternoon. At the time of my evaluation the patient was only complaining of some nausea and felt that she might be a little bit hungry as she had not eaten yet today. She does report she gets nauseous with anesthesia previously and feels that this is what this is related to. With her arrhythmia electrolytes and CBC were assessed and no significant abnormalities were noted. Current vit al signs show a temperature of 99.8, blood pressure is 101/64, pulse is 74, respiratory rate 16 oxygen saturations are 99% on room air. Patient states she has seen Dr. House previously and sees him about yearly but she is unclear why she follows with him. Cardiac enzymes were unremarkable. INTERVAL HISTORY: Patient had no further episodes, was evaluated by cardiology and it was felt after further review and history taking that episodes were likely vasovagal in nature and plan was for 48-hour monitor and further workup on outpatient basis. Patient had a migraine which is something she chronically deals with and had no other complaints aside from that. Discharge instructions as follows: -You will be discharged with instructions for a 48hr heart monitor to evaluate for any underlying abnormal heart rhythms -Please follow-up with cardiology upon discharge. Please call their office to schedule hospital follow-up appointment upon discharge. -You will need to follow-up with Dr. Peters with GI in his office upon discharge. Please call his office to schedule your hospital follow-up appointment (ph. [phone]) -Please call your primary care provider's office upon discharge to schedule a hospital follow up within 1 week. -For any concerning signs or symptoms please call 911 or proceed to the nearest emergency department Physical Exam Narrative General: Alert, oriented, no apparent distress HEENT: Atraumatic, normocephalic Eyes: Anicteric, normal conjunctiva, extraocular movements grossly intact Neck: Supple Respiratory: Clear to auscultation bilaterally, normal respiratory effort Cardiovascular: Regular rate and rhythm GI: Soft, nontender, nondistended Extremities: No edema Musculoskeletal: Moving all extremities Neuro: No overt focal neurological deficits Skin: No rashes appreciated Psych: Cooperative Weight / BMI Weight Weight: 64 kg Body Mass Index (BMI) 22.7 ABG / Lab / Microbiology Data 09/09/23 07:30 09/09/23 07:30 Laboratory: Laboratory Results - last 24 hr 09/08/23 12:40: Sodium 141, Potassium 4.8, Chloride 110 H, Carbon Dioxide 30.0, Anion Gap 1 L, BUN 15, Creatinine 0.61, Estim Creat Clear Calc 58.63, Est GFR (MDRD) Af Amer 124, Est GFR (MDRD) Non-Af 103, BUN/Creatinine Ratio 24.7 H, Glucose 141 H, Calcium 8.0 L, Phosphorus 2.3 L, Magnesium 1.9, Troponin I High Sens 40 09/08/23 19:10: Troponin I High Sens 242 H* 09/08/23 23:50: Troponin I High Sens 246 H* 09/09/23 07:30: WBC 8.4, RBC 3.40 L, Hgb 9.9 L, Hct 33.1 L, MCV 97.4, MCH 29.1, MCHC 29.9 L, RDW Std Deviation 60.4 H, RDW Coeff of Marques 16.8 H, Plt Count 158, MPV 10.2, Immature Gran % (Auto) 0.500, Neut % (Auto) 89.9 H, Lymph % (Auto) 4.1 L, [place] % (Auto) 4.7, Eos % (Auto) 0.4, Baso % (Auto) 0.4, Absolute Neuts (auto) 7.6, Absolute Lymphs (auto) 0.35 L, Nucleated RBC % 0, Differential Comment S, Sodium 141, Potassium 3.7, Chloride 110 H, Carbon Dioxide 28.0, Anion Gap 3 L, BUN 11, Creatinine 0.50 L, Estim Creat Clear Calc 58.63, Est GFR (MDRD) Af Amer 156, Est GFR (MDRD) Non-Af 129, BUN/Creatinine Ratio 22.0 H, Glucose 105, Calcium 8.2 L, Phosphorus 1.7 L, Magnesium 2.0, Total Bilirubin 0.40, AST 60 H, ALT 66 H, Alkaline Phosphatase 74, Troponin I High Sens Cancelled, Total Protein 5.2 L, Albumin 2.7 L, Globulin 2.5, Albumin/Globulin Ratio 1.1, TSH 0.66 D/C Instructions Discharge Diet: No restrictions Meaningful Use Info Meaningful Use Diagnoses (Choose all that apply): None applicable Discharge Plan Admission Admit Date/Time: 09/08/23 16:54 Primary Reason for Your Visit: Heart arrhythmia Attending Provider: Madhuri Sheehan Primary Care Provider: Mariaelena Corbett Consulting Providers: Azeem Acosta; Conner Peters Instructions Patient Instructions: What Is Event Monitoring?, Using an Event Monitor Additional Instructions / Restrictions: DISCHARGE INSTRUCTIONS PLEASE READ *Please take this with you to your next doctors appointment* -You will be discharged with instructions for a 48hr heart monitor to evaluate for any underlying abnormal heart rhythms -Please follow-up with cardiology upon discharge. Please call their office to schedule hospital follow-up appointment upon discharge. -You will need to follow-up with Dr. Peters with GI in his office upon disch argsimón. Please call his office to schedule your hospital follow-up appointment (ph. [phone]) -Please call your primary care provider's office upon discharge to schedule a hospital follow up within 1 week. -For any concerning signs or symptoms please call 911 or proceed to the nearest emergency department Discharge Orders/Prescriptions Prescriptions: Continued bevacizumab 25 mg/mL intravenous solution 25 mg/mL solution 25 mg INTRAVIT .Q4MO Rx Instructions: G2Msprar vitamin B complex [B Complex-Vitamin B12] Tablet 1 tab PO DAILY catalyn gf 1 tab PO DAILY orthomune 1 tab PO DAILY iron sucrose 50 mg iron/2.5 mL solution 50 mg IV .monthly Rx Instructions: 50 mg intravenously; takes monthly last dose 08/05 osteobase 3 tab PO DAILY Rx Instructions: 3 tabs daily ascorbic acid (vitamin C) 1,000 MG tablet 1,000 mg PO DAILY omeprazole 20 MG capsule,delayed release(DR/EC) 20 mg PO DAILY folic acid 1 MG tablet 1 mg PO DAILY estradiol 0.01 % (0.1 mg/gram) cream 0.1 applic vaginal TUTHSA d-mannose 500 mg capsule 500 mg PO DAILY TADEO FOOD 1 cap PO DAILY budesonide 0.5 mg/2 mL suspension for nebulization 0.5 mg irrigation DAILY Patient Comments: Inhale 1 vial using nebulizer twice a day INHALE 1 VIAL TWICE DAILY DIRECTED rizatriptan 10 mg tablet,disintegrating 10 mg PO Q2H PRN (Reason: migraine headache) Patient Comments: TAKE 1 TABLET BY MOUTH NEEDED FOR MIGRAINE HEADACHE. MAY REPEAT IN 2 HOURS IF NEEDED. NO MORE THEN 3 DOSES IN A 24 HOUR PERIOD. Other Ambulatory Orders: Cardiac Holter Monitor, 48 Hrs (Routine) Timeframe: 2 Days Facility: [facility] - Location: Cardiovascular Services Ordered By: Dr. Madhuri Sheehan Referrals / Follow Up: Mariaelena Corbett DO [Primary Care Provider] - Within 1 Week Conner Peters DO [Med Staff - Active Staff] - ( -You will need to follow-up with Dr. Peters with GI in his office upon discharge. Please call his office to schedule your hospital follow-up appointment (ph. [phone])) Fanta Rosales NP, [employer] [Non-Staff -Ordering Privileges] - 09/15/23 9:30 am Disposition Disposition (needs filled in before D/C Order can be placed): Home, Self Care Charges/Coding Visit Charges Inpatient E&M: 35652 Disch Hosp >30min
--- NOTE | 2023-09-09 14:15 | CON.PCM.CA_ITS ---
<Statement entered by Azeem Acosta MD - 09/10/23 13:50> Pt seen & evaluated w/[facility]. I personally interviewed & exam the pt. I was involved in all aspects of pt's orders, interpretation of results & treatment Documented by User: Harriett PATTERSON, PA 09/09/23 14:25 Assessment & Plan Assessment/Plan (1) Arrhythmia: (2) Heart block: (3) Elevated troponin: PLAN: Plan * Reviewed scenario, rhythm strip and case in detail with Dr. House. It is felt that her arrhythmia was vasovagal mediated. Would like to have her follow-up with a 48-hour Holter monitor at discharge. * Her elevated troponins are likely related to a type II event due to her low blood pressure readings. Feel that we can obtain a stress test on an outpatient basis. * Will follow-up with patient after patient is discharged. HPI Consult Data Date of Consult: 09/09/23 HPI Narrative HPI Narrative: DERECK LÓPEZ, is a 73 F who was undergoing an EGD. She does have a history of H Ht. While patient was in recovery she was noted to have none conducted P waves on her telemetry strip. Her blood pressure was also low during this time. In talking with PACU nurse, she notes that patient had an oral airway in and started gagging this is when she had 1 episode of nonconducted P waves. She had her second episode of nonconducted P waves while patient's airway was obstructive by her tongue. She then had a nasal pharyngeal airway placed, shortly after this she had another episode of heart block with nonconducted P waves. She was admitted for observation. Heart troponins did trend from 40/242/246. Patient notes that she is fairly active at home. She does exercise routinely. She has never had any lightheadedness, dizziness, syncopal episodes. She has not had any irregular rhythms that she has felt. She has not noted any slow heartbeats. She does not have any worsening shortness of breath or fatigue. The only time she feels short of breath or fatigued is when her hemoglobin is low. [facility]LY [facility] Medical History ABLA (acute blood loss anemia) Anemia Cardiology follow-up encounter Chronic upper GI bleeding Gastric reflux GI (gastrointestinal bleed) H/O hereditary hemorrhagic telangiectasia (HHT) History of echocardiogram History of steroid therapy Low iron Migraines Non-smoker Post-menopausal Symptomatic anemia Wears hearing aid Home Medications ascorbic acid (vitamin C) 1,000 mg tablet 1,000 mg PO DAILY SUPPLEMENT 11/24/19 [History Last Taken 09/07/23] folic acid 1 mg tablet 1 mg PO DAILY SUPPLEMENT 11/24/19 [History Last Taken 09/07/23] omeprazole 20 mg capsule,delayed release 20 mg PO DAILY gerd 11/24/19 [History Last Taken 09/08/23] vitamin B complex (B Complex-Vitamin B12 tablet) 1 tab PO DAILY supplement 04/15/21 [History Last Taken 09/07/23] catalyn gf 1 tab PO DAILY supplement 02/24/22 [History Last Taken 09/07/23] iron sucrose 50 mg iron/2.5 mL intravenous solution 50 mg IV .monthly supplement 02/24/22 [History Last Taken 09/01/23] orthomune 1 tab PO DAILY supplement 02/24/22 [History Last Taken 09/07/23] bevacizumab 25 mg/mL intravenous solution (Avastin) 25 mg intravitreal .Q4MO infusion 04/21/22 [History Last Taken 08/18/23] osteobase 3 tab PO DAILY supplement 05/18/23 [History Last Taken 09/07/23] estradiol 0.01% (0.1 mg/gram) vaginal cream 0.1 applic vaginal TUTHSA vag itching 08/18/23 [History Last Taken 09/07/23] TADEO FOOD 1 cap PO DAILY supplement 09/06/23 [History Last Taken 09/07/23] budesonide 0.5 mg/2 mL suspension for nebulization 0.5 mg irrigation DAILY breathing 09/06/23 [History Last Taken 09/07/23] d-mannose 500 mg capsule 500 mg PO DAILY supplement 09/06/23 [History Last Taken 09/07/23] rizatriptan 10 mg disintegrating tablet 10 mg PO Q2H PRN migraine headache 09/09/23 [History Last Taken Unknown] Allergy/AdvReac Type Severity Reaction Status Date / Time bacitracin Allergy Unknown Rash Verified 09/08/23 09:36 Family History Mother Cancer Squamous Basal Cell Father Cancer Lymphoma HHT (hereditary hemorrhagic telangiectasia) Surgical History History of back surgery History of cholecystectomy History of foot surgery History of nasal surgery History of neck surgery Hx of colonoscopy Hx of esophagogastroduodenoscopy Hx of shoulder replacement Social History Smoking Status: Never smoker alcohol intake: never substance use type: does not use caffeine: Yes Type: tea Number of servings: 2 what type of physical activity do you participate in: walking frequency: 3-4 times per week seatbelt use: always do you feel safe at home: Yes 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 Constitutional Constitutional: Denies change in weight, chills, fatigue, frequent falls, headache(s) or lethargy Eyes Eyes: Denies acute decrease in peripheral vision, blurry vision or change in vision ENT HEENT: Denies dizziness, dry mouth, epistaxis, headache(s), tinnitus or vertigo Cardiovascular Cardiovascular: Denies chest pain at rest, chest pain with activity, claudication, dyspnea at rest, dyspnea on exertion, edema, irregular heart rhythm, lightheadedness, orthopnea, orthostatic symptoms, palpitations or pedal edema Respiratory/Chest Respiratory/Chest: Denies cough, dyspnea, dyspnea on exertion, tachypnea or wheezing Gastrointestinal Gastrointestinal: Denies abdominal pain, bloating, coffee ground emesis, diarrhea, heartburn, hematemesis, hematochezia, melena or nausea Genitourinary Genitourinary: Denies hematuria Musculoskeletal Musculoskeletal: Denies myalgias, numbness or tingling Neurologic Neurologic: Denies abnormal gait, abnormal speech, memory loss, paresthesias or weakness Physical Exam Const alert, oriented x3, no apparent distress and healthy appearing HEENT normocephalic, head/scalp atraumatic, hearing grossly normal bilaterally, external ears normal, external nose normal and moist oral mucous membranes Eyes PERRL, EOMs intact bilaterally, conjunctivae normal and no scleral icterus Neck no lymphadenopathy, supple and no JVD Resp normal respiratory effort and clear to auscultation bilaterally Cardio regular rate, regular rhythm, S1 normal heart sound, S2 normal heart sound, no murmurs, no rub, no gallops, no clicks, no JVD and peripheral pulses 2+ th roughout GI normal to inspection, nondistended, normoactive bowel sounds, soft to palpation, non-tender and non-distended Extremity normal to inspection, normal capillary refill, no clubbing, cyanosis or edema and no pedal edema Neuro oriented x3, CN's II-XII intact bilaterally, moves all extremities and no focal motor deficits Psych cooperative and affect normal Risk Stratification Risk Stratification Applicable: Yes Age >/= 65: Yes >/= 3 CAD Risk Factors (HTN, HLD, DM, family hx of CAD, or current smoker): No Aspirin Use in the Past 7 Days: No Severe Angina (>/= episodes in 24 hours): No EKG ST Changes >/= 0.5mm: No Positive Cardiac Marker: Yes MAGGIE Risk Stratification Score: 2 MAGGIE % Risk: 8% Risk 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 Next of kin: [place] law dictates a PRIORITY LIST for identifying legal decision-maker/legal next of kin in the following order (LNOK): 1st: The patient?s legal guardian, if any 2nd: The patient's spouse (if status is questionable, consult Risk Management) 3rd: The patient?s adult child(jensen) (majority, if multiple children) 4th: The patient?s parents 5th: The patient?s adult siblings (majority, if multiple children siblings) Charges/Coding Visit Charges Office Visits / Consults: 31840 OP Consult L3 Objective Data Vital Signs: Vital Signs Temp Pulse Resp BP Pulse Ox O2 Del Method O2 Flow Rate 98.5 F 82 18 102/64 99 Room Air 36 09/09/23 10:15 09/09/23 10:15 09/09/23 10:15 09/09/23 10:15 09/09/23 10:15 09/09/23 10:15 09/08/23 14:00 Oxygen Flow Rate (L/min) 36 Oxygen Delivery Method Room Air Weight: 141 lb 1.533 oz Body Mass Index (BMI) 22.7 Intake & Output: Intake and Output for Last 24 Hours 09/07/23 09/08/23 09/09/23 23:59 23:59 23:59 Intake Total 9916 / 1685 1120 / 1120 Balance 4657 / 4657 1120 / 1120 Lab / Micro Data 09/09/23 07:30 09/09/23 07:30 Labs: Laboratory Results - last 24 hr 09/08/23 19:10: Troponin I High Sens 242 H* 09/08/23 23:50: Troponin I High Sens 246 H* 09/09/23 07:30: WBC 8.4, RBC 3.40 L, Hgb 9.9 L, Hct 33.1 L, MCV 97.4, MCH 29.1, MCHC 29.9 L, RDW Std Deviation 60.4 H, RDW Coeff of Marques 16.8 H, Plt Count 158, MPV 10.2, Immature Gran % (Auto) 0.500, Neut % (Auto) 89.9 H, Lymph % (Auto) 4.1 L, [place] % (Auto) 4.7, Eos % (Auto) 0.4, Baso % (Auto) 0.4, Absolute Neuts (auto) 7.6, Absolute Lymphs (auto) 0.35 L, Nucleated RBC % 0, Differential Comment S, Sodium 141, Potassium 3.7, Chloride 110 H, Carbon Dioxide 28.0, Anion Gap 3 L, BUN 11, Creatinine 0.50 L, Estim Creat Clear Calc 58.63, Est GFR (MDRD) Af Amer 156, Est GFR (MDRD) Non-Af 129, BUN/Creatinine Ratio 22.0 H, Glucose 105, Calcium 8.2 L, Phosphorus 1.7 L, Magnesium 2.0, Total Bilirubin 0.40, AST 60 H, ALT 66 H, Alkaline Phosphatase 74, Troponin I High Sens Cancelled, Total Protein 5.2 L, Albumin 2.7 L, Globulin 2.5, Albumin/Globulin Ratio 1.1, TSH 0.66 Cardiology Labs/Tests 09/09/23 07:30: WBC 8.4, RBC 3.40 L, Hgb 9.9 L, Hct 33.1 L, MCV 97.4, MCH 29.1, MCHC 29.9 L, Plt Count 158, MPV 10.2, Immature Gran % (Auto) 0.500, Neut % (Auto) 89.9 H, Lymph % (Auto) 4.1 L, [place] % (Auto) 4.7, Eos % (Auto) 0.4, Baso % (Auto) 0.4, Absolute Neuts (auto) 7.6, Nucleated RBC % 0, Sodium 141, Potassium 3.7, Chloride 110 H, Carbon Dioxide 28.0, Anion Gap 3 L, BUN 11, Creatinine 0.50 L, Est GFR (MDRD) Af Amer 156, Est GFR (MDRD) Non-Af 129, BUN/Creatinine Ratio 22.0 H, Glucose 105, Calcium 8.2 L, Phosphorus 1.7 L, Magnesium 2.0, Total Bilirubin 0.40 Documented by User: Dr. Azeem Acosta MD 09/10/23 12:19 Assessment & Plan Assessment/Plan (1) Arrhythmia: (2) Heart block: (3) Elevated troponin: HPI Consult Data Date of Consult: 09/10/23 HPI Narrative HPI Narrative: DERECK LÓPEZ, is a 73 F who was undergoing an EGD. She does have a history of H Ht. While patient was in recovery she was noted to have none conducted P waves on her telemetry strip. Her blood pressure was also low during this time. In talking with PACU nurse, she notes that patient had an oral airway in and started gagging this is when she had 1 episode of nonconducted P waves. She had her second episode of nonconducted P waves while patient's airway was obstructive by her tongue. She then had a nasal pharyngeal airway placed, shortly after this she had another episode of heart block with nonconducted P waves. She was admitted for observation. Heart troponins did trend from 4 0/242/246. Patient notes that she is fairly active at home. She does exercise routinely. She has never had any lightheadedness, dizziness, syncopal episodes. She has not had any irregular rhythms that she has felt. She has not noted any slow heartbeats. She does not have any worsening shortness of breath or fatigue. The only time she feels short of breath or fatigued is when her hemoglobin is low. Discussed in detail cardiac care plan patient will follow by Dr. House as an outpatient with event monitor for 2 weeks. 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 [facility] Medical History ABLA (acute blood loss anemia) Anemia Cardiology follow-up encounter Chronic upper GI bleeding Gastric reflux GI (gastrointestinal bleed) H/O hereditary hemorrhagic telangiectasia (HHT) History of echocardiogram History of steroid therapy Low iron Migraines Non-smoker Post-menopausal Symptomatic anemia Wears hearing aid Home Medications ascorbic acid (vitamin C) 1,000 mg tablet 1,000 mg PO DAILY SUPPLEMENT 11/24/19 [History Last Taken 09/07/23] folic acid 1 mg tablet 1 mg PO DAILY SUPPLEMENT 11/24/19 [History Last Taken 09/07/23] omeprazole 20 mg capsule,delayed release 20 mg PO DAILY gerd 11/24/19 [History Last Taken 09/08/23] vitamin B complex (B Complex-Vitamin B12 tablet) 1 tab PO DAILY supplement 04/15/21 [History Last Taken 09/07/23] catalyn gf 1 tab PO DAILY supplement 02/24/22 [History Last Taken 09/07/23] iron sucrose 50 mg iron/2.5 mL intravenous solution 50 mg IV .monthly supplement 02/24/22 [History Last Taken 09/01/23] orthomune 1 tab PO DAILY supplement 02/24/22 [History Last Taken 09/07/23] bevacizumab 25 mg/mL intravenous solution (Avastin) 25 mg intravitreal .Q4MO infusion 04/21/22 [History Last Taken 08/18/23] osteobase 3 tab PO DAILY supplement 05/18/23 [History Last Taken 09/07/23] estradiol 0.01% (0.1 mg/gram) vaginal cream 0.1 applic vaginal TUTHSA vag itching 08/18/23 [History Last Taken 09/07/23] TADEO FOOD 1 cap PO DAILY supplement 09/06/23 [History Last Taken 09/07/23] budesonide 0.5 mg/2 mL suspension for nebulization 0.5 mg irrigation DAILY breathing 09/06/23 [History Last Taken 09/07/23] d-mannose 500 mg capsule 500 mg PO DAILY supplement 09/06/23 [History Last Taken 09/07/23] rizatriptan 10 mg disintegrating tablet 10 mg PO Q2H PRN migraine headache 09/09/23 [History Last Taken Unknown] Allergy/AdvReac Type Severity Reaction Status Date / Time bacitracin Allergy Unknown Rash Verified 09/08/23 09:36 Family History Mother Cancer Squamous Basal Cell Father Cancer Lymphoma HHT (hereditary hemorrhagic telangiectasia) Surgical History History of back surgery History of cholecystectomy History of foot surgery History of nasal surgery History of neck surgery Hx of colonoscopy Hx of esophagogastroduodenoscopy Hx of shoulder replacement Social History Smoking Status: Never smoker alcohol intake: never substance use type: does not use caffeine: Yes Type: tea Number of servings: 2 what type of physical activity do you participate in: walking frequency: 3-4 times per week seatbelt use: always do you feel safe at home: Yes additional social history: - Retired Risk Stratification Age >/= 65: Yes MAGGIE Risk Stratification Score: 2 MAGGIE % Risk: 8% Risk Lab / Micro Data 09/09/23 07:30 09/09/23 07:30
--- NOTE | 2023-09-09 14:20 | PHA.DC.MR.R ---
Pharmacy [place] Med Reconciliation Pharmacy Service has performed discharge medication reconciliation for this patient. The patient's discharge medication list was reviewed for discrepancies and discrepancies were resolved. Medications at Discharge Home Medications ascorbic acid (vitamin C) 1,000 mg tablet 1,000 mg PO DAILY SUPPLEMENT 11/24/19 folic acid 1 mg tablet 1 mg PO DAILY SUPPLEMENT 11/24/19 omeprazole 20 mg capsule,delayed release 20 mg PO DAILY gerd 11/24/19 vitamin B complex (B Complex-Vitamin B12 tablet) 1 tab PO DAILY supplement 04/15/21 catalyn gf 1 tab PO DAILY supplement 02/24/22 iron sucrose 50 mg iron/2.5 mL intravenous solution 50 mg IV .monthly supplement 02/24/22 orthomune 1 tab PO DAILY supplement 02/24/22 bevacizumab 25 mg/mL intravenous solution (Avastin) 25 mg intravitreal .Q4MO infusion 04/21/22 osteobase 3 tab PO DAILY supplement 05/18/23 estradiol 0.01% (0.1 mg/gram) vaginal cream 0.1 applic vaginal TUTHSA vag itching 08/18/23 TADEO FOOD 1 cap PO DAILY supplement 09/06/23 budesonide 0.5 mg/2 mL suspension for nebulization 0.5 mg irrigation DAILY breathing 09/06/23 d-mannose 500 mg capsule 500 mg PO DAILY supplement 09/06/23 rizatriptan 10 mg disintegrating tablet 10 mg PO Q2H PRN migraine headache 09/09/23
--- NOTE | 2023-09-09 14:21 | CASEMGMT ---
RAHEEM VALDEZ NOTE: Pt being discharged. RAHEEM VALDEZ to room. Pt resting in bed. Introduced self and role. Pt states she lives alone and is independent. She states her daughter will take her home today. She denies having any discharge needs. Kelly AGUILARN RAHEEM VALDEZ
[2023-09-09 15:08] VITALS: BP 102/64; PULSE 82; RESP 18; TEMP 36.9; O2SAT 99
== END 2023-09-09 13:14 | disposition home or self-care (01) ==
LOC: EN 17:12 → PCU 17:12
PROVIDERS: Anesthesiology; Internal Medicine Gastroenterology; Admitting Provider Internal Medicine; PCP Family Medicine; Referring Provider Family Medicine; Visit Provider Internal Medicine
PROC: 0DJ08ZZ Inspection of Upper Intestinal Tract, Via Natural or Artificial Opening Endoscopic (ICD-10-PCS; CPT 43235; principal; 2023-09-08 10:10)
DX: R00.1 Bradycardia, unspecified (principal); D59.8 Other acquired hemolytic anemias; I85.00 Esophageal varices without bleeding; I78.0 Hereditary hemorrhagic telangiectasia; I45.9 Conduction disorder, unspecified; R11.0 Nausea; E83.39 Other disorders of phosphorus metabolism; R77.8 Other specified abnormalities of plasma proteins; K31.811 Angiodysplasia of stomach and duodenum with bleeding; I95.9 Hypotension, unspecified; K21.9 Gastro-esophageal reflux disease without esophagitis; K31.819 Angiodysplasia of stomach and duodenum without bleeding; Z79.899 Other long term (current) drug therapy; I08.1 Rheumatic disorders of both mitral and tricuspid valves
CPT/HCPCS: 43255; 36415; 80048; 80053; 83735; 84100; 84443; 84484; 85014; 85018; 85025; 93005; 93306; 96361; 96365; 96366; 99221; J7050; J7120; G0378; J2405

== ENCOUNTER → 2023-09-09 | Outpatient (CLI) | payer MEDICARE, OTHER, SELFPAY ==
--- OUTSIDE RECORDS SUMMARY | 2023-09-09 14:08 | XMS RPT_ITS | CCD ---
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 Lines Person Name Role Phone Anders Simms PA-C Unavailable [phone] Malys DO, Mariaelena A Primary Care Provider Malys DO, Mariaelena A Primary Care Provider [phone] Malys DO, Mariaelena A Primary Care Provider [...] three times daily as needed for headache [id number] AFFEINE 50-325-40 MG TABS 1 po up to three times daily as needed for headaches [id number] AFFEINE [id number] Jeannine Hedrick LPN Problems Active Problems Problem [...] temperature 97.81 [degF] Treatment Wstr Work Phone: [facility] 08-05-2023 13:35-0500 Diastolic blood pressure 52 mm[Hg] Treatment Wstr Work Phone: [facility] 08-05-2023 13:35-0500 Heart rate 96 /min Treatment Wstr Work Phone: [facility] 08-05-2023 13:35-0500 Respiratory rate 16 /min Treatment Wstr Work Phone: [facility] 08-05-2023 13:35-0500 SaO2% (BldA) [Mass fraction] 100 % Treatment Wstr Work Phone: [facility] 08-05-2023 13:35-0500 Systolic blood pressure 127 mm[Hg] Treatment Wstr Work Phone: [facility] 07-08-2023 14:02-0500 Body temperature 97.5 [degF] Treatment Wstr Work Phone: [facility] 07-08-2023 14:02-0500 Diastolic blood pressure 48 mm[Hg] Treatment Wstr Work Phone: [facility] 07-08-2023 14:02-0500 Heart rate 70 /min Treatment Wstr Work Phone: [facility] 07-08-2023 14:02-0500 Respiratory rate 16 /min Treatment Wstr Work Phone: [facility] 07-08-2023 14:02-0500 SaO2% (BldA) [Mass fraction] 100 % Treatment Wstr Work Phone: [facility] 07-08-2023 14:02-0500 Systolic blood pressure 121 mm[Hg] Treatment Wstr Work Phone: [facility] 04-27-2023 14:04-0400 Body temperature 98.2 [degF] Treatment Wstr Work Phone: [facility] 04-27-2023 14:04-0400 Body weight 63.96 kg Treatment Wstr Work Phone: [facility] 04-27-2023 14:04-0400 Diastolic blood pressure 66 mm[Hg] Treatment Wstr Work Phone: [facility] 04-27-2023 14:04-0400 Heart rate 85 /min Treatment Wstr Work Phone: [facility] 04-27-2023 14:04-0400 Respiratory rate 18 /min Treatment Wstr Work Phone: [facility] 04-27-2023 14:04-0400 Systolic blood pressure 105 mm[Hg] Treatment Wstr Work Phone: [facility] 04-15-2023 11:54-0400 Body temperature 97.39 [degF] Treatment Wstr Work Phone: [facility] 04-15-2023 11:54-0400 Diastolic blood pressure 54 mm[Hg] Treatment Wstr Work Phone: [facility] 04-15-2023 11:54-0400 Heart rate 75 /min Treatment Wstr Work Phone: [facility] 04-15-2023 11:54-0400 Systolic blood pressure 102 mm[Hg] Treatment Wstr Work Phone: [facility] 03-18-2023 10:08-0400 Body temperature 97.39 [degF] Treatment Wstr Work Phone: [facility] 03-18-2023 10:08-0400 Body weight 62.82 kg Treatment Wstr Work Phone: [facility] 03-18-2023 10:08-0400 Diastolic blood pressure 51 mm[Hg] Treatment Wstr Work Phone: [facility] 03-18-2023 10:08-0400 Heart rate 73 /min Treatment Wstr Work Phone: [facility] 03-18-2023 10:08-0400 Systolic blood pressure 110 mm[Hg] Treatment Wstr Work Phone: [facility] 02-18-2023 14:11-0400 Body temperature 97 [degF] Treatment Wstr Work Phone: [facility] 02-18-2023 14:11-0400 Diastolic blood pressure 47 mm[Hg] Treatment Wstr Work Phone: [facility] 02-18-2023 14:11-0400 Heart rate 72 /min Treatment Wstr Work Phone: [facility] 02-18-2023 14:11-0400 Systolic blood pressure 109 mm[Hg] Treatment Wstr Work Phone: [facility] 01-21-2023 14:00-0400 Body temperature 97.5 [degF] Treatment Wstr Work Phone: [facility] 01-21-2023 14:00-0400 Diastolic blood pressure 55 mm[Hg] Treatment Wstr Work Phone: [facility] 01-21-2023 14:00-0400 Heart rate 68 /min Treatment Wstr Work Phone: [facility] 01-21-2023 14:00-0400 Respiratory rate 18 /min Treatment Wstr Work Phone: [facility] 01-21-2023 14:00-0400 SaO2% (BldA) [Mass fraction] 100 % Treatment Wstr Work Phone: [facility] 01-21-2023 14:00-0400 Systolic blood pressure 113 mm[Hg] Treatment Wstr Work Phone: [facility] 01-04-2023 13:00-0400 Body weight 63.28 kg Treatment Wstr Work Phone: [facility] 01-04-2023 13:00-0400 Diastolic blood pressure 44 mm[Hg] Treatment Wstr Work Phone: [facility] 01-04-2023 13:00-0400 Heart rate 74 /min Treatment Wstr Work Phone: [facility] 01-04-2023 13:00-0400 Respiratory rate 16 /min Treatment Wstr Work Phone: [facility] 01-04-2023 13:00-0400 SaO2% (BldA) [Mass fraction] 100 % Treatment Wstr Work Phone: [facility] 01-04-2023 13:00-0400 Systolic blood pressure 99 mm[Hg] Treatment Wstr Work Phone: [facility] 12-24-2022 09:17-0400 Body temperature 97.5 [degF] Treatment Wstr Work Phone: [facility] 12-24-2022 09:17-0400 Diastolic blood pressure 63 mm[Hg] Treatment Wstr Work Phone: [facility] 12-24-2022 09:17-0400 Heart rate 73 /min Treatment Wstr Work Phone: [facility] 12-24-2022 09:17-0400 SaO2% (BldA) [Mass fraction] 100 % Treatment Wstr Work Phone: [facility] 12-24-2022 09:17-0400 Systolic blood pressure 110 mm[Hg] Treatment Wstr Work Phone: [facility] 11-26-2022 11:15-0400 Diastolic blood pressure 45 mm[Hg] Treatment Wstr Work Phone: [facility] 11-26-2022 11:15-0400 Heart rate 63 /min Treatment Wstr Work Phone: [facility] 11-26-2022 11:15-0400 Systolic blood pressure 103 mm[Hg] Treatment Wstr Work Phone: [facility] 09-15-2022 13:00-0500 Body temperature 98.01 [degF] Treatment Wstr Work Phone: [facility] 09-15-2022 13:00-0500 Diastolic blood pressure 60 mm[Hg] Treatment Wstr Work Phone: [facility] 09-15-2022 13:00-0500 Heart rate 89 /min Treatment Wstr Work Phone: [facility] 09-15-2022 13:00-0500 Systolic blood pressure 112 mm[Hg] Treatment Wstr Work Phone: [facility] 09-14-2022 14:13-0500 Body height 166.4 cm Jesus Masci DO Work Phone: [facility] 09-14-2022 14:13-0500 Body temperature 97.59 [degF] Jesus Masci DO Work Phone: [facility] 09-14-2022 14:13-0500 Body weight 63.05 kg Jesus Masci DO Work Phone: [facility] 09-14-2022 14:13-0500 Diastolic blood pressure 58 mm[Hg] Jesus Masci DO Work Phone: [facility] 09-14-2022 14:13-0500 Heart rate 82 /min Jesus Masci DO Work Phone: [facility] 09-14-2022 14:13-0500 Systolic blood pressure 122 mm[Hg] Jesus Masci DO Work Phone: [facility] 08-06-2022 10:43-0500 Body temperature 96.49 [degF] Treatment Wstr Work Phone: [facility] 08-06-2022 10:43-0500 Diastolic blood pressure 51 mm[Hg] Treatment Wstr Work Phone: [facility] 08-06-2022 10:43-0500 Heart rate 84 /min Treatment Wstr Work Phone: [facility] 08-06-2022 10:43-0500 Respiratory rate 18 /min Treatment Wstr Work Phone: [facility] 08-06-2022 10:43-0500 SaO2% (BldA) [Mass fraction] 100 % Treatment Wstr Work Phone: [facility] 08-06-2022 10:43-0500 Systolic blood pressure 111 mm[Hg] Treatment Wstr Work Phone: [facility] 05-01-2022 13:36-0400 Body temperature 97.59 [degF] Treatment Wstr Work Phone: [facility] 05-01-2022 13:36-0400 Diastolic blood pressure 50 mm[Hg] Treatment Wstr Work Phone: [facility] 05-01-2022 13:36-0400 Heart rate 76 /min Treatment Wstr Work Phone: [facility] 05-01-2022 13:36-0400 Respiratory rate 16 /min Treatment Wstr Work Phone: [facility] 05-01-2022 13:36-0400 SaO2% (BldA) [Mass fraction] 100 % Treatment Wstr Work Phone: [facility] 05-01-2022 13:36-0400 Systolic blood pressure 110 mm[Hg] Treatment Wstr Work Phone: [facility] 04-23-2022 10:00-0400 Body temperature 96.8 [degF] Treatment Wstr Work Phone: [facility] 04-23-2022 10:00-0400 Diastolic blood pressure 72 mm[Hg] Treatment Wstr Work Phone: [facility] 04-23-2022 10:00-0400 Heart rate 86 /min Treatment Wstr Work Phone: [facility] 04-23-2022 10:00-0400 Systolic blood pressure 122 mm[Hg] Treatment Wstr Work Phone: [facility] 03-26-2022 09:06-0400 Body temperature 97.11 [degF] Treatment Wstr Work Phone: [facility] 03-26-2022 09:06-0400 Diastolic blood pressure 42 mm[Hg] Treatment Wstr Work Phone: [facility] 03-26-2022 09:06-0400 Heart rate 81 /min Treatment Wstr Work Phone: [facility] 03-26-2022 09:06-0400 Systolic blood pressure 113 mm[Hg] Treatment Wstr Work Phone: [facility] 03-19-2022 08:43-0400 Body height 165.1 cm Jesus Masci DO Work Phone: [facility] 03-19-2022 08:43-0400 Body temperature 97.81 [degF] Jesus Masci DO Work Phone: [facility] 03-19-2022 08:43-0400 Body weight 63.05 kg Jesus Masci DO Work Phone: [facility] 03-19-2022 08:43-0400 Diastolic blood pressure 58 mm[Hg] Jesus Masci DO Work Phone: [facility] 03-19-2022 08:43-0400 Heart rate 66 /min Jesus Masci DO Work Phone: [facility] 03-19-2022 08:43-0400 Respiratory rate 14 /min Jesus Masci DO Work Phone: [facility] 03-19-2022 08:43-0400 SaO2% (BldA) [Mass fraction] 100 % Jesus Masci DO Work Phone: [facility] 03-19-2022 08:43-0400 Systolic blood pressure 122 mm[Hg] Jesus Masci DO Work Phone: [facility] 01-01-2022 09:17-0400 Body temperature 97.11 [degF] Treatment Wstr Work Phone: [facility] 01-01-2022 09:17-0400 Body weight 62.82 kg Treatment Wstr Work Phone: [facility] 01-01-2022 09:17-0400 Diastolic blood pressure 57 mm[Hg] Treatment Wstr Work Phone: [facility] 01-01-2022 09:17-0400 Heart rate 76 /min Treatment Wstr Work Phone: [facility] 01-01-2022 09:17-0400 Systolic blood pressure 116 mm[Hg] Treatment Wstr Work Phone: [facility] 07-19-2017 10:03-0500 BMI (Body Mass Index) 21.8 kg/m2 Anders Mendez [facility] Work Phone: 07-19-2017 10:03-0500 Body Temperature 97.9 [degF] Anders Mendez [facility] Work Phone: 07-19-2017 10:03-0500 BP Diastolic 74 mm[Hg] Anders Mendez [facility] Work Phone: 07-19-2017 10:03-0500 BP Systolic 118 mm[Hg] Anders Mendez [facility] Work Phone: 07-19-2017 10:03-0500 Height 170.18 cm Anders Mendez [facility] Work Phone: 07-19-2017 10:03-0500 Pulse (Heart Rate) 88 /min Anders Mendez [facility] Work Phone: 07-19-2017 10:03-0500 Respiratory Rate 12 /min Anders Mendez [facility] Work Phone: 07-19-2017 10:03-0500 Weight 63.14 kg Anders Mendez [facility] Work Phone: 07-04-2014 09:12-0500 BSA (Body Surface Area) 1.72 m2 Anders Mendez [facility] Work Phone: Encounters Encounter Date Encounter Type Care Provider Facility Start: 09-02-2023 End: 09-03-2023 ambulatory JESUS SOTO Facility:[facility] Start: 08-24-2023 End: 08-25-2023 ambulatory RACHEL RAMIREZ Facility:[facility] Start: 08-18-2023 End: 08-19-2023 ambulatory JESUS Kinag JINKellee Facility:[facility] Start: 08-05-2023 End: 08-06-2023 ambulatory Treatment Rm 12 [facility] Wstr Work Phone: Hematology/Oncology Procedures Date Procedure [...] Activity Detail Author Start: 10-14-2025 Colonoscopy COLONOSCOPY [facility] Start: 10-14-2025 COLORECTAL CANCER SCREENING COLORECTAL CANCER SCREENING [facility] Start: 10-14-2025 Screening for malignant neoplasm of colon [facility] Start: 09-14-2025 DIABETES SCREEN DIABETES SCREEN [facility] Start: 09-14-2025 Diabetes Screening Diabetes Screening [facility] Start: 06-07-2023 Urine microalbumin profile [facility] Start: 04-23-2023 Covid-19 Vaccine ( season) Covid-19 Vaccine () [facility] Start: 04-23-2023 Influenza vaccination [facility] Start: 09-20-2022 DIABETES SCREEN DIABETES SCREEN [facility] Start: 09-14-2022 End: 11-14-2022 CBC W Auto Differential panel - Blood CBC + DIFF Lab STAT Hereditary hemorrhagic telangiectasia (HCC) 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 loss Expected: 09/14/2022, Expires: 11/14/2022 [facility] Work Phone: Immunizations Immunization Date Immunization Notes Care Provider [facility] 08-20-2016 influenza virus vacc ine, unspecified formulation Treatment Wstr Work Phone: [facility] 06-13-2015 influenza, injectabl e, quadrivalent, preservative free Jesus Soto DO Work Phone: [facility] 07-10-2013 influenza virus vacc ine, unspecified formulation Jesus Jini DO Work Phone: [facility] 06-07-2013 tetanus toxoid, redu lizzie diphtheria toxoid, and acellular pertussis vaccine, adsorbed Jesus Charles DO Work Phone: [facility] Payers Date Payer Category Payer Medicare [id number] 2016 Unknown SHARDA FAULKNER DICARE SUPPLEMENT [id number] 2016-Present [phone] [address] [place] [address] Indemnity [id number] 2016 Unknown SHARDA FAULKNER DICARE SUPPLEMENT [id number] 2016-Present [phone] [address] [place] [id number] Indemnity [id number] 2012 Medicare MEDICARE MEDICAR E A AND B [id number] 2012-Present [phone] [place] [address] Medicare [id number] 2012 Medicare MEDICARE MEDICAR E A AND B [id number] 2012-Present [phone] [place] [address] Medicare [id number] 2012 Medicare [id number] Social History Date Type Detail Facility Start: 07-06-2011 Tobacco smoking stat [facility] Never smoked tobacco [facility] Work Phone: Start: 12-23-2020 End: 03-18-2023 Alcohol intake Current non-drinker of alcohol (finding) [facility] Start: 1950 Sex Assigned At Not on file [facility] Start: 10-27-2021 End: 03-19-2022 Exposure to SARS-CoV-2 (event) Not sure [facility] Start: 07-06-2011 Tobacco use and exposure Smokeless tobacco non-user [facility] Work Phone: Start: 12-24-2022 End: 03-18-2023 History of Social function [facility] Start: 12-24-2022 End: 03-18-2023 Tobacco use panel [facility] National Score (1-100), lower number is lower risk 35 [facility] Clinical Notes 09-26-2015 to 08-18-2023 Telephone Encounter - Kristy Hayes LPN - 08/05/2023 2:54 PM Brittany Monteiro RN - 08/05/2023 2:25 PM Mariaelena Ashley RT(R) - 05/13/2023 11:20 AM Jesus Youngblood DO - 03/18/2023 11:17 AM EDT Note Date & Type Note Facility 08-18-2023 Note HNO ID: [id number] Author: Krzysztof Gonzales, RAHEEM Service: ? Author Type: Registered Nurse Type: Progress Notes Filed: 08/18/2023 3:09 PM Note Text: Dr. Ramirez aware of today's hemoglobin. Pt scheduled to receive 3 units of PRBC tomorrow morning at [facility]. Pt aware of her hemoglobin and how low it is. She is advised to go to the nearest ER if she feels any worse. Pt states she prefers to do transfusion tomorrow but is considering going to the ER after this visit. [facility] 08-05-2023 Note HNO ID: [id number] Author: Brittany Norris, RAHEEM Service: ? Author Type: Registered Nurse Type: Progress Notes Filed: 08/05/2023 2:37 PM Note Text: spoke with Dr Soto in regards to patient not feeling well and hgb today is 8.2. Stated he will order a transfusion for tomorrow [facility] 08-05-2023 Miscellaneous Notes Pt. Scheduled for transfusion 2 units packed cells@ [facility] 08/06 @ 8 am. Pt. And lab Notified orders faxed. Kristy Hayes LPN documented in this encounter [facility] 08-05-2023 History of Presen t illness Narrative spoke with Dr Soto in regards to patient not feeling well and hgb today is 8.2. Stated he will order a transfusion for tomorrow documented in this encounter [facility] 05-13-2023 Note HNO ID: [id number] Author: Mariaelena Mendenhall RT(R) Service: ? Author [...] DATE: May 13, 2023 TIME: 11:40 AM [facility] 05-13-2023 History of Presen t illness Narrative [...] TIME: 11:40 AM documented in this encounter [facility] 03-18-2023 Note HNO ID: [id number] Author: Jesus Soto, DO Service: ? Author [...] No jaundice or rash. No petechiae. NEUROLOGIC: health inspector food II-XII are grossly intact. No focal motor [...] k/uL 0.66 (L) 0.67 (L) 0.57 (L) Pratt% % 7.6 7.4 6.7 Abs Pratt <0.87 k/uL 0.43 0.36 0.31 Eosin% % [...] -She will continue to follow-up with her feather washer and energy consultant for echocardiogram for monitoring for pulmonary hypertension/cardiomyopathy. Portions of this documentation were copied and pasted from previous office visit notes in order to provide a cohesive continuity of the history. The note has been reviewed and edited and updated as necessary. I spent a total of 20 minutes on the date of the service which included prepari (more content not included)... [facility] 03-18-2023 History of Presen t illness Narrative [...] No jaundice or rash. No petechiae. NEUROLOGIC: health inspector food II-XII are grossly intact. No focal motor [...] k/uL 0.66 (L) 0.67 (L) 0.57 (L) Pratt% % 7.6 7.4 6.7 Abs Pratt <0.87 k/uL 0.43 0.36 0.31 Eosin% % [...] -She will continue to follow-up with her feather washer and energy consultant for echocardiogram for monitoring for pulmonary hypertension/cardiomyopathy. Portions of this documentation were copied and pasted from previous office visit notes in order to provide a cohesive continuity of the history. The note has been reviewed and edited and updated as necessary. I spent a total of 20 minutes on the date of the service which included preparing to see the patient, [id number] patient care, completing clinical documentation, obtaining and/or reviewing separately obtained history, performing a medically appropriate examination, counseling and educating the patient/family/caregiver, communicating with other HCPs (not separately reported), and communicating results to the patient/family/caregiver. Jesus Soto DO documented in this encounter [facility] 01-04-2023 Note HNO ID: [id number] Author: Erika Garay RN Service: ? Author Type: Registered Nurse Type: Progress Notes Filed: 01/04/2023 3:08 PM Note Text: Pt request blood transfusion due to extreme fatigue and SOB with activity. Orders received for 2 units packed RBC's; pt has appt for tomorrow for both units. Verbalized understanding and denies other needs. Erika Garay RN [facility] 01-04-2023 Miscellaneous Notes CBC reviewed by Dr Soto. Order received for 2 PRBC. Spoke with Priscila at [facility]. Appointment received for 01/05@8:30a. Order faxed to [facility]. Alba in lab notified to prepare blood. Order to lab. Pt here for infusion. Appointment time given. Pt verbalized understanding. Mikayla Enamorado RN documented in this encounter [facility] 01-04-2023 History of Presen t illness Narrative Pt request blood transfusion due to extreme fatigue and SOB with activity. Orders received for 2 units packed RBC's; pt has appt for tomorrow for both units. Verbalized understanding and denies other needs. Erika Garay RN documented in this encounter [facility] 12-24-2022 Miscellaneous Notes SW met with pt this date. Pt reporting she is due to renew her assistance for Avastin through [employer]. SW and pt completed application this date. SW had physician review and sign and SW successfully faxed to [employer] this date. SW sent originals to internal scanning. NORBERTO Ojeda documented in this encounter [facility] 12-15-2022 Miscellaneous Notes Spoke with patient and [...] December. In Dr. Soto last notes her Weapons System Instrument Mechanic recommended the Avastin every 4 months. Last Avastin was 09/15/2022. Dr. Soto do we need to move her Avastin to December? Kristy Darnell LPN documented in this encounter [facility] 12-02-2022 History and physical note SUBSEQUENT VISIT [...] side effects, until she cam back from [place] and has noted worsening of her epistaxis [...] and denies history of recurrent seizures, prior BROILER CHEF OR COOK infections but has migraine headaches that are [...] Master Palmer MD documented in this encounter [facility] 09-14-2022 Note HNO ID: [id number] Author: Jesus Soto, DO Service: ? Author [...] No jaundice or rash. No petechiae. NEUROLOGIC: health inspector food II-XII are grossly intact. No focal motor [...] Lymph 1.00 - 4.00 k/uL 0.39 (L) Pratt% % 8.4 Abs Pratt <0.87 k/uL 0.30 Eosin% % 1.9 Abs [...] iron infusion very well. -Not hypertensive. -Her feather washer had suggested every 4 month dosing on Avastin--very reasonable as she benefits from it. -Recent increase in melena--she requires repeat EGD but declines as she will be going to [place]. She is establishing with a card hand there. Plan: -Continue monthly Monoferric. -Okay for Avastin today. -Continue PPI. -She will continue to follow-up with her feather washer and energy consultant for echocardiogram for monitoring for pulmonary hypertension/cardiomyopathy. [...] and test results (more content not included)... [facility] 09-14-2022 History of Presen t illness Narrative [...] No jaundice or rash. No petechiae. NEUROLOGIC: health inspector food II-XII are grossly intact. No focal motor [...] Lymph 1.00 - 4.00 k/uL 0.39 (L) Pratt% % 8.4 Abs Pratt <0.87 k/uL 0.30 Eosin% % 1.9 Abs [...] iron infusion very well. -Not hypertensive. -Her feather washer had suggested every 4 month dosing on Avastin--very reasonable as she benefits from it. -Recent increase in melena--she requires repeat EGD but declines as she will be going to [place]. She is establishing with a card hand there. Plan: -Continue monthly Monoferric. -Okay for Avastin today. -Continue PPI. -She will continue to follow-up with her feather washer and energy consultant for echocardiogram for monitoring for pulmonary hypertension/cardiomyopathy. [...] Jesus Soto DO documented in this encounter [facility] 09-07-2022 Miscellaneous Notes Patient did not receive her transfusion last week. Patient scheduled for 2 units PRBC 09/08/2022 @ 0900, [facility]. Orders faxed. Patient and lab aware. Kaylen Mir LPN documented in this encounter [facility] 09-05-2022 Miscellaneous Notes All labs attached to appointment as directed. Flora Harp Please draw all additional lab work, entered under this encounter. Next time she is here. She has anemia that seems out of proportion to her iron deficiency, so I don't want to miss other causes for the anemia. Jesus Soto DO documented in this encounter [facility] 09-04-2022 Note HNO ID: [id number] Author: Tamika Kerns RN Service: ? Author Type: Registered Nurse Type: Progress Notes Filed: 09/04/2022 1:45 PM Note Text: Recent records faxed to [place] physician Dr Yonis Callahan at [phone] for up coming visit in Sep when pt is in [place]. [facility] 09-04-2022 History of Presen t illness Narrative Recent records faxed to [place] physician Dr Yonis Callahan at [phone] for up coming visit in Sep when pt is in [place]. documented in this encounter [facility] 09-03-2022 Miscellaneous Notes Pt. Scheduled for transfusion 2 units packed cells @ [facility] 09/04 @ 8:30 am. Pt. And lab notified, orders faxed. Kristy Darnell LPN documented in this encounter [facility] 08-19-2022 Miscellaneous Notes Lab added Patient scheduled for transfusion of 2 units of PRBC to be given at [facility] on 08/20/22 at 0900. Orders faxed, patient notified. Pt will have lab rechecked next week. PSS Please add pt on for a lab (cbc with possible transfusion) on 08/26/21 at 0930. No need to notify patient. Can close encounter after scheduled. Ines Ribeiro LPN documented in this encounter [facility] 08-06-2022 Miscellaneous Notes Pt. Scheduled for transfusion 2 units packed cells @ [facility] 08/07 @ 8:45 am. Pt. And lab notified, orders faxed. [facility]GB 8.9, spoke with pt. Stated she has been passing blood in her stool for approx. 3 weeks, and is leaving Wednesday of next week for [place]. Kristy Darnell LPN documented in this encounter [facility] 07-09-[address] Soto - please sign today's treatment orders. Thank you. documented in this encounter [facility] 06-04-2022 History and physical note SUBSEQUENT VISIT [...] and denies history of recurrent seizures, prior BROILER CHEF OR COOK infections but has migraine headaches that are [...] Master Palmer MD documented in this encounter [facility] 03-19-2022 History of Presen t illness Narrative [...] No jaundice or rash. No petechiae. NEUROLOGIC: health inspector food II-XII are grossly intact. No focal motor [...] (L) 0.46 (L) 0.53 (L) 0.71 (L) Pratt% % 8.5 8.5 8.7 7.7 5.3 Abs Pratt <0.87 k/uL 0.28 0.29 0.26 0.23 0.28 [...] iron infusion very well. -Not hypertensive. -Her feather washer had suggested every 4 month dosing on Avastin. Plan: -Continue monthly Monoferric. We will decrease the frequency to every other month if her ferritin continues to trend higher and she has stable counts otherwise with no increase in bleeding. -Follow up with GI for surveillance EGD. -She will continue to follow-up with her feather washer and energy consultant for echocardiogram for monitoring for pulmonary hypertension/cardiomyopathy. [...] Jesus Soto DO documented in this encounter [facility] 01-01-2022 Miscellaneous Notes More orders for Avastin added. Jesus Soto DO Notes adjusted. Chemo nurse aware. Dr. Soto-please add more orders for future scheduling. Today is the last order. Thank you. Please add her on for Avastin 01/01. Her feather washer requested the frequency of infusions be increased to every 4 months rather than every 6. 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 Dang Rudolph See [facility] message. Schedule for monthly CBC/Iron studies/Monoferric. Jesus Soto DO documented in this encounter [facility] documented as of this encounter (statuses as of 11/28/2021) [facility] History of Past illness Narrative* Problem Noted Date Resolved Date Encounter for screening for malignant neoplasm o f colon 09/26/2015 09/26/2015 Anemia, unspecified 07/01/2005 07/08/2012 documented as of this encounter (statuses as of 12/04/2021) [facility] History of Past illness Narrative* Problem Noted Date Resolved Date Encounter for screening for malignant neoplasm o f colon 09/26/2015 09/26/2015 Anemia, unspecified 07/01/2005 07/08/2012 documented as of this encounter (statuses as of 12/31/2021) [facility] History of Past illness Narrative* Problem Noted Date Resolved Date Encounter for screening for malignant neoplasm o f colon 09/26/2015 09/26/2015 Anemia, unspecified 07/01/2005 07/08/2012 documented as of this encounter (statuses as of 01/01/2022) [facility] History of Past illness Narrative* Problem Noted Date Resolved Date Encounter for screening for malignant neoplasm o f colon 09/26/2015 09/26/2015 Anemia, unspecified 07/01/2005 07/08/2012 documented as of this encounter (statuses as of 01/30/2022) [facility] History of Past illness Narrative* Problem Noted Date Resolved Date Encounter for screening for malignant neoplasm o f colon 09/26/2015 09/26/2015 Anemia, unspecified 07/01/2005 07/08/2012 documented as of this encounter (statuses as of 02/17/2022) [facility] History of Past illness Narrative* Problem Noted Date Resolved Date Encounter for screening for malignant neoplasm o f colon 09/26/2015 09/26/2015 Anemia, unspecified 07/01/2005 07/08/2012 documented as of this encounter (statuses as of 03/19/2022) [facility] History of Past illness Narrative* Problem Noted Date Resolved Date Encounter for screening for malignant neoplasm o f colon 09/26/2015 09/26/2015 Anemia, unspecified 07/01/2005 07/08/2012 documented as of this encounter (statuses as of 03/26/2022) [facility] History of Past illness Narrative* Problem Noted Date Resolved Date Encounter for screening for malignant neoplasm o f colon 09/26/2015 09/26/2015 Anemia, unspecified 07/01/2005 07/08/2012 documented as of this encounter (statuses as of 04/05/2022) [facility] History of Past illness Narrative* Problem Noted Date Resolved Date Encounter for screening for malignant neoplasm o f colon 09/26/2015 09/26/2015 Anemia, unspecified 07/01/2005 07/08/2012 documented as of this encounter (statuses as of 04/23/2022) [facility] History of Past illness Narrative* Problem Noted Date Resolved Date Encounter for screening for malignant neoplasm o f colon 09/26/2015 09/26/2015 Anemia, unspecified 07/01/2005 07/08/2012 documented as of this encounter (statuses as of 05/01/2022) [facility] History of Past illness Narrative* Problem Noted Date Resolved Date Encounter for screening for malignant neoplasm o f colon 09/26/2015 09/26/2015 Anemia, unspecified 07/01/2005 07/08/2012 documented as of this encounter (statuses as of 06/04/2022) [facility] History of Past illness Narrative* Problem Noted Date Resolved Date Encounter for screening for malignant neoplasm o f colon 09/26/2015 09/26/2015 Anemia, unspecified 07/01/2005 07/08/2012 documented as of this encounter (statuses as of 06/04/2022) [facility] History of Past illness Narrative* Problem Noted Date Resolved Date Encounter for screening for malignant neoplasm o f colon 09/26/2015 09/26/2015 Anemia, unspecified 07/01/2005 07/08/2012 documented as of this encounter (statuses as of 07/09/2022) [facility] History of Past illness Narrative* Problem Noted Date Resolved Date Encounter for screening for malignant neoplasm o f colon 09/26/2015 09/26/2015 Anemia, unspecified 07/01/2005 07/08/2012 documented as of this encounter (statuses as of 08/06/2022) [facility] History of Past illness Narrative* Problem Noted Date Resolved Date Encounter for screening for malignant neoplasm o f colon 09/26/2015 09/26/2015 Anemia, unspecified 07/01/2005 07/08/2012 documented as of this encounter (statuses as of 08/06/2022) [facility] History of Past illness Narrative* Problem Noted Date Resolved Date Encounter for screening for malignant neoplasm o f colon 09/26/2015 09/26/2015 Anemia, unspecified 07/01/2005 07/08/2012 documented as of this encounter (statuses as of 08/24/2022) [facility] History of Past illness Narrative* Problem Noted Date Resolved Date Encounter for screening for malignant neoplasm o f colon 09/26/2015 09/26/2015 Anemia, unspecified 07/01/2005 07/08/2012 documented as of this encounter (statuses as of 08/25/2022) [address]04-2016 History of Past illness Narrative* Problem Noted Date Resolved Date Encounter for screening for malignant neoplasm o f colon 09/26/2015 09/26/2015 Anemia, unspecified 07/01/2005 07/08/2012 documented as of this encounter (statuses as of 09/03/2022) [facility] History of Past illness Narrative* Problem Noted Date Resolved Date Encounter for screening for malignant neoplasm o f colon 09/26/2015 09/26/2015 Anemia, unspecified 07/01/2005 07/08/2012 documented as of this encounter (statuses as of 09/04/2022) [facility] History of Past illness Narrative* Problem Noted Date Resolved Date Encounter for screening for malignant neoplasm o f colon 09/26/2015 09/26/2015 Anemia, unspecified 07/01/2005 07/08/2012 documented as of this encounter (statuses as of 09/05/2022) [facility] History of Past illness Narrative* Problem Noted Date Resolved Date Encounter for screening for malignant neoplasm o f colon 09/26/2015 09/26/2015 Anemia, unspecified 07/01/2005 07/08/2012 documented as of this encounter (statuses as of 09/07/2022) [address]04-2016 History of Past illness Narrative* Problem Noted Date Resolved Date Encounter for screening for malignant neoplasm o f colon 09/26/2015 09/26/2015 Anemia, unspecified 07/01/2005 07/08/2012 documented as of this encounter (statuses as of 09/11/2022) [facility] History of Past illness Narrative* Problem Noted Date Resolved Date Encounter for screening for malignant neoplasm o f colon 09/26/2015 09/26/2015 Anemia, unspecified 07/01/2005 07/08/2012 documented as of this encounter (statuses as of 09/15/2022) [facility] History of Past illness Narrative* Problem Noted Date Resolved Date Encounter for screening for malignant neoplasm o f colon 09/26/2015 09/26/2015 Anemia, unspecified 07/01/2005 07/08/2012 documented as of this encounter (statuses as of 09/15/2022) [facility] History of Past illness Narrative* Problem Noted Date Resolved Date Encounter for screening for malignant neoplasm o f colon 09/26/2015 09/26/2015 Anemia, unspecified 07/01/2005 07/08/2012 documented as of this encounter (statuses as of 11/26/2022) [facility] History of Past illness Narrative* Problem Noted Date Resolved Date Encounter for screening for malignant neoplasm o f colon 09/26/2015 09/26/2015 Anemia, unspecified 07/01/2005 07/08/2012 documented as of this encounter (statuses as of 12/03/2022) [facility] History of Past illness Narrative* Problem Noted Date Resolved Date Encounter for screening for malignant neoplasm o f colon 09/26/2015 09/26/2015 Anemia, unspecified 07/01/2005 07/08/2012 documented as of this encounter (statuses as of 12/16/2022) [facility] History of Past illness Narrative* Problem Noted Date Resolved Date Encounter for screening for malignant neoplasm o f colon 09/26/2015 09/26/2015 Anemia, unspecified 07/01/2005 07/08/2012 documented as of this encounter (statuses as of 12/24/2022) [facility] History of Past illness Narrative* Problem Noted Date Resolved Date Encounter for screening for malignant neoplasm o f colon 09/26/2015 09/26/2015 Anemia, unspecified 07/01/2005 07/08/2012 documented as of this encounter (statuses as of 12/24/2022) [facility] History of Past illness Narrative* Problem Noted Date Resolved Date Encounter for screening for malignant neoplasm o f colon 09/26/2015 09/26/2015 Anemia, unspecified 07/01/2005 07/08/2012 documented as of this encounter (statuses as of 01/01/2023) [facility] History of Past illness Narrative* Problem Noted Date Resolved Date Encounter for screening for malignant neoplasm o f colon 09/26/2015 09/26/2015 Anemia, unspecified 07/01/2005 07/08/2012 documented as of this encounter (statuses as of 01/04/2023) [facility] History of Past illness Narrative* Problem Noted Date Resolved Date Encounter for screening for malignant neoplasm o f colon 09/26/2015 09/26/2015 Anemia, unspecified 07/01/2005 07/08/2012 documented as of this encounter (statuses as of 01/05/2023) [facility] History of Past illness Narrative* Problem Noted Date Resolved Date Encounter for screening for malignant neoplasm o f colon 09/26/2015 09/26/2015 Anemia, unspecified 07/01/2005 07/08/2012 documented as of this encounter (statuses as of 01/21/2023) [facility] History of Past illness Narrative* Problem Noted Date Resolved Date Encounter for screening for malignant neoplasm o f colon 09/26/2015 09/26/2015 Anemia, unspecified 07/01/2005 07/08/2012 documented as of this encounter (statuses as of 01/22/2023) [facility] History of Past illness Narrative* Problem Noted Date Resolved Date Encounter for screening for malignant neoplasm o f colon 09/26/2015 09/26/2015 Anemia, unspecified 07/01/2005 07/08/2012 documented as of this encounter (statuses as of 02/19/2023) [facility] History of Past illness Narrative* Problem Noted Date Diagnosed Date Resolved Date Encounter for screening for malignant neoplasm of colon 09/26/2015 09/26/2015 Anemia, unspecified 07/01/2005 07/08/20 12 documented as of this encounter (statuses as of 03/18/2023) [facility] History of Past illness Narrative* Problem Noted Date Diagnosed Date Resolved Date Encounter for screening for malignant neoplasm of colon 09/26/2015 09/26/2015 Anemia, unspecified 07/01/2005 07/08/20 12 documented as of this encounter (statuses as of 03/18/2023) [facility] History of Past illness Narrative* Problem Noted Date Diagnosed Date Resolved Date Encounter for screening for malignant neoplasm of colon 09/26/2015 09/26/2015 Anemia, unspecified 07/01/2005 07/08/20 12 documented as of this encounter (statuses as of 04/15/2023) [facility] History of Past illness Narrative* Problem Noted Date Diagnosed Date Resolved Date Encounter for screening for malignant neoplasm of colon 09/26/2015 09/26/2015 Anemia, unspecified 07/01/2005 07/08/20 12 documented as of this encounter (statuses as of 04/28/2023) [facility] History of Past illness Narrative* Problem Noted Date Diagnosed Date Resolved Date Encounter for screening for malignant neoplasm of colon 09/26/2015 09/26/2015 Anemia, unspecified 07/01/2005 07/08/20 12 documented as of this encounter (statuses as of 05/14/2023) [facility] History of Past illness Narrative* Problem Noted Date Diagnosed Date Resolved Date Encounter for screening for malignant neoplasm of colon 09/26/2015 09/26/2015 Anemia, unspecified 07/01/2005 07/08/20 12 documented as of this encounter (statuses as of 06/27/2023) [facility] History of Past illness Narrative* Problem Noted Date Diagnosed Date Resolved Date Encounter for screening for malignant neoplasm of colon 09/26/2015 09/26/2015 Anemia, unspecified 07/01/2005 07/08/20 12 documented as of this encounter (statuses as of 07/08/2023) [facility] History of Past illness Narrative* Problem Noted Date Diagnosed Date Resolved Date Encounter for screening for malignant neoplasm of colon 09/26/2015 09/26/2015 Anemia, unspecified 07/01/2005 07/08/20 12 documented as of this encounter (statuses as of 08/06/2023) [facility] History of Past illness Narrative* Problem Noted Date Diagnosed Date Resolved Date Encounter for screening for malignant neoplasm of colon 09/26/2015 09/26/2015 Anemia, unspecified 07/01/2005 07/08/20 12 documented as of this encounter (statuses as of 08/06/2023) [facility] note* Diagnosis 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, brain Congenital anomaly of cerebrovascular system Chronic GI bleeding Hemorrhage of gastrointestinal tract, unspecified 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 loss Iron deficiency anemia secondary to blood loss (chronic) [facility] 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) [facility] 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) [facility] 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) [facility] Diagnosis 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 loss- Primary Iron deficiency anemia secondary to blood loss (chronic) [facility] Diagnosis 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 loss- Primary Iron deficiency anemia secondary to blood loss (chronic) [facility] 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 [facility] Diagnosis 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 Chronic GI bleeding Hemorrhage of gastrointestinal tract, unspecified 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 loss Iron deficiency anemia secondary to blood loss (chronic) [facility] Diagnosis Chronic diastolic congestive heart failure [...] blood loss (chronic) [facility] 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 [facility] Diagnosis 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 telangiectasia [facility] Diagnosis 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 loss- Primary Iron deficiency anemia secondary to blood loss (chronic) [facility] Diagnosis 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 loss- Primary Iron deficiency anemia secondary to blood loss (chronic) [facility] ([facility] Outpatient Procedure (Routine) - Authorized Specialty Diagnoses / Procedures Referred By Contac t Referred To Contact [facility] Diagnoses Chronic diastolic congestive heart failure (HCC) Procedures ECHO ECHO TTHRC R-T 2D W/WOM-MODE COMPL SPEC&COLR D Master Palmer MD [address] [place] [address] [place] [address] Referral ID Status Reason Start Date Expiration Date Visits Requested Visits Authorized [id number] Authorized Auto-Generat ed Referral 06/04/2023 1 1 [facility] Summary Purpose Family History No Family History Records FoundNo Family History Records Found Advance Directives No Advanced Directives Records FoundDocuments on File Type Date 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 Advance Directive(s) 10/01/2016 11:25 AM [...] over 45 Minutes, ONCE, 1 dose, On [facility] 01/21/23 at 1430, Monitor patient for [...] over 45 Minutes, ONCE, 1 dose, On [facility] 02/18/23 at 1430, Monitor patient for [...] STEM W/O W/CONTRAST MATERIAL Master Palmer MD [address] [place] [address] [facility] Referral ID Status Reason Start Date Expiration Date Visits Requested Visits Authorized [id number] Authorized Auto-Generat ed Referral 12/02/2022 01/01/2024 1 1 Specialty Diagnoses / Procedures Referred By Frank t Referred To Contact [facility] Diagnoses HHT (hereditary hemorrhagic telangiectasia) (HCC) Procedures MRI BRAIN WO/W IVCON MRI BRAIN BRAIN STEM W/O W/CONTRAST MATERIAL Master Palmer MD [address] [place] [address] [place] [address] Referral ID Status Reason Start Date Expiration Date V isits Requested Visits Authorized [id number] Closed Auto-Generate d Referral 12/02/2022 01/01/2024 1 1 Additional Source Comments INFORMATION SOURCE (unrecogn ized section and content) DATE CREATED AUTHOR AUTHOR'S ORGANIZ ATION 09/04/2023 [facility] Source Comments (unrecognize d section and content) In the event this informatio n is protected by the Federal Confidentiality of Alcohol and Drug Abuse Patient Records regulations: The Federal rules restrict any use of the information to criminally investigate or prosecute any alcohol or drug abuse patient.[facility] CenterIn the event this information is protected by the Federal Confidentiality of Alcohol and Drug Abuse Patient Records regulations: The Federal rules restrict any use of the information to criminally investigate or prosecute any alcohol or drug abuse patient.[facility] CenterIn the event this information is protected by the Federal Confidentiality of Alcohol and Drug Abuse Patient Records regulations: The Federal rules restrict any use of the information to criminally investigate or prosecute any alcohol or drug abuse patient.[facility] CenterIn the event this information is protected by the Federal Confidentiality of Alcohol and Drug Abuse Patient Records regulations: The Federal rules restrict any use of the information to criminally investigate or prosecute any alcohol or drug abuse patient.[facility] CenterIn the event this information is protected by the Federal Confidentiality of Alcohol and Drug Abuse Patient Records regulations: The Federal rules restrict any use of the information to criminally investigate or prosecute any alcohol or drug abuse patient.[facility] CenterIn the event this information is protected by the Federal Confidentiality of Alcohol and Drug Abuse Patient Records regulations: The Federal rules restrict any use of the information to criminally investigate or prosecute any alcohol or drug abuse patient.[facility] CenterIn the event this information is protected by the Federal Confidentiality of Alcohol and Drug Abuse Patient Records regulations: The Federal rules restrict any use of the information to criminally investigate or prosecute any alcohol or drug abuse patient.[facility] CenterIn the event this information is protected by the Federal Confidentiality of Alcohol and Drug Abuse Patient Records regulations: The Federal rules restrict any use of the information to criminally investigate or prosecute any alcohol or drug abuse patient.[facility] CenterIn the event this information is protected by the Federal Confidentiality of Alcohol and Drug Abuse Patient Records regulations: The Federal rules restrict any use of the information to criminally investigate or prosecute any alcohol or drug abuse patient.[facility] CenterIn the event this information is protected by the Federal Confidentiality of Alcohol and Drug Abuse Patient Records regulations: The Federal rules restrict any use of the information to criminally investigate or prosecute any alcohol or drug abuse patient.[facility] CenterIn the event this information is protected by the Federal Confidentiality of Alcohol and Drug Abuse Patient Records regulations: The Federal rules restrict any use of the information to criminally investigate or prosecute any alcohol or drug abuse patient.[facility] CenterIn the event this information is protected by the Federal Confidentiality of Alcohol and Drug Abuse Patient Records regulations: The Federal rules restrict any use of the information to criminally investigate or prosecute any alcohol or drug abuse patient.[facility] CenterIn the event this information is protected by the Federal Confidentiality of Alcohol and Drug Abuse Patient Records regulations: The Federal rules restrict any use of the information to criminally investigate or prosecute any alcohol or drug abuse patient.[facility] CenterIn the event this information is protected by the Federal Confidentiality of Alcohol and Drug Abuse Patient Records regulations: The Federal rules restrict any use of the information to criminally investigate or prosecute any alcohol or drug abuse patient.[facility] CenterIn the event this information is protected by the Federal Confidentiality of Alcohol and Drug Abuse Patient Records regulations: The Federal rules restrict any use of the information to criminally investigate or prosecute any alcohol or drug abuse patient.[facility] CenterIn the event this information is protected by the Federal Confidentiality of Alcohol and Drug Abuse Patient Records regulations: The Federal rules restrict any use of the information to criminally investigate or prosecute any alcohol or drug abuse patient.[facility] CenterIn the event this information is protected by the Federal Confidentiality of Alcohol and Drug Abuse Patient Records regulations: The Federal rules restrict any use of the information to criminally investigate or prosecute any alcohol or drug abuse patient.[facility] CenterIn the event this information is protected by the Federal Confidentiality of Alcohol and Drug Abuse Patient Records regulations: The Federal rules restrict any use of the information to criminally investigate or prosecute any alcohol or drug abuse patient.[facility] CenterIn the event this information is protected by the Federal Confidentiality of Alcohol and Drug Abuse Patient Records regulations: The Federal rules restrict any use of the information to criminally investigate or prosecute any alcohol or drug abuse patient.[facility] CenterIn the event this information is protected by the Federal Confidentiality of Alcohol and Drug Abuse Patient Records regulations: The Federal rules restrict any use of the information to criminally investigate or prosecute any alcohol or drug abuse patient.[facility] CenterIn the event this information is protected by the Federal Confidentiality of Alcohol and Drug Abuse Patient Records regulations: The Federal rules restrict any use of the information to criminally investigate or prosecute any alcohol or drug abuse patient.[facility] CenterIn the event this information is protected by the Federal Confidentiality of Alcohol and Drug Abuse Patient Records regulations: The Federal rules restrict any use of the information to criminally investigate or prosecute any alcohol or drug abuse patient.[facility] CenterIn the event this information is protected by the Federal Confidentiality of Alcohol and Drug Abuse Patient Records regulations: The Federal rules restrict any use of the information to criminally investigate or prosecute any alcohol or drug abuse patient.[facility] CenterIn the event this information is protected by the Federal Confidentiality of Alcohol and Drug Abuse Patient Records regulations: The Federal rules restrict any use of the information to criminally investigate or prosecute any alcohol or drug abuse patient.[facility] CenterIn the event this information is protected by the Federal Confidentiality of Alcohol and Drug Abuse Patient Records regulations: The Federal rules restrict any use of the information to criminally investigate or prosecute any alcohol or drug abuse patient.[facility] CenterIn the event this information is protected by the Federal Confidentiality of Alcohol and Drug Abuse Patient Records regulations: The Federal rules restrict any use of the information to criminally investigate or prosecute any alcohol or drug abuse patient.[facility] CenterIn the event this information is protected by the Federal Confidentiality of Alcohol and Drug Abuse Patient Records regulations: The Federal rules restrict any use of the information to criminally investigate or prosecute any alcohol or drug abuse patient.[facility] CenterIn the event this information is protected by the Federal Confidentiality of Alcohol and Drug Abuse Patient Records regulations: The Federal rules restrict any use of the information to criminally investigate or prosecute any alcohol or drug abuse patient.[facility] CenterIn the event this information is protected by the Federal Confidentiality of Alcohol and Drug Abuse Patient Records regulations: The Federal rules restrict any use of the information to criminally investigate or prosecute any alcohol or drug abuse patient.[facility] CenterIn the event this information is protected by the Federal Confidentiality of Alcohol and Drug Abuse Patient Records regulations: The Federal rules restrict any use of the information to criminally investigate or prosecute any alcohol or drug abuse patient.[facility] CenterIn the event this information is protected by the Federal Confidentiality of Alcohol and Drug Abuse Patient Records regulations: The Federal rules restrict any use of the information to criminally investigate or prosecute any alcohol or drug abuse patient.[facility] CenterIn the event this information is protected by the Federal Confidentiality of Alcohol and Drug Abuse Patient Records regulations: The Federal rules restrict any use of the information to criminally investigate or prosecute any alcohol or drug abuse patient.[facility] CenterIn the event this information is protected by the Federal Confidentiality of Alcohol and Drug Abuse Patient Records regulations: The Federal rules restrict any use of the information to criminally investigate or prosecute any alcohol or drug abuse patient.[facility] CenterIn the event this information is protected by the Federal Confidentiality of Alcohol and Drug Abuse Patient Records regulations: The Federal rules restrict any use of the information to criminally investigate or prosecute any alcohol or drug abuse patient.[facility] CenterIn the event this information is protected by the Federal Confidentiality of Alcohol and Drug Abuse Patient Records regulations: The Federal rules restrict any use of the information to criminally investigate or prosecute any alcohol or drug abuse patient.[facility] CenterIn the event this information is protected by the Federal Confidentiality of Alcohol and Drug Abuse Patient Records regulations: The Federal rules restrict any use of the information to criminally investigate or prosecute any alcohol or drug abuse patient.[facility] CenterIn the event this information is protected by the Federal Confidentiality of Alcohol and Drug Abuse Patient Records regulations: The Federal rules restrict any use of the information to criminally investigate or prosecute any alcohol or drug abuse patient.[facility] CenterIn the event this information is protected by the Federal Confidentiality of Alcohol and Drug Abuse Patient Records regulations: The Federal rules restrict any use of the information to criminally investigate or prosecute any alcohol or drug abuse patient.[facility] CenterIn the event this information is protected by the Federal Confidentiality of Alcohol and Drug Abuse Patient Records regulations: The Federal rules restrict any use of the information to criminally investigate or prosecute any alcohol or drug abuse patient.[facility] CenterIn the event this information is protected by the Federal Confidentiality of Alcohol and Drug Abuse Patient Records regulations: The Federal rules restrict any use of the information to criminally investigate or prosecute any alcohol or drug abuse patient.[facility] CenterIn the event this information is protected by [...] or prosecute any alcohol or drug abuse patient.[facility] CenterIn the event this information is protected by the Federal Confidentiality of Alcohol and Drug Abuse Patient Records regulations: The Federal rules restrict any use of the information to criminally investigate or prosecute any alcohol or drug abuse patient.[facility] CenterIn the event this information is protected by the Federal Confidentiality of Alcohol and Drug Abuse Patient Records regulations: The Federal rules restrict any use of the information to criminally investigate or prosecute any alcohol or drug abuse patient.[facility] CenterIn the event this information is protected by the Federal Confidentiality of Alcohol and Drug Abuse Patient Records regulations: The Federal rules restrict any use of the information to criminally investigate or prosecute any alcohol or drug abuse patient.[facility] Reason for Visit (unrecogniz ed section and content) Reason Comments Chemotherapy Treatment Specialty Diagnoses / Procedures Referred By [facility] t Referred To Contact Diagnoses 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 loss 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 loss Jesus Soto, DO [address] [place] [address] [facility] [address] [place] [address] Referral ID Status Reason Start Date Expiration Date V isits Requested Visits Authorized [id number] Authorized 01/22/2021 04/22/2021 99 99 Reason Comments Established Patient Reason Comments Non-Chemotherapy Treatment Specialty Diagnoses / Procedures Referred By [facility] Referred To Contact Diagnoses 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 loss 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 loss Jesus Soto, DO [address] [place] [address] [facility] [address] [place] [address] Referral ID Status Reason Start Date Expiration Date V isits Requested Visits Authorized [id number] Authorized 01/28/2022 04/28/2022 99 99 Reason Comments Follow Up Add Avastin today Specialty Diagnoses / Procedures Referred By [facility] Referred To Contact Diagnoses Hereditary hemorrhagic telangiectasia (HCC) Josette Martínez MD [address] [place] [address] [facility] [address] [place] [address] Referral ID Status Reason Start Date Expiration Date V isits Requested Visits Authorized [id number] Authorized 06/14/2020 09/12/2020 1 1 Reason Comments [...] chronic blood loss Jesus Soto, [address] [place] [address] [facility] [address] [place] [address] Reason Comments Consult Established patient Specialty Diagnoses / Procedures Referred By [facility] t Referred To Contact Diagnoses Hereditary hemorrhagic telangiectasia (HCC) Josette Martínez MD [address] [place] [address] [place] [address] [facility] [address] [place] [address] Specialty Diagnoses / Procedures [facility] To Contact MR IMAGING Diagnoses HHT (hereditary hemorrhagic telangiectasia) (HCC) Procedures MRI BRAIN WO/W IVCON MRI BRAIN BRAIN STEM W/O W/CONTRAST MATERIAL Master Palmer MD [address] [place] [id number] Mr Imaging [id number] Referral ID Status Reason Start Date Expiration Date V isits Requested Visits Authorized [id number] Closed Auto-Generate d Referral 12/02/2022 01/01/2024 1 1 Care Teams (unrecognized sec tion and content) [employer] Person Relationship Specialty Start Date End Date Mariaelena Corbett DO PCP - General 09/26/15 [employer] Person Relationship Specialty Start Date End Date Mariaelena Corbett DO PCP - General 09/26/15 [employer] Person Relationship Specialty Start Date End Date Mariaelena Corbett DO PCP - General 09/26/15 [employer] Person Relationship Specialty Start Date End Date Mariaelena Corbett DO PCP - General 09/26/15 [employer] Person Relationship Specialty Start Date End Date Mariaelena Corbett, DO PCP - General 09/26/15 [employer] Person Relationship Specialty Start Date End Date Mariaelena Corbett, DO PCP - General 09/26/15 [employer] Person Relationship Specialty Start Date End Date Mariaelena Corbett, DO PCP - General 09/26/15 [employer] Person Relationship Specialty Start Date End Date Mariaelena Corbett DO PCP - General 09/26/15 [employer] Person Relationship Specialty Start Date End Date Mariaelena Corbett DO PCP - General 09/26/15 [employer] Person Relationship Specialty Start Date End Date Mariaelena Corbett DO PCP - General 09/26/15 [employer] Person Relationship Specialty Start Date End Date Mariaelena Corbett DO PCP - General 09/26/15 [employer] Person Relationship Specialty Start Date End Date Mariaelena Corbett DO PCP - General 09/26/15 [employer] Person Relationship Specialty Start Date End Date Mariaelena Corbett, DO PCP - General 09/26/15 [employer] Person Relationship Specialty Start Date End Date Mariaelena Corbett DO PCP - General 09/26/15 [employer] Person Relationship Specialty Start Date End Date Mariaelena Corbett DO PCP - General 09/26/15 [employer] Person Relationship Specialty Start Date End Date Mariaelena Corbett DO PCP - General 09/26/15 [employer] Person Relationship Specialty Start Date End Date Mariaelena Corbett DO PCP - General 09/26/15 [employer] Person Relationship Specialty Start Date End Date Mariaelena Corbett DO PCP - General 09/26/15 [employer] Person Relationship Specialty Start Date End Date Mariaelena Corbett DO PCP - General 09/26/15 [employer] Person Relationship Specialty Start Date End Date Mariaelena Corbett DO PCP - General 09/26/15 [employer] Person Relationship Specialty Start Date End Date Mariaelena Corbett DO PCP - General 09/26/15 [employer] Person Relationship Specialty Start Date End Date Mariaelena Corbett DO PCP - General 09/26/15 [employer] Person Relationship Specialty Start Date End Date Mariaelena Corbett DO PCP - General 09/26/15 [employer] Person Relationship Specialty Start Date End Date Mariaelena Corbett DO PCP - General 09/26/15 [employer] Person Relationship Specialty Start Date End Date Mariaelena [...] BE BASED ON THE PRIMARY CLINICAL RECORDS. [facility] provides no warranty or guarantee of the accuracy or completeness of information in this document.
== END | disposition home or self-care (01) ==
LOC: PSN 13:36
PROVIDERS: PCP Family Medicine; Visit Provider Internal Medicine
DX: Z00.00 Encounter for general adult medical examination without abnormal findings (principal)

== ENCOUNTER 2023-10-25 22:24 | Inpatient (IN) | payer MEDICARE, OTHER, SELFPAY ==
[2023-10-25 22:25] VITALS: BP 116/55; PULSE 122; RESP 16; TEMP 36.2; O2SAT 96; BMI 21.7
[2023-10-25 22:47] LABS: Absolute Lymphocyte Count 0.69 X10^3/uL (0.83-4.51); Absolute Neutrophil Count 6.7 X10^3/uL (2.0-7.7); Basophil# 0.03 X10^3/uL; Basophil% 0.4 % (0-1); Eosinophil# 0.08 X10^3/uL; Hematocrit 20.6 % (37-47); Lymphocyte # 0.69 X10^3/ul (0.83-4.51); Lymphocyte % 8.5 % (19-41); Mean Corp Hgb Conc 27.7 g/dL (32-36); Mean Corpuscular Hgb 25.7 pg (27.0-32.0); Mean Corpuscular Volume 92.8 fL (81-99); Mean Platelet Vol. 10.3 fl (6.2-12.0); Monocyte# 0.64 X10^3/uL; Monocyte% 7.9 % (0-10); NRBC Flagged by Analyzer 0.2 % (0-5); Neutrophil # 6.65 X10^3/uL (2.7-7.7); Neutrophil % 81.7 % (47-70); POSITIVE COUNT YES; Platelet Count 350 K/mm3 (150-450); RBC Distribution Width SD 64.7 fl (35.1-43.9); Red Blood Count 2.22 M/mm3 (4.2-5.4); White Blood Count 8.1 K/mm3 (4.4-11.0)
[2023-10-25 22:55] LABS: Differential Indicated SCAN CRITERIA MET; Hemoglobin 5.7 g/dL (12.0-15.0)
--- NOTE | 2023-10-25 22:56 | ED.VIS.GI ---
HPI HPI - GI History of Present Illness Chief Complaint: GI Bleed Informant: patient Abdominal Pain/Flank Pain Onset: Days (3) Context: Gradual Onset Timing: Continuous Quality: Dull Location: Diffuse Worsened by: Nothing Relieved by: Nothing Nausea/Vomiting/Emesis GI Symptom: Positive for Nausea and Vomiting Diarrhea/Melena/Hematochezia GI Symptom: Positive for Melena; Negative for Diarrhea or Hematochezia Associated Symptoms Associated Symptoms: Positive for Dysuria and Frequency; Negative for Hematuria Narrative Narrative: Patient presents with GI bleeding and urinary tract infection symptoms have been getting worse over the past 3 days. Patient states it is gradually getting worse. Patient states she has been feeling lightheaded and fatigued. Patient states she has noted black tarry stools recently. Patient admits to decreased appetite. Patient admits to some mild diffuse abdominal pain. Patient admits to some nausea but denies any vomiting. Patient denies any diarrhea. Patient admits to some dysuria and frequency. Patient denies any hematuria. Patient denies any fevers or chills. PFSH PFS Medical History ABLA (acute blood loss anemia) Anemia Cardiology follow-up encounter Chronic upper GI bleeding Gastric reflux GI (gastrointestinal bleed) H/O hereditary hemorrhagic telangiectasia (HHT) History of echocardiogram History of steroid therapy Hypophosphatemia Low iron Migraines Non-smoker Post-menopausal Symptomatic anemia Wears hearing aid Home Medications ascorbic acid (vitamin C) 1,000 mg tablet 1,000 mg PO DAILY SUPPLEMENT 11/24/19 [History Last Taken 09/07/23] folic acid 1 mg tablet 1 mg PO DAILY SUPPLEMENT 11/24/19 [History Last Taken 09/07/23] vitamin B complex (B Complex-Vitamin B12 tablet) 1 tab PO DAILY supplement 04/15/21 [History Last Taken 09/07/23] catalyn gf 1 tab PO DAILY supplement 02/24/22 [History Last Taken 09/07/23] iron sucrose 50 mg iron/2.5 mL intravenous solution 50 mg IV .monthly supplement 02/24/22 [History Last Taken 09/01/23] orthomune 1 tab PO DAILY supplement 02/24/22 [History Last Taken 09/07/23] bevacizumab 25 mg/mL intravenous solution (Avastin) 25 mg intravitreal .Q4MO infusion 04/21/22 [History Last Taken 08/18/23] osteobase 3 tab PO DAILY supplement 05/18/23 [History Last Taken 09/07/23] estradiol 0.01% (0.1 mg/gram) vaginal cream 0.1 applic vaginal TUTHSA vag itching 08/18/23 [History Last Taken 09/07/23] TADEO FOOD 1 cap PO DAILY supplement 09/06/23 [History Last Taken 09/07/23] budesonide 0.5 mg/2 mL suspension for nebulization 0.5 mg irrigation DAILY breathing 09/06/23 [History Last Taken 09/07/23] d-mannose 500 mg capsule 500 mg PO DAILY supplement 09/06/23 [History Last Taken 09/07/23] rizatriptan 10 mg disintegrating tablet 10 mg PO Q2H PRN migraine headache 09/09/23 [History Last Taken Unknown] pantoprazole 40 mg tablet,delayed release (Protonix) 40 mg PO BID 30 days #60 tabs 09/13/23 [Rx Last Taken Unknown] sucralfate 1 gram tablet 1 g PO BID #90 tabs 09/14/23 [Rx Last Taken Unknown] Allergy/AdvReac Type Severity Reaction Status Date / Time bacitracin Allergy Unknown Rash Verified 10/25/23 22:28 Family History Mother Cancer Squamous Basal Cell Father Cancer Lymphoma HHT (hereditary hemorrhagic telangiectasia) Surgical History History of back surgery History of cholecystectomy History of foot surgery History of nasal surgery History of neck surgery Hx of colonoscopy Hx of esophagogastroduodenoscopy Hx of shoulder replacement Social History Smoking Status: Never smoker alcohol intake: never substance use type: does not use caffeine: Yes Type: tea Number of servings: 2 what type of physical activity do you participate in: walking frequency: 3-4 times per week seatbelt use: always do you feel safe at home: Yes 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 ROS ED Constitutional Constitutional ED: Denies chills or fever(s) Eyes Eyes: Denies blurry vision or change in vision ENT ENT ED: Denies rhinorrhea or sore throat Cardiovascular Cardiovascular: Denies chest pain or palpitations Respiratory/Chest Respiratory/Chest: Reports dyspnea; Denies cough Gastrointestinal Gastrointestinal: Reports abdominal pain, melena and nausea; Denies constipation, diarrhea or vomiting Genitourinary Genitourinary ED: Reports dysuria and urinary frequency; Denies hematuria Musculoskeletal Musculoskeletal: Reports back pain; Denies neck pain Integumentary Denies abscess or rash Neurologic Neurologic: Denies headache(s) or weakness Allergic/Immunologic Allergic/Immunologic ED: Denies mouth swelling or urticaria EXAM Physical Exam Const Vital Signs: 10/25/23 22:25 10/25/23 22:44 10/25/23 23:51 Temperature 97.1 F L 98.3 F Temperature Source Temporal Pulse Rate 122 H 80 Respiratory Rate 16 18 Respiratory Effort Normal Non-Labored Respiratory Pattern Normal Blood Pressure 116/55 L 121/59 H Blood Pressure Mean 75 79 Pulse Ox 96 99 Oxygen Delivery Method Room Air Positive well nourished and well developed General Appearance ED: well developed and NAD HEENT Reports moist mucous membranes Eyes General Eye ED: Yes pale conjunctiva Neck supple and no JVD Resp normal respiratory effort and clear to auscultation bilaterally Cardio regular rhythm Rate: tachycardic GI non-distended Palpation: soft and tender epigastric, LLQ, RLQ, LUQ, RUQ, periumbilical and suprapubic; Negative for guarding or rebound tenderness present Extremity full ROM General Extremety ED: Negative for edema or tenderness General Extremity: Negative for edema Neuro CN's II-XII intact bilaterally, moves all extremities and no sensory deficits noted Sensorium / Orientation: alert Motor Exam: strength 5/5 throughout Psych mental status grossly normal and thought process normal MDM MDM MDM Narrative Medical decision making narrative: Differential diagnosis includes gastrointestinal bleeding, gastritis, urinary tract infection, and anemia. CBC will be obtained to assess for leukocytosis and anemia. Comprehensive metabolic profile will be obtained to assess for hepatic function, renal function, and electrolyte abnormality. Urinalysis will be obtained to assess for urinary tract infection. PT with INR and PTT will be obtained to assess for coagulopathy. Type and screen will be obtained to assess for blood transfusion. Lab Data Attestation: I reviewed the patient's lab results. Lab results narrative: CBC was reviewed. Hemoglobin was 5.7 and hematocrit was 20.6. Platelets were normal. White blood cell count was normal. Comprehensive metabolic profile was reviewed. BUN was slightly elevated at 21. This was increased from previous result. The remainder was essentially within normal limits. PT with INR and PTT were obtained and were within normal limits. Urinalysis was reviewed. Leukocyte esterase was 500 with greater than 100 white blood cells. There is 2+ bacteria. Occult blood was 250 with 50-100 red blood cells. Labs: Laboratory Results - last 24 hr 10/25/23 10/25/23 10/25/23 22:35 22:35 23:45 WBC 8.1 RBC 2.22 L Hgb 5.7 L* Hct 20.6 L MCV 92.8 MCH 25.7 L MCHC 27.7 L RDW Std Deviation 64.7 H RDW Coeff of Marques 19.0 H Plt Count 350 MPV 10.3 Immature Gran % (Auto) 0.500 Neut % (Auto) 81.7 H Lymph % (Auto) 8.5 L [place] % (Auto) 7.9 Eos % (Auto) 1.0 Baso % (Auto) 0.4 Absolute Neuts (auto) 6.7 Absolute Lymphs (auto) 0.69 L Nucleated RBC % 0.2 Differential Comment SCANNED Diff Path Review May foll Hypochromasia 2+ Anisocytosis 1+ Target Cells RARE PT 13.2 INR 1.0 APTT 27.9 Sodium 141 Potassium 3.9 Chloride 109 H Carbon Dioxide 28.0 Anion Gap 4 L BUN 21 H Creatinine 0.56 Estim Creat Clear Calc 58.63 Est GFR (MDRD) Af Amer 135 Est GFR (MDRD) Non-Af 112 BUN/Creatinine Ratio 37.2 H Glucose 125 H Calcium 8.9 Total Bilirubin 0.30 AST 13 L ALT 23 Alkaline Phosphatase 62 Total Protein 6.3 L Albumin 3.5 Globulin 2.8 Albumin/Globulin Ratio 1.2 Urine Color Yellow Urine Clarity Clear Urine pH 5.0 Ur Specific [place] 1.030 Urine Protein 30 H Urine Glucose (UA) Normal Urine Ketones 5 H Urine Occult Blood 250 H Urine Nitrite Negative Urine Bilirubin Negative Urine Urobilinogen Normal Ur Leukocyte Esterase 500 H Urine RBC 50-100 SEEN Urine WBC >100 SEEN Ur Squamous Epith Cells 10-25 SEEN Urine Bacteria 2+ Urine Mucus 0 SEEN Blood Type O POSITIVE Antibody Screen NEGATIVE Crossmatch See Detail See Detail Management Discussion w/another healthcare provider: Hospitalist and Software Support Specialist Treatment and Re-Evaluation :: Patient was given IV fluids. Patient will be crossmatched for 2 units of blood. These will be transfused. Patient was started on Protonix. Patient was also started on Rocephin for her urinary tract infection. Case was discussed with Dr. Peters. He agrees with admission to the hospital. He will follow along. Case will be discussed with the hospitalist. He will admit the patient to the hospital. Patient requested pretreatment with Benadryl, Tylenol, and Solu-Medrol prior to blood transfusion. This was ordered. Blood will be transfused when ready. Patient understood and was agreeable with the plan. All questions were answered. Discharge Plan Dx/Rx/DC Orders Clinical Impression: Anemia, Upper gastrointestinal bleeding, Urinary tract infection Disposition Disposition: Acute Care Hospital [facility]
[2023-10-25 23:03] LABS: Anisocytosis 1+; Differential Comment SCANNED; Hypochromasia 2+; Target Cells RARE
[2023-10-25 23:09] LABS: ALB/GLOB Ratio 1.2 RATIO (0.9-2.4); AST(SGOT) 13 U/L (15-37); Alanine Aminotransfer ALT/SGPT 23 U/L (13-56); Albumin, Serum 3.5 g/dL (3.2-5.0); Alkaline Phosphatase 62 U/L (45-117); Anion Gap 4 (5-15); BUN 21 mg/dL (7-18); BUN/Creat Ratio 37.2 RATIO (10-20); Calcium,Total 8.9 mg/dL (8.5-10.1); Chloride 109 mmol/L (98-107); Creatinine, Serum 0.56 mg/dL (0.55-1.02); EST Glomerular Filtration Rate 112 mL/min (>60); Est Glom Filt Rate - Afr Amer 135 mL/min (>60); Estimated Creatinine Clearance 58.63 ml/min; Globulin 2.8 g/dL (2.2-4.2); Glucose 125 mg/dL (74-106); Potassium 3.9 mmol/L (3.5-5.1); Protein, Total 6.3 g/dL (6.4-8.2); Sodium Level 141 mmol/L (136-145)
--- OUTSIDE RECORDS SUMMARY | 2023-10-25 23:14 | XMS RPT_ITS | CCD ---
Author Name Unknown Address [address] [place] [address] Organization [facility] Care Team Providers Care Maintenance Service Supervisor Name Role Phone Anders Simms PA-C Unavailable Malys DO, Mariaelena A Primary Care Provider [phone] Malys DO, Mariaelena A Primary Care Provider Malys DO, Mariaelena A Primary Care Provider [phone] Malys DO, Mariaelena A Primary Care Provider MASCI, JESUS A Referring Unavailable MALYS, MARIAELENA A Primary Care Unavailable Malys DO, Mariaelena A Primary Care Provider Masci DO, Jesus A Unavailable MASCI, JESUS A Referring Unavailable MALYS, MARIAELENA A Primary Care Unavailable MASCI, JESUS A Referring Unavailable MALYS, MARIAELENA A Primary Care Unavailable MALYS, MARIAELENA A Primary Care Unavailable MASCI, JESUS A Referring Unavailable MALYS, MARIAELENA A Primary Care Unavailable MASCI, JESUS A Referring Unavailable MALYS, MARIAELENA A Primary Care Unavailable MASCI, JESUS A Attending Unavailable MALYS, MARIAELENA A Primary Care Unavailable MASCI, JESUS A Referring Unavailable MALYS, MARIAELENA A Primary Care Unavailable MASCI, JESUS A Referring Unavailable MALYS, MARIAELENA A Primary Care Unavailable MASCI, JESUS A Referring Unavailable MALYS, MARIAELENA A Primary Care Unavailable MASCI, JESUS A Referring Unavailable MALYS, MARIAELENA A Primary Care Unavailable MASCI, JESUS A Referring Unavailable MASCI, JESUS A Referring Unavailable MALYS, MARIAELENA A Primary Care Unavailable PARAMBIL, MASTER Referring Unavailable PARAMBIL, MASTER Attending Unavailable MALYS, MARIAELENA A Primary Care Unavailable MALYS, MARIAELENA A Primary Care Unavailable MASCI, JESUS A Referring Unavailable MALYS, MARIAELENA A Primary Care Unavailable MASCI, JESUS A Referring Unavailable MALYS, MARIAELENA A Primary Care Unavailable MASCI, JESUS A Referring Unavailable MALYS, MARIAELENA A Primary Care Unavailable MASCI, JESUS A Referring Unavailable MALYS, MARIAELENA A Primary Care Unavailable ABRAMOVICH, RACHEL Referring Unavailable MALYS, MARIAELENA A Primary Care Unavailable MASCI, JESUS A Referring Unavailable MASCI, JESUS A Attending Unavailable MALYS, MARIAELENA A Primary Care Unavailable MASCI, JESUS A Referring Unavailable MALYS, MARIAELENA A Primary Care Unavailable MASCI, JESUS A Referring Unavailable MALYS, MARIAELENA A Primary Care Unavailable MASCI, JESUS A Referring Unavailable MALYS, MARIAELENA A Primary Care Unavailable MASCI, JESUS A Referring Unavailable MALYS, MARIAELENA A Primary Care Unavailable MASCI, JESUS A Referring Unavailable MASCI, JESUS A Referring Unavailable MALYS, MARIAELENA A Primary Care Unavailable MALYS, MARIAELENA A Primary Care Unavailable [...] Care Unavailable MASCI, JESUS A Referring Unavailable MASCI, JESUS A Referring Unavailable MALYS, MARIAELENA A Primary Care Unavailable MASCI, JESUS A Referring Unavailable MALYS, MARIAELENA A Primary Care Unavailable MASCI, JESUS A Referring Unavailable MALYS, MARIAELENA A Primary Care Unavailable MALYS, MARIAELENA A Primary Care Unavailable MASCI, JESUS A Referring Unavailable MALYS, MARIAELENA A Primary Care Unavailable MASCI, JESUS A Referring Unavailable Medications Current Medications Medication Drug Class(es) [...] three times daily as needed for headache [id number] AFFEINE 50-325-40 MG TABS 1 po up to three times daily as needed for headaches [id number] AFFEINE [id number] Jeannine Hedrick LPN Problems Active Problems Problem Classification Problem Date Documented Da te Episodic/Chronic Cardiac and circulatory congenital anomalies (3 sources) Cerebral arteriovenous malformation; 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] Onset: Chronic Congestive heart failure; nonhypertensive (1 source) Chronic diastolic heart failure; Translations: [Chronic diastolic (congestive) heart failure] Chronic Deficiency and other anemia (20 sources) Iron deficiency anemia due to blood loss; Translations: [Iron deficiency anemia secondary to blood loss (chronic)] Onset: 8 08-18-2021 Chronic 08-05-2023 13:35-0500 Diastolic blood pressure 52 mm[Hg] Treatment Wstr Work Phone: [facility] 08-05-2023 13:35-0500 Heart rate 96 /min Treatment Wstr Work Phone: [facility] 08-05-2023 13:35-0500 Respiratory rate 16 /min Treatment Wstr Work Phone: [facility] 08-05-2023 13:35-0500 SaO2% (BldA) [Mass fraction] 100 % Treatment Wstr Work Phone: [facility] 08-05-2023 13:35-0500 Systolic blood pressure 127 mm[Hg] Treatment Wstr Work Phone: [facility] 07-08-2023 14:02-0500 Body temperature 97.5 [degF] Treatment Wstr Work Phone: [facility] 07-08-2023 14:02-0500 Diastolic blood pressure 48 mm[Hg] Treatment Wstr Work Phone: [facility] 07-08-2023 14:02-0500 Heart rate 70 /min Treatment Wstr Work Phone: [facility] 07-08-2023 14:02-0500 Respiratory rate 16 /min Treatment Wstr Work Phone: [facility] 07-08-2023 14:02-0500 SaO2% (BldA) [Mass fraction] 100 % Treatment Wstr Work Phone: [facility] 07-08-2023 14:02-0500 Systolic blood pressure 121 mm[Hg] Treatment Wstr Work Phone: [facility] 04-27-2023 14:04-0400 Body temperature 98.2 [degF] Treatment Wstr Work Phone: [facility] 04-27-2023 14:04-0400 Body weight 63.96 kg Treatment Wstr Work Phone: [facility] 04-27-2023 14:04-0400 Diastolic blood pressure 66 mm[Hg] Treatment Wstr Work Phone: [facility] 04-27-2023 14:04-0400 Heart rate 85 /min Treatment Wstr Work Phone: [facility] 04-27-2023 14:04-0400 Respiratory rate 18 /min Treatment Wstr Work Phone: [facility] 04-27-2023 14:04-0400 Systolic blood pressure 105 mm[Hg] Treatment Wstr Work Phone: [facility] 04-15-2023 11:54-0400 Body temperature 97.39 [degF] Treatment Wstr Work Phone: [facility] 04-15-2023 11:54-0400 Diastolic blood pressure 54 mm[Hg] Treatment Wstr Work Phone: [facility] 04-15-2023 11:54-0400 Heart rate 75 /min Treatment Wstr Work Phone: [facility] 04-15-2023 11:54-0400 Systolic blood pressure 102 mm[Hg] Treatment Wstr Work Phone: [facility] 03-18-2023 10:08-0400 Body temperature 97.39 [degF] Treatment Wstr Work Phone: [facility] 03-18-2023 10:08-0400 Body weight 62.82 kg Treatment Wstr Work Phone: [facility] 03-18-2023 10:08-0400 Diastolic blood pressure 51 mm[Hg] Treatment Wstr Work Phone: [facility] 03-18-2023 10:08-0400 Heart rate 73 /min Treatment Wstr Work Phone: [facility] 03-18-2023 10:08-0400 Systolic blood pressure 110 mm[Hg] Treatment Wstr Work Phone: [facility] 02-18-2023 14:11-0400 Body temperature 97 [degF] Treatment Wstr Work Phone: [facility] 02-18-2023 14:11-0400 Diastolic blood pressure 47 mm[Hg] Treatment Wstr Work Phone: [facility] 02-18-2023 14:11-0400 Heart rate 72 /min Treatment Wstr Work Phone: [facility] 02-18-2023 14:11-0400 Systolic blood pressure 109 mm[Hg] Treatment Wstr Work Phone: [facility] 01-21-2023 14:00-0400 Body temperature 97.5 [degF] Treatment Wstr Work Phone: [facility] 01-21-2023 14:00-0400 Diastolic blood pressure 55 mm[Hg] Treatment Wstr Work Phone: [facility] 01-21-2023 14:00-0400 Heart rate 68 /min Treatment Wstr Work Phone: [facility] 01-21-2023 14:00-0400 Respiratory rate 18 /min Treatment Wstr Work Phone: [facility] 01-21-2023 14:00-0400 SaO2% (BldA) [Mass fraction] 100 % Treatment Wstr Work Phone: [facility] 01-21-2023 14:00-0400 Systolic blood pressure 113 mm[Hg] Treatment Wstr Work Phone: [facility] 01-04-2023 13:00-0400 Body weight 63.28 kg Treatment Wstr Work Phone: [facility] 01-04-2023 13:00-0400 Diastolic blood pressure 44 mm[Hg] Treatment Wstr Work Phone: [facility] 01-04-2023 13:00-0400 Heart rate 74 /min Treatment Wstr Work Phone: [facility] 01-04-2023 13:00-0400 Respiratory rate 16 /min Treatment Wstr Work Phone: [facility] 01-04-2023 13:00-0400 SaO2% (BldA) [Mass fraction] 100 % Treatment Wstr Work Phone: [facility] 01-04-2023 13:00-0400 Systolic blood pressure 99 mm[Hg] Treatment Wstr Work Phone: [facility] 12-24-2022 09:17-0400 Body temperature 97.5 [degF] Treatment Wstr Work Phone: [facility] 12-24-2022 09:17-0400 Diastolic blood pressure 63 mm[Hg] Treatment Wstr Work Phone: [facility] 12-24-2022 09:17-0400 Heart rate 73 /min Treatment Wstr Work Phone: [facility] 12-24-2022 09:17-0400 SaO2% (BldA) [Mass fraction] 100 % Treatment Wstr Work Phone: [facility] 12-24-2022 09:17-0400 Systolic blood pressure 110 mm[Hg] Treatment Wstr Work Phone: [facility] 11-26-2022 11:15-0400 Diastolic blood pressure 45 mm[Hg] Treatment Wstr Work Phone: [facility] 11-26-2022 11:15-0400 Heart rate 63 /min Treatment Wstr Work Phone: [facility] 11-26-2022 11:15-0400 Systolic blood pressure 103 mm[Hg] Treatment Wstr Work Phone: [facility] 09-15-2022 13:00-0500 Body temperature 98.01 [degF] Treatment Wstr Work Phone: [facility] 09-15-2022 13:00-0500 Diastolic blood pressure 60 mm[Hg] Treatment Wstr Work Phone: [facility] 09-15-2022 13:00-0500 Heart rate 89 /min Treatment Wstr Work Phone: [facility] 09-15-2022 13:00-0500 Systolic blood pressure 112 mm[Hg] Treatment Wstr Work Phone: [facility] 09-14-2022 14:13-0500 Body height 166.4 cm Jesus Masci DO Work Phone: [facility] 09-14-2022 14:13-0500 Body temperature 97.59 [degF] Jesus Masci DO Work Phone: [facility] 09-14-2022 14:13-0500 Body weight 63.05 kg Jesus Masci DO Work Phone: [facility] 09-14-2022 14:13-0500 Diastolic blood pressure 58 mm[Hg] Jesus Masci DO Work Phone: [facility] 09-14-2022 14:13-0500 Heart rate 82 /min Jesus Masci DO Work Phone: [facility] 09-14-2022 14:13-0500 Systolic blood pressure 122 mm[Hg] Jesus Masci DO Work Phone: [facility] 08-06-2022 10:43-0500 Body temperature 96.49 [degF] Treatment Wstr Work Phone: [facility] 08-06-2022 10:43-0500 Diastolic blood pressure 51 mm[Hg] Treatment Wstr Work Phone: [facility] 08-06-2022 10:43-0500 Heart rate 84 /min Treatment Wstr Work Phone: [facility] 08-06-2022 10:43-0500 Respiratory rate 18 /min Treatment Wstr Work Phone: [facility] 08-06-2022 10:43-0500 SaO2% (BldA) [Mass fraction] 100 % Treatment Wstr Work Phone: [facility] 08-06-2022 10:43-0500 Systolic blood pressure 111 mm[Hg] Treatment Wstr Work Phone: [facility] 05-01-2022 13:36-0400 Body temperature 97.59 [degF] Treatment Wstr Work Phone: [facility] 05-01-2022 13:36-0400 Diastolic blood pressure 50 mm[Hg] Treatment Wstr Work Phone: [facility] 05-01-2022 13:36-0400 Heart rate 76 /min Treatment Wstr Work Phone: [facility] 05-01-2022 13:36-0400 Respiratory rate 16 /min Treatment Wstr Work Phone: [facility] 05-01-2022 13:36-0400 SaO2% (BldA) [Mass fraction] 100 % Treatment Wstr Work Phone: [facility] 05-01-2022 13:36-0400 Systolic blood pressure 110 mm[Hg] Treatment Wstr Work Phone: [facility] 04-23-2022 10:00-0400 Body temperature 96.8 [degF] Treatment Wstr Work Phone: [facility] 04-23-2022 10:00-0400 Diastolic blood pressure 72 mm[Hg] Treatment Wstr Work Phone: [facility] 04-23-2022 10:00-0400 Heart rate 86 /min Treatment Wstr Work Phone: [facility] 04-23-2022 10:00-0400 Systolic blood pressure 122 mm[Hg] Treatment Wstr Work Phone: [facility] 03-26-2022 09:06-0400 Body temperature 97.11 [degF] Treatment Wstr Work Phone: [facility] 03-26-2022 09:06-0400 Diastolic blood pressure 42 mm[Hg] Treatment Wstr Work Phone: [facility] 03-26-2022 09:06-0400 Heart rate 81 /min Treatment Wstr Work Phone: [facility] 03-26-2022 09:06-0400 Systolic blood pressure 113 mm[Hg] Treatment Wstr Work Phone: [facility] 03-19-2022 08:43-0400 Body height 165.1 cm Jesus [employer] DO Work Phone: [facility] 03-19-2022 08:43-0400 Body temperature 97.81 [degF] Jesus Masci DO Work Phone: [facility] 03-19-2022 08:43-0400 Body weight 63.05 kg Jesus Masci DO Work Phone: [facility] 03-19-2022 08:43-0400 Diastolic blood pressure 58 mm[Hg] Jesus Masci DO Work Phone: [facility] 03-19-2022 08:43-0400 Heart rate 66 /min Jesus Masci DO Work Phone: [facility] 03-19-2022 08:43-0400 Respiratory rate 14 /min Jesus Masci DO Work Phone: [facility] 03-19-2022 08:43-0400 SaO2% (BldA) [Mass fraction] 100 % Jesus Masci DO Work Phone: [facility] 03-19-2022 08:43-0400 Systolic blood pressure 122 mm[Hg] Jesus Soto DO Work Phone: [facility] 01-01-2022 09:17-0400 Body temperature 97.11 [degF] Treatment Wstr Work Phone: [facility] 01-01-2022 09:17-0400 Body weight 62.82 kg Treatment Wstr Work Phone: [facility] 01-01-2022 09:17-0400 Diastolic blood pressure 57 mm[Hg] Treatment Wstr Work Phone: [facility] 01-01-2022 09:17-0400 Heart rate 76 /min Treatment Wstr Work Phone: [facility] 01-01-2022 09:17-0400 Systolic blood pressure 116 mm[Hg] Treatment Wstr Work Phone: [facility] 07-19-2017 10:03-0500 BMI (Body Mass Index) 21.8 kg/m2 Anders PATTERSON-C [facility] Work Phone: 07-19-2017 10:03-0500 Body Temperature 97.9 [degF] Anders PATTERSON-C [facility] Work Phone: 07-19-2017 10:03-0500 BP Diastolic 74 mm[Hg] Anders PLATTC [facility] Work Phone: 07-19-2017 10:03-0500 BP Systolic 118 mm[Hg] Anders PATTERSON-C [facility] Work Phone: 07-19-2017 10:03-0500 Height 170.18 cm Anders PATTERSON-C [facility] Work Phone: 07-19-2017 10:03-0500 Pulse (Heart Rate) 88 /min Anders PLATTC [facility] Work Phone: 07-19-2017 10:03-0500 Respiratory Rate 12 /min Anders PATTERSON-C [facility] Work Phone: 07-19-2017 10:03-0500 Weight 63.14 kg Anders Simms PA-C [facility] Work Phone: 07-04-2014 09: BSA (Body Surface Area) 1.72 m2 Anders Simms PA-C [facility] Work Phone: Encounters Encounter Date Encounter Type Care Provider Facility Start: 10-14-2023 Telephone encounter Dasha MELVIN Hematology/Oncology Procedures Date Procedure Procedure Detail Performing Clinician Start: 05-13-2023 Mri brain brain stem w/o w/contrast material Master Palmer MD Work Phone: Start: 01-04-2023 Urnls dip stick/tabl et rgnt auto w/o microscopy [facility] Start: 09-15-2022 Urnls dip stick/tabl et rgnt auto w/o microscopy [facility] Provider Start: 02-16-2022 Radex spine lumbosac ral minimum 4 views Sophia Portillo Work Phone: Start: 01-07-2017 Adult depression scr eening assessment Jesus Damioni DO Work Phone: Start: 08-20-2016 Mammography Jesus Masci DO Work Phone: Start: 10-14-2015 Colonoscopy Jesus Damioni DO Work Phone: Start: 08-21-2014 End: 10-03-2014 [...] Treatment Date Care Activity Detail Author Start: 09-15-2026 Diabetes Screening Diabetes Screening [facility] Start: 10-14-2025 Colonoscopy COLONOSCOPY [facility] Start: 10-14-2025 COLORECTAL CANCER SCREENING COLORECTAL CANCER SCREENING [facility] Start: 10-14-2025 Screening for malignant neoplasm of colon [facility] Start: 09-14-2025 DIABETES SCREEN DIABETES SCREEN [facility] Start: 09-14-2025 Diabetes Screening Diabetes Screening [facility] Start: 08-23-2023 Advance Directive Discussion Advance Directive Discussion [facility] Start: 08-23-2023 Depression Assessment Depression Assessment [facility] Start: 06-07-2023 Urine microalbumin profile [facility] Start: 04-23-2023 Covid-19 Vaccine () Covid-19 Vaccine () [facility] Start: 04-23-2023 Influenza vaccination [facility] Start: 09-20-2022 DIABETES SCREEN DIABETES SCREEN [facility] Start: 09-14-2022 End: 11-14-2022 CBC W Auto Differential panel - Blood CBC + DIFF Lab STAT Hereditary hemorrhagic telangiectasia (HCC) 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 loss Expected: 09/14/2022, Expires: 11/14/2022 [facility] Work Phone: Immunizations Immunization Date Immunization Notes Care Provider Jenise acuna 08-20-2016 influenza virus vacc ine, unspecified formulation Treatment Wstr Work Phone: [facility] 06-13-2015 influenza, injectabl e, quadrivalent, preservative free Jesus Masci DO Work Phone: [facility] 07-10-2013 influenza virus vacc ine, unspecified formulation Jesus Masci DO Work Phone: [facility] 06-07-2013 tetanus toxoid, redu lizzie diphtheria toxoid, and acellular pertussis vaccine, adsorbed Jesus Damioni DO Work Phone: [facility] Payers Date Payer Category Payer Unknown [id number] 2016 Medicare [id number] 2016 Unknown SHARDA FAULKNER DICARE SUPPLEMENT [id number] 2016-Present [phone] [address] [place] [address] Indemnity [id number] 2016 Unknown [id number] 2012 Medicare MEDICARE MEDICAR E A AND B [id number] 2012-Present [phone] [place] [address] Medicare [id number] 2012 Medicare MEDICARE MEDICAR E A AND B [id number] 2012-Present [phone] [place] [address] Medicare [id number] 2012 Medicare [id number] Social History Date Type Detail Facility Start: 07-06-2011 Tobacco smoking stat [facility] Never smoked tobacco [facility] Work Phone: Start: 12-23-2020 End: 09-15-2023 Alcohol intake Current non-drinker of alcohol (finding) [facility] Start: 1950 Sex Assigned At Not on file [facility] Start: 10-27-2021 End: 03-19-2022 Exposure to SARS-CoV-2 (event) Not sure [facility] Start: 07-06-2011 Tobacco use and exposure Smokeless tobacco non-user [facility] Work Phone: Start: 12-24-2022 End: 03-18-2023 History of Social function [facility] Start: 12-24-2022 End: 03-18-2023 Tobacco use panel [facility] National Score (1-100), lower number is lower risk 35 [facility] Clinical Notes 09-26-2015 to 10-14-2023 Telephone Encounter - Dasha Baker LISW - 10/14/2023 10:20 AM ESTTelephone Encounter - Berta Joshi RN - 09/28/2023 2:18 PM ESTTelephone Encounter - Flora Harp - 09/17/2023 10:47 AM EST Note Date & Type Note Facility 10-14-2023 Miscellaneous Notes SOCIAL WORK FOLLOW UP NOTE: [facility] Date of service: October 14, 2023 Leidy Brar is being seen for a follow up social work visit. Today's visit includes: patient TOPICS ADDRESSED: SW received faxed form from [employer] this date regarding ongoing assistance for pt's [employer]. Form asking for verified insurance information and pt income. SW called pt this date to obtain income information. Pt reports she spoke to [employer] last week and they reported she is approved for 2023 but there will be some changing happening to the program for 2024 which may affect her eligibility after this year. Pt reports [employer] rep told her she will be sending a letter to our office and to pt detailing the changes. Pt appreciative of SW call and assistance. No other needs identified. PLAN: Assist with financial support applications and Continue follow up as needed F/U APPOINTMENT: PRN Assigned SW listed in Care Team tab: Yes OLEGARIO Ojeda-Mary Jane documented in this encounter [facility] 09-28-2023 Miscellaneous Notes Patient instructed to go to local express/urgent care so she can be evaluated and be tested for COVID/influenza and treated accordingly. Patient stated understanding. Berta Joshi RN documented in this encounter [facility] 09-17-2023 Miscellaneous Notes Spoke with patient and scheduled US today at [facility]. Flora Harp We are working on getting further clarification of the MRI. In the meantime please schedule for ultrasound of the kidneys to evaluate the kidney cyst observed on the MRI. Jesus Soto DO documented in this encounter [facility] 09-16-2023 Note HNO ID: [id number] Author: MARIAELENA JEREZ RT(R) Service: ? Author Type: Technologist Type: Progress Notes Filed: 09/16/2023 09:15 Note Text: Radiology Service Progress Note DATE OF SERVICE: September 16, 2023 TIME: 9:14 AM PATIENT IDENTITY VERIFICATION COMPLETED USING TWO [...] A peripheral IV was started in the Left upper extremity with a Angio cath: 22 gauge. RADIOLOGY DEPARTMENT: MR; Exam(s) Completed: Body: Liver (routine) SIGNATURE: RT Aracelis(R) PATIENT NAME: Leidy Brar DATE: September 16, 2023 TIME: 9:14 AM [facility] 09-15-2023 Note HNO ID: [id number] Author: JESUS SOTO DO Service: ? Author Type: Physician Type: Progress Notes Filed: 09/15/2023 10:01 Note Text: Diagnosis: 1) HHT. HPI: The [...] weeks). Presents for follow up. Interim history: Admitted mid July to [facility] for bleeding. She received inpatient transfusion. While there had a CTA of the abdomen pelvis. Diffuse heterogeneity of the liver was noted with innumerable small hypodensities. Metastatic disease cannot be ruled out. MRI images from 2012 done here were sent to [facility]. Comparison interpretation demonstrated the abnormal appearance of the liver represented a change compared to CT of November 2019 and MRI from November 2012. That addendum was filed on 09/08/2023. Written report was not yet forwarded. Electronic record at [facility] reviewed currently. Images personally reviewed. Underwent outpatient EGD . ~60 lesions cauterized. Had 3 heart pauses attributed to vasosvagal response. Admitted overnight and had ambulatory monitor. Chemistry panel done 09/09 demonstrated mild increase in AST and ALT at 60 units/L each respectively. Total bilirubin 0.40 mg/dL. Phosphorus was 1.7 mg/dL. She received replacement. Magnesium was normal. Alkaline phosphatase normal at 74 units/L. Still sore. Appetite down. Weight down about 3 lbs. Starting to move bowels. No black stools. No chest pain or pressure. Exertional dyspnea [...] Normal mood. PHYSICAL EXAM: Vitals: Blood pressure 140/86, pulse 76, temperature 36.8 ?C (98.2 ?F), height 167 cm (5' 5.75 ), weight 61.5 kg (135 lb 8 oz), SpO2 92%. Well-appearing and in no acute distress. EYES: [...] No jaundice or rash. No petechiae. NEUROLOGIC: director of community center II-XII are grossly intact. No focal motor [...] k/uL 0.66 (L) 0.67 (L) 0.57 (L) Summers% % 7.6 7.4 6.7 Abs Summers <0.87 k/uL 0.43 0.36 0.31 Eosin% % [...] of pulmonary telangiectasias. Epistaxis significantly decreased following bevacizum (more content not included)... [facility] 08-18-2023 Note HNO ID: [id number] Author: Krzysztof Gonzales RN Service: ? Author Type: Registered Nurse Type: Progress Notes Filed: 08/18/2023 3:09 PM Note Text: Dr. Ramirez aware of today's hemoglobin. Pt scheduled to receive 3 units of PRBC tomorrow morning at [facility]. Pt aware of her hemoglobin and how low it is. She is advised to go to the nearest ER if she feels any worse. Pt states she prefers to do transfusion tomorrow but is considering going to the ER after this visit. [facility] 08-05-2023 Note HNO ID: [id number] Author: Brittany Norris RN Service: ? Author Type: Registered Nurse Type: Progress Notes Filed: 08/05/2023 2:37 PM Note Text: spoke with Dr Soto in regards to patient not feeling well and hgb today is 8.2. Stated he will order a transfusion for tomorrow [facility] 08-05-2023 Miscellaneous Notes Pt. Scheduled for transfusion 2 units packed cells@ [facility] 08/06 @ 8 am. Pt. And lab Notified orders faxed. Kristy Hayes LPN documented in this encounter [facility] 08-05-2023 History of Presen t illness Narrative spoke with Dr Soto in regards to patient not feeling well and hgb today is 8.2. Stated he will order a transfusion for tomorrow documented in this encounter [facility] 05-13-2023 Note HNO ID: [id number] Author: Mariaelena Jerez RT(R) Service: ? Author Type: Technologist Type: [...] Routine Brain SIGNATURE: RT Aracelis(R) PATIENT NAME: Leidy Brar DATE: May 13, 2023 TIME: 11:40 AM [facility] 05-13-2023 History of Presen t illness Narrative [...] Routine Brain SIGNATURE: RT Aracelis(Sonny) PATIENT NAME: Leidy Brar DATE: May 13, 2023 TIME: 11:40 AM documented in this encounter [facility] 03-18-2023 Note HNO ID: [id number] Author: Jesus Soto, DO Service: ? Author [...] No jaundice or rash. No petechiae. NEUROLOGIC: director of community center II-XII are grossly intact. No focal motor [...] k/uL 0.66 (L) 0.67 (L) 0.57 (L) Summers% % 7.6 7.4 6.7 Abs Summers <0.87 k/uL 0.43 0.36 0.31 Eosin% % [...] -She will continue to follow-up with her donor recruiter and rhia for echocardiogram for monitoring for pulmonary hypertension/cardiomyopathy. Portions of this documentation were copied and pasted from previous office visit notes in order to provide a cohesive continuity of the history. The note has been reviewed and edited and updated as necessary. I spent a total of 20 minutes on the date of the service which included prepari (more content not included)... [facility] 03-18-2023 History of Presen t illness Narrative [...] No jaundice or rash. No petechiae. NEUROLOGIC: director of community center II-XII are grossly intact. No focal motor [...] k/uL 0.66 (L) 0.67 (L) 0.57 (L) Summers% % 7.6 7.4 6.7 Abs Summers <0.87 k/uL 0.43 0.36 0.31 Eosin% % [...] -She will continue to follow-up with her donor recruiter and rhia for echocardiogram for monitoring for pulmonary hypertension/cardiomyopathy. Portions of this documentation were copied and pasted from previous office visit notes in order to provide a cohesive continuity of the history. The note has been reviewed and edited and updated as necessary. I spent a total of 20 minutes on the date of the service which included preparing to see the patient, [id number] patient care, completing clinical documentation, obtaining and/or reviewing separately obtained history, performing a medically appropriate examination, counseling and educating the patient/family/caregiver, communicating with other HCPs (not separately reported), and communicating results to the patient/family/caregiver. Jesus Soto DO documented in this encounter [facility] 01-04-2023 Note HNO ID: [id number] Author: Erika Garay RN Service: ? Author Type: Registered Nurse Type: Progress Notes Filed: 01/04/2023 3:08 PM Note Text: Pt request blood transfusion due to extreme fatigue and SOB with activity. Orders received for 2 units packed RBC's; pt has appt for tomorrow for both units. Verbalized understanding and denies other needs. Erika Garay RN [facility] 01-04-2023 Miscellaneous Notes CBC reviewed by Dr Soto. Order received for 2 PRBC. Spoke with Priscila at [facility]. Appointment received for 01/05@8:30a. Order faxed to [facility]. Alba in lab notified to prepare blood. Order to lab. Pt here for infusion. Appointment time given. Pt verbalized understanding. Mikayla Enamorado RN documented in this encounter [facility] 01-04-2023 History of Presen t illness Narrative Pt request blood transfusion due to extreme fatigue and SOB with activity. Orders received for 2 units packed RBC's; pt has appt for tomorrow for both units. Verbalized understanding and denies other needs. Erika Garay RN documented in this encounter [facility] 12-24-2022 Miscellaneous Notes SW met with pt this date. Pt reporting she is due to renew her assistance for Avastin through [employer]. SW and pt completed application this date. SW had physician review and sign and SW successfully faxed to [employer] this date. TRUDY sent originals to internal scanning. NORBERTO Ojeda documented in this encounter [facility] 12-15-2022 Miscellaneous Notes Spoke with patient and [...] December. In Dr. Soto last notes her Level Glass Vial Filler recommended the Avastin every 4 months. Last Avastin was 09/15/2022. Dr. Soto do we need to move her Avastin to December? 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 No petechiae. NEUROLOGIC: director of community center II-XII are grossly intact. No focal motor [...] Lymph 1.00 - 4.00 k/uL 0.39 (L) Summers% % 8.4 Abs Summers <0.87 k/uL 0.30 Eosin% % 1.9 Abs [...] iron infusion very well. -Not hypertensive. -Her donor recruiter had suggested every 4 month dosing on Avastin--very reasonable as she benefits from it. -Recent increase in melena--she requires repeat EGD but declines as she will be going to [place]. She is establishing with a food order expediter there. Plan: -Continue monthly Monoferric. -Okay for Avastin today. -Continue PPI. -She will continue to follow-up with her donor recruiter and rhia for echocardiogram for monitoring for pulmonary hypertension/cardiomyopathy. [...] Jesus Soto DO documented in this encounter [facility] 09-07-2022 Miscellaneous Notes Patient did not receive her transfusion last week. Patient scheduled for 2 units PRBC 09/08/2022 @ 0900, [facility]. Orders faxed. Patient and lab aware. Kaylen Mir LPN documented in this encounter [facility] 09-05-2022 Miscellaneous Notes All labs attached to appointment as directed. Flora Harp Please draw all additional lab work, entered under this encounter. Next time she is here. She has anemia that seems out of proportion to her iron deficiency, so I don't want to miss other causes for the anemia. Jesus Soto DO documented in this encounter [facility] 09-04-2022 History of Presen t illness Narrative Recent records faxed to [place] physician Dr Yonis Callahan at [phone] for up coming visit in Sep when pt is in [place]. documented in this encounter [facility] 09-03-2022 Miscellaneous Notes Pt. Scheduled for transfusion 2 units packed cells @ [facility] 09/04 @ 8:30 am. Pt. And lab notified, orders faxed. Kristy Darnell LPN documented in this encounter [facility] 08-19-2022 Miscellaneous Notes Lab added Patient scheduled for transfusion of 2 units of PRBC to be given at [facility] on 08/20/22 at 0900. Orders faxed, patient notified. Pt will have lab rechecked next week. PSS Please add pt on for a lab (cbc with possible transfusion) on 08/26/21 at 0930. No need to notify patient. Can close encounter after scheduled. Ines Ribeiro LPN documented in this encounter [facility] 08-06-2022 Miscellaneous Notes Pt. Scheduled for transfusion 2 units packed cells @ [facility] 08/07 @ 8:45 am. Pt. And lab notified, orders faxed. HGB 8.9, spoke with pt. Stated she has been passing blood in her stool for approx. 3 weeks, and is leaving Wednesday of next week for [place]. Kristy Darnell LPN documented in this encounter [facility] 07-09-[address] Soto - please sign today's treatment orders. Thank you. 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 No petechiae. NEUROLOGIC: director of community center II-XII are grossly intact. No focal motor [...] (L) 0.46 (L) 0.53 (L) 0.71 (L) Summers% % 8.5 8.5 8.7 7.7 5.3 Abs Summers <0.87 k/uL 0.28 0.29 0.26 0.23 0.28 [...] iron infusion very well. -Not hypertensive. -Her donor recruiter had suggested every 4 month dosing on Avastin. Plan: -Continue monthly Monoferric. We will decrease the frequency to every other month if her ferritin continues to trend higher and she has stable counts otherwise with no increase in bleeding. -Follow up with GI for surveillance EGD. -She will continue to follow-up with her donor recruiter and rhia for echocardiogram for monitoring for pulmonary hypertension/cardiomyopathy. [...] Jesus Soto DO documented in this encounter [facility] 01-01-2022 Miscellaneous Notes More orders for Avastin added. Jseus Soto DO Notes adjusted. Chemo nurse aware. Dr. Soto-please add more orders for future scheduling. Today is the last order. Thank you. Please add her on for Avastin 01/01. Her donor recruiter requested the frequency of infusions be increased to every 4 months rather than every 6. 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 Dang Rudolph See message. Schedule for monthly CBC/Iron studies/Monoferric. Jesus Soto DO documented in this encounter [facility] documented as of this encounter (statuses as of 11/28/2021) [facility] History of Past illness Narrative* Problem Noted Date Resolved Date Encounter for screening for malignant neoplasm o f colon 09/26/2015 09/26/2015 Anemia, unspecified 07/01/2005 07/08/2012 documented as of this encounter (statuses as of 12/04/2021) [facility] History of Past illness Narrative* Problem Noted Date Resolved Date Encounter for screening for malignant neoplasm o f colon 09/26/2015 09/26/2015 Anemia, unspecified 07/01/2005 07/08/2012 documented as of this encounter (statuses as of 12/31/2021) [facility] History of Past illness Narrative* Problem Noted Date Resolved Date Encounter for screening for malignant neoplasm o f colon 09/26/2015 09/26/2015 Anemia, unspecified 07/01/2005 07/08/2012 documented as of this encounter (statuses as of 01/01/2022) [facility] History of Past illness Narrative* Problem Noted Date Resolved Date Encounter for screening for malignant neoplasm o f colon 09/26/2015 09/26/2015 Anemia, unspecified 07/01/2005 07/08/2012 documented as of this encounter (statuses as of 01/30/2022) [facility] History of Past illness Narrative* Problem Noted Date Resolved Date Encounter for screening for malignant neoplasm o f colon 09/26/2015 09/26/2015 Anemia, unspecified 07/01/2005 07/08/2012 documented as of this encounter (statuses as of 02/17/2022) [facility] History of Past illness Narrative* Problem Noted Date Resolved Date Encounter for screening for malignant neoplasm o f colon 09/26/2015 09/26/2015 Anemia, unspecified 07/01/2005 07/08/2012 documented as of this encounter (statuses as of 03/19/2022) [facility] History of Past illness Narrative* Problem Noted Date Resolved Date Encounter for screening for malignant neoplasm o f colon 09/26/2015 09/26/2015 Anemia, unspecified 07/01/2005 07/08/2012 documented as of this encounter (statuses as of 03/26/2022) [facility] History of Past illness Narrative* Problem Noted Date Resolved Date Encounter for screening for malignant neoplasm o f colon 09/26/2015 09/26/2015 Anemia, unspecified 07/01/2005 07/08/2012 documented as of this encounter (statuses as of 04/05/2022) [facility] History of Past illness Narrative* Problem Noted Date Resolved Date Encounter for screening for malignant neoplasm o f colon 09/26/2015 09/26/2015 Anemia, unspecified 07/01/2005 07/08/2012 documented as of this encounter (statuses as of 04/23/2022) [facility] History of Past illness Narrative* Problem Noted Date Resolved Date Encounter for screening for malignant neoplasm o f colon 09/26/2015 09/26/2015 Anemia, unspecified 07/01/2005 07/08/2012 documented as of this encounter (statuses as of 05/01/2022) [facility] History of Past illness Narrative* Problem Noted Date Resolved Date Encounter for screening for malignant neoplasm o f colon 09/26/2015 09/26/2015 Anemia, unspecified 07/01/2005 07/08/2012 documented as of this encounter (statuses as of 06/04/2022) [facility] History of Past illness Narrative* Problem Noted Date Resolved Date Encounter for screening for malignant neoplasm o f colon 09/26/2015 09/26/2015 Anemia, unspecified 07/01/2005 07/08/2012 documented as of this encounter (statuses as of 06/04/2022) [facility] History of Past illness Narrative* Problem Noted Date Resolved Date Encounter for screening for malignant neoplasm o f colon 09/26/2015 09/26/2015 Anemia, unspecified 07/01/2005 07/08/2012 documented as of this encounter (statuses as of 07/09/2022) [facility] History of Past illness Narrative* Problem Noted Date Resolved Date Encounter for screening for malignant neoplasm o f colon 09/26/2015 09/26/2015 Anemia, unspecified 07/01/2005 07/08/2012 documented as of this encounter (statuses as of 08/06/2022) [facility] History of Past illness Narrative* Problem Noted Date Resolved Date Encounter for screening for malignant neoplasm o f colon 09/26/2015 09/26/2015 Anemia, unspecified 07/01/2005 07/08/2012 documented as of this encounter (statuses as of 08/06/2022) [facility] History of Past illness Narrative* Problem Noted Date Resolved Date Encounter for screening for malignant neoplasm o f colon 09/26/2015 09/26/2015 Anemia, unspecified 07/01/2005 07/08/2012 documented as of this encounter (statuses as of 08/24/2022) [facility] History of Past illness Narrative* Problem Noted Date Resolved Date Encounter for screening for malignant neoplasm o f colon 09/26/2015 09/26/2015 Anemia, unspecified 07/01/2005 07/08/2012 documented as of this encounter (statuses as of 08/25/2022) [facility] History of Past illness Narrative* Problem Noted Date Resolved Date Encounter for screening for malignant neoplasm o f colon 09/26/2015 09/26/2015 Anemia, unspecified 07/01/2005 07/08/2012 documented as of this encounter (statuses as of 09/03/2022) [facility] History of Past illness Narrative* Problem Noted Date Resolved Date Encounter for screening for malignant neoplasm o f colon 09/26/2015 09/26/2015 Anemia, unspecified 07/01/2005 07/08/2012 documented as of this encounter (statuses as of 09/04/2022) [facility] History of Past illness Narrative* Problem Noted Date Resolved Date Encounter for screening for malignant neoplasm o f colon 09/26/2015 09/26/2015 Anemia, unspecified 07/01/2005 07/08/2012 documented as of this encounter (statuses as of 09/05/2022) [address] History of Past illness Narrative* Problem Noted Date Resolved Date Encounter for screening for malignant neoplasm o f colon 09/26/2015 09/26/2015 Anemia, unspecified 07/01/2005 07/08/2012 documented as of this encounter (statuses as of 09/07/2022) [facility] History of Past illness Narrative* Problem Noted Date Resolved Date Encounter for screening for malignant neoplasm o f colon 09/26/2015 09/26/2015 Anemia, unspecified 07/01/2005 07/08/2012 documented as of this encounter (statuses as of 09/11/2022) [facility] History of Past illness Narrative* Problem Noted Date Resolved Date Encounter for screening for malignant neoplasm o f colon 09/26/2015 09/26/2015 Anemia, unspecified 07/01/2005 07/08/2012 documented as of this encounter (statuses as of 09/15/2022) [facility] History of Past illness Narrative* Problem Noted Date Resolved Date Encounter for screening for malignant neoplasm o f colon 09/26/2015 09/26/2015 Anemia, unspecified 07/01/2005 07/08/2012 documented as of this encounter (statuses as of 09/15/2022) [facility] History of Past illness Narrative* Problem Noted Date Resolved Date Encounter for screening for malignant neoplasm o f colon 09/26/2015 09/26/2015 Anemia, unspecified 07/01/2005 07/08/2012 documented as of this encounter (statuses as of 11/26/2022) [facility] History of Past illness Narrative* Problem Noted Date Resolved Date Encounter for screening for malignant neoplasm o f colon 09/26/2015 09/26/2015 Anemia, unspecified 07/01/2005 07/08/2012 documented as of this encounter (statuses as of 12/03/2022) [facility] History of Past illness Narrative* Problem Noted Date Resolved Date Encounter for screening for malignant neoplasm o f colon 09/26/2015 09/26/2015 Anemia, unspecified 07/01/2005 07/08/2012 documented as of this encounter (statuses as of 12/16/2022) [address] History of Past illness Narrative* Problem Noted Date Resolved Date Encounter for screening for malignant neoplasm o f colon 09/26/2015 09/26/2015 Anemia, unspecified 07/01/2005 07/08/2012 documented as of this encounter (statuses as of 12/24/2022) [facility] History of Past illness Narrative* Problem Noted Date Resolved Date Encounter for screening for malignant neoplasm o f colon 09/26/2015 09/26/2015 Anemia, unspecified 07/01/2005 07/08/2012 documented as of this encounter (statuses as of 12/24/2022) [facility] History of Past illness Narrative* Problem Noted Date Resolved Date Encounter for screening for malignant neoplasm o f colon 09/26/2015 09/26/2015 Anemia, unspecified 07/01/2005 07/08/2012 documented as of this encounter (statuses as of 01/01/2023) [facility] History of Past illness Narrative* Problem Noted Date Resolved Date Encounter for screening for malignant neoplasm o f colon 09/26/2015 09/26/2015 Anemia, unspecified 07/01/2005 07/08/2012 documented as of this encounter (statuses as of 01/04/2023) [facility] History of Past illness Narrative* Problem Noted Date Resolved Date Encounter for screening for malignant neoplasm o f colon 09/26/2015 09/26/2015 Anemia, unspecified 07/01/2005 07/08/2012 documented as of this encounter (statuses as of 01/05/2023) [facility] History of Past illness Narrative* Problem Noted Date Resolved Date Encounter for screening for malignant neoplasm o f colon 09/26/2015 09/26/2015 Anemia, unspecified 07/01/2005 07/08/2012 documented as of this encounter (statuses as of 01/21/2023) [facility] History of Past illness Narrative* Problem Noted Date Resolved Date Encounter for screening for malignant neoplasm o f colon 09/26/2015 09/26/2015 Anemia, unspecified 07/01/2005 07/08/2012 documented as of this encounter (statuses as of 01/22/2023) [facility] History of Past illness Narrative* Problem Noted Date Resolved Date Encounter for screening for malignant neoplasm o f colon 09/26/2015 09/26/2015 Anemia, unspecified 07/01/2005 07/08/2012 documented as of this encounter (statuses as of 02/19/2023) [facility] History of Past illness Narrative* Problem Noted Date Diagnosed Date Resolved Date Encounter for screening for malignant neoplasm of colon 09/26/2015 09/26/2015 Anemia, unspecified 07/01/2005 07/08/20 12 documented as of this encounter (statuses as of 03/18/2023) [facility] History of Past illness Narrative* Problem Noted Date Diagnosed Date Resolved Date Encounter for screening for malignant neoplasm of colon 09/26/2015 09/26/2015 Anemia, unspecified 07/01/2005 07/08/20 12 documented as of this encounter (statuses as of 03/18/2023) [facility] History of Past illness Narrative* Problem Noted Date Diagnosed Date Resolved Date Encounter for screening for malignant neoplasm of colon 09/26/2015 09/26/2015 Anemia, unspecified 07/01/2005 07/08/20 12 documented as of this encounter (statuses as of 04/15/2023) [facility] History of Past illness Narrative* Problem Noted Date Diagnosed Date Resolved Date Encounter for screening for malignant neoplasm of colon 09/26/2015 09/26/2015 Anemia, unspecified 07/01/2005 07/08/20 12 documented as of this encounter (statuses as of 04/28/2023) [facility] History of Past illness Narrative* Problem Noted Date Diagnosed Date Resolved Date Encounter for screening for malignant neoplasm of colon 09/26/2015 09/26/2015 Anemia, unspecified 07/01/2005 07/08/20 12 documented as of this encounter (statuses as of 05/14/2023) [facility] History of Past illness Narrative* Problem Noted Date Diagnosed Date Resolved Date Encounter for screening for malignant neoplasm of colon 09/26/2015 09/26/2015 Anemia, unspecified 07/01/2005 07/08/20 12 documented as of this encounter (statuses as of 06/27/2023) [facility] History of Past illness Narrative* Problem Noted Date Diagnosed Date Resolved Date Encounter for screening for malignant neoplasm of colon 09/26/2015 09/26/2015 Anemia, unspecified 07/01/2005 07/08/20 12 documented as of this encounter (statuses as of 07/08/2023) [facility] History of Past illness Narrative* Problem Noted Date Diagnosed Date Resolved Date Encounter for screening for malignant neoplasm of colon 09/26/2015 09/26/2015 Anemia, unspecified 07/01/2005 07/08/20 12 documented as of this encounter (statuses as of 08/06/2023) [facility] History of Past illness Narrative* Problem Noted Date Diagnosed Date Resolved Date Encounter for screening for malignant neoplasm of colon 09/26/2015 09/26/2015 Anemia, unspecified 07/01/2005 07/08/20 12 documented as of this encounter (statuses as of 08/06/2023) [facility] History of Past illness Narrative* Problem Noted Date Diagnosed Date Resolved Date Encounter for screening for malignant neoplasm of colon 09/26/2015 09/26/2015 Anemia, unspecified 07/01/2005 07/08/20 12 documented as of this encounter (statuses as of 09/19/2023) [facility] History of Past illness Narrative* Problem Noted Date Diagnosed Date Resolved Date Encounter for screening for malignant neoplasm of colon 09/26/2015 09/26/2015 Anemia, unspecified 07/01/2005 07/08/20 12 documented as of this encounter (statuses as of 09/29/2023) [facility] History of Past illness Narrative* Problem Noted Date Diagnosed Date Resolved Date Encounter for screening for malignant neoplasm of colon 09/26/2015 09/26/2015 Anemia, unspecified 07/01/2005 07/08/20 12 documented as of this encounter (statuses as of 10/14/2023) [facility] note* Diagnosis 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, brain Congenital anomaly of cerebrovascular system Chronic GI bleeding Hemorrhage of gastrointestinal tract, unspecified 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 loss Iron deficiency anemia secondary to blood loss (chronic) [facility] 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) [facility] 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) [facility] 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) [facility] Diagnosis 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 loss- Primary Iron deficiency anemia secondary to blood loss (chronic) [facility] Diagnosis 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 loss- Primary Iron deficiency anemia secondary to blood loss (chronic) [facility] 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 [facility] Diagnosis 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 Chronic GI bleeding Hemorrhage of gastrointestinal tract, unspecified 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 loss Iron deficiency anemia secondary to blood loss (chronic) [facility] Diagnosis Chronic diastolic congestive heart failure [...] loss (chronic) [facility] 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) [facility] 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 loss- Primary 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) Hereditary hemorrhagic telangiectasia [facility] Diagnosis Iron deficiency anemia due to [...] loss (chronic) [facility] Diagnosis 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 loss- Primary Iron deficiency anemia secondary to blood loss (chronic) [facility] 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 [facility] Diagnosis 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 telangiectasia [facility] Diagnosis 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 loss- Primary Iron deficiency anemia secondary to blood loss (chronic) [facility] Diagnosis 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 loss- Primary Iron deficiency anemia secondary to blood loss (chronic) [facility] Diagnosis Kidney cysts- Primary Unspecified congenital cystic kidney disease documented in this encounter [facility] for referral (narrative)* Outpatient Procedure (Routine) - Authorized Specialty Diagnoses / Procedures Referred By Frank levine Referred To Contact [facility] Diagnoses Chronic diastolic congestive heart failure (HCC) Procedures ECHO ECHO TTHRC R-T 2D W/WOM-MODE COMPL SPEC&COLR D Master Palmer MD [id number] [place] [id number] Referral ID Status Reason Start Date Expiration Date Visits Requested Visits Authorized [id number] Authorized Auto-Generat ed Referral 2 06/04/2023 1 1 [facility] for referral (narrative)* Diagnostic Procedure Only (Routine) - Closed Specialty Diagnoses / Procedures Referred By Frank levine Referred To Contact US IMAGING Diagnoses Kidney cysts Procedures US KIDNEY/BLADDER US RETROPERITONEAL REAL TIME W/IMAGE COMPLETE Jesus Soto DO [address] [place] [address] Us Imaging [place] [address] Referral ID Status Reason Start Date Expiration Date V isits Requested Visits Authorized [id number] Closed Auto-Generate d Referral 09/17/2023 10/16/2024 1 1 [facility] Summary Purpose Family History No Family History Records FoundNo Family History Records FoundNo Family History Records Found Advance Directives No Advanced Directives Records FoundDocuments on File Type Date Recorded 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 Advance Directive(s) 10/01/2016 11:25 AM Medications Administered Section Inactive Administered Medications - up to 3 most recent administrations Medication Order MAR Action Action Date Dose Rate Site bevacizumab 300 mg in NaCl 0.9% 100 mL (AVASTIN) 300 mg (rounded from 313 mg = 5 mg/kg/dose 62.6 kg Treatment plan Recorded weight), INTRAVENOUS, Administer over 30 Minutes, ONCE, 1 dose, On [facility] 01/01/22 at 0930, APPROX.TOTAL VOLUME - -- DO NOT SHAKE- immediate use REFRIGERATE New Bag/Syringe/Bottle 01/01/2022 10:22 AM EDT 300 mg ferric derisomaltose 1,000 mg in NaCl 0.9% 100 mL (MONOFERRIC) 1,000 mg (set by rule on 11/27/2021 10:10 AM), INTRAVENOUS, Administer over 20 Minutes, ONCE, 1 dose, On [facility] 01/01/22 at 0930, exp 1800 09/04/21 Monitor [...] 45 Minutes, ONCE, 1 dose, On Anast[facility] 08/06/22 at 1100, Monitor patient for hypersensitivity reactions [...] 45 Minutes, ONCE, 1 dose, On An[facility] 11/26/22 at 1130, Monitor patient for hypersensitivity reactions [...] over 30 Minutes, ONCE, 1 dose, On Wed01/04/23 at 1400, APPROX.TOTAL VOLUME - -- DO [...] 45 Minutes, ONCE, 1 dose, On Anastasiia 01/21/23 at 1430, Monitor patient for hypersensitivity [...] 45 Minutes, ONCE, 1 dose, On Anastasi[facility] 02/18/23 at 1430, Monitor patient for hypersensitivity reactions during the infusion and for 30 minutes after infusion is complete. Respirations Expiration: 02/18/23 2230 EXP: (8 HR) New Bag/Syringe/Bottle 02/18/2023 2:48 PM EDT 1,000 mg Inactive Administered Medications - up to 3 most recent administrations Medication Order MAR Action Action Date Dose Rate Site ferric derisomaltose 1,000 mg in NaCl 0.9% 100 mL (MONOFERRIC) 1,000 mg (set by rule on 07/30/2022 10:26 AM), INTRAVENOUS, Administer over 45 Minutes, ONCE, 1 dose, On An[facility] 03/18/23 at 1030, Monitor patient for hypersensitivity reactions [...] over 45 Minutes, ONCE, 1 dose, On [facility] 04/15/23 at 1200, Monitor patient for hypersensitivity reactions [...] recent administrations Medication Order MAR Action Action Dose Rate Site ferric derisomaltose 1,000 mg in NaCl 0.9% 100 mL (MONOFERRIC) 1,000 mg (set by rule on 07/30/2022 10:26 AM), INTRAVENOUS, Administer over 45 Minutes, ONCE, 1 dose, On Wed05/13/23 at 1000, Monitor patient for hypersensitivity reactions during the infusion and for 30 minutes after infusion is complete. Respirations EXP: (8 HR) New Bag/Syringe/Bottle 05/13/2023 12:20 PM EDT 1,000 mg Inactive Administered Medications - up to 3 most recent administrations Medication Order MAR Action Action Dose Rate Site ferric derisomaltose 1,000 mg in NaCl 0.9% 100 mL (MONOFERRIC) 1,000 mg (set by rule on 07/30/2022 10:26 AM), INTRAVENOUS, Administer over 45 Minutes, ONCE, 1 dose, On Wed07/08/23 at 1400, Approx Total Volume - Expires: 07/08/23 @ 2210 Monitor patient for hypersensitivity reactions during the infusion and for 30 minutes after infusion is complete. EXP: (8 HR) New Bag/Syringe/Bottle 07/08/2023 2:22 PM EST 1,000 mg Inactive Administered Medications - up to 3 most recent administrations Medication Order MAR Action Action Dose Rate Site ferric derisomaltose 1,000 mg in NaCl 0.9% 100 mL (MONOFERRIC) 1,000 mg (set by rule on 07/30/2022 10:26 AM), INTRAVENOUS, Administer over 45 Minutes, ONCE, 1 dose, On Wed08/05/23 at 1400, Monitor patient for hypersensitivity reactions during the infusion and for 30 minutes after infusion is complete. Respirations EXP: (8 HR) New Bag/Syringe/Bottle 08/05/2023 1:54 PM EST 1,000 mg Reason for Referral Specialty Diagnoses / Procedures Referred By Contac t Referred To Contact MR IMAGING Diagnoses HHT (hereditary hemorrhagic telangiectasia) (HCC) Procedures MRI BRAIN WO/W IVCON MRI BRAIN BRAIN STEM W/O W/CONTRAST MATERIAL Master Palmer MD [address] [place] [address] Mr Imaging Referral ID Status Reason Start Date Expiration Date Visits Requested Visits Authorized [id number] Authorized Auto-Generat ed Referral 12/02/2022 01/01/2024 1 1 Specialty Diagnoses / Procedures Referred By Contac t Referred To Contact MR IMAGING Diagnoses HHT (hereditary hemorrhagic telangiectasia) (HCC) Procedures MRI BRAIN WO/W IVCON MRI BRAIN BRAIN STEM W/O W/CONTRAST MATERIAL Master Palmer MD [address] [place] [address] Mr Imaging [place] [facility] Referral ID Status Reason Start Date Expiration Date V isits Requested Visits Authorized [id number] Closed Auto-Generate d Referral 12/02/2022 01/01/2024 1 1 Additional Source Comments INFORMATION SOURCE (unrecogn ized section and content) DATE CREATED AUTHOR AUTHOR'S ORGANIZ ATION 09/18/2023 [facility]ter DATE CREATED AUTHOR AUTHOR'S ORGANIZ ATION 10/22/2023 [facility] Source Comments (unrecognize d section and content) In the event this informatio n is protected by the Federal Confidentiality of Alcohol and Drug Abuse Patient Records regulations: The Federal rules restrict any use of the information to criminally investigate or prosecute any alcohol or drug abuse patient.[facility] the event this information is protected by the Federal Confidentiality of Alcohol and Drug Abuse Patient Records regulations: The Federal rules restrict any use of the information to criminally investigate or prosecute any alcohol or drug abuse patient.[facility]In the event this information is protected by the Federal Confidentiality of Alcohol and Drug Abuse Patient Records regulations: The Federal rules restrict any use of the information to criminally investigate or prosecute any alcohol or drug abuse patient.[facility] HospitalIn the event this information is protected by the Federal Confidentiality of Alcohol and Drug Abuse Patient Records regulations: The Federal rules restrict any use of the information to criminally investigate or prosecute any alcohol or drug abuse patient.[facility] HospitalIn the event this information is protected by the Federal Confidentiality of Alcohol and Drug Abuse Patient Records regulations: The Federal rules restrict any use of the information to criminally investigate or prosecute any alcohol or drug abuse patient.[facility] HospitalIn the event this information is protected by the Federal Confidentiality of Alcohol and Drug Abuse Patient Records regulations: The Federal rules restrict any use of the information to criminally investigate or prosecute any alcohol or drug abuse patient.[facility] HospitalIn the event this information is protected by the Federal Confidentiality of Alcohol and Drug Abuse Patient Records regulations: The Federal rules restrict any use of the information to criminally investigate or prosecute any alcohol or drug abuse patient.[facility] HospitalIn the event this information is protected by the Federal Confidentiality of Alcohol and Drug Abuse Patient Records regulations: The Federal rules restrict any use of the information to criminally investigate or prosecute any alcohol or drug abuse patient.[facility] HospitalIn the event this information is protected by the Federal Confidentiality of Alcohol and Drug Abuse Patient Records regulations: The Federal rules restrict any use of the information to criminally investigate or prosecute any alcohol or drug abuse patient.[facility] HospitalIn the event this information is protected by the Federal Confidentiality of Alcohol and Drug Abuse Patient Records regulations: The Federal rules restrict any use of the information to criminally investigate or prosecute any alcohol or drug abuse patient.[facility] HospitalIn the event this information is protected by the Federal Confidentiality of Alcohol and Drug Abuse Patient Records regulations: The Federal rules restrict any use of the information to criminally investigate or prosecute any alcohol or drug abuse patient.[facility] HospitalIn the event this information is protected by the Federal Confidentiality of Alcohol and Drug Abuse Patient Records regulations: The Federal rules restrict any use of the information to criminally investigate or prosecute any alcohol or drug abuse patient.[facility] HospitalIn the event this information is protected by the Federal Confidentiality of Alcohol and Drug Abuse Patient Records regulations: The Federal rules restrict any use of the information to criminally investigate or prosecute any alcohol or drug abuse patient.[facility] HospitalIn the event this information is protected by the Federal Confidentiality of Alcohol and Drug Abuse Patient Records regulations: The Federal rules restrict any use of the information to criminally investigate or prosecute any alcohol or drug abuse patient.[facility] HospitalIn the event this information is protected by the Federal Confidentiality of Alcohol and Drug Abuse Patient Records regulations: The Federal rules restrict any use of the information to criminally investigate or prosecute any alcohol or drug abuse patient.[facility] HospitalIn the event this information is protected by the Federal Confidentiality of Alcohol and Drug Abuse Patient Records regulations: The Federal rules restrict any use of the information to criminally investigate or prosecute any alcohol or drug abuse patient.[facility] HospitalIn the event this information is protected by the Federal Confidentiality of Alcohol and Drug Abuse Patient Records regulations: The Federal rules restrict any use of the information to criminally investigate or prosecute any alcohol or drug abuse patient.[facility] HospitalIn the event this information is protected by the Federal Confidentiality of Alcohol and Drug Abuse Patient Records regulations: The Federal rules restrict any use of the information to criminally investigate or prosecute any alcohol or drug abuse patient.[facility] HospitalIn the event this information is protected by the Federal Confidentiality of Alcohol and Drug Abuse Patient Records regulations: The Federal rules restrict any use of the information to criminally investigate or prosecute any alcohol or drug abuse patient.[facility] HospitalIn the event this information is protected by the Federal Confidentiality of Alcohol and Drug Abuse Patient Records regulations: The Federal rules restrict any use of the information to criminally investigate or prosecute any alcohol or drug abuse patient.[facility] HospitalIn the event this information is protected by the Federal Confidentiality of Alcohol and Drug Abuse Patient Records regulations: The Federal rules restrict any use of the information to criminally investigate or prosecute any alcohol or drug abuse patient.[facility] HospitalIn the event this information is protected by the Federal Confidentiality of Alcohol and Drug Abuse Patient Records regulations: The Federal rules restrict any use of the information to criminally investigate or prosecute any alcohol or drug abuse patient.[facility] HospitalIn the event this information is protected by the Federal Confidentiality of Alcohol and Drug Abuse Patient Records regulations: The Federal rules restrict any use of the information to criminally investigate or prosecute any alcohol or drug abuse patient.[facility] HospitalIn the event this information is protected by [...] or prosecute any alcohol or drug abuse patient.[facility] HospitalIn the event this information is protected by the Federal Confidentiality of Alcohol and Drug Abuse Patient Records regulations: The Federal rules restrict any use of the information to criminally investigate or prosecute any alcohol or drug abuse patient.[facility] HospitalIn the event this information is protected by the Federal Confidentiality of Alcohol and Drug Abuse Patient Records regulations: The Federal rules restrict any use of the information to criminally investigate or prosecute any alcohol or drug abuse patient.[facility] HospitalIn the event this information is protected by the Federal Confidentiality of Alcohol and Drug Abuse Patient Records regulations: The Federal rules restrict any use of the information to criminally investigate or prosecute any alcohol or drug abuse patient.[facility] HospitalIn the event this information is protected by the Federal Confidentiality of Alcohol and Drug Abuse Patient Records regulations: The Federal rules restrict any use of the information to criminally investigate or prosecute any alcohol or drug abuse patient.[facility] HospitalIn the event this information is protected by the Federal Confidentiality of Alcohol and Drug Abuse Patient Records regulations: The Federal rules restrict any use of the information to criminally investigate or prosecute any alcohol or drug abuse patient.[facility] HospitalIn the event this information is protected by the Federal Confidentiality of Alcohol and Drug Abuse Patient Records regulations: The Federal rules restrict any use of the information to criminally investigate or prosecute any alcohol or drug abuse patient.[facility] HospitalIn the event this information is protected by the Federal Confidentiality of Alcohol and Drug Abuse Patient Records regulations: The Federal rules restrict any use of the information to criminally investigate or prosecute any alcohol or drug abuse patient.[facility] HospitalIn the event this information is protected by the Federal Confidentiality of Alcohol and Drug Abuse Patient Records regulations: The Federal rules restrict any use of the information to criminally investigate or prosecute any alcohol or drug abuse patient.[facility] HospitalIn the event this information is protected by the Federal Confidentiality of Alcohol and Drug Abuse Patient Records regulations: The Federal rules restrict any use of the information to criminally investigate or prosecute any alcohol or drug abuse patient.[facility] HospitalIn the event this information is protected by the Federal Confidentiality of Alcohol and Drug Abuse Patient Records regulations: The Federal rules restrict any use of the information to criminally investigate or prosecute any alcohol or drug abuse patient.[facility] HospitalIn the event this information is protected by the Federal Confidentiality of Alcohol and Drug Abuse Patient Records regulations: The Federal rules restrict any use of the information to criminally investigate or prosecute any alcohol or drug abuse patient.[facility] HospitalIn the event this information is protected by the Federal Confidentiality of Alcohol and Drug Abuse Patient Records regulations: The Federal rules restrict any use of the information to criminally investigate or prosecute any alcohol or drug abuse patient.[facility] HospitalIn the event this information is protected by the Federal Confidentiality of Alcohol and Drug Abuse Patient Records regulations: The Federal rules restrict any use of the information to criminally investigate or prosecute any alcohol or drug abuse patient.[facility] HospitalIn the event this information is protected by the Federal Confidentiality of Alcohol and Drug Abuse Patient Records regulations: The Federal rules restrict any use of the information to criminally investigate or prosecute any alcohol or drug abuse patient.[facility] HospitalIn the event this information is protected by the Federal Confidentiality of Alcohol and Drug Abuse Patient Records regulations: The Federal rules restrict any use of the information to criminally investigate or prosecute any alcohol or drug abuse patient.[facility] HospitalIn the event this information is protected by the Federal Confidentiality of Alcohol and Drug Abuse Patient Records regulations: The Federal rules restrict any use of the information to criminally investigate or prosecute any alcohol or drug abuse patient.[facility] HospitalIn the event this information is protected by the Federal Confidentiality of Alcohol and Drug Abuse Patient Records regulations: The Federal rules restrict any use of the information to criminally investigate or prosecute any alcohol or drug abuse patient.[facility] HospitalIn the event this information is protected by the Federal Confidentiality of Alcohol and Drug Abuse Patient Records regulations: The Federal rules restrict any use of the information to criminally investigate or prosecute any alcohol or drug abuse patient.[facility] HospitalIn the event this information is protected by the Federal Confidentiality of Alcohol and Drug Abuse Patient Records regulations: The Federal rules restrict any use of the information to criminally investigate or prosecute any alcohol or drug abuse patient.[facility] HospitalIn the event this information is protected by the Federal Confidentiality of Alcohol and Drug Abuse Patient Records regulations: The Federal rules restrict any use of the information to criminally investigate or prosecute any alcohol or drug abuse patient.[facility] HospitalIn the event this information is protected by the Federal Confidentiality of Alcohol and Drug Abuse Patient Records regulations: The Federal rules restrict any use of the information to criminally investigate or prosecute any alcohol or drug abuse patient.[facility] HospitalIn the event this information is protected by the Federal Confidentiality of Alcohol and Drug Abuse Patient Records regulations: The Federal rules restrict any use of the information to criminally investigate or prosecute any alcohol or drug abuse patient.[facility] HospitalIn the event this information is protected by the Federal Confidentiality of Alcohol and Drug Abuse Patient Records regulations: The Federal rules restrict any use of the information to criminally investigate or prosecute any alcohol or drug abuse patient.[facility] Reason for Visit (unrecogniz ed section and content) Reason Comments Chemotherapy Treatment Specialty Diagnoses / Procedures Referred By Contac t Referred To Contact Diagnoses 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 loss 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 loss Jesus Soto DO [address] [place] [address] [facility] [address] [place] [address] Referral ID Status Reason Start Date Expiration Date V isits Requested Visits Authorized [id number] Authorized 01/22/2021 04/22/2021 99 99 Reason Comments Established Patient Reason Comments Non-Chemotherapy Treatment Specialty Diagnoses / Procedures Referred By Contac t Referred To Contact Diagnoses 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 loss 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 loss Jesus Soto DO [address] [place] [address] [facility] [address] [place] [address] Referral ID Status Reason Start Date Expiration Date V isits Requested Visits Authorized [id number] Authorized 01/28/2022 04/28/2022 99 99 Reason Comments Follow Up Add Avastin today Specialty Diagnoses / Procedures Referred By Contac t Referred To Contact Diagnoses Hereditary hemorrhagic telangiectasia (HCC) Josette Martínez MD [address] [facility] [place] [address] [facility] [address] [place] [address] Referral ID Status Reason Start Date Expiration Date V isits Requested Visits Authorized [id number] Authorized 06/14/2020 09/12/2020 1 1 Reason Comments [...] chronic blood loss Jesus Soto, [address] [place] [address] [facility] [address] [place] [address] Reason Comments Consult Established patient Specialty Diagnoses / Procedures Referred By Contac t Referred To Contact Diagnoses Hereditary hemorrhagic telangiectasia (HCC) Josette Martínez MD [address] [place] [address] [place] [address] [facility] [address] [place] [address] Specialty Diagnoses / Procedures [facility] To Contact MR IMAG[facility] Diagnoses HHT (hereditary hemorrhagic telangiectasia) (HCC) Procedures MRI BRAIN WO/W IVCON MRI BRAIN BRAIN STEM W/O W/CONTRAST MATERIAL Master Palmer MD [address] [place] [address] Mr Imaging [place] [address] Referral ID Status Reason Start Date Expiration Date V isits Requested Visits Authorized [id number] Closed Auto-Generate d Referral 12/02/2022 01/01/2024 1 1 Care Teams (unrecognized sec tion and content) Maintenance Service Supervisor Relationship Specialty Start Date End Date Mariaelena Corbett DO PCP - General 09/26/15 Maintenance Service Supervisor Relationship Specialty Start Date End Date Mariaelena Corbett DO PCP - General 09/26/15 Maintenance Service Supervisor Relationship Specialty Start Date End Date Mariaelena Corbett DO PCP - General 09/26/15 Maintenance Service Supervisor Relationship Specialty Start Date End Date Mariaelena Corbett DO PCP - General 09/26/15 Maintenance Service Supervisor Relationship Specialty Start Date End Date Mariaelena Corbett DO PCP - General 09/26/15 Maintenance Service Supervisor Relationship Specialty Start Date End Date Mariaelena Corbett DO PCP - General 09/26/15 Maintenance Service Supervisor Relationship Specialty Start Date End Date Mariaelena Corbett DO PCP - General 09/26/15 Maintenance Service Supervisor Relationship Specialty Start Date End Date Mariaelena Corbett DO PCP - General 09/26/15 Maintenance Service Supervisor Relationship Specialty Start Date End Date Mariaelena Corbett DO PCP - General 09/26/15 Maintenance Service Supervisor Relationship Specialty Start Date End Date Mariaelena Corbett DO PCP - General 09/26/15 Maintenance Service Supervisor Relationship Specialty Start Date End Date Mariaelena Corbett DO PCP - General 09/26/15 Maintenance Service Supervisor Relationship Specialty Start Date End Date Mariaelena Corbett DO PCP - General 09/26/15 Maintenance Service Supervisor Relationship Specialty Start Date End Date Mariaelena Corbett DO PCP - General 09/26/15 Maintenance Service Supervisor Relationship Specialty Start Date End Date Mariaelena Corbett DO PCP - General 09/26/15 Maintenance Service Supervisor Relationship Specialty Start Date End Date Mariaelena Corbett DO PCP - General 09/26/15 Maintenance Service Supervisor Relationship Specialty Start Date End Date Mariaelena Corbett DO PCP - General 09/26/15 Maintenance Service Supervisor Relationship Specialty Start Date End Date Mariaelena Corbett DO PCP - General 09/26/15 Maintenance Service Supervisor Relationship Specialty Start Date End Date Mariaelena Corbett DO PCP - General 09/26/15 Maintenance Service Supervisor Relationship Specialty Start Date End Date Mariaelena Corbett DO PCP - General 09/26/15 Maintenance Service Supervisor Relationship Specialty Start Date End Date Mariaelena Corbett DO PCP - General 09/26/15 Maintenance Service Supervisor Relationship Specialty Start Date End Date Mariaelena Corbett DO PCP - General 09/26/15 Maintenance Service Supervisor Relationship Specialty Start Date End Date Mariaelena Corbett DO PCP - General 09/26/15 Maintenance Service Supervisor Relationship Specialty Start Date End Date Mariaelena Corbett DO PCP - General 09/26/15 Maintenance Service Supervisor Relationship Specialty Start Date End Date Mariaelena Corbett DO PCP - General 09/26/15 Maintenance Service Supervisor Relationship Specialty Start Date End Date Mariaelena Corbett DO PCP - General 09/26/15 Maintenance Service Supervisor Relationship Specialty Start Date End Date Mariaelena Corbett DO PCP - General 09/26/15 Jesus Soto DO [address] [facility] [place] [address] Hematology/Oncology 08/17/23 Maintenance Service Supervisor Relationship Specialty Start Date End Date Mariaelena Corbett DO PCP - General 09/26/15 Jesus Soto DO [address] [place] [address] Hematology/Oncology 08/17/23 Maintenance Service Supervisor Relationship Specialty Start Date End Date Mariaelena Corbett DO PCP - General 09/26/15 Jesus Soto DO [address] [facility] [place] [address] Hematology/Oncology 08/17/23 FOR RECORDS PERTAINING TO PATIENTS WHO ARE [...] BE BASED ON THE PRIMARY CLINICAL RECORDS. [facility] [employer] [facility]. provides no warranty or guarantee of the accuracy or completeness of information in this document.
[2023-10-25] MEDS: Pantoprazole Sodium 80 MG in 0.9% Normal Saline (100mL Bag) 80 ML 10 MG CONT INF (23:38)
[2023-10-25 23:41] LABS: Prothrombin Time (Protime)PT. 13.2 SECONDS (11.7-14.9)
[2023-10-25 23:43] LABS: Partial Thromboplast Time 27.9 Seconds (24.1-36.2)
[2023-10-25 23:51] VITALS: BP 121/59; PULSE 80; RESP 18; TEMP 36.8; O2SAT 99
[2023-10-25 23:52] LABS: Mucous, Urine 0 SEEN /hpf (<or=2+)
[2023-10-25 23:53] LABS: Color, Urine Yellow (Yellow); Glucose, Dipstick Normal (Normal); Ketone-Dipstick 5 mg/dl (Negative); Leukocyte Esterase-Dipstick 500 /ul (Negative); Nitrite-Dipstick Negative (Negative); Occult Blood-Urine 250 /ul (Negative); Protein-Dipstick 30 mg/dl (Negative); Urine Bilirubin Dipstick Negative (Negative); Urine Clarity Clear (Clear); Urine Urobilinogen Normal (Normal)
[2023-10-26] VITALS (11 sets, daily range): BP systolic 100–125; BP diastolic 52–81; PULSE 84–102; RESP 16; TEMP 36.6–37.2; O2SAT 96–102; BMI 21.4
--- NOTE | 2023-10-26 00:07 | PCM.HP.STD ---
HPI - General General Date of Admission: 10/26/23 Date of Service: 10/26/23 Chief Complaint: Gastrointestinal bleed HPI Narrative DERECK LÓPEZ, is a 73 F who presents to the emergency room with chief complaint of gastrointestinal bleeding. Onset of symptoms began last Wednesday. Patient has progressively become weak and lightheaded noticing dark black stools while visiting [place] this past week. Patient normally walks a mile a day but was unable to take her walk 2 days ago and realized she was having recurrent gastrointestinal bleeding symptoms and wanted to come back to [place] for her care. Patient therefore decided to drive all the way home today from [facility] by herself. She admits to having lightheadedness and fatigue during her trip but made it home safely. She denies fevers or chills, chest pain or shortness of breath presently her hemoglobin was 5.7 and she was immediately typed and crossed for 2 units of blood to be transfused in the emergency room. She does states she needs pretreatment for her transfusion due to history of nausea and headache so therefore she will get Benadryl, Tylenol and steroids prior to her transfusion. This message was relayed to the ER physician who ordered that. The patient is known to GI Dr. Peters who will be consulted during her admission. [facility] Medical History ABLA (acute blood loss anemia) Anemia Cardiology follow-up encounter Chronic upper GI bleeding Gastric reflux GI (gastrointestinal bleed) H/O hereditary hemorrhagic telangiectasia (HHT) History of echocardiogram History of steroid therapy Hypophosphatemia Low iron Migraines Non-smoker Post-menopausal Symptomatic anemia Wears hearing aid Home Medications ascorbic acid (vitamin C) 1,000 mg tablet 1,000 mg PO DAILY SUPPLEMENT 11/24/19 [History Last Taken 09/07/23] folic acid 1 mg tablet 1 mg PO DAILY SUPPLEMENT 11/24/19 [History Last Taken 09/07/23] vitamin B complex (B Complex-Vitamin B12 tablet) 1 tab PO DAILY supplement 04/15/21 [History Last Taken 09/07/23] catalyn gf 1 tab PO DAILY supplement 02/24/22 [History Last Taken 09/07/23] iron sucrose 50 mg iron/2.5 mL intravenous solution 50 mg IV .monthly supplement 02/24/22 [History Last Taken 09/01/23] orthomune 1 tab PO DAILY supplement 02/24/22 [History Last Taken 09/07/23] bevacizumab 25 mg/mL intravenous solution (Avastin) 25 mg intravitreal .Q4MO infusion 04/21/22 [History Last Taken 08/18/23] osteobase 3 tab PO DAILY supplement 05/18/23 [History Last Taken 09/07/23] estradiol 0.01% (0.1 mg/gram) vaginal cream 0.1 applic vaginal TUTHSA vag itching 08/18/23 [History Last Taken 09/07/23] TADEO FOOD 1 cap PO DAILY supplement 09/06/23 [History Last Taken 09/07/23] budesonide 0.5 mg/2 mL suspension for nebulization 0.5 mg irrigation DAILY breathing 09/06/23 [History Last Taken 09/07/23] d-mannose 500 mg capsule 500 mg PO DAILY supplement 09/06/23 [History Last Taken 09/07/23] rizatriptan 10 mg disintegrating tablet 10 mg PO Q2H PRN migraine headache 09/09/23 [History Last Taken Unknown] pantoprazole 40 mg tablet,delayed release (Protonix) 40 mg PO BID 30 days #60 tabs 09/13/23 [Rx Last Taken Unknown] sucralfate 1 gram tablet 1 g PO BID #90 tabs 09/14/23 [Rx Last Taken Unknown] Allergy/AdvReac Type Severity Reaction Status Date / Time bacitracin Allergy Unknown Rash Verified 10/25/23 22:28 Family History Mother Cancer Squamous Basal Cell Father Cancer Lymphoma HHT (hereditary hemorrhagic telangiectasia) Surgical History History of back surgery History of cholecystectomy History of foot surgery History of nasal surgery History of neck surgery Hx of colonoscopy Hx of esophagogastroduodenoscopy Hx of shoulder replacement Social History Smoking Status: Never smoker alcohol intake: never substance use type: does not use caffeine: Yes Type: tea Number of servings: 2 what type of physical activity do you participate in: walking frequency: 3-4 times per week seatbelt use: always do you feel safe at home: Yes 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 Constitutional Constitutional: Reports fatigue; Denies chills or fever(s) Eyes Eyes: Denies blurry vision ENT HEENT: Denies abnormal hearing Cardiovascular Cardiovascular: Denies chest pain Respiratory/Chest Respiratory/Chest: Reports shortness of breath with exertion Gastrointestinal Gastrointestinal: Reports abdominal pain and melena; Denies vomiting Genitourinary Genitourinary: Denies dysuria Musculoskeletal Musculoskeletal: Denies back pain Integumentary Integumentary: Denies dry skin Neurologic Neurologic: Denies abnormal gait Psychiatric Psychiatric: Denies depression Vital Signs Vital Signs Vital Signs: 10/25/23 22:25 10/25/23 22:44 10/25/23 23:51 Temperature 97.1 F L 98.3 F Temperature Source Temporal Pulse Rate 122 H 80 Respiratory Rate 16 18 Respiratory Effort Normal Non-Labored Respiratory Pattern Normal Blood Pressure 116/55 L 121/59 H Blood Pressure Mean 75 79 Pulse Ox 96 99 Oxygen Delivery Method Room Air Weight Weight: 134 lb 5 oz Body Mass Index (BMI) 21.7 Physical Exam Const oriented x3 General Appearance: cooperative and well developed HEENT normocephalic and head/scalp atraumatic Eyes PERRL Neck no lymphadenopathy Lymph Lymphatic: no lymphadenopathy noted Resp normal respiratory effort, normal air movement and clear to auscultation bilaterally Cardio regular rhythm, S1 normal heart sound and S2 normal heart sound Rate: tachycardic GI normal to inspection, nondistended, normoactive bowel sounds and non-tender Extremity normal capillary refill Skin General Skin Exam: no breakdown Neuro no focal motor deficits and no sensory deficits noted Psych thought process normal, cooperative and affect normal Results Lab / Micro Data 10/25/23 22:35 10/25/23 22:35 Labs: Laboratory Results - last 24 hr 10/25/23 22:35: WBC 8.1, RBC 2.22 L, Hgb 5.7 L*, Hct 20.6 L, MCV 92.8, MCH 25.7 L, MCHC 27.7 L, RDW Std Deviation 64.7 H, RDW Coeff of Marques 19.0 H, Plt Count 350, MPV 10.3, Immature Gran % (Auto) 0.500, Neut % (Auto) 81.7 H, Lymph % (Auto) 8.5 L, Elbert % (Auto) 7.9, Eos % (Auto) 1.0, Baso % (Auto) 0.4, Absolute Neuts (auto) 6.7, Absolute Lymphs (auto) 0.69 L, Nucleated RBC % 0.2, Differential Comment SCANNED, Diff Path Review May foll, Hypochromasia 2+, Anisocytosis 1+, Target Cells RARE, PT 13.2, INR 1.0, APTT 27.9, Sodium 141, Potassium 3.9, Chloride 109 H, Carbon Dioxide 28.0, Anion Gap 4 L, BUN 21 H, Creatinine 0.56, Estim Creat Clear Calc 58.63, Est GFR (MDRD) Af Amer 135, Est GFR (MDRD) Non-Af 112, BUN/Creatinine Ratio 37.2 H, Glucose 125 H, Calcium 8.9, Total Bilirubin 0.30, AST 13 L, ALT 23, Alkaline Phosphatase 62, Total Protein 6.3 L, Albumin 3.5, Globulin 2.8, Albumin/Globulin Ratio 1.2, Crossmatch See Detail 10/25/23 23:45: Urine Color Yellow, Urine Clarity Clear, Urine pH 5.0, Ur Specific [place] 1.030, Urine Protein 30 H, Urine Glucose (UA) Normal, Urine Ketones 5 H, Urine Occult Blood 250 H, Urine Nitrite Negative, Urine Bilirubin Negative, Urine Urobilinogen Normal, Ur Leukocyte Esterase 500 H Assessment & Plan Assessment/Plan (1) Upper gastrointestinal bleeding: (2) Osler hemorrhagic telangiectasia syndrome: PLAN: Plan 1. Upper GI bleed?admit patient to general medical floor, IV Protonix drip, consult gastroenterology specialist, continue transfusion of 2 units packed red blood cell, repeat CBC 1 hour posttransfusion, make patient n.p.o. 2. DVT prophylaxis?Place patient on SCDs due to GI bleed Charges/Coding Visit Charges Inpatient E&M: 15636 Init Hosp L2
[2023-10-26 00:19] LABS: Red Blood Cells-Urine 50-100 SEEN /hpf (0-5); Squamous Epithelial Cells - UA 10-25 SEEN /hpf (5-10); White Blood Cells >100 SEEN /hpf (0-5)
[2023-10-26 00:20] LABS: Bacteria 2+ /hpf (None Seen)
[2023-10-26] MEDS: Ceftriaxone 1 GM/50 ML BAG IV (00:55)
--- OUTSIDE RECORDS SUMMARY | 2023-10-26 01:55 | XMS RPT_ITS | CCD ---
Author Name Unknown Address [address] [place] [address] Organization [facility] Care Team Providers Care Cyber Security Instructor Name Role Phone Anders Simms PA-C Unavailable Malys DO, Mariaelena A Primary Care Provider [phone] Malys DO, Mariaelena A Primary Care Provider Malys DO, Mariaelena A Primary Care Provider [phone] Malys DO, Mariaelena A Primary Care Provider [phone] MASCI, JSEUS A Referring Unavailable MALYS, MARIAELENA A Primary [...] three times daily as needed for headache YJRGAKEMIA-CFFN-[id number] AFFEINE 50-325-40 MG TABS 1 po up to three times daily as needed for headaches [id number] AFFEINE [id number] Jeannine Hedrick LPN Problems Active Problems Problem Classification Problem Date Documented Da te Episodic/Chronic Cardiac and circulatory congenital anomalies (3 sources) Cerebral arteriovenous malformation; 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] Onset: 4 Chronic Congestive heart failure; nonhypertensive (1 source) [...] hemorrhagic telangiectasia) (HCC)] Onset: 4 Chronic Other diseases of kidney and ureters (1 source) Cyst of kidney, acquired; Translations: [Kidney cysts] Onset: 4 Episodic Other diseases of kidney and ureters (1 source) Cyst of kidney; Translations: [Cyst of kidney, acquired] 09-17-2023 Episodic Other ear and sense organ disorders (20 sources) Hearing loss; Translations: [Unspecified hearing loss, unspecified ear] Onset: 1 04-20-2011 Chronic Other gastrointestinal disorders (20 sources) Malabsorption - iron; Translations: [Intestinal malabsorption, unspecified] Onset: 7 06-30-2017 Chronic Other screening for suspected conditions (not mental disorders or infectious disease) (2 sources) Abnormal findings on diagnostic imaging of other abdominal regions, including retroperitoneum; Translations: [Abnormal findings on diagnostic imaging of liver and biliary tract] Onset: 4 Episodic Other upper respiratory disease (1 source) Epistaxis; [...] deficiency anemia, unspecified] Onset: 03-20-2013 08-18-2021 Episodic Headache, including migraine (1 source) Headache; [...] temperature 97.81 [degF] Treatment Wstr Work Phone: [facility] 08-05-2023 13:35-0500 Diastolic blood pressure 52 mm[Hg] Treatment Wstr Work Phone: [facility] 08-05-2023 13:35-0500 Heart rate 96 /min Treatment Wstr Work Phone: [facility] 08-05-2023 13:35-0500 Respiratory rate 16 /min Treatment Wstr Work Phone: [facility] 08-05-2023 13:35-0500 SaO2% (BldA) [Mass fraction] 100 % Treatment Wstr Work Phone: [facility] 08-05-2023 13:35-0500 Systolic blood pressure 127 mm[Hg] Treatment Wstr Work Phone: [facility] 07-08-2023 14:02-0500 Body temperature 97.5 [degF] Treatment Wstr Work Phone: [facility] 07-08-2023 14:02-0500 Diastolic blood pressure 48 mm[Hg] Treatment Wstr Work Phone: [facility] 07-08-2023 14:02-0500 Heart rate 70 /min Treatment Wstr Work Phone: [facility] 07-08-2023 14:02-0500 Respiratory rate 16 /min Treatment Wstr Work Phone: [facility] 07-08-2023 14:02-0500 SaO2% (BldA) [Mass fraction] 100 % Treatment Wstr Work Phone: [facility] 07-08-2023 14:02-0500 Systolic blood pressure 121 mm[Hg] Treatment Wstr Work Phone: [facility] 04-27-2023 14:04-0400 Body temperature 98.2 [degF] Treatment Wstr Work Phone: [facility] 04-27-2023 14:04-0400 Body weight 63.96 kg Treatment Wstr Work Phone: [facility] 04-27-2023 14:04-0400 Diastolic blood pressure 66 mm[Hg] Treatment Wstr Work Phone: [facility] 04-27-2023 14:04-0400 Heart rate 85 /min Treatment Wstr Work Phone: [facility] 04-27-2023 14:04-0400 Respiratory rate 18 /min Treatment Wstr Work Phone: [facility] 04-27-2023 14:04-0400 Systolic blood pressure 105 mm[Hg] Treatment Wstr Work Phone: [facility] 04-15-2023 11:54-0400 Body temperature 97.39 [degF] Treatment Wstr Work Phone: [facility] 04-15-2023 11:54-0400 Diastolic blood pressure 54 mm[Hg] Treatment Wstr Work Phone: [facility] 04-15-2023 11:54-0400 Heart rate 75 /min Treatment Wstr Work Phone: [facility] 04-15-2023 11:54-0400 Systolic blood pressure 102 mm[Hg] Treatment Wstr Work Phone: [facility] 03-18-2023 10:08-0400 Body temperature 97.39 [degF] Treatment Wstr Work Phone: [facility] 03-18-2023 10:08-0400 Body weight 62.82 kg Treatment Wstr Work Phone: [facility] 03-18-2023 10:08-0400 Diastolic blood pressure 51 mm[Hg] Treatment Wstr Work Phone: [facility] 03-18-2023 10:08-0400 Heart rate 73 /min Treatment Wstr Work Phone: [facility] 03-18-2023 10:08-0400 Systolic blood pressure 110 mm[Hg] Treatment Wstr Work Phone: [facility] 02-18-2023 14:11-0400 Body temperature 97 [degF] Treatment Wstr Work Phone: [facility] 02-18-2023 14:11-0400 Diastolic blood pressure 47 mm[Hg] Treatment Wstr Work Phone: [facility] 02-18-2023 14:11-0400 Heart rate 72 /min Treatment Wstr Work Phone: [facility] 02-18-2023 14:11-0400 Systolic blood pressure 109 mm[Hg] Treatment Wstr Work Phone: [facility] 01-21-2023 14:00-0400 Body temperature 97.5 [degF] Treatment Wstr Work Phone: [facility] 01-21-2023 14:00-0400 Diastolic blood pressure 55 mm[Hg] Treatment Wstr Work Phone: [facility] 01-21-2023 14:00-0400 Heart rate 68 /min Treatment Wstr Work Phone: [facility] 01-21-2023 14:00-0400 Respiratory rate 18 /min Treatment Wstr Work Phone: [facility] 01-21-2023 14:00-0400 SaO2% (BldA) [Mass fraction] 100 % Treatment Wstr Work Phone: [facility] 01-21-2023 14:00-0400 Systolic blood pressure 113 mm[Hg] Treatment Wstr Work Phone: [facility] 01-04-2023 13:00-0400 Body weight 63.28 kg Treatment Wstr Work Phone: [facility] 01-04-2023 13:00-0400 Diastolic blood pressure 44 mm[Hg] Treatment Wstr Work Phone: [facility] 01-04-2023 13:00-0400 Heart rate 74 /min Treatment Wstr Work Phone: [facility] 01-04-2023 13:00-0400 Respiratory rate 16 /min Treatment Wstr Work Phone: [facility] 01-04-2023 13:00-0400 SaO2% (BldA) [Mass fraction] 100 % Treatment Wstr Work Phone: [facility] 01-04-2023 13:00-0400 Systolic blood pressure 99 mm[Hg] Treatment Wstr Work Phone: [facility] 12-24-2022 09:17-0400 Body temperature 97.5 [degF] Treatment Wstr Work Phone: [facility] 12-24-2022 09:17-0400 Diastolic blood pressure 63 mm[Hg] Treatment Wstr Work Phone: [facility] 12-24-2022 09:17-0400 Heart rate 73 /min Treatment Wstr Work Phone: [facility] 12-24-2022 09:17-0400 SaO2% (BldA) [Mass fraction] 100 % Treatment Wstr Work Phone: [facility] 12-24-2022 09:17-0400 Systolic blood pressure 110 mm[Hg] Treatment Wstr Work Phone: [facility] 11-26-2022 11:15-0400 Diastolic blood pressure 45 mm[Hg] Treatment Wstr Work Phone: [facility] 11-26-2022 11:15-0400 Heart rate 63 /min Treatment Wstr Work Phone: [facility] 11-26-2022 11:15-0400 Systolic blood pressure 103 mm[Hg] Treatment Wstr Work Phone: [facility] 09-15-2022 13:00-0500 Body temperature 98.01 [degF] Treatment Wstr Work Phone: [facility] 09-15-2022 13:00-0500 Diastolic blood pressure 60 mm[Hg] Treatment Wstr Work Phone: [facility] 09-15-2022 13:00-0500 Heart rate 89 /min Treatment Wstr Work Phone: [facility] 09-15-2022 13:00-0500 Systolic blood pressure 112 mm[Hg] Treatment Wstr Work Phone: [facility] 09-14-2022 14:13-0500 Body height 166.4 cm Jesus Masci DO Work Phone: [facility] 09-14-2022 14:13-0500 Body temperature 97.59 [degF] Jesus Masci DO Work Phone: [facility] 09-14-2022 14:13-0500 Body weight 63.05 kg Jesus Masci DO Work Phone: [facility] 09-14-2022 14:13-0500 Diastolic blood pressure 58 mm[Hg] Jesus Masci DO Work Phone: [facility] 09-14-2022 14:13-0500 Heart rate 82 /min Jesus Masci DO Work Phone: [facility] 09-14-2022 14:13-0500 Systolic blood pressure 122 mm[Hg] Jesus Masci DO Work Phone: [facility] 08-06-2022 10:43-0500 Body temperature 96.49 [degF] Treatment Wstr Work Phone: [facility] 08-06-2022 10:43-0500 Diastolic blood pressure 51 mm[Hg] Treatment Wstr Work Phone: [facility] 08-06-2022 10:43-0500 Heart rate 84 /min Treatment Wstr Work Phone: [facility] 08-06-2022 10:43-0500 Respiratory rate 18 /min Treatment Wstr Work Phone: [facility] 08-06-2022 10:43-0500 SaO2% (BldA) [Mass fraction] 100 % Treatment Wstr Work Phone: [facility] 08-06-2022 10:43-0500 Systolic blood pressure 111 mm[Hg] Treatment Wstr Work Phone: [facility] 05-01-2022 13:36-0400 Body temperature 97.59 [degF] Treatment Wstr Work Phone: [facility] 05-01-2022 13:36-0400 Diastolic blood pressure 50 mm[Hg] Treatment Wstr Work Phone: [facility] 05-01-2022 13:36-0400 Heart rate 76 /min Treatment Wstr Work Phone: [facility] 05-01-2022 13:36-0400 Respiratory rate 16 /min Treatment Wstr Work Phone: [facility] 05-01-2022 13:36-0400 SaO2% (BldA) [Mass fraction] 100 % Treatment Wstr Work Phone: [facility] 05-01-2022 13:36-0400 Systolic blood pressure 110 mm[Hg] Treatment Wstr Work Phone: [facility] 04-23-2022 10:00-0400 Body temperature 96.8 [degF] Treatment Wstr Work Phone: [facility] 04-23-2022 10:00-0400 Diastolic blood pressure 72 mm[Hg] Treatment Wstr Work Phone: [facility] 04-23-2022 10:00-0400 Heart rate 86 /min Treatment Wstr Work Phone: [facility] 04-23-2022 10:00-0400 Systolic blood pressure 122 mm[Hg] Treatment Wstr Work Phone: [facility] 03-26-2022 09:06-0400 Body temperature 97.11 [degF] Treatment Wstr Work Phone: [facility] 03-26-2022 09:06-0400 Diastolic blood pressure 42 mm[Hg] Treatment Wstr Work Phone: [facility] 03-26-2022 09:06-0400 Heart rate 81 /min Treatment Wstr Work Phone: [facility] 03-26-2022 09:06-0400 Systolic blood pressure 113 mm[Hg] Treatment Wstr Work Phone: [facility] 03-19-2022 08:43-0400 Body height 165.1 cm Jesus Masci DO Work Phone: [facility] 03-19-2022 08:43-0400 Body temperature 97.81 [degF] Jesus Masci DO Work Phone: [facility] 03-19-2022 08:43-0400 Body weight 63.05 kg Jesus Masci DO Work Phone: [facility] 03-19-2022 08:43-0400 Diastolic blood pressure 58 mm[Hg] Jesus Masci DO Work Phone: [facility] 03-19-2022 08:43-0400 Heart rate 66 /min Jesus Masci DO Work Phone: [facility] 03-19-2022 08:43-0400 Respiratory rate 14 /min Jesus Masci DO Work Phone: [facility] 03-19-2022 08:43-0400 SaO2% (BldA) [Mass fraction] 100 % Jesus Masci DO Work Phone: [facility] 03-19-2022 08:43-0400 Systolic blood pressure 122 mm[Hg] Jesus Soto DO Work Phone: [facility] 01-01-2022 09:17-0400 Body temperature 97.11 [degF] Treatment Wstr Work Phone: [facility] 01-01-2022 09:17-0400 Body weight 62.82 kg Treatment Wstr Work Phone: [facility] 01-01-2022 09:17-0400 Diastolic blood pressure 57 mm[Hg] Treatment Wstr Work Phone: [facility] 01-01-2022 09:17-0400 Heart rate 76 /min Treatment Wstr Work Phone: [facility] 01-01-2022 09:17-0400 Systolic blood pressure 116 mm[Hg] Treatment Wstr Work Phone: [facility] 07-19-2017 10:03-0500 BMI (Body Mass Index) 21.8 kg/m2 Anders PATTERSON-C [facility] Work Phone: 07-19-2017 10:03-0500 Body Temperature 97.9 [degF] Anders Simms PA-C [facility] Work Phone: 07-19-2017 10:03-0500 BP Diastolic 74 mm[Hg] Anders PATTERSON-C [facility] Work Phone: 07-19-2017 10:03-0500 BP Systolic 118 mm[Hg] Anders PATTERSON-C [facility] Work Phone: 07-19-2017 10:03-0500 Height 170.18 cm Anders PATTERSON-C [facility] Work Phone: 07-19-2017 10:03-0500 Pulse (Heart Rate) 88 /min Anders PATTERSON-C [facility] Work Phone: 07-19-2017 10:03-0500 Respiratory Rate 12 /min Anders PATTERSON-C [facility] Work Phone: 07-19-2017 10:03-0500 Weight 63.14 kg Anders Mendez [facility] Work Phone: 07-04-2014 09: BSA (Body Surface Area) 1.72 m2 Anders Simms PA-C [facility] Work Phone: Encounters Encounter Date [...] Radex spine lumbosac ral minimum 4 views Sophiagayla Richardson Bandar Work Phone: Start: 01-07-2017 Adult depression scr eening assessment Jesus Masci DO Work Phone: Start: 08-20-2016 Mammography Jesus Masci DO Work Phone: Start: 10-14-2015 Colonoscopy Jesus Masci DO Work Phone: Start: 08-21-2014 End: 10-03-2014 [...] Author Start: 09-15-2026 Diabetes Screening Diabetes Screening [facility] Start: 10-14-2025 Colonoscopy COLONOSCOPY [facility] Start: 10-14-2025 COLORECTAL CANCER SCREENING COLORECTAL CANCER SCREENING [facility] Start: 10-14-2025 Screening for malignant neoplasm of colon [facility] Start: 09-14-2025 DIABETES SCREEN DIABETES SCREEN [facility] Start: 09-14-2025 Diabetes Screening Diabetes Screening [facility] Start: 08-23-2023 Advance Directive Discussion Advance Directive Discussion [facility] Start: 08-23-2023 Depression Assessment Depression Assessment [facility] Start: 06-07-2023 Urine microalbumin profile [facility] Start: 04-23-2023 Covid-19 Vaccine () Covid-19 Vaccine () [facility] Start: 04-23-2023 Influenza vaccination [facility] Start: 09-20-2022 DIABETES SCREEN DIABETES SCREEN [facility] Start: 09-14-2022 End: 11-14-2022 CBC W Auto Differential panel - Blood CBC + DIFF Lab STAT Hereditary hemorrhagic telangiectasia (HCC) 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 loss Expected: 09/14/2022, Expires: 11/14/2022 [facility] Work Phone: Immunizations Immunization Date Immunization Notes Care Provider Jenise acuna 08-20-2016 influenza virus vacc ine, unspecified formulation Treatment Wstr Work Phone: [facility] 06-13-2015 influenza, injectabl e, quadrivalent, preservative free Jesus Charles DO Work Phone: [facility] 07-10-2013 influenza virus vacc ine, unspecified formulation Jessu Damioni DO Work Phone: [facility] 06-07-2013 tetanus toxoid, redu lizzie diphtheria toxoid, and acellular pertussis vaccine, adsorbed Jesus Charles DO Work Phone: [facility] Payers Date Payer Category Payer Unknown [id number] 2016 Medicare [id number] 2016 Unknown SHARDA FAULKNER DICARE SUPPLEMENT [id number] 2016-Present [phone] [address] [place] [address] Indemnity [id number] 2016 Unknown [id number] 2012 Medicare MEDICARE MEDICAR E A AND B [id number] 2012-Present [phone] [place] [address] Medicare [id number] 2012 Medicare MEDICARE MEDICAR E A AND B [id number] 2012-Present [phone] [place] [address] Medicare [id number] 2012 Medicare [id number] Social History Date Type Detail Facility Start: 07-06-2011 Tobacco smoking stat [facility] Never smoked tobacco [facility] Work Phone: Start: 12-23-2020 End: 09-15-2023 Alcohol intake Current non-drinker of alcohol (finding) [facility] Start: 1950 Sex Assigned At Not on file [facility] Start: 10-27-2021 End: 03-19-2022 Exposure to SARS-CoV-2 (event) Not sure [facility] Start: 07-06-2011 Tobacco use and exposure Smokeless tobacco non-user [facility] Work Phone: Start: 12-24-2022 End: 03-18-2023 History of Social function [facility] Start: 12-24-2022 End: 03-18-2023 Tobacco use panel [facility] National Score (1-100), lower number is lower risk 35 [facility] Clinical Notes 09-26-2015 to 10-14-2023 Telephone [...] TOPICS ADDRESSED: SW received faxed form from [employer] this date regarding ongoing assistance for pt's Avastin. Form asking for verified insurance information and pt income. SW called pt this date to obtain income information. Pt reports she spoke to [employer] last week and they reported she is approved for 2023 but there will be some changing happening to the program for 2024 which may affect her eligibility after this year. Pt reports [employer] rep told her she will be sending a letter to our office and to pt detailing the changes. Pt appreciative of SW call and assistance. No other needs identified. PLAN: Assist with financial support applications and Continue follow up as needed F/U APPOINTMENT: PRN Assigned SW listed in Care Team tab: Yes OLEGARIO Ojeda-Mary Jane documented in this encounter [facility] 09-28-2023 Miscellaneous Notes Patient instructed to go to local express/urgent care so she can be evaluated and be tested for COVID/influenza and treated accordingly. Patient stated understanding. Berta Joshi RN documented in this encounter [facility] 09-17-2023 Miscellaneous Notes Spoke with patient and scheduled US today at [facility]. Flora Harp We are working on getting further clarification of the MRI. In the meantime please schedule for ultrasound of the kidneys to evaluate the kidney cyst observed on the MRI. Jesus Soto DO documented in this encounter [facility] 09-16-2023 Note HNO ID: [id number] Author: MARIAELENA JEREZ RT(R) Service: ? Author [...] 2023 TIME: 9:14 AM [facility] 09-15-2023 Note HNO ID: [id number] Author: JESUS SOTO DO Service: ? Author [...] up. Interim history: Admitted mid July to [facility] for bleeding. She received inpatient transfusion. While there had a CTA of the abdomen pelvis. Diffuse heterogeneity of the liver was noted with innumerable small hypodensities. Metastatic disease cannot be ruled out. MRI images from 2012 done here were sent to [facility]. Comparison interpretation demonstrated the abnormal appearance of the liver represented a change compared to CT of November 2019 and MRI from November 2012. That addendum was filed on 09/08/2023. Written report was not yet forwarded. Electronic record at [facility] reviewed currently. Images personally reviewed. Underwent outpatient [...] No jaundice or rash. No petechiae. NEUROLOGIC: lan support specialist II-XII are grossly intact. No focal motor [...] k/uL 0.66 (L) 0.67 (L) 0.57 (L) Callahan% % 7.6 7.4 6.7 Abs Callahan <0.87 k/uL 0.43 0.36 0.31 Eosin% % [...] (more content not included)... [facility] 08-18-2023 Note HNO ID: [id number] Author: Krzysztof Gonzales RN Service: ? Author Type: Registered Nurse Type: Progress Notes Filed: 08/18/2023 3:09 PM Note Text: Dr. Ramirez aware of today's hemoglobin. Pt scheduled to receive 3 units of PRBC tomorrow morning at [facility]. Pt aware of her hemoglobin and how low it is. She is advised to go to the nearest ER if she feels any worse. Pt states she prefers to do transfusion tomorrow but is considering going to the ER after this visit. [facility] 08-05-2023 Note HNO ID: [id number] Author: Brittany Norris RN Service: ? Author Type: Registered Nurse Type: Progress Notes Filed: 08/05/2023 2:37 PM Note Text: spoke with Dr Soto in regards to patient not feeling well and hgb today is 8.2. Stated he will order a transfusion for tomorrow [facility] 08-05-2023 Miscellaneous Notes Pt. Scheduled for transfusion 2 units packed cells@ [facility] 08/06 @ 8 am. Pt. And lab Notified orders faxed. Kristy Hayes LPN documented in this encounter [facility] 08-05-2023 History of Presen t illness Narrative spoke with Dr Soto in regards to patient not feeling well and hgb today is 8.2. Stated he will order a transfusion for tomorrow documented in this encounter [facility] 05-13-2023 Note HNO ID: [id number] Author: Mariaelena Jerez RT(R) Service: ? Author [...] 2023 TIME: 11:40 AM [facility] 05-13-2023 History of Presen t illness [...] TIME: 11:40 AM documented in this encounter [facility] 03-18-2023 Note HNO ID: [id number] Author: Jesus Soto, DO Service: ? Author [...] No jaundice or rash. No petechiae. NEUROLOGIC: lan support specialist II-XII are grossly intact. No focal motor [...] k/uL 0.66 (L) 0.67 (L) 0.57 (L) Callahan% % 7.6 7.4 6.7 Abs Callahan <0.87 k/uL 0.43 0.36 0.31 Eosin% % [...] -She will continue to follow-up with her plate grainer and stove mechanic for echocardiogram for monitoring for pulmonary hypertension/cardiomyopathy. [...] (more content not included)... [facility] 03-18-2023 History of Presen t illness [...] No jaundice or rash. No petechiae. NEUROLOGIC: lan support specialist II-XII are grossly intact. No focal motor [...] k/uL 0.66 (L) 0.67 (L) 0.57 (L) Callahan% % 7.6 7.4 6.7 Abs Callahan <0.87 k/uL 0.43 0.36 0.31 Eosin% % [...] -She will continue to follow-up with her plate grainer and stove mechanic for echocardiogram for monitoring for pulmonary hypertension/cardiomyopathy. Portions of this documentation were copied and pasted from previous office visit notes in order to provide a cohesive continuity of the history. The note has been reviewed and edited and updated as necessary. I spent a total of 20 minutes on the date of the service which included preparing to see the patient, [id number] patient care, completing clinical documentation, obtaining and/or reviewing separately obtained history, performing a medically appropriate examination, counseling and educating the patient/family/caregiver, communicating with other HCPs (not separately reported), and communicating results to the patient/family/caregiver. Jesus Soto DO documented in this encounter [facility] 01-04-2023 Note HNO ID: [id number] Author: Erika Garay RN Service: ? Author Type: Registered Nurse Type: Progress Notes Filed: 01/04/2023 3:08 PM Note Text: Pt request blood transfusion due to extreme fatigue and SOB with activity. Orders received for 2 units packed RBC's; pt has appt for tomorrow for both units. Verbalized understanding and denies other needs. Erika Garay RN [facility] 01-04-2023 Miscellaneous Notes CBC reviewed by Dr Soto. Order received for 2 PRBC. Spoke with Priscila at [facility]. Appointment received for 01/05@8:30a. Order faxed to [facility]. Alba in lab notified to prepare blood. Order to lab. Pt here for infusion. Appointment time given. Pt verbalized understanding. Mikayla Enamorado RN documented in this encounter [facility] 01-04-2023 History of Presen t illness Narrative Pt request blood transfusion due to extreme fatigue and SOB with activity. Orders received for 2 units packed RBC's; pt has appt for tomorrow for both units. Verbalized understanding and denies other needs. Erika Garay RN documented in this encounter [facility] 12-24-2022 Miscellaneous Notes SW met with pt this date. Pt reporting she is due to renew her assistance for Avastin through [employer]. SW and pt completed application this date. SW had physician review and sign and SW successfully faxed to [employer] this date. TRUDY sent originals to internal scanning. NORBERTO Ojeda documented in this encounter [facility] 12-15-2022 Miscellaneous Notes Spoke with patient [...] December. In Dr. Soto last notes her Produce Specialist recommended the Avastin every 4 months. Last Avastin was 09/15/2022. Dr. Soto do we need to move her Avastin to December? Kristy Darnell LPN documented in this encounter [facility] 12-02-2022 History and physical note SUBSEQUENT [...] side effects, until she cam back from [place] and has noted worsening of her epistaxis [...] and denies history of recurrent seizures, prior [facility] [facility] infections but has migraine headaches that are [...] Master Palmer MD documented in this encounter [facility] 09-14-2022 History of Presen t illness [...] No jaundice or rash. No petechiae. NEUROLOGIC: lan support specialist II-XII are grossly intact. No focal motor [...] Lymph 1.00 - 4.00 k/uL 0.39 (L) Callahan% % 8.4 Abs Callahan <0.87 k/uL 0.30 Eosin% % 1.9 Abs [...] iron infusion very well. -Not hypertensive. -Her plate grainer had suggested every 4 month dosing on Avastin--very reasonable as she benefits from it. -Recent increase in melena--she requires repeat EGD but declines as she will be going to [place]. She is establishing with a systems development consultant there. Plan: -Continue monthly Monoferric. -Okay for Avastin today. -Continue PPI. -She will continue to follow-up with her plate grainer and stove mechanic for echocardiogram for monitoring for pulmonary hypertension/cardiomyopathy. [...] Jesus Soto DO documented in this encounter [facility] 09-07-2022 Miscellaneous Notes Patient did not receive her transfusion last week. Patient scheduled for 2 units PRBC 09/08/2022 @ 0900, [facility]. Orders faxed. Patient and lab aware. Kaylen Mir LPN documented in this encounter [facility] 09-05-2022 Miscellaneous Notes All labs attached to appointment as directed. Flora Harp Please draw all additional lab work, entered under this encounter. Next time she is here. She has anemia that seems out of proportion to her iron deficiency, so I don't want to miss other causes for the anemia. Jesus Soto DO documented in this encounter [facility] 09-04-2022 History of Presen t illness Narrative Recent records faxed to [place] physician Dr Yonis Callahan at [phone] for up coming visit in Sep when pt is in [place]. documented in this encounter [facility] 09-03-2022 Miscellaneous Notes Pt. Scheduled for transfusion 2 units packed cells @ [facility] 09/04 @ 8:30 am. Pt. And lab notified, orders faxed. Kristy Darnell LPN documented in this encounter [facility] 08-19-2022 Miscellaneous Notes Lab added Patient scheduled for transfusion of 2 units of PRBC to be given at [facility] on 08/20/22 at 0900. Orders faxed, patient notified. Pt will have lab rechecked next week. PSS Please add pt on for a lab (cbc with possible transfusion) on 08/26/21 at 0930. No need to notify patient. Can close encounter after scheduled. Ines Ribeiro LPN documented in this encounter [facility] 08-06-2022 Miscellaneous Notes Pt. Scheduled for transfusion 2 units packed [address] @ [facility] 08/07 @ 8:45 am. Pt. And lab notified, orders faxed. [facility]GB 8.9, spoke with pt. Stated she has been passing blood in her stool for approx. 3 weeks, and is leaving Wednesday of next week for [place]. Kristy Darnell LPN documented in this encounter [facility] 07-09-[address] Soto - please sign today's treatment orders. Thank you. documented in this encounter [facility] 06-04-2022 History and physical note SUBSEQUENT [...] and denies history of recurrent seizures, prior [employer] infections but has migraine headaches that are [...] Master Palmer MD documented in this encounter [facility] 03-19-2022 History of Presen t illness [...] No jaundice or rash. No petechiae. NEUROLOGIC: lan support specialist II-XII are grossly intact. No focal motor [...] (L) 0.46 (L) 0.53 (L) 0.71 (L) Callahan% % 8.5 8.5 8.7 7.7 5.3 Abs Callahan <0.87 k/uL 0.28 0.29 0.26 0.23 0.28 [...] iron infusion very well. -Not hypertensive. -Her plate grainer had suggested every 4 month dosing on Avastin. Plan: -Continue monthly Monoferric. We will decrease the frequency to every other month if her ferritin continues to trend higher and she has stable counts otherwise with no increase in bleeding. -Follow up with GI for surveillance EGD. -She will continue to follow-up with her plate grainer and stove mechanic for echocardiogram for monitoring for pulmonary hypertension/cardiomyopathy. [...] Jesus Soto DO documented in this encounter [facility] 01-01-2022 Miscellaneous Notes More orders for Avastin added. Jesus Soto DO Notes adjusted. Chemo nurse aware. Dr. Soto-please add more orders for future scheduling. Today is the last order. Thank you. Please add her on for Avastin 01/01. Her plate grainer requested the frequency of infusions be increased to every 4 months rather than every 6. Jesus Soto DO documented in this encounter [facility] 12-04-2021 History and physical note SUBSEQUENT [...] and denies history of recurrent seizures, prior [employer] infections but has migraine headaches that are [...] Master Palmer MD documented in this encounter [facility] 12-29-2020 Miscellaneous Notes Spoke to patient and scheduled. Dang Rudolph See message. Schedule for monthly CBC/Iron studies/Monoferric. Jesus Soto DO documented in this encounter [facility] documented as of this encounter (statuses as of 11/28/2021) [facility] History of Past illness Narrative* Problem Noted Date Resolved Date Encounter for screening for malignant neoplasm o f colon 09/26/2015 09/26/2015 Anemia, unspecified 07/01/2005 07/08/2012 documented as of this encounter (statuses as of 12/04/2021) [facility] of [facility] illness Narrative* Problem Noted Date Resolved Date Encounter for screening for malignant neoplasm o f colon 09/26/2015 09/26/2015 Anemia, unspecified 07/01/2005 07/08/2012 documented as of this encounter (statuses as of 12/31/2021) [facility] of [facility] Narrative* Problem Noted Date Resolved Date Encounter for screening for malignant neoplasm o f colon 09/26/2015 09/26/2015 Anemia, unspecified 07/01/2005 07/08/2012 documented as of this encounter (statuses as of 01/01/2022) [facility] of [facility] Narrative* Problem Noted Date Resolved Date Encounter for screening for malignant neoplasm o f colon 09/26/2015 09/26/2015 Anemia, unspecified 07/01/2005 07/08/2012 documented as of this encounter (statuses as of 01/30/2022) [facility] of [facility] Narrative* Problem Noted Date Resolved Date Encounter for screening for malignant neoplasm o f colon 09/26/2015 09/26/2015 Anemia, unspecified 07/01/2005 07/08/2012 documented as of this encounter (statuses as of 02/17/2022) [facility] of [facility] Narrative* Problem Noted Date Resolved Date Encounter for screening for malignant neoplasm o f colon 09/26/2015 09/26/2015 Anemia, unspecified 07/01/2005 07/08/2012 documented as of this encounter (statuses as of 03/19/2022) [facility] of [facility] Narrative* Problem Noted Date Resolved Date Encounter for screening for malignant neoplasm o f colon 09/26/2015 09/26/2015 Anemia, unspecified 07/01/2005 07/08/2012 documented as of this encounter (statuses as of 03/26/2022) [facility] of [facility] illness Narrative* Problem Noted Date Resolved Date Encounter for screening for malignant neoplasm o f colon 09/26/2015 09/26/2015 Anemia, unspecified 07/01/2005 07/08/2012 documented as of this encounter (statuses as of 04/05/2022) [facility] of [facility] Narrative* Problem Noted Date Resolved Date Encounter for screening for malignant neoplasm o f colon 09/26/2015 09/26/2015 Anemia, unspecified 07/01/2005 07/08/2012 documented as of this encounter (statuses as of 04/23/2022) [facility] of [facility] Narrative* Problem Noted Date Resolved Date Encounter for screening for malignant neoplasm o f colon 09/26/2015 09/26/2015 Anemia, unspecified 07/01/2005 07/08/2012 documented as of this encounter (statuses as of 05/01/2022) [facility] of [facility] Narrative* Problem Noted Date Resolved Date Encounter for screening for malignant neoplasm o f colon 09/26/2015 09/26/2015 Anemia, unspecified 07/01/2005 07/08/2012 documented as of this encounter (statuses as of 06/04/2022) [facility] of Past illness Narrative* Problem Noted Date Resolved Date Encounter for screening for malignant neoplasm o f colon 09/26/2015 09/26/2015 Anemia, unspecified 07/01/2005 07/08/2012 documented as of this encounter (statuses as of 06/04/2022) [facility] of Past illness Narrative* Problem Noted Date Resolved Date Encounter for screening for malignant neoplasm o f colon 09/26/2015 09/26/2015 Anemia, unspecified 07/01/2005 07/08/2012 documented as of this encounter (statuses as of 07/09/2022) [facility] of Past illness Narrative* Problem Noted Date Resolved Date Encounter for screening for malignant neoplasm o f colon 09/26/2015 09/26/2015 Anemia, unspecified 07/01/2005 07/08/2012 documented as of this encounter (statuses as of 08/06/2022) [facility] of Past illness Narrative* Problem Noted Date Resolved Date Encounter for screening for malignant neoplasm o f colon 09/26/2015 09/26/2015 Anemia, unspecified 07/01/2005 07/08/2012 documented as of this encounter (statuses as of 08/06/2022) [facility] History of Past illness Narrative* Problem Noted Date Resolved Date Encounter for screening for malignant neoplasm o f colon 09/26/2015 09/26/2015 Anemia, unspecified 07/01/2005 07/08/2012 documented as of this encounter (statuses as of 08/24/2022) [facility] History of Past illness Narrative* Problem Noted Date Resolved Date Encounter for screening for malignant neoplasm o f colon 09/26/2015 09/26/2015 Anemia, unspecified 07/01/2005 07/08/2012 documented as of this encounter (statuses as of 08/25/2022) [facility] History of Past illness Narrative* Problem Noted Date Resolved Date Encounter for screening for malignant neoplasm o f colon 09/26/2015 09/26/2015 Anemia, unspecified 07/01/2005 07/08/2012 documented as of this encounter (statuses as of 09/03/2022) [facility] History of Past illness Narrative* Problem Noted Date Resolved Date Encounter for screening for malignant neoplasm o f colon 09/26/2015 09/26/2015 Anemia, unspecified 07/01/2005 07/08/2012 documented as of this encounter (statuses as of 09/04/2022) [facility] of Past illness Narrative* Problem Noted Date Resolved Date Encounter for screening for malignant neoplasm o f colon 09/26/2015 09/26/2015 Anemia, unspecified 07/01/2005 07/08/2012 documented as of this encounter (statuses as of 09/05/2022) [address]04-2016 History of Past illness Narrative* Problem Noted Date Resolved Date Encounter for screening for malignant neoplasm o f colon 09/26/2015 09/26/2015 Anemia, unspecified 07/01/2005 07/08/2012 documented as of this encounter (statuses as of 09/07/2022) [facility] of Past illness Narrative* Problem Noted Date Resolved Date Encounter for screening for malignant neoplasm o f colon 09/26/2015 09/26/2015 Anemia, unspecified 07/01/2005 07/08/2012 documented as of this encounter (statuses as of 09/11/2022) [facility] History of Past illness Narrative* Problem Noted Date Resolved Date Encounter for screening for malignant neoplasm o f colon 09/26/2015 09/26/2015 Anemia, unspecified 07/01/2005 07/08/2012 documented as of this encounter (statuses as of 09/15/2022) [facility] History of Past illness Narrative* Problem Noted Date Resolved Date Encounter for screening for malignant neoplasm o f colon 09/26/2015 09/26/2015 Anemia, unspecified 07/01/2005 07/08/2012 documented as of this encounter (statuses as of 09/15/2022) [facility] History of Past illness Narrative* Problem Noted Date Resolved Date Encounter for screening for malignant neoplasm o f colon 09/26/2015 09/26/2015 Anemia, unspecified 07/01/2005 07/08/2012 documented as of this encounter (statuses as of 11/26/2022) [facility] History of Past illness Narrative* Problem Noted Date Resolved Date Encounter for screening for malignant neoplasm o f colon 09/26/2015 09/26/2015 Anemia, unspecified 07/01/2005 07/08/2012 documented as of this encounter (statuses as of 12/03/2022) [facility] History of Past illness Narrative* Problem Noted Date Resolved Date Encounter for screening for malignant neoplasm o f colon 09/26/2015 09/26/2015 Anemia, unspecified 07/01/2005 07/08/2012 documented as of this encounter (statuses as of 12/16/2022) [address]04[address]2016 History of Past illness Narrative* Problem Noted Date Resolved Date Encounter for screening for malignant neoplasm o f colon 09/26/2015 09/26/2015 Anemia, unspecified 07/01/2005 07/08/2012 documented as of this encounter (statuses as of 12/24/2022) [facility] History of Past illness Narrative* Problem Noted Date Resolved Date Encounter for screening for malignant neoplasm o f colon 09/26/2015 09/26/2015 Anemia, unspecified 07/01/2005 07/08/2012 documented as of this encounter (statuses as of 12/24/2022) [facility] History of Past illness Narrative* Problem Noted Date Resolved Date Encounter for screening for malignant neoplasm o f colon 09/26/2015 09/26/2015 Anemia, unspecified 07/01/2005 07/08/2012 documented as of this encounter (statuses as of 01/01/2023) [facility] of Past illness Narrative* Problem Noted Date Resolved Date Encounter for screening for malignant neoplasm o f colon 09/26/2015 09/26/2015 Anemia, unspecified 07/01/2005 07/08/2012 documented as of this encounter (statuses as of 01/04/2023) [facility] History of Past illness Narrative* Problem Noted Date Resolved Date Encounter for screening for malignant neoplasm o f colon 09/26/2015 09/26/2015 Anemia, unspecified 07/01/2005 07/08/2012 documented as of this encounter (statuses as of 01/05/2023) [facility] History of Past illness Narrative* Problem Noted Date Resolved Date Encounter for screening for malignant neoplasm o f colon 09/26/2015 09/26/2015 Anemia, unspecified 07/01/2005 07/08/2012 documented as of this encounter (statuses as of 01/21/2023) [facility] History of Past illness Narrative* Problem Noted Date Resolved Date Encounter for screening for malignant neoplasm o f colon 09/26/2015 09/26/2015 Anemia, unspecified 07/01/2005 07/08/2012 documented as of this encounter (statuses as of 01/22/2023) [facility] History of Past illness Narrative* Problem Noted Date Resolved Date Encounter for screening for malignant neoplasm o f colon 09/26/2015 09/26/2015 Anemia, unspecified 07/01/2005 07/08/2012 documented as of this encounter (statuses as of 02/19/2023) [facility] History of Past illness Narrative* Problem Noted Date Diagnosed Date Resolved Date Encounter for screening for malignant neoplasm of colon 09/26/2015 09/26/2015 Anemia, unspecified 07/01/2005 07/08/20 12 documented as of this encounter (statuses as of 03/18/2023) [facility] History of Past illness Narrative* Problem Noted Date Diagnosed Date Resolved Date Encounter for screening for malignant neoplasm of colon 09/26/2015 09/26/2015 Anemia, unspecified 07/01/2005 07/08/20 12 documented as of this encounter (statuses as of 03/18/2023) [facility] History of Past illness Narrative* Problem Noted Date Diagnosed Date Resolved Date Encounter for screening for malignant neoplasm of colon 09/26/2015 09/26/2015 Anemia, unspecified 07/01/2005 07/08/20 12 documented as of this encounter (statuses as of 04/15/2023) [address]2016 History of Past illness Narrative* Problem Noted Date Diagnosed Date Resolved Date Encounter for screening for malignant neoplasm of colon 09/26/2015 09/26/2015 Anemia, unspecified 07/01/2005 07/08/20 12 documented as of this encounter (statuses as of 04/28/2023) [facility] History of Past illness Narrative* Problem Noted Date Diagnosed Date Resolved Date Encounter for screening for malignant neoplasm of colon 09/26/2015 09/26/2015 Anemia, unspecified 07/01/2005 07/08/20 12 documented as of this encounter (statuses as of 05/14/2023) [facility] History of Past illness Narrative* Problem Noted Date Diagnosed Date Resolved Date Encounter for screening for malignant neoplasm of colon 09/26/2015 09/26/2015 Anemia, unspecified 07/01/2005 07/08/20 12 documented as of this encounter (statuses as of 06/27/2023) [facility] of Past illness Narrative* Problem Noted Date Diagnosed Date Resolved Date Encounter for screening for malignant neoplasm of colon 09/26/2015 09/26/2015 Anemia, unspecified 07/01/2005 07/08/20 12 documented as of this encounter (statuses as of 07/08/2023) [facility] History of Past illness Narrative* Problem Noted Date Diagnosed Date Resolved Date Encounter for screening for malignant neoplasm of colon 09/26/2015 09/26/2015 Anemia, unspecified 07/01/2005 07/08/20 12 documented as of this encounter (statuses as of 08/06/2023) [facility] of Past illness Narrative* Problem Noted Date Diagnosed Date Resolved Date Encounter for screening for malignant neoplasm of colon 09/26/2015 09/26/2015 Anemia, unspecified 07/01/2005 07/08/20 12 documented as of this encounter (statuses as of 08/06/2023) [facility] History of Past illness Narrative* Problem Noted Date Diagnosed Date Resolved Date Encounter for screening for malignant neoplasm of colon 09/26/2015 09/26/2015 Anemia, unspecified 07/01/2005 07/08/20 12 documented as of this encounter (statuses as of 09/19/2023) [facility] History of Past illness Narrative* Problem Noted Date Diagnosed Date Resolved Date Encounter for screening for malignant neoplasm of colon 09/26/2015 09/26/2015 Anemia, unspecified 07/01/2005 07/08/20 12 documented as of this encounter (statuses as of 09/29/2023) [facility] of Past illness Narrative* Problem Noted Date Diagnosed Date Resolved Date Encounter for screening for malignant neoplasm of colon 09/26/2015 09/26/2015 Anemia, unspecified 07/01/2005 07/08/20 12 documented as of this encounter (statuses as of 10/14/2023) [facility] Diagnosis HHT (hereditary hemorrhagic telangiectasia) (HCC)- [...] [facility] Chronic diastolic congestive heart failure [...] blood loss (chronic) [facility] 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 [facility] Diagnosis 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 telangiectasia [facility] Diagnosis 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 loss- Primary Iron deficiency anemia secondary to blood loss (chronic) [facility] Diagnosis 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 loss- Primary Iron deficiency anemia secondary to blood loss (chronic) [facility] Diagnosis Kidney cysts- Primary Unspecified congenital cystic kidney disease documented in this encounter [facility] for referral (narrative)* Outpatient Procedure (Routine) - Authorized Specialty Diagnoses / Procedures Referred By Frank levine Referred To Contact [facility] [place] Diagnoses Chronic diastolic congestive heart failure (HCC) Procedures ECHO ECHO TTHRC R-T 2D W/WOM-MODE COMPL SPEC&COLR D Matser Palmer MD [address] [id number] [place] [id number] Referral ID Status Reason Start Date Expiration Date Visits Requested Visits Authorized [id number] Authorized Auto-Generat ed Referral 2 06/04/2023 1 1 [facility] for referral (narrative)* Diagnostic Procedure Only (Routine) - Closed Specialty Diagnoses / Procedures Referred By Frank levine Referred To Contact US IMAGING Diagnoses Kidney cysts Procedures US KIDNEY/BLADDER US RETROPERITONEAL REAL TIME W/IMAGE COMPLETE Jesus Soto DO [address] [place] [address] Us Imaging [facility] Referral ID Status Reason Start Date Expiration Date V isits Requested Visits Authorized [id number] Closed Auto-Generate d Referral 09/17/2023 10/16/2024 1 1 [facility] Summary Purpose Family History No Family History Records FoundNo Family History Records FoundNo Family History Records Found Advance Directives No Advanced Directives Records FoundDocuments on File Type Date Recorded Patient Account Leader Expl anation Advance Directive(s) 10/01/2016 11:25 AM Medications Administered Section Inactive Administered Medications - up to 3 most recent administrations Medication Order MAR Action Action Date Dose Rate Site bevacizumab 300 mg in NaCl 0.9% 100 mL (AVASTIN) 300 mg (rounded from 313 mg = 5 mg/kg/dose 62.6 kg Treatment plan Recorded weight), INTRAVENOUS, Administer over 30 Minutes, ONCE, 1 dose, On [facility] 01/01/22 at 0930, APPROX.TOTAL VOLUME - [...] over 45 Minutes, ONCE, 1 dose, On Wed04/23/22 at 1000, Monitor patient for hypersensitivity reactions [...] over 45 Minutes, ONCE, 1 dose, On [facility] 03/18/23 at 1030, Monitor patient for hypersensitivity [...] over 45 Minutes, ONCE, 1 dose, On [facility] 04/15/23 at 1200, Monitor patient for [...] W/O W/CONTRAST MATERIAL Master Palmer MD [address] [facility] [place] [phone] Mr Imaging Referral ID Status Reason Start Date Expiration Date Visits Requested Visits Authorized [id number] Authorized Auto-Generat ed Referral 12/02/2022 01/01/2024 1 1 Specialty Diagnoses / Procedures Referred By Contac t Referred To Contact MR IMAGING Diagnoses HHT (hereditary hemorrhagic telangiectasia) (HCC) Procedures MRI BRAIN WO/W IVCON MRI BRAIN BRAIN STEM W/O W/CONTRAST MATERIAL Master Palmer MD [address] [phone] Mr Imaging [place] [facility] Referral ID Status Reason Start Date Expiration Date V isits Requested Visits Authorized [id number] Closed Auto-Generate d Referral 12/02/2022 01/01/2024 1 1 Additional Source Comments INFORMATION SOURCE (unrecogn ized section and content) DATE CREATED AUTHOR AUTHOR'S ORGANIZ ATION 09/18/2023 [facility] nter DATE CREATED AUTHOR AUTHOR'S ORGANIZ ATION 10/22/2023 [facility] Source Comments (unrecognize d section and content) In the event this informatio n is protected by the Federal Confidentiality of Alcohol and Drug Abuse Patient Records regulations: The Federal rules restrict any use of the information to criminally investigate or prosecute any alcohol or drug abuse patient.[facility] the event this information is protected by the Federal Confidentiality of Alcohol and Drug Abuse Patient Records regulations: The Federal rules restrict any use of the information to criminally investigate or prosecute any alcohol or drug abuse patient.[facility] the event this information is protected by the Federal Confidentiality of Alcohol and Drug Abuse Patient Records regulations: The Federal rules restrict any use of the information to criminally investigate or prosecute any alcohol or drug abuse patient.[facility] the event this information is protected by the Federal Confidentiality of Alcohol and Drug Abuse Patient Records regulations: The Federal rules restrict any use of the information to criminally investigate or prosecute any alcohol or drug abuse patient.[facility] the event this information is protected by the Federal Confidentiality of Alcohol and Drug Abuse Patient Records regulations: The Federal rules restrict any use of the information to criminally investigate or prosecute any alcohol or drug abuse patient.[facility] the event this information is protected by the Federal Confidentiality of Alcohol and Drug Abuse Patient Records regulations: The Federal rules restrict any use of the information to criminally investigate or prosecute any alcohol or drug abuse patient.[facility] the event this information is protected by the Federal Confidentiality of Alcohol and Drug Abuse Patient Records regulations: The Federal rules restrict any use of the information to criminally investigate or prosecute any alcohol or drug abuse patient.[facility] Hospital[facility] the event this information is protected by the Federal Confidentiality of Alcohol and Drug Abuse Patient Records regulations: The Federal rules restrict any use of the information to criminally investigate or prosecute any alcohol or drug abuse patient.[facility] Hospital[facility] the event this information is protected by the Federal Confidentiality of Alcohol and Drug Abuse Patient Records regulations: The Federal rules restrict any use of the information to criminally investigate or prosecute any alcohol or drug abuse patient.[facility] HospitalIn the event this information is protected by the Federal Confidentiality of Alcohol and Drug Abuse Patient Records regulations: The Federal rules restrict any use of the information to criminally investigate or prosecute any alcohol or drug abuse patient.[facility] HospitalIn the event this information is protected by the Federal Confidentiality of Alcohol and Drug Abuse Patient Records regulations: The Federal rules restrict any use of the information to criminally investigate or prosecute any alcohol or drug abuse patient.[facility] HospitalIn the event this information is protected by the Federal Confidentiality of Alcohol and Drug Abuse Patient Records regulations: The Federal rules restrict any use of the information to criminally investigate or prosecute any alcohol or drug abuse patient.[facility] HospitalIn the event this information is protected by the Federal Confidentiality of Alcohol and Drug Abuse Patient Records regulations: The Federal rules restrict any use of the information to criminally investigate or prosecute any alcohol or drug abuse patient.[facility] HospitalIn the event this information is protected by the Federal Confidentiality of Alcohol and Drug Abuse Patient Records regulations: The Federal rules restrict any use of the information to criminally investigate or prosecute any alcohol or drug abuse patient.[facility] HospitalIn the event this information is protected by the Federal Confidentiality of Alcohol and Drug Abuse Patient Records regulations: The Federal rules restrict any use of the information to criminally investigate or prosecute any alcohol or drug abuse patient.[facility] HospitalIn the event this information is protected by the Federal Confidentiality of Alcohol and Drug Abuse Patient Records regulations: The Federal rules restrict any use of the information to criminally investigate or prosecute any alcohol or drug abuse patient.[facility] HospitalIn the event this information is protected by the Federal Confidentiality of Alcohol and Drug Abuse Patient Records regulations: The Federal rules restrict any use of the information to criminally investigate or prosecute any alcohol or drug abuse patient.[facility] HospitalIn the event this information is protected by the Federal Confidentiality of Alcohol and Drug Abuse Patient Records regulations: The Federal rules restrict any use of the information to criminally investigate or prosecute any alcohol or drug abuse patient.[facility] HospitalIn the event this information is protected by the Federal Confidentiality of Alcohol and Drug Abuse Patient Records regulations: The Federal rules restrict any use of the information to criminally investigate or prosecute any alcohol or drug abuse patient.[facility] HospitalIn the event this information is protected by the Federal Confidentiality of Alcohol and Drug Abuse Patient Records regulations: The Federal rules restrict any use of the information to criminally investigate or prosecute any alcohol or drug abuse patient.[facility] HospitalIn the event this information is protected by the Federal Confidentiality of Alcohol and Drug Abuse Patient Records regulations: The Federal rules restrict any use of the information to criminally investigate or prosecute any alcohol or drug abuse patient.[facility] HospitalIn the event this information is protected by the Federal Confidentiality of Alcohol and Drug Abuse Patient Records regulations: The Federal rules restrict any use of the information to criminally investigate or prosecute any alcohol or drug abuse patient.[facility] HospitalIn the event this information is protected by the Federal Confidentiality of Alcohol and Drug Abuse Patient Records regulations: The Federal rules restrict any use of the information to criminally investigate or prosecute any alcohol or drug abuse patient.[facility] HospitalIn the event this information is protected by the Federal Confidentiality of Alcohol and Drug Abuse Patient Records regulations: The Federal rules restrict any use of the information to criminally investigate or prosecute any alcohol or drug abuse patient.[facility] HospitalIn the event this information is protected by the Federal Confidentiality of Alcohol and Drug Abuse Patient Records regulations: The Federal rules restrict any use of the information to criminally investigate or prosecute any alcohol or drug abuse patient.[facility] HospitalIn the event this information is protected by the Federal Confidentiality of Alcohol and Drug Abuse Patient Records regulations: The Federal rules restrict any use of the information to criminally investigate or prosecute any alcohol or drug abuse patient.[facility] HospitalIn the event this information is protected by the Federal Confidentiality of Alcohol and Drug Abuse Patient Records regulations: The Federal rules restrict any use of the information to criminally investigate or prosecute any alcohol or drug abuse patient.[facility] HospitalIn the event this information is protected by the Federal Confidentiality of Alcohol and Drug Abuse Patient Records regulations: The Federal rules restrict any use of the information to criminally investigate or prosecute any alcohol or drug abuse patient.[facility] HospitalIn the event this information is protected by the Federal Confidentiality of Alcohol and Drug Abuse Patient Records regulations: The Federal rules restrict any use of the information to criminally investigate or prosecute any alcohol or drug abuse patient.[facility] HospitalIn the event this information is protected by the Federal Confidentiality of Alcohol and Drug Abuse Patient Records regulations: The Federal rules restrict any use of the information to criminally investigate or prosecute any alcohol or drug abuse patient.[facility] HospitalIn the event this information is protected by the Federal Confidentiality of Alcohol and Drug Abuse Patient Records regulations: The Federal rules restrict any use of the information to criminally investigate or prosecute any alcohol or drug abuse patient.[facility] HospitalIn the event this information is protected by the Federal Confidentiality of Alcohol and Drug Abuse Patient Records regulations: The Federal rules restrict any use of the information to criminally investigate or prosecute any alcohol or drug abuse patient.[facility] HospitalIn the event this information is protected by the Federal Confidentiality of Alcohol and Drug Abuse Patient Records regulations: The Federal rules restrict any use of the information to criminally investigate or prosecute any alcohol or drug abuse patient.[facility] HospitalIn the event this information is protected by the Federal Confidentiality of Alcohol and Drug Abuse Patient Records regulations: The Federal rules restrict any use of the information to criminally investigate or prosecute any alcohol or drug abuse patient.[facility] HospitalIn the event this information is protected by the Federal Confidentiality of Alcohol and Drug Abuse Patient Records regulations: The Federal rules restrict any use of the information to criminally investigate or prosecute any alcohol or drug abuse patient.[facility] HospitalIn the event this information is protected by the Federal Confidentiality of Alcohol and Drug Abuse Patient Records regulations: The Federal rules restrict any use of the information to criminally investigate or prosecute any alcohol or drug abuse patient.[facility] HospitalIn the event this information is protected by the Federal Confidentiality of Alcohol and Drug Abuse Patient Records regulations: The Federal rules restrict any use of the information to criminally investigate or prosecute any alcohol or drug abuse patient.[facility] HospitalIn the event this information is protected by the Federal Confidentiality of Alcohol and Drug Abuse Patient Records regulations: The Federal rules restrict any use of the information to criminally investigate or prosecute any alcohol or drug abuse patient.[facility] HospitalIn the event this information is protected by the Federal Confidentiality of Alcohol and Drug Abuse Patient Records regulations: The Federal rules restrict any use of the information to criminally investigate or prosecute any alcohol or drug abuse patient.[facility] HospitalIn the event this information is protected by the Federal Confidentiality of Alcohol and Drug Abuse Patient Records regulations: The Federal rules restrict any use of the information to criminally investigate or prosecute any alcohol or drug abuse patient.[facility] HospitalIn the event this information is protected by the Federal Confidentiality of Alcohol and Drug Abuse Patient Records regulations: The Federal rules restrict any use of the information to criminally investigate or prosecute any alcohol or drug abuse patient.[facility] HospitalIn the event this information is protected by the Federal Confidentiality of Alcohol and Drug Abuse Patient Records regulations: The Federal rules restrict any use of the information to criminally investigate or prosecute any alcohol or drug abuse patient.[facility] HospitalIn the event this information is protected by the Federal Confidentiality of Alcohol and Drug Abuse Patient Records regulations: The Federal rules restrict any use of the information to criminally investigate or prosecute any alcohol or drug abuse patient.[facility] HospitalIn the event this information is protected by the Federal Confidentiality of Alcohol and Drug Abuse Patient Records regulations: The Federal rules restrict any use of the information to criminally investigate or prosecute any alcohol or drug abuse patient.[facility] HospitalIn the event this information is protected by the Federal Confidentiality of Alcohol and Drug Abuse Patient Records regulations: The Federal rules restrict any use of the information to criminally investigate or prosecute any alcohol or drug abuse patient.[facility] HospitalIn the event this information is protected by the Federal Confidentiality of Alcohol and Drug Abuse Patient Records regulations: The Federal rules restrict any use of the information to criminally investigate or prosecute any alcohol or drug abuse patient.[facility] HospitalIn the event this information is protected by the Federal Confidentiality of Alcohol and Drug Abuse Patient Records regulations: The Federal rules restrict any use of the information to criminally investigate or prosecute any alcohol or drug abuse patient.[facility] HospitalIn the event this information is protected by the Federal Confidentiality of Alcohol and Drug Abuse Patient Records regulations: The Federal rules restrict any use of the information to criminally investigate or prosecute any alcohol or drug abuse patient.[facility] Reason for Visit (unrecogniz ed section and content) Reason Comments Chemotherapy Treatment Specialty Diagnoses / Procedures Referred By Contac t Referred To Contact Diagnoses 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 loss 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 loss Jesus Soto DO [address] [id number] [facility] [address] [place] [address] Referral ID Status Reason Start Date Expiration Date V isits Requested Visits Authorized [id number] Authorized 01/22/2021 04/22/2021 99 99 Reason Comments Established Patient Reason Comments Non-Chemotherapy Treatment Specialty Diagnoses / Procedures Referred By Contac t Referred To Contact Diagnoses 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 loss 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 loss Jesus Soto DO [address] [place] [address] [facility] [address] [place] [address] Referral ID Status Reason Start Date Expiration Date V isits Requested Visits Authorized [id number] Authorized 01/28/2022 04/28/2022 99 99 Reason Comments Follow Up Add Avastin today Specialty Diagnoses / Procedures Referred By Contac t Referred To Contact Diagnoses Hereditary hemorrhagic telangiectasia (HCC) Josette Martínez MD [address] [facility] [place] [address] [facility] [address] [place] [address] Referral ID Status Reason Start Date Expiration Date V isits Requested Visits Authorized [id number] Authorized 06/14/2020 09/12/2020 1 1 Reason Comments Orders Reason Comments transfusion Reason Comments Transfusion Reason Comments Patient Update Reason Comments Results Work up other causes of anemia Reason Comments Results Reason Comments Social Work Services Reason Onset Date Comments Refill Request 12/31/2022 Specialty Diagnoses / [facility] To Contact Diagnoses 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 loss 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 loss Jesus Soto, [address] [place] [address] [facility] [address] [place] [address] Reason Comments Consult Established patient Specialty Diagnoses / [facility] Referred To Contact Diagnoses Hereditary hemorrhagic telangiectasia (HCC) Josette Martínez MD [address] [place] [address] [place] [address] [facility] [address] [place] [address] Specialty Diagnoses / Procedures [facility] Referred To Contact MR IMAGING Diagnoses HHT (hereditary hemorrhagic telangiectasia) (HCC) Procedures MRI BRAIN WO/W IVCON MRI BRAIN BRAIN STEM W/O W/CONTRAST MATERIAL Master Palmer MD [address] [place] [address] [facility] [place] [place] [address] Referral ID Status Reason Start Date Expiration Date V isits Requested Visits Authorized [id number] Closed Auto-Generate d Referral 12/02/2022 01/01/2024 1 1 Care Teams (unrecognized sec tion and content) Cyber Security Instructor Relationship Specialty Start Date End Date Mariaelena Corbett DO PCP - General 09/26/15 Cyber Security Instructor Relationship Specialty Start Date End Date Mariaelena Corbett DO PCP - General 09/26/15 Cyber Security Instructor Relationship Specialty Start Date End Date Mariaelena Corbett DO PCP - General 09/26/15 Cyber Security Instructor Relationship Specialty Start Date End Date Mariaelena Corbett DO PCP - General 09/26/15 Cyber Security Instructor Relationship Specialty Start Date End Date Mariaelena Corbett DO PCP - General 09/26/15 Cyber Security Instructor Relationship Specialty Start Date End Date Mariaelena Corbett DO PCP - General 09/26/15 Cyber Security Instructor Relationship Specialty Start Date End Date Mariaelena Corbett DO PCP - General 09/26/15 Cyber Security Instructor Relationship Specialty Start Date End Date Mariaelena Corbett DO PCP - General 09/26/15 Cyber Security Instructor Relationship Specialty Start Date End Date Mariaelena Corbett DO PCP - General 09/26/15 Cyber Security Instructor Relationship Specialty Start Date End Date Mariaelena Corbett DO PCP - General 09/26/15 Cyber Security Instructor Relationship Specialty Start Date End Date Mariaelena Corbett DO PCP - General 09/26/15 Cyber Security Instructor Relationship Specialty Start Date End Date Mariaelena Corbett DO PCP - General 09/26/15 Cyber Security Instructor Relationship Specialty Start Date End Date Mariaelena Corbett DO PCP - General 09/26/15 Cyber Security Instructor Relationship Specialty Start Date End Date Mariaelena Corbett DO PCP - General 09/26/15 Cyber Security Instructor Relationship Specialty Start Date End Date Mariaelena Corbett DO PCP - General 09/26/15 Cyber Security Instructor Relationship Specialty Start Date End Date Mariaelena Corbett DO PCP - General 09/26/15 Cyber Security Instructor Relationship Specialty Start Date End Date Mariaelena Corbett DO PCP - General 09/26/15 Cyber Security Instructor Relationship Specialty Start Date End Date Mariaelena Corbett DO PCP - General 09/26/15 Cyber Security Instructor Relationship Specialty Start Date End Date Mariaelena Corbett DO PCP - General 09/26/15 Cyber Security Instructor Relationship Specialty Start Date End Date Mariaelena Corbett DO PCP - General 09/26/15 Cyber Security Instructor Relationship Specialty Start Date End Date Mariaelena Corbett DO PCP - General 09/26/15 Cyber Security Instructor Relationship Specialty Start Date End Date Mariaelena Corbett DO PCP - General 09/26/15 Cyber Security Instructor Relationship Specialty Start Date End Date Mariaelena Corbett DO PCP - General 09/26/15 Cyber Security Instructor Relationship Specialty Start Date End Date Mariaelena Corbett DO PCP - General 09/26/15 Cyber Security Instructor Relationship Specialty Start Date End Date Mariaelena Corbett DO PCP - General 09/26/15 Cyber Security Instructor Relationship Specialty Start Date End Date Mariaelena Corbett DO PCP - General 09/26/15 Jesus Soto DO [address] [place] [facility] [place] [address] Hematology/Oncology 08/17/23 Cyber Security Instructor Relationship Specialty Start Date End Date Mariaelena Corbett DO PCP - General 09/26/15 Jesus Soto DO [address] [place] [address] Hematology/Oncology 08/17/23 Cyber Security Instructor Relationship Specialty Start Date End Date Mariaelena Corbett PCP - General 09/26/15 Jesus Soto DO [address] [facility] [place] [address] Hematology/Oncology 08/17/23 FOR RECORDS PERTAINING TO PATIENTS [...] BE BASED ON THE PRIMARY CLINICAL RECORDS. [email or web address] [facility]. provides no warranty or guarantee of the accuracy or completeness of information in this document.
[2023-10-26] MEDS: 0.9% Saline Lock 10 ML Syringe IV (02:46)
[2023-10-26] MEDS: DiphenhydrAMINE 50 MG/ML Syringe 25 MG IV (02:46)
[2023-10-26] MEDS: Acetaminophen 500 MG Tablet 1000 MG PO (02:46)
[2023-10-26] MEDS: MethylPREDNISolone 125 MG/2 ML Vial 60 MG IV (02:47)
[2023-10-26 08:49] LABS: Absolute Lymphocyte Count 0.23 X10^3/uL (0.83-4.51); Absolute Neutrophil Count 6.1 X10^3/uL (2.0-7.7); Basophil# 0.01 X10^3/uL; Basophil% 0.2 % (0-1); Hematocrit 24.2 % (37-47); Hemoglobin 7.2 g/dL (12.0-15.0); Lymphocyte # 0.23 X10^3/ul (0.83-4.51); Lymphocyte % 3.6 % (19-41); Mean Corp Hgb Conc 29.8 g/dL (32-36); Mean Corpuscular Volume 87.4 fL (81-99); Mean Platelet Vol. 10.2 fl (6.2-12.0); Monocyte# 0.08 X10^3/uL; Monocyte% 1.2 % (0-10); NRBC Flagged by Analyzer 0.5 % (0-5); Neutrophil % 94.2 % (47-70); POSITIVE DIFFERENTIAL YES; Platelet Count 281 K/mm3 (150-450); RBC Distribution Width CV 19.2 % (11.6-14.6); Red Blood Count 2.77 M/mm3 (4.2-5.4); White Blood Count 6.5 K/mm3 (4.4-11.0)
[2023-10-26] MEDS: Pantoprazole Sodium 80 MG in 0.9% Normal Saline (100mL Bag) 80 ML 10 MG CONT INF ×2 (09:40→18:27)
--- NOTE | 2023-10-26 09:52 | PCM.PN.HOSP ---
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) Gastrointestinal hemorrhage, unspecified (10/26/23) Objective Data Objective Data Vital Signs: Vital Signs Temp Pulse Resp BP Pulse Ox O2 Del Method 97.9 F 95 16 125/81 H 100 Room Air 10/26/23 08:09 10/26/23 08:09 10/26/23 08:09 10/26/23 08:09 10/26/23 08:09 10/26/23 09:06 Oxygen Delivery Method Room Air Weight: 133 lb 2.547 oz Body Mass Index (BMI) 21.4 Intake & Output: Intake and Output for Last 24 Hours 10/24/23 10/25/23 10/26/23 23:59 23:59 23:59 Intake Total Balance Lab / Micro Data 10/26/23 08:30 10/25/23 22:35 Labs: Laboratory Results - last 24 hr 10/25/23 22:35: WBC 8.1, RBC 2.22 L, Hgb 5.7 L*, Hct 20.6 L, MCV 92.8, MCH 25.7 L, MCHC 27.7 L, RDW Std Deviation 64.7 H, RDW Coeff of Marques 19.0 H, Plt Count 350, MPV 10.3, Immature Gran % (Auto) 0.500, Neut % (Auto) 81.7 H, Lymph % (Auto) 8.5 L, Dickinson % (Auto) 7.9, Eos % (Auto) 1.0, Baso % (Auto) 0.4, Absolute Neuts (auto) 6.7, Absolute Lymphs (auto) 0.69 L, Nucleated RBC % 0.2, Differential Comment SCANNED, Diff Path Review May foll, Hypochromasia 2+, Anisocytosis 1+, Target Cells RARE, PT 13.2, INR 1.0, APTT 27.9, Sodium 141, Potassium 3.9, Chloride 109 H, Carbon Dioxide 28.0, Anion Gap 4 L, BUN 21 H, Creatinine 0.56, Estim Creat Clear Calc 58.63, Est GFR (MDRD) Af Amer 135, Est GFR (MDRD) Non-Af 112, BUN/Creatinine Ratio 37.2 H, Glucose 125 H, Calcium 8.9, Total Bilirubin 0.30, AST 13 L, ALT 23, Alkaline Phosphatase 62, Total Protein 6.3 L, Albumin 3.5, Globulin 2.8, Albumin/Globulin Ratio 1.2, Blood Type O POSITIVE, Antibody Screen NEGATIVE, Crossmatch See Detail 10/25/23 22:35: Crossmatch See Detail 10/25/23 23:45: Urine Color Yellow, Urine Clarity Clear, Urine pH 5.0, Ur Specific [place] 1.030, Urine Protein 30 H, Urine Glucose (UA) Normal, Urine Ketones 5 H, Urine Occult Blood 250 H, Urine Nitrite Negative, Urine Bilirubin Negative, Urine Urobilinogen Normal, Ur Leukocyte Esterase 500 H, Urine RBC 50-100 SEEN, Urine WBC >100 SEEN, Ur Squamous Epith Cells 10-25 SEEN, Urine Bacteria 2+, Urine Mucus 0 SEEN 10/26/23 08:30: WBC 6.5, RBC 2.77 L, Hgb 7.2 L, Hct 24.2 L, MCV 87.4 D, MCH 26.0 L, MCHC 29.8 L D, RDW Std Deviation 62.0 H, RDW Coeff of Marques 19.2 H, Plt Count 281, MPV 10.2, Immature Gran % (Auto) 0.800, Neut % (Auto) 94.2 H, Lymph % (Auto) 3.6 L, Dickinson % (Auto) 1.2, Eos % (Auto) 0.0, Baso % (Auto) 0.2, Absolute Neuts (auto) 6.1, Absolute Lymphs (auto) 0.23 L, Nucleated RBC % 0.5 Physical Exam Narrative Seen and examined. Patient is stated that she has black tarry stool intermittently for the last about 1 week. She could not tell me exact frequency and quantity of black tarry stool. No fever. She has been feeling very weak, dyspnea on exertion fatigue and tired sometimes palpitation. She was admitted very severe anemia. She also had intermittent cramps in the abdomen but has resolved now. Patient also complained of burning micturition for 2 to 3 days. Her last UTI was more than a year ago. Denies recurrent UTI. Physical exam General: Alert, Oriented x3, Cooperative HEENT: Atraumatic, PERRLA, EOMI, Normocephalic Oral: No Gingival or Mucosal Lesions/ Ulcerations Neck: Supple, No JVD, Negative Carotid Bruits Chest wall/Lungs: Air entry diminished in bilateral lung bases. No crepitation/rhonchi Cardiovascular: Regular rate, Regular Rhythm, Normal S1, Normal S2, No M/G/R Abdomen: Bowel Sounds Present, Soft, Non Tender, Non-Distended : Burning micturition/dysuria. No renal angle tenderness. No suprapubic tenderness. Extremities: No edema, Capillary Refill Less than 3 Seconds Skin: No rashes, No breakdown Musculoskeletal: No Tenderness to Palpation of Joints or Extremities Neurological: Cranial nerves II-XII grossly intact, DTR 2+/4. No acute focal neurological deficit. Psych/Mental Status: Normal Affect, Appropriate. Assessment & Plan Assessment/Plan (1) Upper gastrointestinal bleeding: (2) Osler hemorrhagic telangiectasia syndrome: PLAN: Plan This is 73-year-old female admitted with nausea, and black tarry stool getting worse over 3 days. Gradually symptoms are getting worse with decreased appetite, lightheadedness and fatigue. Mild diffuse abdominal pain. Positive for dysuria and frequency. She was not able to walk for 2 days. 1. Acute upper GI bleed: Patient admitted to [facility] floor. On IV Protonix drip. Had 2 units of PRBC transfusion. Posttransfusion hemoglobin improved from 5.7-7.2. Her baseline is between 9 to 10 g. During previous admission she was also hide hemoglobin 5.8. She had EGD during previous hospitalization in September 08, 2023. Impressions : - Grade I esophageal varices. - Hematin (altered blood/srtyhv-nyains-ucbq material) in the entire stomach. - 15 bleeding angiodysplastic lesions in the stomach. Injected. Treated with a heater probe. - Six non-bleeding angiodysplastic lesions in the duodenum. Treated with argon plasma coagulation (APC). Recommendations : - Repeat upper endoscopy in 3 months for surveillance. 2. Acute severe blood loss anemia with history of chronic anemia: As mentioned above. 3. She had postoperative bradycardia during previous EGD which required hospitalization. Patient had ambulatory cardiac sonographer which did not show reproducibility of arrhythmia. She followed up with Harriett Florentino. 4. History of HHT -All medications are nonformulary and will restart at discharge 5. Seasonal allergies -Continue budesonide nasal irrigation 6. GERD: On PPI 7. DVT prophylaxis -SCDs. Pharmacological prophylaxis contraindicated. CODE STATUS Full code is verified on admission Laboratory Results 10/25/23 22:35: WBC 8.1, RBC 2.22 L, Hgb 5.7 L*, Hct 20.6 L, MCV 92.8, MCH 25.7 L, MCHC 27.7 L, RDW Std Deviation 64.7 H, RDW Coeff of Marques 19.0 H, Plt Count 350, MPV 10.3, Immature Gran % (Auto) 0.500, Neut % (Auto) 81.7 H, Lymph % (Auto) 8.5 L, Dickinson % (Auto) 7.9, Eos % (Auto) 1.0, Baso % (Auto) 0.4, Absolute Neuts (auto) 6.7, Absolute Lymphs (auto) 0.69 L, Nucleated RBC % 0.2, Differential Comment SCANNED, Diff Path Review May foll, Hypochromasia 2+, Anisocytosis 1+, Target Cells RARE, PT 13.2, INR 1.0, APTT 27.9, Sodium 141, Potassium 3.9, Chloride 109 H, Carbon Dioxide 28.0, Anion Gap 4 L, BUN 21 H, Creatinine 0.56, Estim Creat Clear Calc 58.63, Est GFR (MDRD) Af Amer 135, Est GFR (MDRD) Non-Af 112, BUN/Creatinine Ratio 37.2 H, Glucose 125 H, Calcium 8.9, Total Bilirubin 0.30, AST 13 L, ALT 23, Alkaline Phosphatase 62, Total Protein 6.3 L, Albumin 3.5, Globulin 2.8, Albumin/Globulin Ratio 1.2, Blood Type O POSITIVE, Antibody Screen NEGATIVE, Crossmatch See Detail 10/25/23 22:35: Crossmatch See Detail 10/25/23 23:45: Urine Color Yellow, Urine Clarity Clear, Urine pH 5.0, Ur Specific [place] 1.030, Urine Protein 30 H, Urine Glucose (UA) Normal, Urine Ketones 5 H, Urine Occult Blood 250 H, Urine Nitrite Negative, Urine Bilirubin Negative, Urine Urobilinogen Normal, Ur Leukocyte Esterase 500 H, Urine RBC 50-100 SEEN, Urine WBC >100 SEEN, Ur Squamous Epith Cells 10-25 SEEN, Urine Bacteria 2+, Urine Mucus 0 SEEN 10/26/23 08:30: WBC 6.5, RBC 2.77 L, Hgb 7.2 L, Hct 24.2 L, MCV 87.4 D, MCH 26.0 L, MCHC 29.8 L D, RDW Std Deviation 62.0 H, RDW Coeff of Marques 19.2 H, Plt Count 281, MPV 10.2, Immature Gran % (Auto) 0.800, Neut % (Auto) 94.2 H, Lymph % (Auto) 3.6 L, Dickinson % (Auto) 1.2, Eos % (Auto) 0.0, Baso % (Auto) 0.2, Absolute Neuts (auto) 6.1, Absolute Lymphs (auto) 0.23 L, Nucleated RBC % 0.5 Charges/Coding Visit Charges Inpatient E&M: 88228 Subs Hosp L2
--- NOTE | 2023-10-26 14:15 | CASEMGMT ---
RAHEEM VALDEZ Assessment: Face to Face with pt for initial transition planning/care coordination assessment. RAHEEM VALDEZ introduced self and role at [facility], pt voices understanding and consents to assessment. Pt is A&O x4 and answers all questions appropriately at this time. Pt sitting up in bed with visitor at bedside. Pt agreeable to assessment with visitor present. Care providers, pharmacy, and demographics verified/updated. Admitting Dx: GI Bleed PCP:Chelle Specialists: Friend, GI; Masci, onc Preferred [facility]acy: [facility] Insurance: evolso Prescription Benefit: yes LNOK: Nellie Grissom dtr; Ariana Garcia dtr Living Arrangements: Pt lives alone in a single story home with 1 step to enter. Pt reports she is I in ADL's and denies concerns at home. Transportation: Pt drives self and denies concerns with transportation. DME:Denies HHC/SNF: Denies hx of Pt states no concerns with going home at time of dc. Pt states no further concerns/needs. CM to follow. Advised pt to ask CM if any further question/concerns/needs arise, voices understanding. Pt Goal: Home Plan: Home Marcelle MACIEL CM
[2023-10-27] VITALS (13 sets, daily range): BP systolic 99–119; BP diastolic 48–68; PULSE 83–96; RESP 16–20; TEMP 36.7–37.2; O2SAT 98–100
[2023-10-27] MEDS: Pantoprazole Sodium 80 MG in 0.9% Normal Saline (100mL Bag) 80 ML 10 MG CONT INF (04:12)
[2023-10-27] MEDS: Lactated Ringers 1,000 ML 15 ML IV ×2 (06:15→07:33)
--- NOTE | 2023-10-27 07:23 | OP.CCLET_ITS ---
10/27/2023 Mariaelena Corbett [address] [facility] [place] [address] Re : Upper GI endoscopy procedure for Leidy Brar Dear Dr. Corbett This procedure was performed on Friday, October 27, 2023. My impressions and recommendations are as follows: Impressions : - Normal esophagus. - Multiple bleeding angiodysplastic lesions in the stomach. Treated with argon plasma coagulation (APC). - Multiple angiodysplastic lesions in the duodenum. Treated with argon plasma coagulation (APC). - No specimens collected. Recommendations : - Discharge patient to home. - Full liquid diet. - Continue present medications. My findings are described in the full procedure note, which is enclosed. If I can be of further assistance, please feel free to contact me at . Sincerely, Conner Peters, 10/27/2023 7:22:36 AM This report has been signed electronically.
--- NOTE | 2023-10-27 07:23 | OP.EGD_ITS ---
Patient Name: Leidy Brar Procedure Date: 10/27/2023 6:38 AM Date of : 1950 Age: 73 Procedure: Upper GI endoscopy Indications: Melena Providers: Conner Peters DO Medicines: Monitored Anesthesia Care Patient Profile: This is a 73 year old female. Refer to note in patient chart for documentation of history and physical. Patient has symptoms of acute dyspepsia, acute nausea and acute vomiting. Her most recent EGD for treatment of bleeding was within the past three months. Complications: No immediate complications. Procedure: Pre-Anesthesia Assessment: - Prior to the procedure, a History and Physical was performed, and patient medications and allergies were reviewed. The patient is competent. The risks and benefits of the procedure and the sedation options and risks were discussed with the patient. All questions were answered and informed consent was obtained. Patient identification and proposed procedure were verified by the physician in the pre-procedure area. Mental Status Examination: alert and oriented. Airway Examination: normal oropharyngeal airway and neck mobility. Respiratory Examination: clear to auscultation. CV Examination: normal. Prophylactic Antibiotics: The patient does not require prophylactic antibiotics. Prior Anticoagulants: The patient has taken no anticoagulant or antiplatelet agents. ASA Grade Assessment: II - A patient with mild systemic disease. After reviewing the risks and benefits, the patient was deemed in satisfactory condition to undergo the procedure. The anesthesia plan was to use monitored anesthesia care (MAC). Immediately prior to administration of medications, the patient was re-assessed for adequacy to receive sedatives. The heart rate, respiratory rate, oxygen saturations, blood pressure, adequacy of pulmonary ventilation, and response to care were monitored throughout the procedure. The physical status of the patient was re-assessed after the procedure. After obtaining informed consent, the endoscope was passed under direct vision. Throughout the procedure, the patient's blood pressure, pulse, and oxygen saturations were monitored continuously. The Endoscope was introduced through the mouth, and advanced to the second part of duodenum. The upper GI endoscopy was accomplished without difficulty. The patient tolerated the procedure well. Scope In: 6:46:05 AM Scope Out: 7:15:39 AM Total Procedure Duration Time 0 hours 29 minutes 34 seconds Findings: The examined esophagus was normal. Multiple 5 mm angiodysplastic lesions with bleeding were found in the cardia, in the gastric fundus, in the gastric body, on the greater curvature of the stomach and on the lesser curvature of the stomach. Coagulation for hemostasis using argon plasma at 0.3 liters/minute and 20 peterson was successful. Estimated blood loss was minimal. Multiple 5 mm angiodysplastic lesions with bleeding on contact were found in the duodenal bulb, in the first portion of the duodenum, in the second portion of the duodenum, in the third portion of the duodenum and in the fourth portion of the duodenum. Coagulation for bleeding prevention using argon plasma at 0.3 liters/minute and 20 peterson was successful. Estimated blood loss was minimal. Impression: - Normal esophagus. - Multiple bleeding angiodysplastic lesions in the stomach. Treated with argon plasma coagulation (APC). - Multiple angiodysplastic lesions in the duodenum. Treated with argon plasma coagulation (APC). - No specimens collected. Recommendation: - Discharge patient to home. - Full liquid diet. - Continue present medications. Procedure Code(s): --- Professional --- 94908, Esophagogastroduodenoscopy, flexible, transoral; with control of bleeding, any method CPT copyright 2021 [employer]. All rights reserved. The codes documented in this report are preliminary and upon quality facilitator review may be revised to meet current compliance requirements. Conner Peters DO 10/27/2023 7:22:36 AM This report has been signed electronically. Number of Addenda: 0 Note Initiated On: 10/27/2023 6:38 AM
[2023-10-27 09:19] LABS: Pathologist Review Reviewed
[2023-10-27 10:31] LABS: Absolute Lymphocyte Count 0.41 X10^3/uL (0.83-4.51); Absolute Neutrophil Count 4.3 X10^3/uL (2.0-7.7); Basophil# 0.03 X10^3/uL; Basophil% 0.6 % (0-1); Eosinophil# 0.03 X10^3/uL; Eosinophils% 0.6 % (0-5); Hematocrit 19.1 % (37-47); Lymphocyte # 0.41 X10^3/ul (0.83-4.51); Lymphocyte % 7.8 % (19-41); Mean Corp Hgb Conc 28.8 g/dL (32-36); Mean Corpuscular Hgb 25.8 pg (27.0-32.0); Mean Corpuscular Volume 89.7 fL (81-99); Mean Platelet Vol. 10.6 fl (6.2-12.0); Monocyte# 0.47 X10^3/uL; NRBC Flagged by Analyzer 0.6 % (0-5); Neutrophil # 4.26 X10^3/uL (2.7-7.7); Neutrophil % 81.4 % (47-70); POSITIVE COUNT YES; POSITIVE DIFFERENTIAL YES; Platelet Count 210 K/mm3 (150-450); RBC Distribution Width CV 19.8 % (11.6-14.6); RBC Distribution Width SD 64.7 fl (35.1-43.9); Red Blood Count 2.13 M/mm3 (4.2-5.4); White Blood Count 5.2 K/mm3 (4.4-11.0)
[2023-10-27 10:46] LABS: Anion Gap 5 (5-15); BUN 27 mg/dL (7-18); BUN/Creat Ratio 58.3 RATIO (10-20); Chloride 109 mmol/L (98-107); Creatinine, Serum 0.46 mg/dL (0.55-1.02); EST Glomerular Filtration Rate 140 mL/min (>60); Est Glom Filt Rate - Afr Amer 170 mL/min (>60); Estimated Creatinine Clearance 58.63 ml/min; Glucose 102 mg/dL (74-106); Potassium 3.4 mmol/L (3.5-5.1); Sodium Level 143 mmol/L (136-145)
[2023-10-27 10:47] LABS: Differential Indicated SCAN CRITERIA MET; Hemoglobin 5.5 g/dL (12.0-15.0)
[2023-10-27] MEDS: Ceftriaxone 1 GM/50 ML BAG IV (11:05)
[2023-10-27] MEDS: Potassium Chloride Oral Tablet 20 MEQ 40 MEQ PO (12:17)
[2023-10-27] MEDS: Sodium Ferric Gluconat/Sucrose 250 MG in 0.9% Normal Saline (250mL Bag) 250 ML 135 MG IV (12:33)
[2023-10-27] MEDS: MethylPREDNISolone 125 MG/2 ML Vial 60 MG IV (13:30)
[2023-10-27] MEDS: 0.9% Saline Lock 10 ML Syringe IV ×2 (13:30→21:52)
[2023-10-27] MEDS: DiphenhydrAMINE 50 MG/ML Syringe 25 MG IV (13:30)
[2023-10-27] MEDS: Acetaminophen 500 MG Tablet 1000 MG PO (13:31)
--- NOTE | 2023-10-27 14:30 | PCM.PN.HOSP ---
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) Gastrointestinal hemorrhage, unspecified (10/26/23) Objective Data Objective Data Vital Signs: Vital Signs Temp Pulse Resp BP Pulse Ox O2 Del Method 98.0 F 95 16 108/51 L 100 Room Air 10/27/23 08:47 10/27/23 08:47 10/27/23 08:47 10/27/23 08:47 10/27/23 08:47 10/27/23 08:47 Oxygen Delivery Method Room Air Weight: 133 lb 2.547 oz Body Mass Index (BMI) 21.4 Intake & Output: Intake and Output for Last 24 Hours 10/25/23 10/26/23 10/27/23 23:59 23:59 23:59 Intake Total 238.83 / 238.83 1195.58 / 1195.58 Balance 238.83 / 238.83 1195.58 / 1195.58 Lab / Micro Data 10/27/23 09:50 10/27/23 09:50 Labs: Laboratory Results - last 24 hr 10/25/23 22:35: Diff Path Review Reviewed, Crossmatch See Detail 10/25/23 22:35: Crossmatch See Detail 10/27/23 09:50: WBC 5.2, RBC 2.13 L, Hgb 5.5 L*, Hct 19.1 L, MCV 89.7, MCH 25.8 L, MCHC 28.8 L, RDW Std Deviation 64.7 H, RDW Coeff of Marques 19.8 H, Plt Count 210, MPV 10.6, Immature Gran % (Auto) 0.600, Neut % (Auto) 81.4 H, Lymph % (Auto) 7.8 L, [place] % (Auto) 9.0, Eos % (Auto) 0.6, Baso % (Auto) 0.6, Absolute Neuts (auto) 4.3, Absolute Lymphs (auto) 0.41 L, Nucleated RBC % 0.6, Sodium 143, Potassium 3.4 L, Chloride 109 H, Carbon Dioxide 29.0, Anion Gap 5, BUN 27 H, Creatinine 0.46 L, Estim Creat Clear Calc 58.63, Est GFR (MDRD) Af Amer 170, Est GFR (MDRD) Non-Af 140, BUN/Creatinine Ratio 58.3 H, Glucose 102, Calcium 8.0 L Micro: Microbiology 10/25/23 23:45 Urine, Clean Catch Urine Culture - Preliminary Presumptive E. coli Physical Exam Narrative Seen and examined. Patient had EGD in the morning. She still feels weak but wanted to go home. Labs were ordered and hemoglobin came very low. She states she stopped black stool/melena. No fever. Burning micturition is better. On IV antibiotic. Her last UTI was more than a year ago. Denies recurrent UTI. Physical exam General: Alert, Oriented x3, Cooperative. Fatigue HEENT: Atraumatic, PERRLA, EOMI, Normocephalic Oral: No Gingival or Mucosal Lesions/ Ulcerations Neck: Supple, No JVD, Negative Carotid Bruits Chest wall/Lungs: Air entry diminished in bilateral lung bases. No crepitation/rhonchi Cardiovascular: Regular rate, Regular Rhythm, Normal S1, Normal S2, No M/G/R Abdomen: Bowel Sounds Present, Soft, Non Tender, Non-Distended : Burning micturition/dysuria. No renal angle tenderness. No suprapubic tenderness. Extremities: No edema, Capillary Refill Less than 3 Seconds Skin: No rashes, No breakdown Musculoskeletal: No Tenderness to Palpation of Joints or Extremities Neurological: Cranial nerves II-XII grossly intact, DTR 2+/4. No acute focal neurological deficit. Psych/Mental Status: Normal Affect, Appropriate. Assessment & Plan Assessment/Plan (1) Upper gastrointestinal bleeding: (2) Osler hemorrhagic telangiectasia syndrome: PLAN: Plan This is 73-year-old female admitted with nausea, and black tarry stool getting worse over 3 days. Gradually symptoms are getting worse with decreased appetite, lightheadedness and fatigue. Mild diffuse abdominal pain. Positive for dysuria and frequency. She was not able to walk for 2 days. 1. Acute upper GI bleed: Patient admitted to [facility] floor. On IV Protonix drip. Had 2 units of PRBC transfusion. Posttransfusion hemoglobin improved from 5.7-7.2. Her baseline is between 9 to 10 g. During previous admission she was also hide hemoglobin 5.8. She had EGD during previous hospitalization in September 08, 2023. Impressions : - Grade I esophageal varices. - Hematin (altered blood/jecdtc-hyzzlv-mesw material) in the entire stomach. - 15 bleeding angiodysplastic lesions in the stomach. Injected. Treated with a heater probe. - Six non-bleeding angiodysplastic lesions in the duodenum. Treated with argon plasma coagulation (APC). Recommendations : - Repeat upper endoscopy in 3 months for surveillance. 10/27/2023: EGD was done today. Continue IV PPI 40 mg every 12 hourly. Impressions : - Normal esophagus. - Multiple bleeding angiodysplastic lesions in the stomach. Treated with argon plasma coagulation (APC). - Multiple angiodysplastic lesions in the duodenum. Treated with argon plasma coagulation (APC). - No specimens collected. Recommendations : - Full liquid diet. - Continue present medications. 2. Acute severe blood loss anemia with history of chronic anemia: As mentioned above. 10/26: Hemoglobin came 5.5 g. Platelet count normal. 2 units of PRBC transfusion ordered. Plan of care discussed with the patient and her daughter. 3. She had postoperative bradycardia during previous EGD which required hospitalization. Patient had ambulatory air sampling and monitoring which did not show reproducibility of arrhythmia. She followed up with Harriett Florentino. 10/26: Mild hypokalemia potassium replacement ordered. 4. History of HHT -All medications are nonformulary and will restart at discharge 5. Seasonal allergies -Continue budesonide nasal irrigation 6. GERD: On PPI 7. DVT prophylaxis -SCDs. Pharmacological prophylaxis contraindicated. CODE STATUS Full code is verified on admission Microbiology Past 72 Hours 10/25/23 23:45 Urine, Clean Catch Urine Culture - Preliminary Presumptive E. coli Laboratory Results 10/25/23 22:35: Diff Path Review Reviewed, Crossmatch See Detail 10/25/23 22:35: Crossmatch See Detail 10/27/23 09:50: WBC 5.2, RBC 2.13 L, Hgb 5.5 L*, Hct 19.1 L, MCV 89.7, MCH 25.8 L, MCHC 28.8 L, RDW Std Deviation 64.7 H, RDW Coeff of Marques 19.8 H, Plt Count 210, MPV 10.6, Immature Gran % (Auto) 0.600, Neut % (Auto) 81.4 H, Lymph % (Auto) 7.8 L, [place] % (Auto) 9.0, Eos % (Auto) 0.6, Baso % (Auto) 0.6, Absolute Neuts (auto) 4.3, Absolute Lymphs (auto) 0.41 L, Nucleated RBC % 0.6, Sodium 143, Potassium 3.4 L, Chloride 109 H, Carbon Dioxide 29.0, Anion Gap 5, BUN 27 H, Creatinine 0.46 L, Estim Creat Clear Calc 58.63, Est GFR (MDRD) Af Amer 170, Est GFR (MDRD) Non-Af 140, BUN/Creatinine Ratio 58.3 H, Glucose 102, Calcium 8.0 L Charges/Coding Visit Charges Inpatient E&M: 27976 Subs Hosp L2
[2023-10-27 15:17] LABS: Platelet Count 221 K/mm3 (150-450); RET-HE 17.8 pg (30-35); Reticulocyte Count 10.44 % (0.5-1.5); Vitamin B12 226 pg/mL (211-911)
--- NOTE | 2023-10-27 16:12 | NURSING ---
H & H 1 hr post blood infusion. will give 2nd unit if needed during the night.
[2023-10-27 19:05] LABS: Hematocrit 24.5 % (37-47); Hemoglobin 7.3 g/dL (12.0-15.0)
[2023-10-27 20:05] LABS: Ferritin 42 ng/mL (8-252); Iron 239 ug/dL (50-170); Iron Binding Capacity,Total 340 ug/dL (250-450); PERCENT IRON SATURATION 70.3 % (15.0-55.0)
[2023-10-27] MEDS: Pantoprazole Sodium 40 MG in 0.9% Normal Saline (100mL MB+) 100 ML 330 MG IV (21:50)
[2023-10-28 02:37] VITALS: BP 111/68; PULSE 77; RESP 16; TEMP 36.6; O2SAT 95
[2023-10-28 06:48] LABS: Absolute Lymphocyte Count 0.48 X10^3/uL (0.83-4.51); Absolute Neutrophil Count 6.7 X10^3/uL (2.0-7.7); Basophil# 0.01 X10^3/uL; Basophil% 0.1 % (0-1); Eosinophil# 0.02 X10^3/uL; Eosinophils% 0.3 % (0-5); Hemoglobin 7.2 g/dL (12.0-15.0); Lymphocyte # 0.48 X10^3/ul (0.83-4.51); Mean Corpuscular Hgb 26.9 pg (27.0-32.0); Mean Corpuscular Volume 89.6 fL (81-99); Mean Platelet Vol. 10.6 fl (6.2-12.0); Monocyte# 0.71 X10^3/uL; Monocyte% 8.9 % (0-10); NRBC Flagged by Analyzer 0.8 % (0-5); Neutrophil % 83.8 % (47-70); POSITIVE DIFFERENTIAL YES; Platelet Count 240 K/mm3 (150-450); RBC Distribution Width SD 58.2 fl (35.1-43.9); Red Blood Count 2.68 M/mm3 (4.2-5.4)
[2023-10-28 07:37] LABS: Anion Gap 8 (5-15); BUN 18 mg/dL (7-18); BUN/Creat Ratio 35.6 RATIO (10-20); Calcium,Total 8.8 mg/dL (8.5-10.1); Chloride 111 mmol/L (98-107); Creatinine, Serum 0.51 mg/dL (0.55-1.02); EST Glomerular Filtration Rate 127 mL/min (>60); Est Glom Filt Rate - Afr Amer 153 mL/min (>60); Estimated Creatinine Clearance 58.63 ml/min; Glucose 99 mg/dL (74-106); Sodium Level 145 mmol/L (136-145)
[2023-10-28 07:57] VITALS: O2SAT 96
[2023-10-28 08:03] VITALS: BP 108/61; PULSE 87; RESP 18; TEMP 36.6; O2SAT 100
[2023-10-28] MEDS: Potassium Chloride Oral Tablet 20 MEQ 40 MEQ PO (08:11)
[2023-10-28] MEDS: Pantoprazole Sodium 40 MG in 0.9% Normal Saline (100mL MB+) 100 ML 330 MG IV (10:09)
[2023-10-28] MEDS: 0.9% Saline Lock 10 ML Syringe IV (10:10)
[2023-10-28] MEDS: Ceftriaxone 1 GM/50 ML BAG IV (10:53)
--- NOTE | 2023-10-28 11:33 | DCINST_ITS ---
Discharge Instructions Diet Discharge Diet: 2000 mg Sodium Diet Activity Discharge Activity: Return to Normal Activity Weight Bearing Status: Weight bearing as tolerated Dressing / Incision Call your doctor if you observe: Fever of 101 or Higher, Coldness, Increased Pain, Numbness or Tingling, Change in Color, Inability to urinate, Inability to have a bowel movement, Using more than 1 pad per hour, Shortness of breath, Dizziness, Fainting spells, Swelling in the ankles, Chest pain, Prolonged hiccupping, Increased palpitations (irregular heartbeat) and Calf discomfort Follow Up Care When: IN 2 WEEKS Test Results: Test results from this visit will be discussed in further detail at your follow- up appointment, if applicable. Discharge Plan Admission Admit Date/Time: 10/26/23 00:13 Primary Reason for Your Visit: Acute upper GI bleed Attending Provider: Devin Cadet Primary Care Provider: Mariaelena Corbett Consulting Providers: Jesus Hernandez Discharge Orders/Prescriptions Prescriptions: New sulfamethoxazole-trimethoprim [Bactrim DS] 800-160 mg tablet 1 tab PO BID 4 Days Qty: 8 0RF Continued bevacizumab 25 mg/mL intravenous solution 25 mg/mL solution 25 mg INTRAVIT .Q4MO Rx Instructions: [id number] vitamin B complex [B Complex-Vitamin B12] Tablet 1 tab PO DAILY orthomune 1 tab PO DAILY iron sucrose 50 mg iron/2.5 mL solution 50 mg IV .monthly Rx Instructions: 50 mg intravenously; takes monthly last dose 08/05 osteobase 3 tab PO DAILY Rx Instructions: 3 tabs daily ascorbic acid (vitamin C) 1,000 MG tablet 1,000 mg PO DAILY folic acid 1 MG tablet 1 mg PO DAILY estradiol 0.01 % (0.1 mg/gram) cream 0.1 applic vaginal TUTHSA d-mannose 500 mg capsule 500 mg PO DAILY budesonide 0.5 mg/2 mL suspension for nebulization 0.5 mg irrigation DAILY Patient Comments: Inhale 1 vial using nebulizer twice a day INHALE 1 VIAL TWICE DAILY DIRECTED rizatriptan 10 mg tablet,disintegrating 10 mg PO Q2H PRN (Reason: migraine headache) Patient Comments: TAKE 1 TABLET BY MOUTH NEEDED FOR MIGRAINE HEADACHE. MAY REPEAT IN 2 HOURS IF NEEDED. NO MORE THEN 3 DOSES IN A 24 HOUR PERIOD. pantoprazole [Protonix] 40 mg tablet,delayed release (DR/EC) 40 mg PO BID 30 Days Qty: 60 2RF sucralfate 1 gram tablet 1 g PO BID Qty: 90 0RF Held catalyn gf 1 tab PO DAILY Hold Instructions: Check it with PCP. TADEO FOOD 1 cap PO DAILY Hold Instructions: Check in with PCP Referrals / Follow Up: Mariaelena Corbett DO [Primary Care Provider] - Conner Peters DO [Med Staff - Active Staff] - (Within 2 weeks. Keep schedul ed with Dr. Peters.) Jesus Soto DO [Med Staff - Active Staff] - Within 1 Month (For severe anemia. Symptoms not associated with iron deficiency or chronic kidney disease) Disposition Disposition (needs filled in before D/C Order can be placed): Home, Self Care
--- NOTE | 2023-10-28 11:46 | PCM.DC.SUM ---
Providers Date of Admission: 10/26/23 Primary Care Physician: Dr. 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 Gradually symptoms are getting worse with decreased appetite, lightheadedness and fatigue. Mild diffuse abdominal pain. Positive for dysuria and frequency. She was not able to walk for 2 days. 1. Acute upper GI bleed: Patient admitted to [facility] floor. On IV Protonix drip. Had 2 units of PRBC transfusion. Posttransfusion hemoglobin improved from 5.7-7.2. Her baseline is between 9 to 10 g. During previous admission she was also hide hemoglobin 5.8. She had EGD during previous hospitalization in September 08, 2023. Impressions : - Grade I esophageal varices. - Hematin (altered blood/jyjiev-uiosij-onft material) in the entire stomach. - 15 bleeding angiodysplastic lesions in the stomach. Injected. Treated with a heater probe. - Six non-bleeding angiodysplastic lesions in the duodenum. Treated with argon plasma coagulation (APC). Recommendations : - Repeat upper endoscopy in 3 months for surveillance. 10/27/2023: EGD was done today. Continue IV PPI 40 mg every 12 hourly. Impressions : - Normal esophagus. - Multiple bleeding angiodysplastic lesions in the stomach. Treated with argon plasma coagulation (APC). - Multiple angiodysplastic lesions in the duodenum. Treated with argon plasma coagulation (APC). - No specimens collected. Recommendations : - Full liquid diet. - Continue present medications. 10/27: Patient did not had any further episodes of GI bleed. Follow-up in GI clinic. Patient on pantoprazole 40 mg twice daily and Carafate 1 g twice daily and she has enough refill. She states she has follow-up on November [address] Peters. 2. Acute severe blood loss anemia with history of chronic anemia: As mentioned above. 10/26: Hemoglobin came 5.5 g. Platelet count normal. 2 units of PRBC transfusion ordered. Plan of care discussed with the patient and her daughter. 10/27 hemoglobin 7.2. She has total of 3 PRBC transfusion during this hospital stay. Iron study shows high serum iron, high iron saturation 70% but normal TIBC. Ferritin 42. Folate normal. B12 226 low normal. Prescription for B12 sent to patient's pharmacy. 3. She had postoperative bradycardia during previous EGD which required hospitalization. Patient had ambulatory care provider which did not show reproducibility of arrhythmia. She followed up with Harriett Florentino. 10/26: Mild hypokalemia potassium replacement ordered. 10/27: Repeat labs shows potassium 4.0, sodium normal. E. coli UTI: Patient had burning micturition. Urine culture shows E. coli. Patient had 3 doses of IV ceftriaxone and discharged on 4 more days of Bactrim DS. Burning micturition has resolved. 4. History of HHT -All medications are nonformulary and will restart at discharge 5. Seasonal allergies -Continue budesonide nasal irrigation 6. GERD: On PPI 7. DVT prophylaxis -SCDs. Pharmacological prophylaxis contraindicated. CODE STATUS Full code is verified on admission Discharge medication reconciliation done. Discharge follow-up instructions completed. Discharge process discussed with the patient and all questions were answered to patient's satisfaction. Follow with PCP in 1 to 2 weeks Total time spent, exact 35 minutes on discharge meds reconciliation, examination, coordination of care with nurses and ancillary staff, review of imaging and blood test and discussion with the patient on follow-up instructions. Microbiology Past 72 Hours 10/25/23 23:45 Urine, Clean Catch Urine Culture - Final Presumptive E. coli Laboratory Results 10/25/23 22:35: Crossmatch See Detail 10/27/23 09:50: Iron Cancelled, TIBC Cancelled, Iron Saturation Cancelled, Ferritin Cancelled, Folate Cancelled 10/27/23 18:40: Hgb 7.3 L, Hct 24.5 L, Iron 239 H, TIBC 340, Iron Saturation 70.3 H, Ferritin 42, Folate 33.80 10/28/23 06:28: WBC 8.0, RBC 2.68 L, Hgb 7.2 L, Hct 24.0 L, MCV 89.6, MCH 26.9 L, MCHC 30.0 L, RDW Std Deviation 58.2 H, RDW Coeff of Marques 18.0 H, Plt Count 240, MPV 10.6, Immature Gran % (Auto) 0.900, Neut % (Auto) 83.8 H, Lymph % (Auto) 6.0 L, Mccone % (Auto) 8.9, Eos % (Auto) 0.3, Baso % (Auto) 0.1, Absolute Neuts (auto) 6.7, Absolute Lymphs (auto) 0.48 L, Nucleated RBC % 0.8, Sodium 145, Potassium 4.0, Chloride 111 H, Carbon Dioxide 26.0, Anion Gap 8, BUN 18, Creatinine 0.51 L, Estim Creat Clear Calc 58.63, Est GFR (MDRD) Af Amer 153, Est GFR (MDRD) Non-Af 127, BUN/Creatinine Ratio 35.6 H, Glucose 99, Calcium 8.8 Medications at Discharge Home Medications ascorbic acid (vitamin C) 1,000 mg tablet 1,000 mg PO DAILY SUPPLEMENT 11/24/19 folic acid 1 mg tablet 1 mg PO DAILY SUPPLEMENT 11/24/19 vitamin B complex (B Complex-Vitamin B12 tablet) 1 tab PO DAILY supplement 04/15/21 catalyn gf 1 tab PO DAILY supplement 02/24/22 iron sucrose 50 mg iron/2.5 mL intravenous solution 50 mg IV .monthly supplement 02/24/22 orthomune 1 tab PO DAILY supplement 02/24/22 bevacizumab 25 mg/mL intravenous solution (Avastin) 25 mg intravitreal .Q4MO infusion 04/21/22 osteobase 3 tab PO DAILY supplement 05/18/23 estradiol 0.01% (0.1 mg/gram) vaginal cream 0.1 applic vaginal TUTHSA vag itching 08/18/23 TADEO FOOD 1 cap PO DAILY supplement 09/06/23 budesonide 0.5 mg/2 mL suspension for nebulization 0.5 mg irrigation DAILY breathing 09/06/23 d-mannose 500 mg capsule 500 mg PO DAILY supplement 09/06/23 rizatriptan 10 mg disintegrating tablet 10 mg PO Q2H PRN migraine headache 01/18/24 sucralfate 1 gram tablet 1 g PO BID #90 tabs 09/14/23 mecobalamin (vitamin B12) 1,000 mcg chewable tablet 1,000 mcg PO DAILY #30 tabs 10/28/23 pantoprazole 40 mg tablet,delayed release (Protonix) 40 mg PO BID 30 days #60 tabs 10/28/23 sulfamethoxazole 800 mg-trimethoprim 160 mg tablet (Bactrim DS) 1 tab PO BID 4 days #8 tabs 10/28/23 Physical Exam Narrative Seen and examined. Her hemoglobin is 7.2. She had PRBC transfusion yesterday. No more further GI bleed. She states she stopped black stool/melena. No fever. Burning micturition is resolved. On IV ceftriaxone. Her last UTI was more than a year ago. Denies recurrent UTI. Physical exam General: Alert, Oriented x3, Cooperative. Fatigue HEENT: Atraumatic, PERRLA, EOMI, Normocephalic Oral: No Gingival or Mucosal Lesions/ Ulcerations Neck: Supple, No JVD, Negative Carotid Bruits Chest wall/Lungs: Air entry diminished in bilateral lung bases. No crepitation/rhonchi Cardiovascular: Regular rate, Regular Rhythm, Normal S1, Normal S2, No M/G/R Abdomen: Bowel Sounds Present, Soft, Non Tender, Non-Distended : Burning micturition/dysuria. No renal angle tenderness. No suprapubic tenderness. Extremities: No edema, Capillary Refill Less than 3 Seconds Skin: No rashes, No breakdown Musculoskeletal: No Tenderness to Palpation of Joints or Extremities Neurological: Cranial nerves II-XII grossly intact, DTR 2+/4. No acute focal neurological deficit. Psych/Mental Status: Normal Affect, Appropriate. Weight / BMI Weight Weight: 133 lb 2.547 oz Body Mass Index (BMI) 21.4 ABG / Lab / Microbiology Data 10/28/23 06:28 10/28/23 06:28 Laboratory: Laboratory Results - last 24 hr 10/25/23 22:35: Crossmatch See Detail 10/25/23 22:35: Crossmatch See Detail 10/27/23 09:50: Retic Count 10.44 H, Immature Retic Fraction 38.10 H, Retic Hgb Equivalent 17.8 L, Iron Cancelled, TIBC Cancelled, Iron Saturation Cancelled, Ferritin Cancelled, Vitamin B12 226, Folate Cancelled 10/27/23 18:40: Hgb 7.3 L, Hct 24.5 L, Iron 239 H, TIBC 340, Iron Saturation 70.3 H, Ferritin 42, Folate 33.80 10/28/23 06:28: WBC 8.0, RBC 2.68 L, Hgb 7.2 L, Hct 24.0 L, MCV 89.6, MCH 26.9 L, MCHC 30.0 L, RDW Std Deviation 58.2 H, RDW Coeff of Marques 18.0 H, Plt Count 240, MPV 10.6, Immature Gran % (Auto) 0.900, Neut % (Auto) 83.8 H, Lymph % (Auto) 6.0 L, Mccone % (Auto) 8.9, Eos % (Auto) 0.3, Baso % (Auto) 0.1, Absolute Neuts (auto) 6.7, Absolute Lymphs (auto) 0.48 L, Nucleated RBC % 0.8, Sodium 145, Potassium 4.0, Chloride 111 H, Carbon Dioxide 26.0, Anion Gap 8, BUN 18, Creatinine 0.51 L, Estim Creat Clear Calc 58.63, Est GFR (MDRD) Af Amer 153, Est GFR (MDRD) Non-Af 127, BUN/Creatinine Ratio 35.6 H, Glucose 99, Calcium 8.8 Microbiology: Microbiology 10/25/23 23:45 Urine, Clean Catch Urine Culture - Final Presumptive E. coli D/C Instructions Discharge Diet: 2000 mg Sodium Diet Weight Bearing Status: Weight bearing as tolerated Call your doctor if you observe: Fever of 101 or Higher, Coldness, Increased Pain, Numbness or Tingling, Change in Color, Inability to urinate, Inability to have a bowel movement, Using more than 1 pad per hour, Shortness of breath, Dizziness, Fainting spells, Swelling in the ankles, Chest pain, Prolonged hiccupping, Increased palpitations (irregular heartbeat) and Calf discomfort When: IN 2 WEEKS Meaningful Use Info Meaningful Use Diagnoses (Choose all that apply): None applicable Discharge Plan Admission Admit Date/Time: 10/26/23 00:13 Primary Reason for Your Visit: Acute upper GI bleed Attending Provider: Devin Cadet Primary Care Provider: Mariaelena Corbett Consulting Providers: Jesus Hernandez Discharge Orders/Prescriptions Prescriptions: New sulfamethoxazole-trimethoprim [Bactrim DS] 800-160 mg tablet 1 tab PO BID 4 Days Qty: 8 0RF mecobalamin (vitamin B12) 1,000 mcg tablet,chewable 1,000 mcg PO DAILY Qty: 30 2RF Continued bevacizumab 25 mg/mL intravenous solution 25 mg/mL solution 25 mg INTRAVIT .Q4MO Rx Instructions: [id number] vitamin B complex [B Complex-Vitamin B12] Tablet 1 tab PO DAILY orthomune 1 tab PO DAILY iron sucrose 50 mg iron/2.5 mL solution 50 mg IV .monthly Rx Instructions: 50 mg intravenously; takes monthly last dose 08/05 osteobase 3 tab PO DAILY Rx Instructions: 3 tabs daily ascorbic acid (vitamin C) 1,000 MG tablet 1,000 mg PO DAILY folic acid 1 MG tablet 1 mg PO DAILY estradiol 0.01 % (0.1 mg/gram) cream 0.1 applic vaginal TUTHSA d-mannose 500 mg capsule 500 mg PO DAILY budesonide 0.5 mg/2 mL suspension for nebulization 0.5 mg irrigation DAILY Patient Comments: Inhale 1 vial using nebulizer twice a day INHALE 1 VIAL TWICE DAILY DIRECTED rizatriptan 10 mg tablet,disintegrating 10 mg PO Q2H PRN (Reason: migraine headache) Patient Comments: TAKE 1 TABLET BY MOUTH NEEDED FOR MIGRAINE HEADACHE. MAY REPEAT IN 2 HOURS IF NEEDED. NO MORE THEN 3 DOSES IN A 24 HOUR PERIOD. pantoprazole [Protonix] 40 mg tablet,delayed release (DR/EC) 40 mg PO BID 30 Days Qty: 60 2RF sucralfate 1 gram tablet 1 g PO BID Qty: 90 0RF Held catalyn gf 1 tab PO DAILY Hold Instructions: Check it with PCP. TADEO FOOD 1 cap PO DAILY Hold Instructions: Check in with PCP Referrals / Follow Up: Mariaelena Corbett DO [Primary Care Provider] - Jesus Soto DO [Med Staff - Active Staff] - Within 1 Month (For severe anemia. Symptoms not associated with iron deficiency or chronic kidney disease) Conner Peters DO [Med Staff - Active Staff] - (Within 2 weeks. Keep scheduled with Dr. Peters.) Disposition Disposition (needs filled in before D/C Order can be placed): Home, Self Care Charges/Coding Visit Charges Inpatient E&M: 82248 Disch Hosp >30min
--- NOTE | 2023-10-28 12:49 | PHA.DC_ITS ---
Pharmacy [facility] Pharmacy Service has performed discharge medication reconciliation and counseling for this patient. The patient's discharge medication list was reviewed for discrepancies and discrepancies were resolved. The patient was counseled on the following discharge medications and changes in medications for homegoing were reviewed. 1. BACTRIM The Reason for Use, instructions for use, and potential side effects were reviewed for all new medications. The patient's questions regarding all of their medications were answered. The patient was able to verbally demonstrate an understanding of their discharge medications. Medications at Discharge Home Medications ascorbic acid (vitamin C) 1,000 mg tablet 1,000 mg PO DAILY SUPPLEMENT 11/24/19 folic acid 1 mg tablet 1 mg PO DAILY SUPPLEMENT 11/24/19 vitamin B complex (B Complex-Vitamin B12 tablet) 1 tab PO DAILY supplement 04/15/21 catalyn gf 1 tab PO DAILY supplement 02/24/22 iron sucrose 50 mg iron/2.5 mL intravenous solution 50 mg IV .monthly supplement 02/24/22 orthomune 1 tab PO DAILY supplement 02/24/22 bevacizumab 25 mg/mL intravenous solution (Avastin) 25 mg intravitreal .Q4MO infusion 04/21/22 osteobase 3 tab PO DAILY supplement 05/18/23 estradiol 0.01% (0.1 mg/gram) vaginal cream 0.1 applic vaginal TUTHSA vag itching 08/18/23 TADEO FOOD 1 cap PO DAILY supplement 09/06/23 budesonide 0.5 mg/2 mL suspension for nebulization 0.5 mg irrigation DAILY breathing 09/06/23 d-mannose 500 mg capsule 500 mg PO DAILY supplement 09/06/23 rizatriptan 10 mg disintegrating tablet 10 mg PO Q2H PRN migraine headache 09/09/23 sucralfate 1 gram tablet 1 g PO BID #90 tabs 09/14/23 pantoprazole 40 mg tablet,delayed release (Protonix) 40 mg PO BID 30 days #60 tabs 10/28/23 sulfamethoxazole 800 mg-trimethoprim 160 mg tablet (Bactrim DS) 1 tab PO BID 4 days #8 tabs 10/28/23
--- NOTE | 2023-10-28 12:51 | CASEMGMT ---
RAHEEM VALDEZ NOTE: Discharge order is in. RN COURTNEY to room. Pt sitting on edge of bed. She denies any discharge needs or concerns. Kelly AGUILARN RAHEEM CM
== END 2023-10-28 12:55 | disposition home or self-care (01) | DRG 378 ==
LOC: ED 10-26 00:25 → MS3 10-26 01:17
PROVIDERS: Internal Medicine Gastroenterology; Admitting Provider Family Medicine; Emergency Provider Emergency Medicine; PCP Family Medicine; Visit Provider Internal Medicine
PROC: 0DJ08ZZ Inspection of Upper Intestinal Tract, Via Natural or Artificial Opening Endoscopic (ICD-10-PCS; CPT 43235; principal; 2023-10-27 06:25)
DX: K31.811 Angiodysplasia of stomach and duodenum with bleeding (principal); D62 Acute posthemorrhagic anemia; N39.0 Urinary tract infection, site not specified; I78.0 Hereditary hemorrhagic telangiectasia; K21.9 Gastro-esophageal reflux disease without esophagitis; J30.2 Other seasonal allergic rhinitis; E87.6 Hypokalemia; B96.20 Unspecified Escherichia coli [E. coli] as the cause of diseases classified elsewhere; Z79.899 Other long term (current) drug therapy
CPT/HCPCS: 36415; 80048; 80053; 81001; 82607; 82728; 82746; 83540; 83550; 85014; 85018; 85025; 85045; 85610; 85730; 86644; 86850; 86900; 86901; 86902; 86920; 86921; 86922; 87086; 87088; 87186; 99285; J7040; J7050; J7120; P9016; P9040; A4216; J2405; J2916

== ENCOUNTER 2023-10-29 09:20 | Outpatient (CLI) | payer MEDICARE, OTHER, SELFPAY ==
[2023-10-29 09:57] VITALS: BP 113/68; PULSE 91; RESP 16; TEMP 36; O2SAT 100; BMI 21.4
[2023-10-29] MEDS: 0.9% NaCl Peripheral Flush Adult/Peds IV (10:01)
[2023-10-29] MEDS: 0.9% Normal Saline (500mL Bag) 500 ML 15 ML IV (10:01)
[2023-10-29] MEDS: Acetaminophen 325 MG Tablet 650 MG PO (10:05)
[2023-10-29] MEDS: Hydrocortisone Sod Succinate 100 MG/2 ML Vial IV (10:05)
[2023-10-29] MEDS: DiphenhydrAMINE 50 MG/ML Syringe 25 MG IV (10:05)
[2023-10-29 11:07] VITALS: BP 102/44; PULSE 81; RESP 16; TEMP 36.1; O2SAT 100
[2023-10-29 12:07] VITALS: BP 99/45; PULSE 82; RESP 16; TEMP 36.4; O2SAT 100
[2023-10-29 13:09] VITALS: BP 108/60; PULSE 82; RESP 16; TEMP 36.3; O2SAT 100
== END 2023-10-29 09:21 | disposition home or self-care (01) ==
LOC: MEDOUTP 09:20
PROVIDERS: PCP Family Medicine; Referring Provider Internal Medicine Hematology & Oncology; Visit Provider Internal Medicine Hematology & Oncology
DX: D50.0 Iron deficiency anemia secondary to blood loss (chronic) (principal); I78.0 Hereditary hemorrhagic telangiectasia
CPT/HCPCS: 96374; 96375; 36430; 86850; 86900; 86901; 86920; 86921; 86922; J7040; J7050; P9016; A4216

== ENCOUNTER 2024-01-11 08:01 | Outpatient (CLI) | payer MEDICARE, OTHER, SELFPAY ==
[2024-01-11 08:16] VITALS: BP 117/47; PULSE 90; RESP 16; TEMP 36.4; O2SAT 100; BMI 21.3
[2024-01-11] MEDS: Acetaminophen 325 MG Tablet 650 MG PO (08:55)
[2024-01-11] MEDS: Hydrocortisone Sod Succinate 100 MG/2 ML Vial IV (08:56)
[2024-01-11] MEDS: DiphenhydrAMINE 50 MG/ML Syringe 25 MG IV (08:59)
[2024-01-11] MEDS: 0.9% Normal Saline (500mL Bag) 500 ML 15 ML IV (09:10)
[2024-01-11] MEDS: 0.9% NaCl Peripheral Flush Adult/Peds IV (09:19)
[2024-01-11 09:33] VITALS: BP 115/59; PULSE 77; RESP 16; TEMP 36.2; O2SAT 100
[2024-01-11 11:00] VITALS: BP 111/62; PULSE 75; RESP 16; TEMP 527.2; TEMP 981; O2SAT 100
[2024-01-11 11:32] VITALS: BP 119/70; PULSE 85; RESP 16; TEMP 36.4; O2SAT 100
[2024-01-11 12:32] VITALS: BP 106/56; PULSE 77; RESP 16; TEMP 36.4
[2024-01-11 13:32] VITALS: BP 107/60; PULSE 78; RESP 16; TEMP 36.4; O2SAT 100
== END 2024-01-11 23:59 | disposition home or self-care (01) ==
LOC: MEDOUTP 08:01
PROVIDERS: Referring Provider Internal Medicine Hematology & Oncology; Visit Provider Internal Medicine Hematology & Oncology
DX: D50.0 Iron deficiency anemia secondary to blood loss (chronic) (principal); I78.0 Hereditary hemorrhagic telangiectasia
CPT/HCPCS: 96374; 96375; 36430; 86850; 86900; 86901; 86902; 86920; 86922; J7040; P9016; A4216

== ENCOUNTER → 2024-03-07 | Outpatient (CLI) | payer MEDICARE, OTHER, SELFPAY ==
[2024-03-08 07:08] LABS: HSV 1 IgG < 0.91 index (0.00-0.90)
== END | disposition home or self-care (01) ==
PROVIDERS: PCP Family Medicine; Referring Provider Nurse Practitioner Women's Health; Visit Provider Nurse Practitioner Women's Health
DX: R30.0 Dysuria (principal); N90.89 Other specified noninflammatory disorders of vulva and perineum
CPT/HCPCS: 36415; 86695; 86696; 87077; 87086; 87088; 87186

== ENCOUNTER → 2024-03-16 | Outpatient (CLI) | payer MEDICARE, OTHER, SELFPAY ==
--- NOTE | 2024-03-16 13:21 | STRESSREP_ITS ---
Stress Test Report Exercise myocardial perfusion stress test. 73-year-old lady with a history of abnormal troponin Stress protocol: Resting EKG demonstrates normal sinus rhythm with a rate of 73 bpm resting blood pressure is 122/88 mmHg. The patient exercised according to the regular Junior protocol for a total duration of 7 minutes and 46 seconds attaining a maximum heart rate of 134 bpm which was 91% of maximum predicted heart rate; the maximum workload was 10.1 metabolic equivalents. At rest there were no ST or T wave changes noted to suggest ischemia and at peak exercise upsloping ST changes only were noted which did not meet the criteria for ischemia. No clinical angina was noted the test was terminated due to the target heart rate being achiev ed/fatigue. The peak blood pressure was 162/88 mmHg. Rate-pressure product was 21,200. Myocardial perfusion protocol. 11.8 mCi of technetium 99m sestamibi was injected at rest. The patient exercis ed according to regular Junior protocol for total duration of 7 minutes and 46- second and at peak exercise 44.6 mCi of technetium 99m sestamibi was injected stress images were obtained stress and rest images were reconstructed in comparing the short axis vertical long and horizontal long axis. Gated images were also obtained. Perfusion SPECT analysis: Review of the stress images demonstrate normal uptake of tracer noted in all areas of the myocardium. The resting images similarly demonstrate normal uptake of tracer noted in all areas of the myocardium. No areas of reversibility are noted to suggest ischemia no previous infarct was noted. Gated SPECT analysis: The gated ejection fraction is 87%. Conclusion: Normal exercise myocardial perfusion stress test at a high workload Preserved ejection fraction.
== END | disposition home or self-care (01) ==
LOC: CVS 06:52
PROVIDERS: PCP Family Medicine; Referring Provider Nurse Practitioner Gerontology; Visit Provider Nurse Practitioner Gerontology
DX: R94.31 Abnormal electrocardiogram [ECG] [EKG] (principal); R79.89 Other specified abnormal findings of blood chemistry
CPT/HCPCS: 78452; 93017; A9500

== ENCOUNTER → 2024-03-28 | Outpatient (CLI) | payer MEDICARE, OTHER, SELFPAY ==
--- NOTE | 2024-03-28 07:40 | BI_ITS ---
MAMMOGRAPHY - BILATERAL SCREENING REASON FOR EXAM: Female, 73 years old. Routine annual screening examination. PERTINENT HISTORY: Non-contributory. TECHNIQUE: Digital bilateral breast mercedes (3D mammographic acquisition) in the CC and MLO projections. 2-D mediolateral oblique (MLO) and craniocaudad (CC) views of both breasts were obtained. CAD: Full Field Digital Mammography with Computer Added Detection was performed. COMPARISON: Comparison is made with prior study of March 08, 2023 and February 24, 2022. FINDINGS: Breast Composition: The breasts are almost entirely fatty. There are no dominant masses or suspicious calcifications. No other significant abnormalities are identified. There has been no significant change since the prior study. BI/SCRN MAMM (CAD)W/MERCEDES BILAT IMPRESSION: Stable bilateral screening mammogram. Yearly follow-up mammogram recommended. (A) ASSESSMENT CATEGORY: BIRADS Category 1: Negative. A letter regarding these results will be sent to the patient by the facility within 30 days. Approximately 10% of breast cancers are not detected by mammography. A normal mammogram should not delay biopsy of a clinically suspicious abnormality. [id number] Electronically Signed: Roberto Olson MD at 8:41 EDT ,
== END | disposition home or self-care (01) ==
LOC: OPBI 07:40
PROVIDERS: PCP Family Medicine; Referring Provider Nurse Practitioner Women's Health; Visit Provider Nurse Practitioner Women's Health
DX: Z12.31 Encounter for screening mammogram for malignant neoplasm of breast (principal)
CPT/HCPCS: 77063; 77067

== ENCOUNTER → 2024-04-12 | Outpatient (CLI) | payer MEDICARE, OTHER, SELFPAY ==
--- NOTE | 2024-04-12 13:40 | US_ITS ---
STUDY: RENAL ULTRASOUND - COMPLETE REASON FOR EXAM: Female, 73 years old. UTI TECHNIQUE: Ultrasound evaluation of the kidneys was performed with real-time and static guthrie-scale imaging. COMPARISON: None. FINDINGS: RIGHT KIDNEY: Normal location of the right kidney, which is normal in size. The right kidney measures 11.1 x 4.1 x 4.1 cm. There is a normal cortex of the right kidney. The renal cortex measures 1.7 cm. There is no right renal mass or cyst. There are no right renal calculi. There is no right hydronephrosis. LEFT KIDNEY: Normal location of the left kidney, which is normal in size. The left kidney measures 10.3 x 4.9 x 4.7 cm. There is a normal cortex of the left kidney. The renal cortex measures 2.0 cm. There is no left renal mass or cyst. There are no left renal calculi. There is no left hydronephrosis. BLADDER: The distended urinary bladder has a volume of 398 ml. The empty urinary bladder has a volume of 0 ml. There is a normal wall thickness of the distended urinary bladder. There is no demonstrated mass within the urinary bladder. There are no demonstrated bladder calculi. Bilateral ureteral jets are seen. US/Kidney and Bladder IMPRESSION: Normal ultrasound of the kidneys and urinary bladder. Electronically Signed: Norberto Denny MD at 20:59 EDT ,
== END | disposition home or self-care (01) ==
LOC: US 13:38
PROVIDERS: PCP Family Medicine; Referring Provider Urology; Visit Provider Urology
DX: N39.0 Urinary tract infection, site not specified (principal)
CPT/HCPCS: 76770

== ENCOUNTER → 2024-04-13 | Outpatient (CLI) | payer MEDICARE, OTHER, SELFPAY ==
[2024-04-13 12:31] LABS: Vitamin B12 515 pg/mL (211-911)
[2024-04-13 12:39] LABS: ALB/GLOB Ratio 1.1 RATIO (0.9-2.4); AST(SGOT) 28 U/L (15-37); Alanine Aminotransfer ALT/SGPT 33 U/L (13-56); Albumin, Serum 3.6 g/dL (3.2-5.0); Alkaline Phosphatase 105 U/L (45-117); Anion Gap 4 (5-15); BUN 13 mg/dL (7-18); BUN/Creat Ratio 21.2 RATIO (10-20); Bilirubin, Direct 0.06 mg/dL (0.00-0.30); Calcium,Total 9.1 mg/dL (8.5-10.1); Chloride 107 mmol/L (98-107); Cholesterol 169 mg/dL (200); Creatinine, Serum 0.61 mg/dL (0.55-1.02); EST Glomerular Filtration Rate 102 mL/min (>60); Est Glom Filt Rate - Afr Amer 123 mL/min (>60); Free T3 3.3 pg/mL (2.18-3.98); Globulin 3.4 g/dL (2.2-4.2); Glucose 74 mg/dL (74-106); High Density Lipoprotein 56 mg/dL; Potassium 4.5 mmol/L (3.5-5.1); Sodium Level 142 mmol/L (136-145); T4 Free Direct 0.84 ng/dL (0.76-1.46); Triglycerides 77 mg/dL; Very Low Density Lipoprotein 15 mg/dL (5-40)
== END | disposition home or self-care (01) ==
PROVIDERS: Nurse Practitioner Gerontology; PCP Family Medicine; Referring Provider Family Medicine; Visit Provider Family Medicine
DX: E03.9 Hypothyroidism, unspecified (principal); E53.8 Deficiency of other specified B group vitamins
CPT/HCPCS: 80053; 80061; 82248; 82607; 84439; 84443; 84481

== ENCOUNTER → 2024-05-12 | Outpatient (CLI) | payer MEDICARE, OTHER, SELFPAY ==
--- NOTE | 2024-05-12 10:44 | BD_ITS ---
STUDY: DUAL ENERGY X-RAY ABSORPTIOMETRY / DXA REASON FOR EXAM: Female, 73 years old. 733.00OsteoporosisBONE DENSITY REASON FOR EXAM TECHNIQUE: Bone Mineral Density (BMD) measurements of left forearm and bilateral hips were obtained. COMPARISON: Comparison is made with prior study dated December 08, 2018. FINDINGS: Left Femur Total: g/cm2 (0.589) / T-score (-2.9) / Z-score (-1.2) Left Femoral Neck: g/cm2 (0.482) / T-score (-3.3) / Z-score (-1.3) Right Femur Total: g/cm2 (0.589) / T-score (-2.9) / Z-score (-1.2) Right Femoral Neck: g/cm2 (0.482) / T-score (-3.3) / Z-score (-1.3) Left Forearm: g/cm2 (0.452) / T-score (-2.4) / Z-score (0.0) The T-Scores on the most recent prior examination were: Left Femur Total: which represents a worsening of 14%. Right Femur Total: which represents a worsening of 14%. BD/Dexa Bone Density Study IMPRESSION: The patient is considered osteoporotic as outlined below according to World Erasmo Organization (WHO) criteria with a high fracture risk. There has been worsening of bone density since the previous examination. Reference Information: The T-score is the number of standard deviations above or below the standard which is normal for young adults at their peak bone mineral density. The World Health Organization (WHO) interprets the T-scores as follows: Above -1 Normal bone density Between -1 and -2.5 Osteopenia Equal to / or below -2.5 Osteoporosis As a practical clinical guideline, osteopenia may be graded as follows: Mild -1 through -1.5 Moderate -1.6 through -2.0 Severe -2.1 through -2.4 The Z-score is the number of standard deviations above or below age-matched controls. A Z-score of less than -1.5 would be considered abnormal. References: 1. NIH Osteoporosis and Related Bone Diseases www osteo.org 2. International Society for Clinical Densitometry www iscd.org 3. National Osteoporosis Foundation www nof.org Electronically Signed: Roberto Olson MD at 13:45 EDT ,
== END | disposition home or self-care (01) ==
LOC: OPBD 10:42
PROVIDERS: PCP Family Medicine; Referring Provider Family Medicine; Visit Provider Family Medicine
DX: M81.0 Age-related osteoporosis without current pathological fracture (principal)
CPT/HCPCS: 77080

== ENCOUNTER 2024-09-01 09:01 | Outpatient (CLI) | payer MEDICARE, OTHER, SELFPAY ==
[2024-09-01 09:20] VITALS: BP 116/63; PULSE 92; RESP 16; TEMP 35.9; O2SAT 100
[2024-09-01] MEDS: 0.9% NaCl Peripheral Flush Adult/Peds IV (09:42)
[2024-09-01] MEDS: 0.9% Normal Saline (500mL Bag) 500 ML 15 ML IV (09:43)
[2024-09-01] MEDS: Acetaminophen 325 MG Tablet 650 MG PO (09:52)
[2024-09-01] MEDS: Hydrocortisone Sod Succinate 100 MG/2 ML Vial IV (09:54)
[2024-09-01] MEDS: DiphenhydrAMINE 50 MG/ML Syringe 25 MG IV (09:54)
[2024-09-01 10:48] VITALS: BP 108/55; PULSE 80; RESP 14; TEMP 36.2; O2SAT 100
[2024-09-01 11:51] VITALS: BP 126/61; PULSE 93; RESP 16; TEMP 36.6
[2024-09-01 12:41] VITALS: BP 107/79; PULSE 91; RESP 16; TEMP 36.3; O2SAT 98
[2024-09-01 13:50] VITALS: BP 110/60; PULSE 94; RESP 16; TEMP 36.3; O2SAT 100
== END 2024-09-01 23:59 | disposition home or self-care (01) ==
LOC: MEDOUTP 09:02
PROVIDERS: PCP Family Medicine; Referring Provider Internal Medicine Hematology & Oncology; Visit Provider Internal Medicine Hematology & Oncology
DX: D50.0 Iron deficiency anemia secondary to blood loss (chronic) (principal); Z96.612 Presence of left artificial shoulder joint
CPT/HCPCS: 96374; 96375; 36430; 86850; 86900; 86901; 86902; 86920; 86922; P9016; A4216

== ENCOUNTER 2024-11-29 14:30 | Outpatient (RCR) | payer MEDICARE, OTHER, SELFPAY ==
--- NOTE | 2024-09-18 08:49 | HP.PTEVAL_ITS ---
Patient's Visit Information Visit Information Visit Information: DERECK LÓPEZ is a 74 year old F referred to Physical Therapy by Dr. Tanner Atwood MD with a diagnosis of S/P L TSA reverse 08/21/24. Date of Evaluation: 09/18/24 Physical Therapist: Rohith Turner, DPT, OCS, CSCS Visit Plan Frequency: 1-2x /Week Duration: 4-6 Weeks Plan: 1-2x/week for 6 weeks for IE HEP: supine stick flex and er 10x, table seated fledxion 10x all 2x/day, continue pendulum, scap circles and elbow arom throughout day. HO given AAROM to AROM exercise progression, deltoid isometrics, manual therapy PROM as needed ice as needed. scar massage as needed. progress per protocol(PREs at week 6(mid September) Subjective Subjective: 08/21/24 L TSA reverse. Shoulder was warn out. Sees Doctor Wednesday. Anxious to get sling off. Surgery went well. Had R one done reverse style 10 yrs ago. Pain level is not bad 2/10 intermittienlty but much of time over weekend. Only needed pain meds day one. Now just tylenol. Sleep is not great, in sling, bed and recliner, hard to get comfy adn two hours at a time. Exercises: elbow AROM, wrist ROM, broom supine lying down. shoulder rolls, pendulum and doing them a couple times per day. Employed: no activities: will want to do yardwork in the spring. 4 grandkids in [facility] 14,12,11,9. Basic ADLs: dresses self, bathroom I, shower I. Lives alone now but stayed with dtr for 2 weeks after surgery. Steps are not a problem. Pain L shoulder: Pain Intensity (Out of 10): 2 Pain Intensity Range: 0 and 2 Objective Objective: L shoulder in sling which is donned and doffed I. Posture is slight forward head and slightly elevated scapula L. Corrects with VC. Incision is healed and dry, no signs of redness heat or swelling. Mild scarring under incision anteriorly palpable PROM L shoulder 125 limtie dby discomfort flexion and 30 er. AAROM 25 er and 120 flexion with stick. AROM seated 40 elevation. 12 ER. elbow and wrist and scap aROM WFL. cervical aROM 45 rotations and 40 extension without pain. strength not tested on LL today. R is 4-/5 elevation adn er, and 4+ IR on R. Walking is I with slightly less arm swing L vs R. Balance/Special Test Scores Quick DASH Score: 61.3625 Goals Goal 1:: ST: 140 elevation adn 55 er L shoulder PROM to improve ADL possibilities Goal Time Frame: 2-4 Weeks Goal 2:: ST: sleep 4 hours without waking Goal Time Frame: 2-4 Weeks Goal 3:: LT: AROM 145 elevation and 50 er with L4 IR on L comfortably to help with ADLs. Goal Time Frame: 4-6 Weeks Goal 4:: Do marj with L arm and put on jacket without discomfort or hesitation Goal Time Frame: 4-6 Weeks Goal 5:: qucik dash score 15 or less to improve funciton at home Goal Time Frame: 4-6 Weeks Rehabilitation Potential Physical Therapy Diagnosis: lacking ROM and strength L shoulder limiting funciton. Rehabilitation Potential: Good Anticipated Interventions Patient/Client Instruction: Educate patient on: Condition and Plan of Care For the Purpose of:: To decrease pain, To increase ROM, To improve nutrient delivery to tissue, To improve muscle performance and motor function and To increase tolerance to activity/condition/position Therapeutic Exercise to Include: Strength training, Postural training, Flexibilty training, Passive ROM and Active ROM For the Purpose of:: To decrease pain, To increase ROM, To improve nutrient delivery to tissue, To improve muscle performance and motor function and To increase tolerance to activity/condition/position Manual Therapy Techniques to Include: Scar massage, Mobilization, Passive ROM and Soft tissue mobilization For the Purpose of:: To decrease pain, To decrease swelling/inflammation, To improve nutrient delivery to tissue and To improve muscle performance and motor function Cryotherapy (ice pack, ice massage): Yes For the Purpose of:: To decrease pain and To decrease swelling/inflammation Text: Thank you for the opportunity to evaluate your patient. For Medicare and Medicare HMO plans, please review the plan of care and approve it. It will need to be FAXED BACK to us at [phone] for Medicare purposes. For Medicare only, by signing this I certify the plan of care. Please let me know if there are questions or concerns regarding this plan of care. Physician Signature: Date:
--- NOTE | 2024-11-01 13:28 | HP.PTREVAL_ITS ---
Re-Evaluation Intro: Dr. Tanner Atwood MD, It has been my pleasure to treat DERECK LÓPEZ over the last 10 visits for S/P L TSA reverse 08/21/24. Please see the progress note below for an update on the physical therapy plan of care! Subjective Subjective: Just back from [place]. Not much exercise for the arm. . Did well with all activities. Basic ADLs getting done OK. Wants to get arm up higher but not a functional need. Slep is OK. Will go back to [employer].Went once before vacation and stayed low weight and did well. Objective Objective/Function: AROM L shoulder 120 flexion, 45 er, PSIS IR, can stretch to L% IRc, 125 fleion but scapular compensation and L scap stays elevated. PROM er to 50. strength is 4- L er, 4 ir, flexion at 4- Funcitonally doing well. NEW POC to f/u in a month unless concerns prior. NW goal and unmet previous goals still appropriate. Fair prognosis Plan Plan Plan: f/u one month to check gym workout, ROM adn discharge if doing well, pt to call prior if daria Balance/Gait/Functional tests Balance/Special Test Scores Quick DASH Score: 22.7250 Goals Goals Goal 1:: ST: 140 elevation adn 55 er L shoulder PROM to improve ADL possibilities Goal Time Frame: 2-4 Weeks Goal Progress: slow, appropriate 4 more. Goal 2:: ST: sleep 4 hours without waking Goal Time Frame: 2-4 Weeks Goal Progress: Goal Met Goal 3:: LT: AROM 145 elevation and 50 er with L4 IR on L comfortably to help with ADLs. Goal Time Frame: 4-6 Weeks Goal Progress: Progressing, approp Goal 4:: Do hair with L arm and put on jacket without discomfort or hesitation Goal Time Frame: 4-6 Weeks Goal Progress: Goal Met Goal 5:: qucik dash score 15 or less to improve funciton at home Goal Time Frame: 4-6 Weeks Goal Progress: Progressing Goal 6:: I appropriate gym strength adn home ROM program toward her progress. and 85% better overall. Goal Time Frame: 4-6 Weeks Goal Progress: NEW GOAL Anticipated Interventions Anticipated Interventions Patient/Client Instruction: Educate patient on: Condition and Plan of Care For the Purpose of:: To decrease pain, To increase ROM, To improve nutrient delivery to tissue, To improve muscle performance and motor function and To increase tolerance to activity/condition/position Therapeutic Exercise to Include: Strength training, Postural training, Flexibilty training, Passive ROM and Active ROM For the Purpose of:: To decrease pain, To increase ROM, To improve nutrient delivery to tissue, To improve muscle performance and motor function and To increase tolerance to activity/condition/position Manual Therapy Techniques to Include: Scar massage, Mobilization, Passive ROM and Soft tissue mobilization For the Purpose of:: To decrease pain, To decrease swelling/inflammation, To improve nutrient delivery to tissue and To improve muscle performance and motor function Cryotherapy (ice pack, ice massage): Yes For the Purpose of:: To decrease pain and To decrease swelling/inflammation Re-Evaluation Ending Re-evaluation ending: Please do not hesitate to contact me at [phone] by phone or if you have questions or concerns regarding this new plan of care! Sincerely, Rohith Turner, DPT, OCS, CSCS
--- NOTE | 2024-11-29 14:52 | HP.PTDCSUM ---
Discharge Summary D/C summary: It has been my pleasure to treat DERECK LÓPEZ referred by Dr. Tanner Atwood MD, with the diagnosis of S/P L TSA reverse 08/21/24 for a total of 12 visit(s). Discharge Date: 11/29/24 Please see the following information for a summary of their discharge status. Subjective Subjective: L fingers are intermittently numby and tingly. Not sure why but started 3-4 weeks ago. To doctor in January. No pain really. Going to [employer] 3x/week most weeeks and gets discomfort with pull down at top but transient. Sleeping is fine as far as shoulder is concerned. Sitting in evening might cause some numby in fingers. Activities: normal for the most part. Pain L shoulder: Pain Intensity (Out of 10): 0 Overall Improvement % Improvement: 90 Objective Objective/Function: AROM L shoulder 122 flexion with scapular compeensation adn tight at end range but funcitonal. ER is 45. strength is still weak at 4- in L ER, IR is 4/5, flexion 4-/5, Improving. Pt is happy with progress and plans to continue via HEP and at [email or web address]. Goals Goal 1:: ST: 140 elevation adn 55 er L shoulder PROM to improve ADL possibilities Goal Progress: slow, appropriate 4 more. Goal 2:: ST: sleep 4 hours without waking Goal Progress: Goal Met Goal 3:: LT: AROM 145 elevation and 50 er with L4 IR on L comfortably to help with ADLs. Goal Progress: Progressing, approp Goal 4:: Do hair with L arm and put on jacket without discomfort or hesitation Goal Progress: Goal Met Goal 5:: qucik dash score 15 or less to improve funciton at home Goal Progress: Progressing Goal 6:: I appropriate gym strength adn home ROM program toward her progress. and 85% better overall. Goal Progress: Goal Met Plan Plan: d.c to HEP D/C Information Discharge Comments: to doctor in January. very funcitional at this point and will continue to work on strength and ROM via HEP and gym x. d/c sentence: If there are questions or concerns regarding this patient's physical therapy, please feel free to call me at [phone]. Thank you for the referral of this patient. Sincerely, Rohith Turner, DPT, OCS, CSCS Balance/Gait/Functional tests Balance/Special Test Scores Quick DASH Score: 25.0000 Improvement % Improvement: 90
== END 2024-11-29 16:17 | disposition home or self-care (01) ==
LOC: PT 14:30
PROVIDERS: PCP Family Medicine; Referring Provider Orthopaedic Surgery; Visit Provider Orthopaedic Surgery
DX: Z96.612 Presence of left artificial shoulder joint (principal)
CPT/HCPCS: 97110; 97140; 97161; 97164; 97530

== ENCOUNTER → 2025-02-28 | Outpatient (CLI) | payer MEDICARE, OTHER, SELFPAY ==
[2025-02-28 13:39] LABS: Anion Gap 12 (5-15); BUN 16 mg/dL (4-19); BUN/Creat Ratio 27.0 RATIO (10-20); CRP 10.50 mg/L (0.0-3.0); Calcium,Total 9.6 mg/dL (7.6-11.0); Carbon Dioxide 26.0 mmol/L (21.0-32.0); Chloride 101 mmol/L (98-108); Glucose 116 mg/dL (70-99); Potassium 4.2 mmol/L (3.3-5.1)
--- NOTE | 2025-02-28 14:18 | CT_ITS ---
PROCEDURE: BRAIN/HEAD W/WO CONTRAST 02/28/2025 REASON FOR EXAM: SEVERE GUTIERREZ/ R/O HEMMORHAGE/ANEURYSM TECHNIQUE: BRAIN/HEAD W/WO CONTRAST Coronal and Sagittal reconstruction series were provided. CONTRAST: VOLUME: mL One or more dose reduction techniques were used (e.g., Automated exposure control, adjustment of the mA and/or kV according to patient size, use of iterative reconstruction technique). RADIATION DOSE SUMMARY: CTDlvol: mGy DLP: mGycm COMPARISON: none FINDINGS: Left cerebellar irregular shape calcified lesion/density 14 x 17 mm in diameter with no obvious related enhancement. Relatively accentuated bilateral cerebral periventricular deep white matter hypodensities suggestive of microvascular ischemic changes. Rain-white matter differentiation is maintained. No intracerebral or extra axial hemorrhage. No definite calvarial fractures. Prominent ventricular system, cortical sulci and extra-axial CSF spaces No midline shifts or deformity. The osseous structures in the skull base are unremarkable. The scanned paranasal sinuses are unremarkable. CT/Brain/Head W/WO Contrast IMPRESSION: Left cerebellar irregular shape calcified lesion/density with no obvious relate d enhancement. Diagnostic possibilities include cavernoma rather neoplastic mass with dense calcifications. Advise clinical cor relation and follow up. No intracerebral or extra axial hematoma. No acute cerebrovascular insult. If there is high clinical suspicion, correlate to MRI Age related brain involutional changes. Bilateral cerebral mild microvascular ischemic changes. Reading Location: [place] [id number]
== END | disposition home or self-care (01) ==
LOC: BFHLAB 14:15 → CT 14:16
PROVIDERS: PCP Family Medicine; Referring Provider Family Medicine; Visit Provider Family Medicine
DX: G43.519 Persistent migraine aura without cerebral infarction, intractable, without status migrainosus (principal); Z51.81 Encounter for therapeutic drug level monitoring
CPT/HCPCS: 36415; 70470; 80048; 85652; 86140; Q9967; A4216

== ENCOUNTER → 2025-03-05 | Outpatient (CLI) | payer MEDICARE, OTHER, SELFPAY ==
[2025-03-05 12:58] LABS: AST(SGOT) 31 U/L (<=31); Alanine Aminotransfer ALT/SGPT 71 U/L (<=34); Albumin, Serum 4.1 g/dL (3.4-4.8); Alkaline Phosphatase 210 U/L (35-104); Bilirubin, Direct 0.12 mg/dL (0.00-0.30); Cholesterol 176 mg/dL (<=200); Globulin 2.8 g/dL (2.2-4.2); Low Density Lipoprotein Calc. 99 mg/dL; Triglycerides 157 mg/dL; Very Low Density Lipoprotein 31 mg/dL (5-40); cholesterol:hdl ratio screen 3.88
== END | disposition home or self-care (01) ==
PROVIDERS: Nurse Practitioner Gerontology; PCP Family Medicine; Visit Provider Family Medicine
DX: M79.2 Neuralgia and neuritis, unspecified (principal); W57.XXXA Bitten or stung by nonvenomous insect and other nonvenomous arthropods, initial encounter; E78.00 Pure hypercholesterolemia, unspecified; I45.9 Conduction disorder, unspecified
CPT/HCPCS: 36415; 80061; 80076; 86617

== ENCOUNTER → 2025-04-20 | Outpatient (CLI) | payer MEDICARE, OTHER, SELFPAY ==
--- NOTE | 2025-04-20 15:15 | BI_ITS ---
EXAM: SCRN MAMM (CAD)W/MERCEDES BILAT DATE: 04/20/2025 CLINICAL HISTORY: F, Age 74 y/o , SCREEN FOR BREAST CANCER No family history. TECHNIQUE: Procedure Code: [id number] Modality: MG Procedure: SCRN MAMM (CAD)W/MERCEDES BILAT COMPARISON: Prior exam(s) dated March 28, 2024.. FINDINGS: TISSUE DENSITY: The breasts are almost entirely fatty. Bilateral Breast Mammographic Findings: No significant masses, calcifications or other abnormalities are identified. No suspicious masses, areas of developing architectural distortion, or suspicious calcifications. There has been no significant interval change. BI/SCRN MAMM (CAD)W/MERCEDES BILAT IMPRESSION: Stable examination. OVERALL FINAL ASSESSMENT BI-RADS 1: NEGATIVE. RECOMMENDATION: Routine annual follow-up in 1 Year A letter with findings and recommendations will be mailed to the patient. Reading Location: [place] [id number]
== END | disposition home or self-care (01) ==
LOC: OPBI 15:12
PROVIDERS: PCP Family Medicine; Referring Provider Nurse Practitioner Women's Health; Visit Provider Nurse Practitioner Women's Health
DX: Z12.31 Encounter for screening mammogram for malignant neoplasm of breast (principal)
CPT/HCPCS: 77063; 77067

== ENCOUNTER → 2025-05-09 | Outpatient (CLI) | payer MEDICARE, OTHER, SELFPAY ==
[2025-05-09 10:46] LABS: AST(SGOT) 32 U/L (<=31); Alanine Aminotransfer ALT/SGPT 41 U/L (<=34); Albumin, Serum 4.2 g/dL (3.4-4.8); Alkaline Phosphatase 103 U/L (35-104); Anion Gap 11 (5-15); BUN 15 mg/dL (4-19); BUN/Creat Ratio 25.9 RATIO (10-20); CRP 11.90 mg/L (0.0-3.0); Calcium,Total 9.8 mg/dL (7.6-11.0); Carbon Dioxide 28.3 mmol/L (21.0-32.0); Chloride 103 mmol/L (98-108); Globulin 2.9 g/dL (2.2-4.2); Glucose 85 mg/dL (70-99); Potassium 4.3 mmol/L (3.3-5.1)
== END | disposition home or self-care (01) ==
LOC: MTLAB 07:40
PROVIDERS: PCP Family Medicine; Referring Provider Family Medicine; Visit Provider Family Medicine
DX: R74.8 Abnormal levels of other serum enzymes (principal); R76.8 Other specified abnormal immunological findings in serum; M25.50 Pain in unspecified joint; Z51.81 Encounter for therapeutic drug level monitoring
CPT/HCPCS: 36415; 80053; 85652; 86038; 86140; 86617